=== PATIENT | male | born 1960 | race African-American/Black ===

== ENCOUNTER 2017-01-25 11:06 | Inpatient (IN) | payer OTHER ==
[2017-01-25] MEDS ORDERED: LEVETIRACETAM 1000 MG/NACL-ISO 100 ML IV ONE (12:12)
--- NOTE | 2017-01-25 13:11 | RADIOLOGY REPORT (SQ) ---
EXAM DESCRIPTION: CT HEAD WITHOUT COMPLETED DATE/TIME: 01/25/2017 12:55 pm REASON FOR STUDY: sz head pain COMPARISON: July 2016 TECHNIQUE: Axial images acquired through the brain without intravenous contrast. Images reviewed wi th bone, brain and subdural windows. Images stored on PACS. All CT scanners at this facility use dose modulation, iterative reconstruction, and/or weight based d osing when appropriate to reduce radiation dose to as low as reasonably achievable (ALARA). [facility]: Dose Right [facility]: CareDose [facility]: Dose Right [facility]: Teradose 4D [facility]: Printi RADIATION DOSE: 129.22 mGy. LIMITATIONS: None. FINDINGS: VENTRICLES: Normal size and contour. CEREBRUM: No masses. No hemorrhage. No midline shift. Normal dwyer/white matter differentiation. N o evidence for acute infarction. CEREBELLUM: No masses. No hemorrhage. No alteration of density. No evidence for acute infarction. EXTRAAXIAL SPACES: No fluid collections. No masses. ORBITS AND GLOBE: No intra- or extraconal masses. Normal contour of globe without masses. CALVARIUM: No fracture. PARANASAL SINUSES: No fluid or mucosal thickening. SOFT TISSUES: No mass or hematoma. OTHER: No other significant finding. IMPRESSION: NORMAL BRAIN CT WITHOUT CONTRAST. TECHNICAL DOCUMENTATION: JOB ID: [id number] Quality ID # [id number]: Final reports with documentation of one or more dose reduction techniques (e.g., Au tomated exposure control, adjustment of the mA and/or kV according to patient size, use of iterative reconstruction technique) 2010 [employer]- All Rights Reserved
[2017-01-25 14:20] LABS: ALCOHOL 14 mg/dL (NONE DETECTED); ANION GAP 17 (5-19); BLOOD UREA NITROGEN 9 mg/dL (7-20); CARBON DIOXIDE 23 mmol/L (22-30); CHLORIDE 80 mmol/L (98-107); CREATININE RESULT 0.95 mg/dL (0.52-1.25); GLUCOSE 84 mg/dL (75-110); MAGNESIUM 1.6 mg/dL (1.6-2.3); POTASSIUM 3.8 mmol/L (3.6-5.0)
[2017-01-25] MEDS ORDERED: NORMAL SALINE 1000 ML 1,000 ML IV ONE (14:26)
[2017-01-25 14:39] LABS: VALPROIC ACID < 10.0 ug/mL (50.0-120.0)
[2017-01-25] MEDS ORDERED: DIVALPROEX SODIUM 500 MG TAB.SR.24H PO ONE (14:59)
[2017-01-25 15:17] LABS: HEMATOCRIT 37.3 % (37.9-51.0); HEMOGLOBIN 12.3 g/dL (13.5-17.0); HGB HCT DIFFERENCE -0.4; MEAN CORPUSCULAR HEMOGLOBIN 26.5 pg (27.0-33.4); MEAN CORPUSCULAR VOLUME 80 fl (80-97); RED BLOOD COUNT 4.65 10^6/uL (4.35-5.55); RED CELL DISTRIBUTION WIDTH 18.9 % (11.5-14.0); WHITE BLOOD COUNT 4.1 10^3/uL (4.0-10.5)
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
[2017-01-25 15:57] LABS: BASOPHILS % (MANUAL) 0 % (0-2); EOSINOPHILS % (MANUAL) 0 % (0-6); LYMPHOCYTES % (MANUAL) 34 % (13-45); TOTAL CELLS COUNTED 100
[2017-01-25 16:00] LABS: ANISOCYTOSIS 1+; BURR CELLS SLIGHT; OVALOCYTES SLIGHT; POIKILOCYTOSIS 2+; SCHISTOCYTES SLIGHT
[2017-01-25 16:03] LABS: MICROCYTOSIS SLIGHT; TARGET CELLS 3+
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
[2017-01-25] MEDS ORDERED: NORMAL SALINE 1000 ML 1,000 ML IV PRN (17:34)
[2017-01-25] MEDS ORDERED: LORAZEPAM INJ 2 MG/1 ML VIAL IV PRN (17:41)
[2017-01-25] MEDS ORDERED: ACETAMINOPHEN 325 MG TABLET PO PRN (17:47)
[2017-01-25] MEDS ORDERED: HYDRALAZINE HCL INJ/PF 20 MG/1 ML SDV IV PRN (17:48)
[2017-01-25] MEDS: TRAMADOL HCL 50 MG TABLET PO PRN (18:03)
[2017-01-25 20:38] LABS: APPEARANCE,URINE CLEAR; BILIRUBIN,URINE NEGATIVE (NEGATIVE); GLUCOSE, URINE NEGATIVE (NEGATIVE); KETONES,URINE NEGATIVE (NEGATIVE); LEUKOCYTE ESTERASE,URINE NEGATIVE (NEGATIVE); NITRITE,URINE NEGATIVE (NEGATIVE); PROTEIN,URINE NEGATIVE (NEGATIVE); URINE SPECIFIC GRAVITY 1.005; UROBILINOGEN,URINE NEGATIVE mg/dL (<2.0)
[2017-01-25 20:52] LABS: URINE BARBITURATES SCREEN NEGATIVE; URINE METHADONE SCREEN NEGATIVE; URINE OPIATES LOW NEGATIVE; URINE PHENCYCLIDINE SCREEN NEGATIVE
[2017-01-25] MEDS: LORAZEPAM 1 MG TABLET PO PRN (21:12)
[2017-01-26] MEDS: TRAMADOL HCL 50 MG TABLET PO PRN ×3 (00:09→17:36)
[2017-01-26 06:01] LABS: ANION GAP 11 (5-19); BLOOD UREA NITROGEN 8 mg/dL (7-20); CALCIUM 9.3 mg/dL (8.4-10.2); CARBON DIOXIDE 24 mmol/L (22-30); CHLORIDE 89 mmol/L (98-107); GLUCOSE 90 mg/dL (75-110); MAGNESIUM 1.6 mg/dL (1.6-2.3); POTASSIUM 3.8 mmol/L (3.6-5.0); SODIUM 124.2 mmol/L (137-145)
[2017-01-26 06:13] LABS: HEMATOCRIT 35.1 % (37.9-51.0); HEMOGLOBIN 11.3 g/dL (13.5-17.0); HGB HCT DIFFERENCE -1.2; MEAN CORPUSCULAR HGB CONC 32.3 g/dL (32.0-36.0); MEAN CORPUSCULAR VOLUME 81 fl (80-97); RED BLOOD COUNT 4.35 10^6/uL (4.35-5.55); RED CELL DISTRIBUTION WIDTH 19.3 % (11.5-14.0); WHITE BLOOD COUNT 4.1 10^3/uL (4.0-10.5)
[2017-01-26 06:32] LABS: BASOPHILS % (MANUAL) 0 % (0-2); EOSINOPHILS % (MANUAL) 0 % (0-6); NUCLEATED RED BLOOD CELLS 1 /100 WBC (0); TOTAL CELLS COUNTED 100
[2017-01-26 06:34] LABS: ANISOCYTOSIS 2+; BURR CELLS SLIGHT; HOWELL-JOLLY BODIES PRESENT; HYPOCHROMASIA SLIGHT; OVALOCYTES SLIGHT; POIKILOCYTOSIS 1+; TARGET CELLS 1+; TEAR DROP CELLS SLIGHT; TOXIC VACUOLATION PRESENT
[2017-01-26 06:36] LABS: LYMPHOCYTES % (MANUAL) 69 % (13-45)
[2017-01-26] MEDS: LORAZEPAM 1 MG TABLET PO PRN ×2 (09:48→17:37)
--- NOTE | 2017-01-26 13:39 | PDOC PROGRESS REPORT ---
Subjective Progress Note for:: 01/26/17 Subjective:: This is a follow-up visit for hyponatremia. The patient had no acute events overnight. He states he got plenty of rest. He denies any chest pain or shortness of breath. He still complains of a headache. Physical Exam Vital Signs: Temp Pulse Resp BP Pulse Ox 98.2 F 72 16 120/75 100 01/26/17 07:14 01/26/17 08:00 01/26/17 08:00 01/26/17 08:00 01/26/17 08:00 Intake & Output 01/25/17 01/26/17 01/27/17 06:59 06:59 06:59 Intake Total 850 Output Total 1400 Balance -550 Weight 66.3 kg Physical exam: General: This is a well-developed, malnourished appearing -[place] male resting in bed currently in no acute distress. Heart: Regular rate and rhythm no murmurs rubs or gallops. Lungs: Clear to auscultation bilaterally with equal rise and fall of the chest. Abdomen: Soft nontender, nondistended. Colostomy is present. The bag is filled with soft brown stool. Extremities: No clubbing cyanosis or edema. Neuro: Awake and alert oriented 3. Nerves II through XII are grossly intact Results Laboratory Results: 01/26/17 04:58 01/26/17 04:58 01/25/17 01/26/17 01/26/17 20:15 04:58 04:58 WBC 4.1 RBC 4.35 Hgb 11.3 L Hct 35.1 L MCV 81 MCH 26.0 L MCHC 32.3 RDW 19.3 H Plt Count 325 Seg Neutrophils % Not Reportable Lymphocytes % Not Reportable Monocytes % Not Reportable Eosinophils % Not Reportable Basophils % Not Reportable Absolute Neutrophils Not Reportable Absolute Lymphocytes Not Reportable Absolute Monocytes Not Reportable Absolute Eosinophils Not Reportable Absolute Basophils Not Reportable Sodium 124.2 L Potassium 3.8 Chloride 89 L Carbon Dioxide 24 Anion Gap 11 BUN 8 Creatinine 0.90 Est GFR ( Amer) > 60 Est GFR (Non-Af Amer) > 60 Glucose 90 Calcium 9.3 Magnesium 1.6 TSH Urine Color YELLOW Urine Appearance CLEAR Urine pH 6.0 Ur Specific [place] 1.005 Urine Protein NEGATIVE Urine Glucose (UA) NEGATIVE Urine Ketones NEGATIVE Urine Blood NEGATIVE Urine Nitrite NEGATIVE Ur Leukocyte Esterase NEGATIVE Urine WBC (Auto) 0 01/26/17 04:58 WBC RBC Hgb Hct MCV MCH MCHC RDW Plt Count Seg Neutrophils % Lymphocytes % Monocytes % Eosinophils % Basophils % Absolute Neutrophils Absolute Lymphocytes Absolute Monocytes Absolute Eosinophils Absolute Basophils Sodium Potassium Chloride Carbon Dioxide Anion Gap BUN Creatinine Est GFR ( Amer) Est GFR (Non-Af Amer) Glucose Calcium Magnesium TSH 1.47 Urine Color Urine Appearance Urine pH Ur Specific [place] Urine Protein Urine Glucose (UA) Urine Ketones Urine Blood Urine Nitrite Ur Leukocyte Esterase Urine WBC (Auto) Impressions: Head CT 01/25/17 12:11 IMPRESSION: NORMAL BRAIN CT WITHOUT CONTRAST. Assessment & Plan - Diagnosis (1) Seizure disorder Plan: Patient has a known history of seizure disorder. He was started on Depakote and Keppra. No acute events overnight. (2) Hyponatremia Plan: Sodium is currently 125. Continue IV fluids. (3) Status post ileostomy Plan: Colostomy bag is intact. (4) Adrenal insufficiency Plan: Patient has a history of this documented in previous records. He is unaware of any such diagnosis. Home medications cannot be confirmed. Check a.m. cortisol (5) Alcohol use Plan: For alcohol withdrawal. Ativan available as needed. (6) Hypertension Plan: History of hypertension and supposedly is on Norvasc as an outpatient. we will need to contact his pharmacy. Currently his blood pressure is under control. (7) History of upper gastrointestinal bleeding Plan: Has a history of gastric ulcer hemorrhage secondary to coagulate use and NSAIDs. He has bled twice from this. Therefore mechanical prophylaxis will be instituted. (8) Headache Plan: We will give Tylenol or Tramadol. - Time Time Spent with patient: 15-24 minutes - Inpatient Certification Medical Necessity: Need Close Monitoring Due to Risk of Patient Decompensation, Need For IV Fluids
[2017-01-26 14:55] LABS: HEMATOCRIT 33.6 % (37.9-51.0); HEMOGLOBIN 10.9 g/dL (13.5-17.0); HGB HCT DIFFERENCE -0.9; MEAN CORPUSCULAR HEMOGLOBIN 26.3 pg (27.0-33.4); MEAN CORPUSCULAR HGB CONC 32.5 g/dL (32.0-36.0); MEAN CORPUSCULAR VOLUME 81 fl (80-97); RED BLOOD COUNT 4.16 10^6/uL (4.35-5.55); RED CELL DISTRIBUTION WIDTH 19.5 % (11.5-14.0); WHITE BLOOD COUNT 4.2 10^3/uL (4.0-10.5)
[2017-01-26 15:09] LABS: BASOPHILS % (MANUAL) 1 % (0-2); EOSINOPHILS % (MANUAL) 0 % (0-6); LYMPHOCYTES % (MANUAL) 53 % (13-45); TOTAL CELLS COUNTED 100
[2017-01-26 15:11] LABS: ANISOCYTOSIS 1+; HYPOCHROMASIA 1+; OVALOCYTES SLIGHT; POIKILOCYTOSIS 2+; TARGET CELLS 1+
[2017-01-26 15:12] LABS: BURR CELLS SLIGHT
[2017-01-26] MEDS ORDERED: DIPHENHYDRAMINE HCL 25 MG CAPSULE ONE (17:38)
[2017-01-26] MEDS ORDERED: (PENDING PHARMACY ID) (Divalproex Sodium [Depakote] 500 MG) PO SCH (20:00)
[2017-01-26] MEDS ORDERED: DIVALPROEX SODIUM 250 MG TABLET.DR PO SCH (20:45)
[2017-01-26] MEDS: DIPHENHYDRAMINE HCL 25 MG CAPSULE PO PRN (22:30)
[2017-01-27] MEDS: GABAPENTIN 300 MG CAPSULE PO SCH ×3 (01:10→11:28)
[2017-01-27 05:14] LABS: ANION GAP 10 (5-19); BLOOD UREA NITROGEN 8 mg/dL (7-20); CALCIUM 9.8 mg/dL (8.4-10.2); CARBON DIOXIDE 25 mmol/L (22-30); CHLORIDE 99 mmol/L (98-107); CREATININE RESULT 0.88 mg/dL (0.52-1.25); GLUCOSE 91 mg/dL (75-110); MAGNESIUM 1.7 mg/dL (1.6-2.3); POTASSIUM 4.4 mmol/L (3.6-5.0); SODIUM 134.2 mmol/L (137-145)
[2017-01-27] MEDS ORDERED: DEXTROSE 5%-WATER 1000 ML 1,000 ML IV ONE (05:52)
[2017-01-27] MEDS: DIPHENHYDRAMINE HCL 25 MG CAPSULE PO PRN (05:57)
[2017-01-27] MEDS ORDERED: LANSOPRAZOLE 30 MG TAB.RAP.DR PO SCH (08:00)
[2017-01-27] MEDS ORDERED: HYDROCORTISONE 10 MG TABLET PO SCH (10:00)
[2017-01-27] MEDS ORDERED: SERTRALINE HCL 50 MG TABLET PO SCH (10:00)
[2017-01-27] MEDS ORDERED: LEVETIRACETAM 500 MG TABLET PO SCH (10:00)
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
[2017-01-27 11:49] VITALS: BP 134/68
--- NOTE | 2017-01-28 09:38 | EKG REPORT ---
SEVERITY:- ABNORMAL ECG - SINUS RHYTHM LEFT VENTRICULAR HYPERTROPHY ANTERIOR ST ELEVATION, PROBABLY DUE TO LVH : Confirmed by: Seven Keller 28-Jan-2017 09:37:36
[2017-01-29 09:03] LABS: PATH REVIEW PATHOLOGIST REVIEWED
== END 2017-01-27 12:27 | disposition home or self-care (01) | DRG 641 ==
LOC: ER 11:06 → UNDOADMIN 16:17 → EH 16:17 → 3N 18:44
PROVIDERS: ADMIT Internal Medicine; ATTEND Internal Medicine
DX: E87.1 Hypo-osmolality and hyponatremia (principal); E27.40 Unspecified adrenocortical insufficiency; G40.909 Epilepsy, unspecified, not intractable, without status epilepticus; I11.0 Hypertensive heart disease with heart failure; I50.9 Heart failure, unspecified; F17.210 Nicotine dependence, cigarettes, uncomplicated; J45.909 Unspecified asthma, uncomplicated; E11.9 Type 2 diabetes mellitus without complications; F32.9 Major depressive disorder, single episode, unspecified; F10.10 Alcohol abuse, uncomplicated; R51 Headache; Z87.11 Personal history of peptic ulcer disease; Z90.49 Acquired absence of other specified parts of digestive tract; Z79.899 Other long term (current) drug therapy; Z83.3 Family history of diabetes mellitus; Z82.49 Family history of ischemic heart disease and other diseases of the circulatory system; Z88.6 Allergy status to analgesic agent; Z91.041 Radiographic dye allergy status; Z93.2 Ileostomy status; Z91.19 Patient's noncompliance with other medical treatment and regimen; Z68.22 Body mass index [BMI] 22.0-22.9, adult
CPT/HCPCS: 36415; 70450; 80048; 80164; 80177; 80307; 81001; 82140; 82533; 83735; 84443; 85025; 93005; 93010; 96361; 96374; 99285; J1953; J3490; J7030; J7060

== ENCOUNTER 2017-03-16 21:12 | Inpatient (IN) | payer OTHER ==
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
[2017-03-16] MEDS ORDERED: ASPIRIN 325 MG TABLET PO ONE (22:52)
[2017-03-16 23:35] LABS: ALANINE AMINOTRANSFERASE 41 U/L (21-72); ALBUMIN 4.9 g/dL (3.5-5.0); ALKALINE PHOSPHATASE 109 U/L (38-126); ANION GAP 16 (5-19); ASPARTATE AMINO TRANSFERASE 69 U/L (17-59); BILIRUBIN,DIRECT 0.6 mg/dL (0.0-0.4); BILIRUBIN,TOTAL 0.7 mg/dL (0.2-1.3); BLOOD UREA NITROGEN 5 mg/dL (7-20); CALCIUM 9.8 mg/dL (8.4-10.2); CARBON DIOXIDE 22 mmol/L (22-30); CHLORIDE 80 mmol/L (98-107); CREATININE RESULT 0.85 mg/dL (0.52-1.25); GLUCOSE 90 mg/dL (75-110); POTASSIUM 3.7 mmol/L (3.6-5.0); TOTAL PROTEIN 8.6 g/dL (6.3-8.2)
[2017-03-16 23:37] LABS: SODIUM 117.6 mmol/L (137-145)
[2017-03-16] MEDS ORDERED: NORMAL SALINE 1000 ML 1,000 ML IV ONE (23:38)
[2017-03-16 23:44] LABS: HEMATOCRIT 32.9 % (37.9-51.0); HGB HCT DIFFERENCE 0.1; MEAN CORPUSCULAR HEMOGLOBIN 26.3 pg (27.0-33.4); MEAN CORPUSCULAR HGB CONC 33.6 g/dL (32.0-36.0); MEAN CORPUSCULAR VOLUME 78 fl (80-97); RED CELL DISTRIBUTION WIDTH 18.9 % (11.5-14.0); WHITE BLOOD COUNT 4.6 10^3/uL (4.0-10.5)
[2017-03-16] MEDS ORDERED: NORMAL SALINE 1000 ML 1,000 ML IV PRN (23:56)
[2017-03-16] MEDS ORDERED: ACETAMINOPHEN 325 MG TABLET PO ONE (23:58)
[2017-03-16] MEDS ORDERED: THIAMINE HCL 100 MG TABLET PO ONE (23:58)
[2017-03-17 00:08] LABS: ANISOCYTOSIS 2+; BASOPHILS % (MANUAL) 0 % (0-2); EOSINOPHILS % (MANUAL) 0 % (0-6); LYMPHOCYTES % (MANUAL) 53 % (13-45); MICROCYTOSIS SLIGHT; TOTAL CELLS COUNTED 100
[2017-03-17 00:11] LABS: ACANTHOCYTES SLIGHT; BURR CELLS SLIGHT; OVALOCYTES SLIGHT; POIKILOCYTOSIS 1+; SPHEROCYTES SLIGHT; TARGET CELLS 2+
[2017-03-17 00:12] LABS: HYPOCHROMASIA SLIGHT
[2017-03-17 00:13] LABS: HOWELL-JOLLY BODIES PRESENT
[2017-03-17 00:25] LABS: ADD ON TESTING BLD IN LAB ACKNOWLEDGE
[2017-03-17 00:41] LABS: MAGNESIUM 1.5 mg/dL (1.6-2.3)
[2017-03-17 00:42] LABS: ALCOHOL < 10 mg/dL (NONE DETECTED)
--- NOTE | 2017-03-17 01:06 | RADIOLOGY REPORT (SQ) ---
"EXAM DESCRIPTION: CT HEAD WITHOUT COMPLETED DATE/TIME: 03/17/2017 12:45 am REASON FOR STUDY: dizzy COMPARISON: 6.9.17 TECHNIQUE: Axial images acquired through the brain without intravenous contrast. Images reviewed wi th bone, brain and subdural windows. Images stored on PACS. All CT scanners at this facility use dose modulation, iterative reconstruction, and/or weight based d osing when appropriate to reduce radiation dose to as low as reasonably achievable (ALARA). [facility]: Dose Right [facility]: CareDose [facility]: Dose Right [facility]: Teradose 4D [facility]: Smart Multimedia Plus | [employer] RADIATION DOSE: Up-to-date CT equipment and radiation dose reduction techniques were employed. CTDIv ol: 64.6 mGy. DLP: 1163 mGy-cm. mGy. LIMITATIONS: None. FINDINGS: VENTRICLES: Normal size and contour. CEREBRUM: No masses. No hemorrhage. No midline shift. Normal dwyer/white matter differentiation. N o evidence for acute infarction. CEREBELLUM: No masses. No hemorrhage. No alteration of density. No evidence for acute infarction. EXTRAAXIAL SPACES: No fluid collections. No masses. ORBITS AND GLOBE: No intra- or extraconal masses. Normal contour of globe without masses. CALVARIUM: No fracture. PARANASAL SINUSES: No fluid or mucosal thickening. SOFT TISSUES: No mass or hematoma. OTHER: No other significant finding. IMPRESSION: NORMAL BRAIN CT WITHOUT CONTRAST. TECHNICAL DOCUMENTATION: JOB ID: [id number] Quality ID # [id number]: Final reports with documentation of one or more dose reduction techniques (e.g., Au tomated exposure control, adjustment of the mA and/or kV according to patient size, use of iterative reconstruction technique) 2010 [employer]- All Rights Reserved"
[2017-03-17] MEDS ORDERED: ACETAMINOPHEN 325 MG TABLET PO PRN (02:02)
[2017-03-17] MEDS ORDERED: PROMETHAZINE HCL 25 MG TABLET PO PRN (02:02)
[2017-03-17] MEDS ORDERED: LORAZEPAM INJ 2 MG/1 ML VIAL IV PRN (02:03)
[2017-03-17] MEDS ORDERED: MAGNESIUM SULFATE/D5W 1 GM/100 ML RTUPB IV SCH (02:15)
[2017-03-17] MEDS ORDERED: PHENYTOIN SODIUM EXTENDED 100 MG CAPSULE PO ONE (02:30)
[2017-03-17 02:35] LABS: ADD ON TESTING BLD IN LAB ACKNOWLEDGE
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
[2017-03-17 02:52] LABS: PROTHROMBIN TIME 12.7 SEC (11.4-15.4)
[2017-03-17 02:53] LABS: PARTIAL THROMBOPLASTIN TIME 35.9 SEC (23.5-35.8)
[2017-03-17 03:08] LABS: VALPROIC ACID < 10.0 ug/mL (50.0-120.0)
[2017-03-17 03:13] LABS: D-DIMER < 0.27 ug/mL (0.00-0.50)
[2017-03-17 04:30] LABS: APPEARANCE,URINE CLEAR; BILIRUBIN,URINE NEGATIVE (NEGATIVE); GLUCOSE, URINE NEGATIVE (NEGATIVE); KETONES,URINE NEGATIVE (NEGATIVE); LEUKOCYTE ESTERASE,URINE NEGATIVE (NEGATIVE); NITRITE,URINE NEGATIVE (NEGATIVE); PROTEIN,URINE NEGATIVE (NEGATIVE); URINE SPECIFIC GRAVITY 1.004; UROBILINOGEN,URINE NEGATIVE mg/dL (<2.0)
[2017-03-17 04:31] LABS: ANION GAP 11 (5-19); BLOOD UREA NITROGEN 4 mg/dL (7-20); CALCIUM 8.5 mg/dL (8.4-10.2); CARBON DIOXIDE 20 mmol/L (22-30); CHLORIDE 86 mmol/L (98-107); GLUCOSE 115 mg/dL (75-110); POTASSIUM 3.2 mmol/L (3.6-5.0)
[2017-03-17 04:39] LABS: SODIUM 116.9 mmol/L (137-145)
[2017-03-17 04:51] LABS: URINE BARBITURATES SCREEN NEGATIVE; URINE METHADONE SCREEN NEGATIVE; URINE OPIATES LOW NEGATIVE; URINE PHENCYCLIDINE SCREEN NEGATIVE
--- NOTE | 2017-03-17 05:34 | RADIOLOGY REPORT (SQ) ---
EXAM DESCRIPTION: CHEST SINGLE VIEW COMPLETED DATE/TIME: 03/17/2017 3:49 am REASON FOR STUDY: chest pain COMPARISON: 08/05/2016. EXAM PARAMETERS: NUMBER OF VIEWS: One view. TECHNIQUE: Single frontal radiographic view of the chest acquired. RADIATION DOSE: NA LIMITATIONS: None. FINDINGS: LUNGS AND PLEURA: No opacities, masses or pneumothorax. No pleural effusion. MEDIASTINUM AND HILAR STRUCTURES: No masses. Contour normal. HEART AND VASCULAR STRUCTURES: Heart normal in size. Normal vasculature. BONES: Moderate deformity of the left lower hemithorax posterolaterally. HARDWARE: None in the chest. OTHER: No other significant finding. IMPRESSION: No acute cardiopulmonary findings. TECHNICAL DOCUMENTATION: JOB ID: [id number]
[2017-03-17] MEDS: POTASSIUM CHLORIDE 20 MEQ/15 ML UDCUP PO SCH ×3 (05:37→09:40)
[2017-03-17] MEDS ORDERED: PHENYTOIN SODIUM EXTENDED 100 MG CAPSULE PO SCH ×2 (06:00→10:00)
[2017-03-17 08:03] LABS: HEMATOCRIT 31.7 % (37.9-51.0); HEMOGLOBIN 10.7 g/dL (13.5-17.0); HGB HCT DIFFERENCE 0.4; MEAN CORPUSCULAR HEMOGLOBIN 26.6 pg (27.0-33.4); MEAN CORPUSCULAR HGB CONC 33.8 g/dL (32.0-36.0); MEAN CORPUSCULAR VOLUME 79 fl (80-97); RED BLOOD COUNT 4.03 10^6/uL (4.35-5.55); RED CELL DISTRIBUTION WIDTH 19.3 % (11.5-14.0); WHITE BLOOD COUNT 4.1 10^3/uL (4.0-10.5)
[2017-03-17] MEDS ORDERED: LANSOPRAZOLE 15 MG TAB.RAP.DR PO ONE (08:15)
[2017-03-17] MEDS ORDERED: GABAPENTIN 400 MG CAPSULE PO ONE (08:15)
[2017-03-17 08:17] LABS: ALANINE AMINOTRANSFERASE 25 U/L (21-72); ALBUMIN 3.5 g/dL (3.5-5.0); ALKALINE PHOSPHATASE 94 U/L (38-126); ANION GAP 10 (5-19); ASPARTATE AMINO TRANSFERASE 47 U/L (17-59); BILIRUBIN,DIRECT 0.4 mg/dL (0.0-0.4); BILIRUBIN,TOTAL 0.5 mg/dL (0.2-1.3); BLOOD UREA NITROGEN 4 mg/dL (7-20); CALCIUM 8.8 mg/dL (8.4-10.2); CARBON DIOXIDE 21 mmol/L (22-30); CHLORIDE 88 mmol/L (98-107); CHOLESTEROL 130.44 mg/dL (0-200); CREATININE RESULT 0.83 mg/dL (0.52-1.25); Direct HDL 88 mg/dL (>40); GLUCOSE 111 mg/dL (75-110); TOTAL PROTEIN 6.3 g/dL (6.3-8.2); TRIGLYCERIDES 62 mg/dL (<150)
[2017-03-17 08:30] LABS: DIRECT LDL < 30 mg/dL (<100)
[2017-03-17 08:37] LABS: BASOPHILS % (MANUAL) 1 % (0-2); EOSINOPHILS % (MANUAL) 1 % (0-6); LYMPHOCYTES % (MANUAL) 46 % (13-45); TOTAL CELLS COUNTED 100
[2017-03-17 08:56] LABS: ANISOCYTOSIS 1+; HYPOCHROMASIA 2+; MICROCYTOSIS 1+; POIKILOCYTOSIS 2+
[2017-03-17 08:57] LABS: BURR CELLS SLIGHT; OVALOCYTES SLIGHT; TARGET CELLS 1+; TEAR DROP CELLS SLIGHT
[2017-03-17] MEDS: DIVALPROEX SODIUM 250 MG TABLET.DR PO SCH ×2 (09:36→21:29)
[2017-03-17] MEDS: LEVETIRACETAM 500 MG TABLET PO SCH ×2 (09:37→18:10)
[2017-03-17] MEDS: FOLIC ACID 1 MG TABLET PO SCH (09:37)
[2017-03-17] MEDS: THIAMINE HCL 100 MG TABLET PO SCH (09:37)
[2017-03-17] MEDS: MULTIVITAMIN TABLET PO SCH (09:37)
[2017-03-17] MEDS: DOCUSATE SODIUM 100 MG CAPSULE PO SCH ×2 (09:38→18:11)
[2017-03-17] MEDS: HYDROCORTISONE 10 MG TABLET PO SCH ×2 (09:38→18:11)
[2017-03-17] MEDS: CLOPIDOGREL BISULFATE 75 MG TABLET PO SCH (09:38)
[2017-03-17] MEDS: SERTRALINE HCL 50 MG TABLET PO SCH (09:39)
[2017-03-17] MEDS: ENOXAPARIN SODIUM INJ 40 MG/0.4 ML DISP.SYRIN SUBCUT SCH (09:39)
[2017-03-17] MEDS ORDERED: MAGNESIUM SULFATE/D5W 1 GM/100 ML RTUPB IV ONE (09:45)
[2017-03-17] MEDS: OXYCODONE HCL IR 5 MG TABLET PO PRN ×2 (10:32→18:10)
--- NOTE | 2017-03-17 11:13 | EKG REPORT ---
SEVERITY:- ABNORMAL ECG - SINUS RHYTHM FIRST DEGREE AV BLOCK LEFT VENTRICULAR HYPERTROPHY ANTERIOR ST ELEVATION, PROBABLY DUE TO LVH : Confirmed by: Marilyn Kirby MD 17-Mar-2017 11:12:54
[2017-03-17 12:48] LABS: BLOOD UREA NITROGEN 4 mg/dL (7-20); CALCIUM 8.8 mg/dL (8.4-10.2); CARBON DIOXIDE 22 mmol/L (22-30); CHLORIDE 89 mmol/L (98-107); CREATININE RESULT 0.83 mg/dL (0.52-1.25); GLUCOSE 104 mg/dL (75-110); POTASSIUM 4.4 mmol/L (3.6-5.0)
[2017-03-17 12:51] LABS: ANION GAP 7 (5-19)
[2017-03-17 12:58] LABS: SODIUM 117.5 mmol/L (137-145)
--- NOTE | 2017-03-17 13:25 | PDOC PROGRESS REPORT ---
Subjective Progress Note for:: 03/17/17 Subjective:: Patient was complaining of a headache today and wanted pain medication. He was then threatening to leave AGAINST MEDICAL ADVICE. He states he has had issues with depression but denies any suicidal ideation or plan. Physical Exam Vital Signs: Temp Pulse Resp BP Pulse Ox 98.7 F 70 16 122/71 100 03/17/17 07:58 03/17/17 07:58 03/17/17 07:58 03/17/17 07:58 03/17/17 07:58 Intake & Output 03/16/17 03/17/17 03/18/17 06:59 06:59 06:59 Intake Total 1395 Balance 1395 Weight 59.6 kg GENERAL: No acute distress HEENT: Conjunctiva clear, nonicteric, moist mucous membranes, no JVD, midline trachea RESPIRATORY: Clear to auscultation bilaterally, no wheezes, no rhonchi CARDIAC: Regular rate and rhythm, no murmurs/gallops/rubs ABDOMEN: Soft, nondistended, nontender, positive bowel sounds, no rebound, no guarding. Ileostomy present EXTREMETIES: No edema, cyanosis, clubbing NEUROLOGIC: Alert, oriented to person/place/time, CN's grossly intact, no focal deficits SKIN: No rash, wounds PSYCH: Normal mood, normal affect Results Laboratory Results: 03/17/17 07:45 03/17/17 12:00 03/17/17 03/17/17 03/17/17 03:53 03:59 07:45 WBC RBC Hgb Hct MCV MCH MCHC RDW Plt Count Seg Neutrophils % Lymphocytes % Monocytes % Eosinophils % Basophils % Absolute Neutrophils Absolute Lymphocytes Absolute Monocytes Absolute Eosinophils Absolute Basophils Sodium 116.9 L* 119.0 L* Potassium 3.2 L 4.0 Chloride 86 L 88 L Carbon Dioxide 20 L 21 L Anion Gap 11 10 BUN 4 L 4 L Creatinine 0.80 0.83 Est GFR ( Amer) > 60 > 60 Est GFR (Non-Af Amer) > 60 > 60 Glucose 115 H 111 H Calcium 8.5 8.8 Total Bilirubin 0.5 AST 47 ALT 25 Alkaline Phosphatase 94 Total Protein 6.3 Albumin 3.5 Triglycerides 62 Cholesterol 130.44 LDL Cholesterol Direct < 30 VLDL Cholesterol 12.0 HDL Cholesterol 88 Urine Color YELLOW Urine Appearance CLEAR Urine pH 6.0 Ur Specific [place] 1.004 Urine Protein NEGATIVE Urine Glucose (UA) NEGATIVE Urine Ketones NEGATIVE Urine Blood NEGATIVE Urine Nitrite NEGATIVE Ur Leukocyte Esterase NEGATIVE Urine WBC (Auto) 1 03/17/17 03/17/17 07:45 12:00 WBC 4.1 RBC 4.03 L Hgb 10.7 L Hct 31.7 L MCV 79 L MCH 26.6 L MCHC 33.8 RDW 19.3 H Plt Count 288 Seg Neutrophils % Not Reportable Lymphocytes % Not Reportable Monocytes % Not Reportable Eosinophils % Not Reportable Basophils % Not Reportable Absolute Neutrophils Not Reportable Absolute Lymphocytes Not Reportable Absolute Monocytes Not Reportable Absolute Eosinophils Not Reportable Absolute Basophils Not Reportable Sodium 117.5 L* Potassium 4.4 Chloride 89 L Carbon Dioxide 22 Anion Gap 7 BUN 4 L Creatinine 0.83 Est GFR ( Amer) > 60 Est GFR (Non-Af Amer) > 60 Glucose 104 Calcium 8.8 Total Bilirubin AST ALT Alkaline Phosphatase Total Protein Albumin Triglycerides Cholesterol LDL Cholesterol Direct VLDL Cholesterol HDL Cholesterol Urine Color Urine Appearance Urine pH Ur Specific [place] Urine Protein Urine Glucose (UA) Urine Ketones Urine Blood Urine Nitrite Ur Leukocyte Esterase Urine WBC (Auto) 03/17/17 03/17/17 03/17/17 03:59 07:45 12:10 Troponin I < 0.012 0.012 < 0.012 Impressions: Chest X-Ray 03/17/17 00:00 IMPRESSION: No acute cardiopulmonary findings. Head CT 03/17/17 00:00 IMPRESSION: NORMAL BRAIN CT WITHOUT CONTRAST. Assessment & Plan - Diagnosis (1) Hyponatremia Is this a current diagnosis for this admission?: YesPlan: Likely secondary to alcohol intake and ileostomy. Continue IV normal saline. (2) Depression Is this a current diagnosis for this admission?: YesPlan: Continue Zoloft. Patient denies suicidal ideation or plan. Psychology consult. (3) Hypomagnesemia Is this a current diagnosis for this admission?: Yes (4) History of DVT (deep vein thrombosis) Is this a current diagnosis for this admission?: YesPlan: Currently not on coagulation secondary to history of GI bleed. (5) Adrenal insufficiency Is this a current diagnosis for this admission?: YesPlan: Hydrocortisone. (6) Alcohol use Is this a current diagnosis for this admission?: Yes (7) Hepatitis C Is this a current diagnosis for this admission?: Yes (8) History of upper gastrointestinal bleeding Is this a current diagnosis for this admission?: Yes (9) Seizure disorder Is this a current diagnosis for this admission?: YesPlan: Continue Irene and Asha. (10) Status post ileostomy Is this a current diagnosis for this admission?: Yes (11) Headache Is this a current diagnosis for this admission?: YesPlan: Head CT negative. - Time Time Spent with patient: 35 or more minutes
[2017-03-17] MEDS: TRAMADOL HCL 50 MG TABLET PO PRN ×2 (13:39→22:11)
[2017-03-17] MEDS: GABAPENTIN 400 MG CAPSULE PO SCH ×2 (13:39→21:28)
[2017-03-17] MEDS: NORMAL SALINE 1000 ML 1,000 ML IV PRN (18:51)
[2017-03-18] MEDS: OXYCODONE HCL IR 5 MG TABLET PO PRN ×2 (00:11→07:57)
[2017-03-18] MEDS: NORMAL SALINE 1000 ML 1,000 ML IV PRN ×3 (03:21→23:32)
[2017-03-18 04:20] LABS: HEMOGLOBIN 10.1 g/dL (13.5-17.0); HGB HCT DIFFERENCE 0.3; MEAN CORPUSCULAR HEMOGLOBIN 26.5 pg (27.0-33.4); MEAN CORPUSCULAR HGB CONC 33.8 g/dL (32.0-36.0); MEAN CORPUSCULAR VOLUME 79 fl (80-97); RED BLOOD COUNT 3.83 10^6/uL (4.35-5.55); RED CELL DISTRIBUTION WIDTH 19.4 % (11.5-14.0); WHITE BLOOD COUNT 4.3 10^3/uL (4.0-10.5)
[2017-03-18 04:24] LABS: ANION GAP 10 (5-19); BLOOD UREA NITROGEN 3 mg/dL (7-20); CALCIUM 9.1 mg/dL (8.4-10.2); CARBON DIOXIDE 20 mmol/L (22-30); CHLORIDE 102 mmol/L (98-107); CREATININE RESULT 0.86 mg/dL (0.52-1.25); GLUCOSE 110 mg/dL (75-110); MAGNESIUM 2.1 mg/dL (1.6-2.3); POTASSIUM 4.7 mmol/L (3.6-5.0); SODIUM 131.7 mmol/L (137-145)
[2017-03-18 04:55] LABS: BASOPHILS % (MANUAL) 0 % (0-2); EOSINOPHILS % (MANUAL) 0 % (0-6); LYMPHOCYTES % (MANUAL) 23 % (13-45); TOTAL CELLS COUNTED 100
[2017-03-18 05:06] LABS: ACANTHOCYTES 1+; ANISOCYTOSIS 2+; BURR CELLS 1+; HYPOCHROMASIA 1+; MICROCYTOSIS SLIGHT; OVALOCYTES 1+; POIKILOCYTOSIS 3+; TOXIC VACUOLATION PRESENT
[2017-03-18 05:07] LABS: TARGET CELLS 3+; TEAR DROP CELLS SLIGHT
[2017-03-18] MEDS: LANSOPRAZOLE 15 MG TAB.RAP.DR PO SCH (06:35)
[2017-03-18] MEDS: GABAPENTIN 400 MG CAPSULE PO SCH ×3 (06:35→21:01)
[2017-03-18] MEDS: TRAMADOL HCL 50 MG TABLET PO PRN (07:18)
[2017-03-18] MEDS: ENOXAPARIN SODIUM INJ 40 MG/0.4 ML DISP.SYRIN SUBCUT SCH (09:29)
[2017-03-18] MEDS: HYDROCORTISONE 10 MG TABLET PO SCH ×2 (09:29→19:33)
[2017-03-18] MEDS: CLOPIDOGREL BISULFATE 75 MG TABLET PO SCH (09:29)
[2017-03-18] MEDS: THIAMINE HCL 100 MG TABLET PO SCH (09:29)
[2017-03-18] MEDS: MULTIVITAMIN TABLET PO SCH (09:29)
[2017-03-18] MEDS: DIVALPROEX SODIUM 250 MG TABLET.DR PO SCH ×2 (09:30→21:01)
[2017-03-18] MEDS: SERTRALINE HCL 50 MG TABLET PO SCH (09:30)
[2017-03-18] MEDS: LEVETIRACETAM 500 MG TABLET PO SCH ×2 (09:30→19:33)
[2017-03-18] MEDS: FOLIC ACID 1 MG TABLET PO SCH (09:30)
[2017-03-18] MEDS: DOCUSATE SODIUM 100 MG CAPSULE PO SCH ×2 (09:34→19:32)
[2017-03-18] MEDS ORDERED: LORAZEPAM INJ 2 MG/1 ML VIAL IV PRN (10:32)
[2017-03-18] MEDS ORDERED: DIPHENHYDRAMINE HCL 50 MG/ML VIAL IV ONE (11:00)
--- NOTE | 2017-03-18 11:39 | PDOC PROGRESS REPORT ---
Physical Exam Vital Signs: Temp Pulse Resp BP Pulse Ox 98.1 F 84 16 138/74 H 100 03/18/17 07:02 03/18/17 07:02 03/18/17 07:02 03/18/17 07:02 03/18/17 07:02 Intake & Output 03/17/17 03/18/17 03/19/17 06:59 06:59 06:59 Intake Total 1395 2250 Output Total 4100 Balance 1395 -1850 Weight 59.6 kg 60.1 kg Results Laboratory Results: 03/18/17 03:59 03/18/17 03:59 03/17/17 03/18/17 03/18/17 12:00 03:59 03:59 WBC 4.3 RBC 3.83 L Hgb 10.1 L Hct 30.0 L MCV 79 L MCH 26.5 L MCHC 33.8 RDW 19.4 H Plt Count 271 Seg Neutrophils % Not Reportable Lymphocytes % Not Reportable Monocytes % Not Reportable Eosinophils % Not Reportable Basophils % Not Reportable Absolute Neutrophils Not Reportable Absolute Lymphocytes Not Reportable Absolute Monocytes Not Reportable Absolute Eosinophils Not Reportable Absolute Basophils Not Reportable Sodium 117.5 L* 131.7 L Potassium 4.4 4.7 Chloride 89 L 102 Carbon Dioxide 22 20 L Anion Gap 7 10 BUN 4 L 3 L Creatinine 0.83 0.86 Est GFR ( Amer) > 60 > 60 Est GFR (Non-Af Amer) > 60 > 60 Glucose 104 110 Calcium 8.8 9.1 Magnesium 2.1 03/17/17 03/17/17 03/17/17 03:59 07:45 12:10 Troponin I < 0.012 0.012 < 0.012 03/18/17 03:59 Troponin I < 0.012 Impressions: Chest X-Ray 03/17/17 00:00 IMPRESSION: No acute cardiopulmonary findings. Head CT 03/17/17 00:00 IMPRESSION: NORMAL BRAIN CT WITHOUT CONTRAST. Assessment & Plan - Diagnosis (1) Alcohol withdrawal Qualifiers: Complication of substance-induced condition: uncomplicated Qualified Code(s): F10.230 - Alcohol dependence with withdrawal, uncomplicated Is this a current diagnosis for this admission?: YesPlan: Start as needed IV Ativan. Continue IV thiamine. Order sitter as patient continuously tries to get out of bed unassisted. (2) Alcohol use Is this a current diagnosis for this admission?: Yes (3) Hyponatremia Is this a current diagnosis for this admission?: YesPlan: Likely secondary to alcohol intake and ileostomy. Continue IV normal saline. (4) Depression Is this a current diagnosis for this admission?: Yes (5) Hypomagnesemia Is this a current diagnosis for this admission?: Yes (6) History of DVT (deep vein thrombosis) Is this a current diagnosis for this admission?: Yes (7) Adrenal insufficiency Is this a current diagnosis for this admission?: YesPlan: Hydrocortisone. (8) Hepatitis C Is this a current diagnosis for this admission?: Yes (9) History of upper gastrointestinal bleeding Is this a current diagnosis for this admission?: Yes (10) Seizure disorder Is this a current diagnosis for this admission?: YesPlan: Continue Keppra and Depakote. (11) Status post ileostomy Is this a current diagnosis for this admission?: Yes - Time Time Spent with patient: 35 or more minutes
[2017-03-18 14:23] LABS: PATH REVIEW PATHOLOGIST REVIEWED
[2017-03-18] MEDS ORDERED: PROMETHAZINE HCL 25 MG TABLET PO PRN (15:24)
[2017-03-18] MEDS: LORAZEPAM INJ 2 MG/1 ML VIAL IV PRN ×2 (15:26→21:02)
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
[2017-03-19] MEDS: LORAZEPAM INJ 2 MG/1 ML VIAL IV PRN ×4 (00:15→19:59)
[2017-03-19] MEDS: LANSOPRAZOLE 15 MG TAB.RAP.DR PO SCH (05:19)
[2017-03-19] MEDS: GABAPENTIN 400 MG CAPSULE PO SCH ×3 (05:19→22:29)
[2017-03-19 05:46] LABS: MEAN CORPUSCULAR HEMOGLOBIN 26.2 pg (27.0-33.4)
[2017-03-19 05:48] LABS: HEMATOCRIT 32.3 % (37.9-51.0); HEMOGLOBIN 10.6 g/dL (13.5-17.0); HGB HCT DIFFERENCE -0.5; MEAN CORPUSCULAR HGB CONC 32.9 g/dL (32.0-36.0); MEAN CORPUSCULAR VOLUME 80 fl (80-97); RED BLOOD COUNT 4.04 10^6/uL (4.35-5.55); RED CELL DISTRIBUTION WIDTH 19.1 % (11.5-14.0)
[2017-03-19 05:57] LABS: ANION GAP 9 (5-19); BLOOD UREA NITROGEN 5 mg/dL (7-20); CALCIUM 9.2 mg/dL (8.4-10.2); CARBON DIOXIDE 25 mmol/L (22-30); CHLORIDE 104 mmol/L (98-107); CREATININE RESULT 0.89 mg/dL (0.52-1.25); GLUCOSE 101 mg/dL (75-110); MAGNESIUM 1.8 mg/dL (1.6-2.3); POTASSIUM 4.5 mmol/L (3.6-5.0); SODIUM 137.8 mmol/L (137-145)
[2017-03-19 06:14] LABS: BASOPHILS % (MANUAL) 0 % (0-2); EOSINOPHILS % (MANUAL) 2 % (0-6); LYMPHOCYTES % (MANUAL) 30 % (13-45); TOTAL CELLS COUNTED 100
[2017-03-19 06:16] LABS: ANISOCYTOSIS 2+; BURR CELLS 1+; HYPOCHROMASIA 1+; MICROCYTOSIS SLIGHT; OVALOCYTES SLIGHT; POIKILOCYTOSIS 2+; SCHISTOCYTES SLIGHT; TARGET CELLS 1+; TOXIC GRANULATION SLIGHT; TOXIC VACUOLATION PRESENT
[2017-03-19] MEDS: NORMAL SALINE 1000 ML 1,000 ML IV PRN (09:16)
[2017-03-19] MEDS: ENOXAPARIN SODIUM INJ 40 MG/0.4 ML DISP.SYRIN SUBCUT SCH (09:48)
[2017-03-19] MEDS: THIAMINE HCL 100 MG TABLET PO SCH (09:48)
[2017-03-19] MEDS: LEVETIRACETAM 500 MG TABLET PO SCH ×2 (09:49→19:47)
[2017-03-19] MEDS: SERTRALINE HCL 50 MG TABLET PO SCH (09:49)
[2017-03-19] MEDS: MULTIVITAMIN TABLET PO SCH (09:49)
[2017-03-19] MEDS: CLOPIDOGREL BISULFATE 75 MG TABLET PO SCH (09:49)
[2017-03-19] MEDS: DOCUSATE SODIUM 100 MG CAPSULE PO SCH ×2 (09:49→18:35)
[2017-03-19] MEDS: HYDROCORTISONE 10 MG TABLET PO SCH ×2 (09:49→19:47)
[2017-03-19] MEDS: FOLIC ACID 1 MG TABLET PO SCH (09:50)
[2017-03-19] MEDS: DEXTROSE 5%-WATER 1000 ML 1,000 ML IV PRN (12:18)
[2017-03-19] MEDS: DIVALPROEX SODIUM 250 MG TABLET.DR PO SCH ×2 (14:19→22:29)
[2017-03-19] MEDS: DIAZEPAM 5 MG TABLET PO SCH ×2 (14:19→22:28)
[2017-03-19] MEDS: HALOPERIDOL LACTATE INJ 5 MG/1 ML VIAL IV PRN (14:30)
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
[2017-03-19 17:59] LABS: ANION GAP 13 (5-19); BLOOD UREA NITROGEN 5 mg/dL (7-20); CALCIUM 10.3 mg/dL (8.4-10.2); CARBON DIOXIDE 24 mmol/L (22-30); CHLORIDE 97 mmol/L (98-107); CREATININE RESULT 0.97 mg/dL (0.52-1.25); GLUCOSE 206 mg/dL (75-110); SODIUM 134.3 mmol/L (137-145)
--- NOTE | 2017-03-19 18:10 | PDOC PROGRESS REPORT ---
Subjective Progress Note for:: 03/19/17 Subjective:: Patient is seen with nursing staff at bedside. patient is somewhat lethargic but answers questions Mostly appropriately, thus limiting patient's review of systems. Patient denies chest pain, shortness of breath, abdominal pain, nausea, vomiting , fevers, chills. Physical Exam Vital Signs: Temp Pulse Resp BP Pulse Ox 97.5 F 69 18 160/90 H 95 03/19/17 07:30 03/19/17 07:30 03/19/17 07:30 03/19/17 07:30 03/19/17 07:30 Intake & Output 03/18/17 03/19/17 03/20/17 06:59 06:59 06:59 Intake Total 2250 3355 Output Total 4100 2500 Balance -1850 855 Weight 60.1 kg 63.4 kg Exam: GENERAL: Somnolent but arousable, no acute distress HEENT: Conjunctiva clear, nonicteric, moist mucous membranes, no JVD, midline trachea, poor dentition RESPIRATORY: Clear to auscultation bilaterally, no wheezes, no rhonchi CARDIAC: Regular rate and rhythm, no murmurs/gallops/rubs ABDOMEN: Soft, nondistended, nontender, positive bowel sounds, no rebound, no guarding. Ileostomy present with large area of protrusion into bag, pink and well perfused however EXTREMETIES: No edema, cyanosis, clubbing NEUROLOGIC: Alert, oriented to person, CN's grossly intact, no focal deficits SKIN: No rash, wounds PSYCH: Intermittently agitated Results Laboratory Results: 03/19/17 05:30 03/19/17 05:30 03/18/17 03/19/17 03/19/17 03:59 05:30 05:30 WBC 4.3 7.0 RBC 3.83 L 4.04 L Hgb 10.1 L 10.6 L Hct 30.0 L 32.3 L MCV 79 L 80 MCH 26.5 L 26.2 L MCHC 33.8 32.9 RDW 19.4 H 19.1 H Plt Count 271 191 Seg Neutrophils % Not Reportable Lymphocytes % Not Reportable Monocytes % Not Reportable Eosinophils % Not Reportable Basophils % Not Reportable Absolute Neutrophils Not Reportable Absolute Lymphocytes Not Reportable Absolute Monocytes Not Reportable Absolute Eosinophils Not Reportable Absolute Basophils Not Reportable Sodium 137.8 Potassium 4.5 Chloride 104 Carbon Dioxide 25 Anion Gap 9 BUN 5 L Creatinine 0.89 Est GFR ( Amer) > 60 Est GFR (Non-Af Amer) > 60 Glucose 101 Calcium 9.2 Magnesium 1.8 03/17/17 03/17/17 03/17/17 03:59 07:45 12:10 Troponin I < 0.012 0.012 < 0.012 03/18/17 03:59 Troponin I < 0.012 Impressions: Chest X-Ray 03/17/17 00:00 IMPRESSION: No acute cardiopulmonary findings. Head CT 03/17/17 00:00 IMPRESSION: NORMAL BRAIN CT WITHOUT CONTRAST. Assessment & Plan - Diagnosis (1) Ileostomy prolapse Is this a current diagnosis for this admission?: YesPlan: Consult surgical service to ensure this is not, incarcerated. (2) Alcohol dependence with withdrawal delirium Is this a current diagnosis for this admission?: YesPlan: Place patient on scheduled Valium and use as needed Ativan. Continue IV thiamine and folic acid. (3) Depression Qualifiers: Depression Type: unspecified Qualified Code(s): F32.9 - Major depressive disorder, single episode, unspecified Is this a current diagnosis for this admission?: YesPlan: Patient on sertraline (4) History of splenectomy Is this a current diagnosis for this admission?: Yes (5) Hypomagnesemia Is this a current diagnosis for this admission?: YesPlan: Improved. continue to check and monitor on telemetry (6) Hyponatremia Is this a current diagnosis for this admission?: YesPlan: Concern at this time for rapid overcorrection of patient's sodium. Have placed patient on D5W at 125 mL/h and pending repeat BMP. Place patient on q. 4 hour BMPs. Consult nephrology. (7) Anemia Qualifiers: Anemia type: unspecified type Qualified Code(s): D64.9 - Anemia, unspecified Is this a current diagnosis for this admission?: YesPlan: A monitor and plan to transfuse if hemoglobin blood falls below 8 likely secondary to anemia due to iron and B12 deficiencies due to ileostomy. (8) History of DVT (deep vein thrombosis) Is this a current diagnosis for this admission?: Yes (9) History of pulmonary embolism Is this a current diagnosis for this admission?: Yes (10) Adrenal insufficiency Is this a current diagnosis for this admission?: YesPlan: Continue Cortef 10 mg p.o. twice daily (11) Hepatitis C Qualifiers: Viral hepatitis chronicity: unspecified Hepatic coma status: without hepatic coma Qualified Code(s): B19.20 - Unspecified viral hepatitis C without hepatic coma Is this a current diagnosis for this admission?: Yes (12) Seizure disorder Is this a current diagnosis for this admission?: YesPlan: Due to patient's behavioral considerations have increase patient's Depakote to 500 mg p.o. every 8. Continue patient's Keppra 500 mg p.o. twice daily. Patient has not been taking his medications as an outpatient as all of his admission levels are negative for his medications. I have concerns over whether this patient can care for himself at home and will attempt to coordinate care with discharge planning and his family. (13) Status post ileostomy Is this a current diagnosis for this admission?: Yes - Time Time Spent with patient: 35 or more minutes Medications reviewed and adjusted accordingly: Yes - Inpatient Certification Based on my medical assessment, after consideration of the patient's comorbidities, presenting symptoms, or acuity I expect that the services needed warrant INPATIENT care.: Yes I certify that my determination is in accordance with my understanding of Medicare's requirements for reasonable and necessary INPATIENT services [42 CFR 412.3e].: Yes Medical Necessity: Need For IV Fluids, Need For Continuous Telemetry Monitoring , Risk of Complication if Not Cared For in Hospital Post Hospital Care: D/C [employer] Documentation
[2017-03-19 18:22] LABS: POTASSIUM 3.2 mmol/L (3.6-5.0)
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
[2017-03-19] MEDS: POTASSI CL 20 MEQ/50 ML RIDER 20 MEQ/50 ML RTUPB IV SCH ×2 (20:41→21:44)
[2017-03-19 23:35] LABS: ANION GAP 11 (5-19); BLOOD UREA NITROGEN 7 mg/dL (7-20); CALCIUM 9.7 mg/dL (8.4-10.2); CARBON DIOXIDE 26 mmol/L (22-30); CHLORIDE 100 mmol/L (98-107); CREATININE RESULT 0.83 mg/dL (0.52-1.25); GLUCOSE 87 mg/dL (75-110); POTASSIUM 4.1 mmol/L (3.6-5.0); SODIUM 136.5 mmol/L (137-145)
[2017-03-20] MEDS: DEXTROSE 5%-WATER 1000 ML 1,000 ML IV PRN ×4 (00:59→19:50)
[2017-03-20 03:32] LABS: ANION GAP 9 (5-19); BLOOD UREA NITROGEN 7 mg/dL (7-20); CALCIUM 9.5 mg/dL (8.4-10.2); CARBON DIOXIDE 25 mmol/L (22-30); CHLORIDE 103 mmol/L (98-107); CREATININE RESULT 0.84 mg/dL (0.52-1.25); GLUCOSE 113 mg/dL (75-110); POTASSIUM 3.7 mmol/L (3.6-5.0); SODIUM 136.7 mmol/L (137-145)
[2017-03-20] MEDS ORDERED: HYDRALAZINE HCL INJ/PF 20 MG/1 ML SDV IV ONE (04:30)
[2017-03-20] MEDS: GABAPENTIN 400 MG CAPSULE PO SCH ×3 (05:10→21:14)
[2017-03-20] MEDS: LANSOPRAZOLE 15 MG TAB.RAP.DR PO SCH (05:10)
[2017-03-20] MEDS: DIAZEPAM 5 MG TABLET PO SCH ×3 (05:10→21:14)
[2017-03-20] MEDS: DIVALPROEX SODIUM 250 MG TABLET.DR PO SCH ×3 (05:13→21:14)
[2017-03-20 07:25] LABS: ANION GAP 9 (5-19); BLOOD UREA NITROGEN 7 mg/dL (7-20); CALCIUM 9.9 mg/dL (8.4-10.2); CARBON DIOXIDE 29 mmol/L (22-30); CHLORIDE 100 mmol/L (98-107); CREATININE RESULT 0.85 mg/dL (0.52-1.25); GLUCOSE 102 mg/dL (75-110); POTASSIUM 4.1 mmol/L (3.6-5.0); SODIUM 137.8 mmol/L (137-145)
[2017-03-20] MEDS ORDERED: DESMOPRESSIN ACETATE INJ 4 MCG/1 ML AMPULE IV ONE (09:00)
[2017-03-20] MEDS: ENOXAPARIN SODIUM INJ 40 MG/0.4 ML DISP.SYRIN SUBCUT SCH (09:39)
[2017-03-20] MEDS: THIAMINE HCL 100 MG TABLET PO SCH (09:39)
[2017-03-20] MEDS: LEVETIRACETAM 500 MG TABLET PO SCH ×2 (09:40→17:28)
[2017-03-20] MEDS: CLOPIDOGREL BISULFATE 75 MG TABLET PO SCH (09:40)
[2017-03-20] MEDS: DOCUSATE SODIUM 100 MG CAPSULE PO SCH ×2 (09:40→17:28)
[2017-03-20] MEDS: SERTRALINE HCL 50 MG TABLET PO SCH (09:40)
[2017-03-20] MEDS: MULTIVITAMIN TABLET PO SCH (09:40)
[2017-03-20] MEDS: HYDROCORTISONE 10 MG TABLET PO SCH ×2 (09:40→17:28)
[2017-03-20] MEDS: FOLIC ACID 1 MG TABLET PO SCH (09:40)
[2017-03-20 12:32] LABS: ANION GAP 16 (5-19); BLOOD UREA NITROGEN 6 mg/dL (7-20); CALCIUM 10.2 mg/dL (8.4-10.2); CARBON DIOXIDE 23 mmol/L (22-30); CHLORIDE 97 mmol/L (98-107); CREATININE RESULT 0.86 mg/dL (0.52-1.25); GLUCOSE 114 mg/dL (75-110); POTASSIUM 3.6 mmol/L (3.6-5.0)
[2017-03-20 14:52] LABS: ANION GAP 14 (5-19); BLOOD UREA NITROGEN 7 mg/dL (7-20); CARBON DIOXIDE 24 mmol/L (22-30); CHLORIDE 96 mmol/L (98-107); CREATININE RESULT 0.83 mg/dL (0.52-1.25); GLUCOSE 89 mg/dL (75-110); POTASSIUM 3.9 mmol/L (3.6-5.0); SODIUM 134.4 mmol/L (137-145)
[2017-03-20] MEDS: HALOPERIDOL LACTATE INJ 5 MG/1 ML VIAL IV PRN (15:10)
--- NOTE | 2017-03-20 16:09 | PDOC PROGRESS REPORT ---
Subjective Progress Note for:: 03/20/17 Subjective:: Patient is sedated again when I see him today. Patient's sodium level is still not coming down as expected despite the D5 water that was started yesterday. It tends not a little bit to 134 after had seen him yesterday but it went up again to 136-[address] Hansen gave the patient DDAVP and increased the rate of the D5W. Again nurses taking care of him cannot really see a difference in terms of his mental status and neurological state. Physical Exam Vital Signs: Temp Pulse Resp BP Pulse Ox 97.2 F 68 16 150/74 H 100 03/20/17 12:01 03/20/17 14:00 03/20/17 12:01 03/20/17 12:01 03/20/17 12:01 Intake & Output 03/19/17 03/20/17 03/21/17 06:59 06:59 06:59 Intake Total 3355 3232 Output Total 2500 1550 Balance 855 1682 Weight 63.4 kg 61.2 kg Exam: General appearance: PRESENT: Currently asleep and sedated Head exam: PRESENT: atraumatic, normocephalic Eye exam: PRESENT: Unable to examine Neck exam: ABSENT: JVD Respiratory exam: PRESENT: Normal breath sounds. ABSENT: crackles, rales, rhonchi, unlabored, wheezes Cardiovascular exam: PRESENT: Regular rate rhythm -+S1, +S2. ABSENT: diastolic murmur, systolic murmur GI/Abdominal exam: PRESENT: normal bowel sounds, soft. ABSENT: guarding, mass, tenderness Extremities exam: ABSENT: No edema Neurological exam: PRESENT: Asleep and sedated Skin exam: PRESENT: dry, warm, Results Laboratory Results: 03/19/17 05:30 03/20/17 13:50 03/19/17 03/19/17 03/19/17 17:27 21:59 23:07 Sodium 134.3 L Cancelled 136.5 L Potassium 3.2 L D Cancelled 4.1 Chloride 97 L Cancelled 100 Carbon Dioxide 24 Cancelled 26 Anion Gap 13 Cancelled 11 BUN 5 L Cancelled 7 Creatinine 0.97 Cancelled 0.83 Est GFR ( Amer) > 60 Cancelled > 60 Est GFR (Non-Af Amer) > 60 Cancelled > 60 Glucose 206 H Cancelled 87 Calcium 10.3 H Cancelled 9.7 03/20/17 03/20/17 03/20/17 03:10 07:00 11:55 Sodium 136.7 L 137.8 136.0 L Potassium 3.7 4.1 3.6 Chloride 103 100 97 L Carbon Dioxide 25 29 23 Anion Gap 9 9 16 BUN 7 7 6 L Creatinine 0.84 0.85 0.86 Est GFR ( Amer) > 60 > 60 > 60 Est GFR (Non-Af Amer) > 60 > 60 > 60 Glucose 113 H 102 114 H Calcium 9.5 9.9 10.2 03/20/17 13:50 Sodium 134.4 L Potassium 3.9 Chloride 96 L Carbon Dioxide 24 Anion Gap 14 BUN 7 Creatinine 0.83 Est GFR ( Amer) > 60 Est GFR (Non-Af Amer) > 60 Glucose 89 Calcium 10.0 03/17/17 03/17/17 03/17/17 03:59 07:45 12:10 Troponin I < 0.012 0.012 < 0.012 03/18/17 03:59 Troponin I < 0.012 Impressions: Chest X-Ray 03/17/17 00:00 IMPRESSION: No acute cardiopulmonary findings. Head CT 03/17/17 00:00 IMPRESSION: NORMAL BRAIN CT WITHOUT CONTRAST. Assessment & Plan - Diagnosis (1) Hyponatremia Is this a current diagnosis for this admission?: YesPlan: This is probably due to multifactorial causes including history of alcohol use or abuse, adrenal insufficiency and possible noncompliant with medications, medications causing hyponatremia including Depakote, levetiracetam, and sertraline. A superimposed volume depletion can also exacerbate all the above. Patient's sodium was rapidly corrected increasing from 119-131.7 within 13 hours only. It is difficult to ascertain if there is any neurologic compromise including osmotic demyelination syndrome symptoms due to the patient's baseline mentation and currently being sedated. Agree with initiation of DDAVP this morning and increasing the rate of D5W 200 mL an hour. Continue that and patient may need additional doses of DDAVP if the sodium continues to go up. If the sodium is either stable or lower then current management is just fine. It has been at least 48 hours or more since the sodium is been rapidly corrected. At this time goal is to have sodium level less than 140 close to low 130s which probably acceptable. If the patient improves without any neurologic compromise from this episode, we need to encourage patient some behavioral changes including reduction of alcohol use or alcohol abstinence and noncompliance in taking his hydrocortisone for his adrenal insufficiency. It may be difficult to stop all the other medications including Depakote, levetiracetam, and sertraline due to patient's other psychiatric issues and seizure disorders. More importantly the patient needs to be compliant. (2) Adrenal insufficiency Is this a current diagnosis for this admission?: YesPlan: Continue hydrocortisone and advised compliance with treatment. - Time Time with patient: 15-25 minutes
[2017-03-20 18:25] LABS: ANION GAP 11 (5-19); BLOOD UREA NITROGEN 6 mg/dL (7-20); CALCIUM 9.6 mg/dL (8.4-10.2); CARBON DIOXIDE 27 mmol/L (22-30); CHLORIDE 92 mmol/L (98-107); GLUCOSE 121 mg/dL (75-110); POTASSIUM 3.6 mmol/L (3.6-5.0); SODIUM 129.7 mmol/L (137-145)
--- NOTE | 2017-03-20 20:13 | PDOC PROGRESS REPORT ---
Subjective Progress Note for:: 03/20/17 Subjective:: Patient is seen with nursing staff at bedside. patient is somewhat lethargic but answers questions mostly inappropriately, thus limiting patient's review of systems. Patient denies new issues. Patient asks me to him. Physical Exam Vital Signs: Temp Pulse Resp BP Pulse Ox 97.4 F 60 16 103/79 100 03/20/17 03:46 03/20/17 03:46 03/20/17 03:46 03/20/17 05:14 03/20/17 03:46 Intake & Output 03/19/17 03/20/17 03/21/17 06:59 06:59 06:59 Intake Total 3355 3232 Output Total 2500 1550 Balance 855 1682 Weight 63.4 kg 61.2 kg Exam: GENERAL: Somnolent but arousable, no acute distress HEENT: Conjunctiva clear, nonicteric, moist mucous membranes, no JVD, midline trachea, poor dentition RESPIRATORY: Clear to auscultation bilaterally, no wheezes, no rhonchi CARDIAC: Regular rate and rhythm, no murmurs/gallops/rubs ABDOMEN: Soft, nondistended, nontender, positive bowel sounds, no rebound, no guarding. Ileostomy present with large area of protrusion into bag, pink and well perfused however EXTREMETIES: No edema, cyanosis, clubbing NEUROLOGIC: Alert, oriented to person, CN's grossly intact, no focal deficits; moves all extremities and is not tremulous SKIN: No rash, wounds PSYCH:normal mood and affect Results Laboratory Results: 03/19/17 05:30 03/20/17 07:00 03/19/17 03/19/17 03/19/17 17:27 21:59 23:07 Sodium 134.3 L Cancelled 136.5 L Potassium 3.2 L D Cancelled 4.1 Chloride 97 L Cancelled 100 Carbon Dioxide 24 Cancelled 26 Anion Gap 13 Cancelled 11 BUN 5 L Cancelled 7 Creatinine 0.97 Cancelled 0.83 Est GFR ( Amer) > 60 Cancelled > 60 Est GFR (Non-Af Amer) > 60 Cancelled > 60 Glucose 206 H Cancelled 87 Calcium 10.3 H Cancelled 9.7 03/20/17 03/20/17 03:10 07:00 Sodium 136.7 L 137.8 Potassium 3.7 4.1 Chloride 103 100 Carbon Dioxide 25 29 Anion Gap 9 9 BUN 7 7 Creatinine 0.84 0.85 Est GFR ( Amer) > 60 > 60 Est GFR (Non-Af Amer) > 60 > 60 Glucose 113 H 102 Calcium 9.5 9.9 03/17/17 03/17/17 03/17/17 03:59 07:45 12:10 Troponin I < 0.012 0.012 < 0.012 03/18/17 03:59 Troponin I < 0.012 Impressions: Chest X-Ray 03/17/17 00:00 IMPRESSION: No acute cardiopulmonary findings. Head CT 03/17/17 00:00 IMPRESSION: NORMAL BRAIN CT WITHOUT CONTRAST. Assessment & Plan - Diagnosis (1) Alcohol dependence with withdrawal delirium Is this a current diagnosis for this admission?: YesPlan: Place patient on scheduled Valium and use as needed Ativan. Continue IV thiamine and folic acid. (2) Hyponatremia Is this a current diagnosis for this admission?: YesPlan: Concern at this time for rapid overcorrection of patient's sodium. Increased patient on D5W; given ddavp; on q. 4 hour BMPs. Appreciate nephrology. No apparent current deficit (3) Ileostomy prolapse Is this a current diagnosis for this admission?: YesPlan: Appreciate surgical service reassurance that this is not incarcerated. Patient will need to follow as an outpatient. (4) Depression Qualifiers: Depression Type: unspecified Qualified Code(s): F32.9 - Major depressive disorder, single episode, unspecified Is this a current diagnosis for this admission?: Yes (5) History of splenectomy Is this a current diagnosis for this admission?: Yes (6) Hypomagnesemia Is this a current diagnosis for this admission?: YesPlan: Improved. continue to check and monitor on telemetry (7) Anemia Qualifiers: Anemia type: unspecified type Qualified Code(s): D64.9 - Anemia, unspecified Is this a current diagnosis for this admission?: Yes (8) History of DVT (deep vein thrombosis) Is this a current diagnosis for this admission?: Yes (9) History of pulmonary embolism Is this a current diagnosis for this admission?: Yes (10) Adrenal insufficiency Is this a current diagnosis for this admission?: YesPlan: Continue Cortef 10 mg p.o. twice daily (11) Hepatitis C Qualifiers: Viral hepatitis chronicity: unspecified Hepatic coma status: without hepatic coma Qualified Code(s): B19.20 - Unspecified viral hepatitis C without hepatic coma Is this a current diagnosis for this admission?: Yes (12) Seizure disorder Is this a current diagnosis for this admission?: YesPlan: Due to patient's behavioral considerations have increase patient's Depakote to 500 mg p.o. every 8. Continue patient's Keppra 500 mg p.o. twice daily. Patient has not been taking his medications as an outpatient as all of his admission levels are negative for his medications. I have concerns over whether this patient can care for himself at home and will attempt to coordinate care with discharge planning and his family. (13) Status post ileostomy Is this a current diagnosis for this admission?: Yes - Time Time Spent with patient: 25-34 minutes Medications reviewed and adjusted accordingly: Yes Anticipated discharge: SNF, Acute Rehab
[2017-03-20 23:01] LABS: ANION GAP 12 (5-19); BLOOD UREA NITROGEN 7 mg/dL (7-20); CALCIUM 9.6 mg/dL (8.4-10.2); CARBON DIOXIDE 27 mmol/L (22-30); CHLORIDE 89 mmol/L (98-107); CREATININE RESULT 0.84 mg/dL (0.52-1.25); GLUCOSE 100 mg/dL (75-110); POTASSIUM 4.1 mmol/L (3.6-5.0); SODIUM 127.5 mmol/L (137-145)
[2017-03-21] MEDS ORDERED: DEXTROSE 5%-WATER 1000 ML 1,000 ML IV PRN ×2 (00:01)
[2017-03-21] MEDS: HALOPERIDOL LACTATE INJ 5 MG/1 ML VIAL IV PRN (02:38)
[2017-03-21 03:02] LABS: ANION GAP 9 (5-19); BLOOD UREA NITROGEN 8 mg/dL (7-20); CALCIUM 9.3 mg/dL (8.4-10.2); CARBON DIOXIDE 27 mmol/L (22-30); CHLORIDE 89 mmol/L (98-107); CREATININE RESULT 0.82 mg/dL (0.52-1.25); GLUCOSE 131 mg/dL (75-110); POTASSIUM 3.7 mmol/L (3.6-5.0); SODIUM 124.7 mmol/L (137-145)
[2017-03-21] MEDS: LANSOPRAZOLE 15 MG TAB.RAP.DR PO SCH (05:17)
[2017-03-21] MEDS: DIVALPROEX SODIUM 250 MG TABLET.DR PO SCH ×3 (05:17→21:18)
[2017-03-21] MEDS: GABAPENTIN 400 MG CAPSULE PO SCH ×3 (05:17→21:17)
[2017-03-21] MEDS: DIAZEPAM 5 MG TABLET PO SCH ×3 (05:17→21:17)
[2017-03-21 07:11] LABS: ANION GAP 11 (5-19); BLOOD UREA NITROGEN 8 mg/dL (7-20); CALCIUM 9.5 mg/dL (8.4-10.2); CARBON DIOXIDE 27 mmol/L (22-30); CHLORIDE 88 mmol/L (98-107); GLUCOSE 105 mg/dL (75-110); POTASSIUM 3.8 mmol/L (3.6-5.0); SODIUM 126.1 mmol/L (137-145)
[2017-03-21 11:15] LABS: ANION GAP 11 (5-19); BLOOD UREA NITROGEN 7 mg/dL (7-20); CALCIUM 9.4 mg/dL (8.4-10.2); CARBON DIOXIDE 28 mmol/L (22-30); CHLORIDE 90 mmol/L (98-107); CREATININE RESULT 0.85 mg/dL (0.52-1.25); GLUCOSE 87 mg/dL (75-110); POTASSIUM 3.6 mmol/L (3.6-5.0); SODIUM 129.2 mmol/L (137-145)
[2017-03-21] MEDS: CLOPIDOGREL BISULFATE 75 MG TABLET PO SCH (11:19)
[2017-03-21] MEDS: ENOXAPARIN SODIUM INJ 40 MG/0.4 ML DISP.SYRIN SUBCUT SCH (11:19)
[2017-03-21] MEDS: MULTIVITAMIN TABLET PO SCH (11:19)
[2017-03-21] MEDS: HYDROCORTISONE 10 MG TABLET PO SCH ×2 (11:20→17:02)
[2017-03-21] MEDS: LEVETIRACETAM 500 MG TABLET PO SCH ×2 (11:20→17:03)
[2017-03-21] MEDS: DOCUSATE SODIUM 100 MG CAPSULE PO SCH ×2 (11:20→17:02)
[2017-03-21] MEDS: SERTRALINE HCL 50 MG TABLET PO SCH (11:20)
[2017-03-21] MEDS: THIAMINE HCL 100 MG TABLET PO SCH (11:20)
[2017-03-21] MEDS: FOLIC ACID 1 MG TABLET PO SCH (11:21)
--- NOTE | 2017-03-21 14:20 | PDOC PROGRESS REPORT ---
Subjective Progress Note for:: 03/21/17 Subjective:: Patient is awake eating lunch. He is more appropriate today. He asked me what happened to him. Patient denies chest pain, shortness of breath, abdominal pain, nausea, vomiting , fevers, chills, diarrhea, constipation, new onset weakness. Physical therapy has been consulted to see patient. Physical Exam Vital Signs: Temp Pulse Resp BP Pulse Ox 97.7 F 114 H 16 146/71 H 100 03/21/17 12:16 03/21/17 12:16 03/21/17 12:16 03/21/17 12:16 03/21/17 12:16 Intake & Output 03/20/17 03/21/17 03/22/17 06:59 06:59 06:59 Intake Total 3232 4923 150 Output Total 1550 500 100 Balance 1682 4423 50 Weight 61.2 kg 62.9 kg Exam: GENERAL: awake, alert, oriented x2, no acute distress HEENT: Conjunctiva clear, nonicteric, moist mucous membranes, no JVD, midline trachea, poor dentition RESPIRATORY: Clear to auscultation bilaterally, no wheezes, no rhonchi CARDIAC: Regular rate and rhythm, no murmurs/gallops/rubs ABDOMEN: Soft, nondistended, nontender, positive bowel sounds, no rebound, no guarding. Ileostomy present with large area of protrusion into bag, pink and well perfused however EXTREMETIES: No cyanosis, clubbing; mild edema NEUROLOGIC: Alert, awake, oriented to person, CN's grossly intact, no focal deficits; moves all extremities and is not tremulous SKIN: No rash, wounds PSYCH:normal mood and affect Results Laboratory Results: 03/19/17 05:30 03/21/17 10:51 03/20/17 03/20/17 03/20/17 13:50 17:45 22:22 Sodium 134.4 L 129.7 L 127.5 L Potassium 3.9 3.6 4.1 Chloride 96 L 92 L 89 L Carbon Dioxide 24 27 27 Anion Gap 14 11 12 BUN 7 6 L 7 Creatinine 0.83 0.80 0.84 Est GFR ( Amer) > 60 > 60 > 60 Est GFR (Non-Af Amer) > 60 > 60 > 60 Glucose 89 121 H 100 Calcium 10.0 9.6 9.6 03/21/17 03/21/17 03/21/17 02:22 06:23 10:51 Sodium 124.7 L 126.1 L 129.2 L Potassium 3.7 3.8 3.6 Chloride 89 L 88 L 90 L Carbon Dioxide 27 27 28 Anion Gap 9 11 11 BUN 8 8 7 Creatinine 0.82 0.80 0.85 Est GFR ( Amer) > 60 > 60 > 60 Est GFR (Non-Af Amer) > 60 > 60 > 60 Glucose 131 H 105 87 Calcium 9.3 9.5 9.4 03/17/17 03/17/17 03/17/17 03:59 07:45 12:10 Troponin I < 0.012 0.012 < 0.012 03/18/17 03:59 Troponin I < 0.012 Impressions: Chest X-Ray 03/17/17 00:00 IMPRESSION: No acute cardiopulmonary findings. Head CT 03/17/17 00:00 IMPRESSION: NORMAL BRAIN CT WITHOUT CONTRAST. Assessment & Plan - Diagnosis (1) Alcohol dependence with withdrawal delirium Is this a current diagnosis for this admission?: YesPlan: Decrease scheduled Valium and use as needed Ativan. Continue IV thiamine and folic acid. (2) Hyponatremia Is this a current diagnosis for this admission?: YesPlan: Concern for rapid overcorrection of patient's sodium. Stopped IVF. Appreciate nephrology. No apparent current deficit (3) Ileostomy prolapse Is this a current diagnosis for this admission?: YesPlan: Appreciate surgical service reassurance that this is not incarcerated. Patient will need to follow as an outpatient. (4) Depression Qualifiers: Depression Type: unspecified Qualified Code(s): F32.9 - Major depressive disorder, single episode, unspecified Is this a current diagnosis for this admission?: YesPlan: Patient on sertraline (5) History of splenectomy Is this a current diagnosis for this admission?: Yes (6) Hypomagnesemia Is this a current diagnosis for this admission?: Yes (7) Anemia Qualifiers: Anemia type: unspecified type Qualified Code(s): D64.9 - Anemia, unspecified Is this a current diagnosis for this admission?: Yes (8) History of DVT (deep vein thrombosis) Is this a current diagnosis for this admission?: Yes (9) History of pulmonary embolism Is this a current diagnosis for this admission?: Yes (10) Adrenal insufficiency Is this a current diagnosis for this admission?: YesPlan: Continue Cortef 10 mg p.o. twice daily (11) Hepatitis C Qualifiers: Viral hepatitis chronicity: unspecified Hepatic coma status: without hepatic coma Qualified Code(s): B19.20 - Unspecified viral hepatitis C without hepatic coma Is this a current diagnosis for this admission?: Yes (12) Seizure disorder Is this a current diagnosis for this admission?: YesPlan: Depakote to 500 mg p.o. every 8. Keppra 500 mg p.o. twice daily. Patient has not been taking his medications as an outpatient. Patient has been using illegal drugs. I have concerns over whether this patient can care for himself at home and will attempt to coordinate care with discharge planning and his family. 03/16/17 03/17/17 03/17/17 23:30 03:53 03:59 Phenytoin Valproic Acid < 10.0 L Levetiracetam None Detected U Marijuana (THC) Screen UNCONFIRMED POSITIVE 03/18/17 03:59 Phenytoin < 3.0 L Valproic Acid Levetiracetam U Marijuana (THC) Screen (13) Status post ileostomy Is this a current diagnosis for this admission?: YesPlan: change diet to ostomy friendly - Time Time Spent with patient: 25-34 minutes Medications reviewed and adjusted accordingly: Yes - Inpatient Certification Based on my medical assessment, after consideration of the patient's comorbidities, presenting symptoms, or acuity I expect that the services needed warrant INPATIENT care.: Yes I certify that my determination is in accordance with my understanding of Medicare's requirements for reasonable and necessary INPATIENT services [42 CFR 412.3e].: Yes Medical Necessity: Need Close Monitoring Due to Risk of Patient Decompensation, Need For IV Fluids, Need for Neurological Checks Post Hospital Care: D/C Project Director Documentation
[2017-03-21 15:37] LABS: ANION GAP 10 (5-19); BLOOD UREA NITROGEN 7 mg/dL (7-20); CALCIUM 9.9 mg/dL (8.4-10.2); CARBON DIOXIDE 28 mmol/L (22-30); CHLORIDE 92 mmol/L (98-107); CREATININE RESULT 0.84 mg/dL (0.52-1.25); GLUCOSE 102 mg/dL (75-110); SODIUM 129.8 mmol/L (137-145)
[2017-03-21 15:40] LABS: POTASSIUM 4.4 mmol/L (3.6-5.0)
[2017-03-21] MEDS ORDERED: AMLODIPINE BESYLATE 2.5 MG TABLET PO ONE (18:45)
--- NOTE | 2017-03-21 18:48 | PDOC PROGRESS REPORT ---
Subjective Progress Note for:: 03/21/17 Subjective:: I had seen the patient awake for the first time today. He seems calm but only answers 1 or 2 of my questions. He could tell me his name but aside from that does not seem to be willing to answer any of my other questions though. Nurses at bedside tell me that aside from some lethargy for the whole day today, he seems to be at his baseline mental state. Physical Exam Vital Signs: Temp Pulse Resp BP Pulse Ox 97.6 F 67 16 150/78 H 100 03/21/17 16:00 03/21/17 18:33 03/21/17 16:00 03/21/17 16:00 03/21/17 16:00 Intake & Output 03/20/17 03/21/17 03/22/17 06:59 06:59 06:59 Intake Total 3232 4923 250 Output Total 1550 500 200 Balance 1682 4423 50 Weight 61.2 kg 62.9 kg Exam: General appearance: PRESENT: no acute distress, cooperative, well-developed, well-nourished Head exam: PRESENT: atraumatic, normocephalic Eye exam: PRESENT: conjunctiva pink, PERRLA. ABSENT: scleral icterus Neck exam: ABSENT: JVD Respiratory exam: PRESENT: Normal breath sounds. ABSENT: crackles, rales, rhonchi, unlabored, wheezes Cardiovascular exam: PRESENT: Regular rate rhythm -+S1, +S2. ABSENT: diastolic murmur, systolic murmur GI/Abdominal exam: PRESENT: normal bowel sounds, soft. ABSENT: guarding, mass, tenderness Extremities exam: ABSENT: No edema Neurological exam: PRESENT: alert, awake, oriented to person, and able to tell me about place and time. Skin exam: PRESENT: dry, warm, Results Laboratory Results: 03/19/17 05:30 03/21/17 15:05 03/20/17 03/21/17 03/21/17 22:22 02:22 06:23 Sodium 127.5 L 124.7 L 126.1 L Potassium 4.1 3.7 3.8 Chloride 89 L 89 L 88 L Carbon Dioxide 27 27 27 Anion Gap 12 9 11 BUN 7 8 8 Creatinine 0.84 0.82 0.80 Est GFR ( Amer) > 60 > 60 > 60 Est GFR (Non-Af Amer) > 60 > 60 > 60 Glucose 100 131 H 105 Calcium 9.6 9.3 9.5 03/21/17 03/21/17 10:51 15:05 Sodium 129.2 L 129.8 L Potassium 3.6 4.4 Chloride 90 L 92 L Carbon Dioxide 28 28 Anion Gap 11 10 BUN 7 7 Creatinine 0.85 0.84 Est GFR ( Amer) > 60 > 60 Est GFR (Non-Af Amer) > 60 > 60 Glucose 87 102 Calcium 9.4 9.9 03/17/17 03/17/17 03/17/17 03:59 07:45 12:10 Troponin I < 0.012 0.012 < 0.012 03/18/17 03:59 Troponin I < 0.012 Impressions: Chest X-Ray 03/17/17 00:00 IMPRESSION: No acute cardiopulmonary findings. Head CT 03/17/17 00:00 IMPRESSION: NORMAL BRAIN CT WITHOUT CONTRAST. Assessment & Plan - Diagnosis (1) Hyponatremia Is this a current diagnosis for this admission?: YesPlan: This is probably due to multifactorial causes including history of alcohol use or abuse, adrenal insufficiency and possible noncompliant with medications, medications causing hyponatremia including Depakote, levetiracetam, and sertraline. A superimposed volume depletion can also exacerbate all the above. Patient's sodium was rapidly corrected increasing from 119-131.7 within 13 hours only. His sodium went down yesterday to as low as 1 1:24 dose of DDAVP and increasing D5 water rate. I decreased the D5W last night to 75 mL an hour and this noon time Dr. Hansen has discontinued it. Currently the patient is more awake, answering very few questions but definitely better than the last 2 days. Agree with discontinuation of D5W at this time and allow liberal diet. Continue to monitor sodium levels. If the patient improves without any neurologic compromise from this episode, we need to encourage patient some behavioral changes including reduction of alcohol use or alcohol abstinence and noncompliance in taking his hydrocortisone for his adrenal insufficiency. It may be difficult to stop all the other medications including Depakote, levetiracetam, and sertraline due to patient's other psychiatric issues and seizure disorders. More importantly the patient needs to be compliant. (2) Adrenal insufficiency Is this a current diagnosis for this admission?: YesPlan: Continue hydrocortisone and advised compliance with treatment. (3) Hypertension Is this a current diagnosis for this admission?: YesPlan: Start low-dose amlodipine 2.5 mg p.o. starting today. Definitely not a candidate for any type of thiazide diuretic for hypertension. - Time Time with patient: 15-25 minutes
[2017-03-21 19:39] LABS: ANION GAP 11 (5-19); BLOOD UREA NITROGEN 10 mg/dL (7-20); CALCIUM 10.4 mg/dL (8.4-10.2); CARBON DIOXIDE 29 mmol/L (22-30); CHLORIDE 93 mmol/L (98-107); CREATININE RESULT 0.97 mg/dL (0.52-1.25); GLUCOSE 116 mg/dL (75-110); POTASSIUM 4.5 mmol/L (3.6-5.0); SODIUM 132.6 mmol/L (137-145)
[2017-03-22] MEDS: GABAPENTIN 400 MG CAPSULE PO SCH ×3 (05:29→21:28)
[2017-03-22] MEDS: DIAZEPAM 5 MG TABLET PO SCH ×3 (05:29→21:28)
[2017-03-22] MEDS: LANSOPRAZOLE 15 MG TAB.RAP.DR PO SCH (05:29)
[2017-03-22] MEDS: DIVALPROEX SODIUM 250 MG TABLET.DR PO SCH ×3 (05:30→21:27)
[2017-03-22] MEDS: TRAMADOL HCL 50 MG TABLET PO PRN (09:01)
[2017-03-22] MEDS: AMLODIPINE BESYLATE 2.5 MG TABLET PO SCH (09:40)
[2017-03-22] MEDS: THIAMINE HCL 100 MG TABLET PO SCH (09:40)
[2017-03-22] MEDS: HYDROCORTISONE 10 MG TABLET PO SCH ×2 (09:40→17:08)
[2017-03-22] MEDS: MULTIVITAMIN TABLET PO SCH (09:40)
[2017-03-22] MEDS: ENOXAPARIN SODIUM INJ 40 MG/0.4 ML DISP.SYRIN SUBCUT SCH (09:40)
[2017-03-22] MEDS: FOLIC ACID 1 MG TABLET PO SCH (09:41)
[2017-03-22] MEDS: LEVETIRACETAM 500 MG TABLET PO SCH ×2 (09:41→17:08)
[2017-03-22] MEDS: SERTRALINE HCL 50 MG TABLET PO SCH (09:41)
[2017-03-22] MEDS: DOCUSATE SODIUM 100 MG CAPSULE PO SCH ×2 (09:41→17:08)
[2017-03-22] MEDS: CLOPIDOGREL BISULFATE 75 MG TABLET PO SCH (09:41)
[2017-03-22] MEDS: LORAZEPAM INJ 2 MG/1 ML VIAL IV PRN ×3 (10:10→21:49)
[2017-03-22 10:36] LABS: ANION GAP 10 (5-19); BLOOD UREA NITROGEN 14 mg/dL (7-20); CALCIUM 10.2 mg/dL (8.4-10.2); CARBON DIOXIDE 30 mmol/L (22-30); CHLORIDE 96 mmol/L (98-107); GLUCOSE 92 mg/dL (75-110); POTASSIUM 3.7 mmol/L (3.6-5.0); SODIUM 135.9 mmol/L (137-145)
--- NOTE | 2017-03-22 13:11 | PDOC PROGRESS REPORT ---
Subjective Progress Note for:: 03/22/17 Subjective:: He is more appropriate today. He reports he feels like he is going to . He asks me to bury him. Patient denies chest pain, shortness of breath, abdominal pain, nausea, vomiting , fevers, chills, diarrhea, constipation, new onset weakness. Physical therapy has been consulted to see patient. Physical Exam Vital Signs: Temp Pulse Resp BP Pulse Ox 97.8 F 64 16 141/82 H 100 03/22/17 07:59 03/22/17 07:59 03/22/17 07:59 03/22/17 07:59 03/22/17 07:59 Intake & Output 03/21/17 03/22/17 03/23/17 06:59 06:59 06:59 Intake Total 4923 1292 Output Total 500 725 Balance 4423 567 Weight 62.9 kg 60 kg Exam: GENERAL: Awake and alert, oriented x2, no acute distress HEENT: Conjunctiva clear, nonicteric, moist mucous membranes, no JVD, midline trachea, poor dentition RESPIRATORY: Clear to auscultation bilaterally, no wheezes, no rhonchi CARDIAC: Regular rate and rhythm, no murmurs/gallops/rubs ABDOMEN: Soft, nondistended, nontender, positive bowel sounds, no rebound, no guarding. Ileostomy present with large area of protrusion into bag, pink and well perfused however EXTREMETIES: No edema, cyanosis, clubbing NEUROLOGIC: Alert, oriented to person, place, CN's grossly intact, no focal deficits; moves all extremities and is not tremulous SKIN: No rash, wounds PSYCH: Mildly histrionic, normal mood and affect Results Laboratory Results: 03/19/17 05:30 03/22/17 09:44 03/21/17 03/21/17 03/22/17 15:05 19:11 09:44 Sodium 129.8 L 132.6 L 135.9 L Potassium 4.4 4.5 3.7 Chloride 92 L 93 L 96 L Carbon Dioxide 28 29 30 Anion Gap 10 11 10 BUN 7 10 14 Creatinine 0.84 0.97 1.10 Est GFR ( Amer) > 60 > 60 > 60 Est GFR (Non-Af Amer) > 60 > 60 > 60 Glucose 102 116 H 92 Calcium 9.9 10.4 H 10.2 03/17/17 03/17/17 03/17/17 03:59 07:45 12:10 Troponin I < 0.012 0.012 < 0.012 03/18/17 03:59 Troponin I < 0.012 Impressions: Chest X-Ray 03/17/17 00:00 IMPRESSION: No acute cardiopulmonary findings. Head CT 03/17/17 00:00 IMPRESSION: NORMAL BRAIN CT WITHOUT CONTRAST. Assessment & Plan - Diagnosis (1) Alcohol dependence with withdrawal delirium Is this a current diagnosis for this admission?: YesPlan: Plan to decrease scheduled Valium beginning tomorrow and use prn Ativan. Continue IV thiamine and folic acid. (2) Hyponatremia Is this a current diagnosis for this admission?: YesPlan: Concern for rapid overcorrection of patient's sodium. Improved. Appreciate nephrology. No apparent current deficit (3) Ileostomy prolapse Is this a current diagnosis for this admission?: YesPlan: Appreciate surgical service reassurance that this is not incarcerated. Patient will need to follow as an outpatient. (4) Depression Qualifiers: Depression Type: unspecified Qualified Code(s): F32.9 - Major depressive disorder, single episode, unspecified Is this a current diagnosis for this admission?: YesPlan: Patient on sertraline (5) History of splenectomy Is this a current diagnosis for this admission?: Yes (6) Hypomagnesemia Is this a current diagnosis for this admission?: YesPlan: Improved. continue to check and monitor on telemetry (7) Anemia Qualifiers: Anemia type: unspecified type Qualified Code(s): D64.9 - Anemia, unspecified Is this a current diagnosis for this admission?: YesPlan: A monitor and plan to transfuse if hemoglobin blood falls below 8 likely secondary to anemia due to iron and B12 deficiencies due to ileostomy. (8) History of DVT (deep vein thrombosis) Is this a current diagnosis for this admission?: Yes (9) History of pulmonary embolism Is this a current diagnosis for this admission?: Yes (10) Adrenal insufficiency Is this a current diagnosis for this admission?: YesPlan: Continue Cortef 10 mg p.o. twice daily (11) Hepatitis C Qualifiers: Viral hepatitis chronicity: unspecified Hepatic coma status: without hepatic coma Qualified Code(s): B19.20 - Unspecified viral hepatitis C without hepatic coma Is this a current diagnosis for this admission?: Yes (12) Seizure disorder Is this a current diagnosis for this admission?: YesPlan: Depakote to 500 mg p.o. every 8. Keppra 500 mg p.o. twice daily. Patient has not been taking his medications as an outpatient. Patient has been using illegal drugs. I have concerns over whether this patient can care for himself at home and will attempt to coordinate care with discharge planning and his family. Have consulted psychology for competency evaluation. 03/16/17 03/17/17 03/17/17 23:30 03:53 03:59 Phenytoin Valproic Acid < 10.0 L Levetiracetam None Detected U Marijuana (THC) Screen UNCONFIRMED POSITIVE 03/18/17 03:59 Phenytoin < 3.0 L Valproic Acid Levetiracetam U Marijuana (THC) Screen (13) Status post ileostomy Is this a current diagnosis for this admission?: Yes - Time Time Spent with patient: 25-34 minutes Medications reviewed and adjusted accordingly: Yes
--- NOTE | 2017-03-22 16:18 | PDOC PROGRESS REPORT ---
Subjective Progress Note for:: 03/22/17 Subjective:: Patient seems to be doing better. He is awake and communicating now. He seems to be still a little bit off but I was told by nurses had seen him previous to his admission that this might be his baseline mentation. He tells me that is not doing too well but he is sitting eating ice cream on his bed. He also asked me and wants me to reassure him that he is not going to between now and tomorrow morning. Otherwise he seems clinically stable. Physical Exam Vital Signs: Temp Pulse Resp BP Pulse Ox 97.8 F 75 16 141/82 H 100 03/22/17 07:59 03/22/17 14:00 03/22/17 07:59 03/22/17 07:59 03/22/17 07:59 Intake & Output 03/21/17 03/22/17 03/23/17 06:59 06:59 06:59 Intake Total 4923 1292 Output Total 500 725 Balance 4423 567 Weight 62.9 kg 60 kg Exam: General appearance: PRESENT: no acute distress, cooperative, well-developed, well-nourished Head exam: PRESENT: atraumatic, normocephalic Eye exam: PRESENT: conjunctiva pink, PERRLA. ABSENT: scleral icterus Neck exam: ABSENT: JVD Respiratory exam: PRESENT: Normal breath sounds. ABSENT: crackles, rales, rhonchi, unlabored, wheezes Cardiovascular exam: PRESENT: Regular rate rhythm -+S1, +S2. ABSENT: diastolic murmur, systolic murmur GI/Abdominal exam: PRESENT: normal bowel sounds, soft. ABSENT: guarding, mass, tenderness Extremities exam: ABSENT: No edema Neurological exam: PRESENT: alert, awake, oriented to person, place and time and was able to tell me the month but not the year or the day. Skin exam: PRESENT: dry, warm, Results Laboratory Results: 03/19/17 05:30 03/22/17 09:44 03/21/17 03/22/17 19:11 09:44 Sodium 132.6 L 135.9 L Potassium 4.5 3.7 Chloride 93 L 96 L Carbon Dioxide 29 30 Anion Gap 11 10 BUN 10 14 Creatinine 0.97 1.10 Est GFR ( Amer) > 60 > 60 Est GFR (Non-Af Amer) > 60 > 60 Glucose 116 H 92 Calcium 10.4 H 10.2 03/17/17 03/17/17 03/17/17 03:59 07:45 12:10 Troponin I < 0.012 0.012 < 0.012 03/18/17 03:59 Troponin I < 0.012 Impressions: Chest X-Ray 03/17/17 00:00 IMPRESSION: No acute cardiopulmonary findings. Head CT 03/17/17 00:00 IMPRESSION: NORMAL BRAIN CT WITHOUT CONTRAST. Assessment & Plan - Diagnosis (1) Hyponatremia Is this a current diagnosis for this admission?: YesPlan: This is probably due to multifactorial causes including history of alcohol use or abuse, adrenal insufficiency and possible noncompliant with medications, medications causing hyponatremia including Depakote, levetiracetam, and sertraline. A superimposed volume depletion can also exacerbate all the above. Currently patient's sodium is almost normal and increasing at appropriate rate without any further intervention. There does not seem to be any neurologic compromise at this point. We need to encourage patient some behavioral changes including reduction of alcohol use or alcohol abstinence and noncompliance in taking his hydrocortisone for his adrenal insufficiency. It may be difficult to stop all the other medications including Depakote, levetiracetam, and sertraline due to patient's other psychiatric issues and seizure disorders. More importantly the patient needs to be compliant. (2) Adrenal insufficiency Is this a current diagnosis for this admission?: YesPlan: Continue hydrocortisone and advised compliance with treatment. (3) Hypertension Is this a current diagnosis for this admission?: YesPlan: Start low-dose amlodipine 2.5 mg p.o. starting today. Definitely not a candidate for any type of thiazide diuretic for hypertension. - Notes Notes: No further intervention from nephrology standpoint. I will sign off at this time. - Time Time with patient: 15-25 minutes
[2017-03-23] MEDS: HALOPERIDOL LACTATE INJ 5 MG/1 ML VIAL IV PRN (00:34)
[2017-03-23] MEDS: GABAPENTIN 400 MG CAPSULE PO SCH ×3 (05:40→21:17)
[2017-03-23] MEDS: DIVALPROEX SODIUM 250 MG TABLET.DR PO SCH ×3 (05:40→21:16)
[2017-03-23] MEDS: DIAZEPAM 5 MG TABLET PO SCH ×3 (05:40→21:17)
[2017-03-23] MEDS: LANSOPRAZOLE 15 MG TAB.RAP.DR PO SCH (05:40)
[2017-03-23 06:21] LABS: ANION GAP 10 (5-19); BLOOD UREA NITROGEN 16 mg/dL (7-20); CALCIUM 9.4 mg/dL (8.4-10.2); CARBON DIOXIDE 31 mmol/L (22-30); CHLORIDE 97 mmol/L (98-107); CREATININE RESULT 1.04 mg/dL (0.52-1.25); GLUCOSE 81 mg/dL (75-110); MAGNESIUM 1.9 mg/dL (1.6-2.3); POTASSIUM 3.9 mmol/L (3.6-5.0); SODIUM 138.3 mmol/L (137-145)
[2017-03-23 06:54] LABS: HEMOGLOBIN 12.4 g/dL (13.5-17.0); HGB HCT DIFFERENCE -0.8; MEAN CORPUSCULAR HEMOGLOBIN 26.1 pg (27.0-33.4); MEAN CORPUSCULAR HGB CONC 32.6 g/dL (32.0-36.0); MEAN CORPUSCULAR VOLUME 80 fl (80-97); RED BLOOD COUNT 4.74 10^6/uL (4.35-5.55); RED CELL DISTRIBUTION WIDTH 19.8 % (11.5-14.0); WHITE BLOOD COUNT 8.1 10^3/uL (4.0-10.5)
[2017-03-23 07:00] LABS: BAND NEUTROPHILS % (MANUAL) 2 % (3-5); BASOPHILS % (MANUAL) 0 % (0-2); EOSINOPHILS % (MANUAL) 1 % (0-6); LYMPHOCYTES % (MANUAL) 47 % (13-45); TOTAL CELLS COUNTED 100
[2017-03-23 07:02] LABS: ANISOCYTOSIS 2+; BURR CELLS 1+; HYPOCHROMASIA 1+; MICROCYTOSIS SLIGHT; OVALOCYTES SLIGHT; POIKILOCYTOSIS 1+; POLYCHROMASIA 1+; SCHISTOCYTES SLIGHT; TARGET CELLS SLIGHT; TEAR DROP CELLS SLIGHT; TOXIC GRANULATION SLIGHT
[2017-03-23] MEDS ORDERED: LORAZEPAM INJ 2 MG/1 ML VIAL IV PRN (07:33)
[2017-03-23] MEDS: ENOXAPARIN SODIUM INJ 40 MG/0.4 ML DISP.SYRIN SUBCUT SCH (11:20)
[2017-03-23] MEDS: MULTIVITAMIN TABLET PO SCH (11:21)
[2017-03-23] MEDS: HYDROCORTISONE 10 MG TABLET PO SCH ×2 (11:22→18:35)
[2017-03-23] MEDS: AMLODIPINE BESYLATE 2.5 MG TABLET PO SCH (11:22)
[2017-03-23] MEDS: LEVETIRACETAM 500 MG TABLET PO SCH ×2 (11:22→18:35)
[2017-03-23] MEDS: CLOPIDOGREL BISULFATE 75 MG TABLET PO SCH (11:22)
[2017-03-23] MEDS: FOLIC ACID 1 MG TABLET PO SCH (11:23)
[2017-03-23] MEDS: SERTRALINE HCL 50 MG TABLET PO SCH (11:24)
[2017-03-23] MEDS: THIAMINE HCL 100 MG TABLET PO SCH (11:30)
[2017-03-23] MEDS: DOCUSATE SODIUM 100 MG CAPSULE PO SCH ×2 (11:37→18:35)
--- NOTE | 2017-03-23 14:24 | PDOC PROGRESS REPORT ---
Subjective Progress Note for:: 03/23/17 Subjective:: He is resting comfortably. Patient denies chest pain, shortness of breath, abdominal pain, nausea, vomiting , fevers, chills, diarrhea, constipation, new onset weakness. Physical Exam Vital Signs: Temp Pulse Resp BP Pulse Ox 97.6 F 59 L 18 143/72 H 100 03/23/17 07:42 03/23/17 07:42 03/23/17 07:42 03/23/17 07:42 03/23/17 07:42 Intake & Output 03/22/17 03/23/17 03/24/17 06:59 06:59 06:59 Intake Total 1292 688 Output Total 725 950 Balance 567 -262 Weight 60 kg 59.5 kg Exam: GENERAL: sleeping but easily aroused, no acute distress HEENT: Conjunctiva clear, nonicteric, moist mucous membranes, no JVD, midline trachea, poor dentition RESPIRATORY: Clear to auscultation bilaterally, no wheezes, no rhonchi CARDIAC: Regular rate and rhythm, no murmurs/gallops/rubs ABDOMEN: Soft, nondistended, nontender, positive bowel sounds, no rebound, no guarding. Ileostomy present with large area of protrusion into bag, pink and well perfused however EXTREMETIES: No edema, cyanosis, clubbing NEUROLOGIC: Alert, oriented to person, place, CN's grossly intact, no focal deficits; moves all extremities and is not tremulous SKIN: No rash, wounds PSYCH: Mildly histrionic, normal mood and affect Results Laboratory Results: 03/23/17 05:42 03/23/17 05:42 03/23/17 03/23/17 05:42 05:42 WBC 8.1 RBC 4.74 Hgb 12.4 L Hct 38.0 MCV 80 MCH 26.1 L MCHC 32.6 RDW 19.8 H Plt Count 337 Seg Neutrophils % Not Reportable Lymphocytes % Not Reportable Monocytes % Not Reportable Eosinophils % Not Reportable Basophils % Not Reportable Absolute Neutrophils Not Reportable Absolute Lymphocytes Not Reportable Absolute Monocytes Not Reportable Absolute Eosinophils Not Reportable Absolute Basophils Not Reportable Sodium 138.3 Potassium 3.9 Chloride 97 L Carbon Dioxide 31 H Anion Gap 10 BUN 16 Creatinine 1.04 Est GFR ( Amer) > 60 Est GFR (Non-Af Amer) > 60 Glucose 81 Calcium 9.4 Magnesium 1.9 03/17/17 03/17/17 03/17/17 03:59 07:45 12:10 Troponin I < 0.012 0.012 < 0.012 03/18/17 03:59 Troponin I < 0.012 Impressions: Chest X-Ray 03/17/17 00:00 IMPRESSION: No acute cardiopulmonary findings. Head CT 03/17/17 00:00 IMPRESSION: NORMAL BRAIN CT WITHOUT CONTRAST. Assessment & Plan - Diagnosis (1) Alcohol dependence with withdrawal delirium Is this a current diagnosis for this admission?: YesPlan: Decrease scheduled Valium and use prn Ativan. Continue IV thiamine and folic acid. (2) Hyponatremia Is this a current diagnosis for this admission?: YesPlan: Intially concerned for rapid overcorrection of patient's sodium. Improved. Appreciate nephrology. No apparent current deficit (3) Ileostomy prolapse Is this a current diagnosis for this admission?: YesPlan: Appreciate surgical service reassurance that this is not incarcerated. Patient will need to follow as an outpatient. (4) Depression Qualifiers: Depression Type: unspecified Qualified Code(s): F32.9 - Major depressive disorder, single episode, unspecified Is this a current diagnosis for this admission?: YesPlan: Patient on sertraline (5) History of splenectomy Is this a current diagnosis for this admission?: Yes (6) Hypomagnesemia Is this a current diagnosis for this admission?: Yes (7) Anemia Qualifiers: Anemia type: unspecified type Qualified Code(s): D64.9 - Anemia, unspecified Is this a current diagnosis for this admission?: Yes (8) History of DVT (deep vein thrombosis) Is this a current diagnosis for this admission?: Yes (9) History of pulmonary embolism Is this a current diagnosis for this admission?: Yes (10) Adrenal insufficiency Is this a current diagnosis for this admission?: YesPlan: Continue Cortef 10 mg p.o. twice daily (11) Hepatitis C Qualifiers: Viral hepatitis chronicity: unspecified Hepatic coma status: without hepatic coma Qualified Code(s): B19.20 - Unspecified viral hepatitis C without hepatic coma Is this a current diagnosis for this admission?: Yes (12) Seizure disorder Is this a current diagnosis for this admission?: YesPlan: Depakote to 500 mg p.o. every 8. Keppra 500 mg p.o. twice daily. Patient has not been taking his medications as an outpatient. Patient has been using illegal drugs. I have concerns over whether this patient can care for himself at home and will attempt to coordinate care with discharge planning and his family. Have consulted psychology for competency evaluation. 03/16/17 03/17/17 03/17/17 23:30 03:53 03:59 Phenytoin Valproic Acid < 10.0 L Levetiracetam None Detected U Marijuana (THC) Screen UNCONFIRMED POSITIVE 03/18/17 03:59 Phenytoin < 3.0 L Valproic Acid Levetiracetam U Marijuana (THC) Screen (13) Status post ileostomy Is this a current diagnosis for this admission?: Yes - Time Time Spent with patient: 25-34 minutes Medications reviewed and adjusted accordingly: Yes
[2017-03-24] MEDS: HALOPERIDOL LACTATE INJ 5 MG/1 ML VIAL IV PRN ×2 (03:30→18:20)
[2017-03-24] MEDS: GABAPENTIN 400 MG CAPSULE PO SCH ×3 (06:29→23:01)
[2017-03-24] MEDS: LANSOPRAZOLE 15 MG TAB.RAP.DR PO SCH (06:29)
[2017-03-24] MEDS: DIVALPROEX SODIUM 250 MG TABLET.DR PO SCH ×3 (06:29→23:01)
[2017-03-24] MEDS: MULTIVITAMIN TABLET PO SCH (10:37)
[2017-03-24] MEDS: CLOPIDOGREL BISULFATE 75 MG TABLET PO SCH (10:37)
[2017-03-24] MEDS: DOCUSATE SODIUM 100 MG CAPSULE PO SCH ×2 (10:37→18:20)
[2017-03-24] MEDS: TRAMADOL HCL 50 MG TABLET PO PRN (10:38)
[2017-03-24] MEDS: SERTRALINE HCL 50 MG TABLET PO SCH (10:38)
[2017-03-24] MEDS: THIAMINE HCL 100 MG TABLET PO SCH (10:39)
[2017-03-24] MEDS: FOLIC ACID 1 MG TABLET PO SCH (10:39)
[2017-03-24] MEDS: ENOXAPARIN SODIUM INJ 40 MG/0.4 ML DISP.SYRIN SUBCUT SCH (10:39)
[2017-03-24] MEDS: AMLODIPINE BESYLATE 2.5 MG TABLET PO SCH (10:40)
[2017-03-24] MEDS: LEVETIRACETAM 500 MG TABLET PO SCH ×2 (10:40→18:20)
[2017-03-24] MEDS: HYDROCORTISONE 10 MG TABLET PO SCH ×2 (10:40→18:21)
--- NOTE | 2017-03-24 10:43 | PDOC PROGRESS REPORT ---
Subjective Progress Note for:: 03/24/17 Subjective:: Patient seen earlier today on morning rounds. He has no new complaints. He asks me if he is going to . He is sitting in bed preparing to eat breakfast. Patient denies chest pain, shortness of breath, abdominal pain, nausea, vomiting , fevers, chills, diarrhea, constipation, new onset weakness. Physical Exam Vital Signs: Temp Pulse Resp BP Pulse Ox 97.7 F 55 L 16 155/72 H 99 03/24/17 07:22 03/24/17 07:22 03/24/17 07:22 03/24/17 07:22 03/24/17 07:22 Intake & Output 03/23/17 03/24/17 03/25/17 06:59 06:59 06:59 Intake Total 688 1358 Output Total 950 111 Balance -262 1247 Weight 59.5 kg 59.6 kg Exam: GENERAL: A+Ox2, no acute distress HEENT: Conjunctiva clear, nonicteric, moist mucous membranes, no JVD, midline trachea, poor dentition RESPIRATORY: Clear to auscultation bilaterally, no wheezes, no rhonchi CARDIAC: Regular rate and rhythm, no murmurs/gallops/rubs ABDOMEN: Soft, nondistended, nontender, positive bowel sounds, no rebound, no guarding. Ileostomy present with large area of protrusion into bag, pink and well perfused however EXTREMETIES: No edema, cyanosis, clubbing NEUROLOGIC: Alert, oriented to person, place, CN's grossly intact, no focal deficits; moves all extremities and is not tremulous SKIN: No rash, wounds PSYCH: Mildly histrionic, normal mood and affect Results Laboratory Results: 03/23/17 05:42 03/23/17 05:42 03/17/17 03/17/17 03/17/17 03:59 07:45 12:10 Troponin I < 0.012 0.012 < 0.012 03/18/17 03:59 Troponin I < 0.012 Impressions: Chest X-Ray 03/17/17 00:00 IMPRESSION: No acute cardiopulmonary findings. Head CT 03/17/17 00:00 IMPRESSION: NORMAL BRAIN CT WITHOUT CONTRAST. Assessment & Plan - Diagnosis (1) Alcohol dependence with withdrawal delirium Is this a current diagnosis for this admission?: YesPlan: Stop scheduled Valium and continue use prn Ativan for next 24 hours. Continue thiamine and folic acid. Patient has been treated for 7 days for this and after today is outside the window for seizure. (2) Hyponatremia Is this a current diagnosis for this admission?: YesPlan: Intially concerned for rapid overcorrection of patient's sodium. Improved. Appreciate nephrology. No apparent current deficit (3) Ileostomy prolapse Is this a current diagnosis for this admission?: YesPlan: Appreciate surgical service reassurance that this is not incarcerated. Patient will need to follow as an outpatient. (4) Depression Qualifiers: Depression Type: unspecified Qualified Code(s): F32.9 - Major depressive disorder, single episode, unspecified Is this a current diagnosis for this admission?: YesPlan: Patient on sertraline (5) Hypomagnesemia Is this a current diagnosis for this admission?: YesPlan: Improved. continue to check and monitor on telemetry (6) Anemia Qualifiers: Anemia type: unspecified type Qualified Code(s): D64.9 - Anemia, unspecified Is this a current diagnosis for this admission?: Yes (7) Adrenal insufficiency Is this a current diagnosis for this admission?: YesPlan: Continue Cortef 10 mg p.o. twice daily (8) Seizure disorder Is this a current diagnosis for this admission?: YesPlan: Depakote 500 mg p.o. every 8. Keppra 500 mg p.o. twice daily. Patient has not been taking his medications as an outpatient. Patient has been using illegal drugs. I have concerns over whether this patient can care for himself at home and will attempt to coordinate care with discharge planning and his family. Have consulted psychology for competency evaluation. 03/16/17 03/17/17 03/17/17 23:30 03:53 03:59 Phenytoin Valproic Acid < 10.0 L Levetiracetam None Detected U Marijuana (THC) Screen UNCONFIRMED POSITIVE 03/18/17 03:59 Phenytoin < 3.0 L Valproic Acid Levetiracetam U Marijuana (THC) Screen (9) Hepatitis C Qualifiers: Viral hepatitis chronicity: unspecified Hepatic coma status: without hepatic coma Qualified Code(s): B19.20 - Unspecified viral hepatitis C without hepatic coma Is this a current diagnosis for this admission?: Yes (10) Status post ileostomy Is this a current diagnosis for this admission?: Yes (11) History of splenectomy Is this a current diagnosis for this admission?: Yes (12) History of pulmonary embolism Is this a current diagnosis for this admission?: Yes (13) History of DVT (deep vein thrombosis) Is this a current diagnosis for this admission?: Yes - Time Time Spent with patient: 25-34 minutes Medications reviewed and adjusted accordingly: Yes
[2017-03-25] MEDS: LANSOPRAZOLE 15 MG TAB.RAP.DR PO SCH (05:27)
[2017-03-25] MEDS: DIVALPROEX SODIUM 250 MG TABLET.DR PO SCH ×3 (05:27→22:10)
[2017-03-25] MEDS: GABAPENTIN 400 MG CAPSULE PO SCH ×3 (05:28→22:10)
[2017-03-25 07:54] LABS: CREATINE KINASE MB < 0.22 ng/mL (<4.55); TROPONIN I < 0.012 ng/mL
[2017-03-25] MEDS: SERTRALINE HCL 50 MG TABLET PO SCH (10:28)
[2017-03-25] MEDS: DOCUSATE SODIUM 100 MG CAPSULE PO SCH ×2 (10:28→17:26)
[2017-03-25] MEDS: THIAMINE HCL 100 MG TABLET PO SCH (10:29)
[2017-03-25] MEDS: CLOPIDOGREL BISULFATE 75 MG TABLET PO SCH (10:29)
[2017-03-25] MEDS: FOLIC ACID 1 MG TABLET PO SCH (10:29)
[2017-03-25] MEDS: HYDROCORTISONE 10 MG TABLET PO SCH ×2 (10:29→17:25)
[2017-03-25] MEDS: LEVETIRACETAM 500 MG TABLET PO SCH ×2 (10:29→17:25)
[2017-03-25] MEDS ORDERED: HALOPERIDOL LACTATE INJ 5 MG/1 ML VIAL IV PRN (10:30)
[2017-03-25] MEDS: ENOXAPARIN SODIUM INJ 40 MG/0.4 ML DISP.SYRIN SUBCUT SCH (10:30)
[2017-03-25] MEDS: AMLODIPINE BESYLATE 2.5 MG TABLET PO SCH (10:30)
[2017-03-25] MEDS: MULTIVITAMIN TABLET PO SCH (10:30)
--- NOTE | 2017-03-25 10:36 | PDOC PROGRESS REPORT ---
Subjective Progress Note for:: 03/25/17 Subjective:: reason for visit: f/u ETOH abuse with acute withdrawal, seizure d/o, hypoNa, hypoMg hospital course: in summary presented to the ED with worsening dizziness, weakness and falls without LOC or known/witnessed seizure activity and has a long history of admissions to this hospital for acute ETOH intoxication and concomitant eletrolyte and lab abnl's, withdrawal seizures, general debility, etc. He was found to similar abnl's once again and quickly exhibited signs of withdrawal requiring benzo's and anti psychotics to control his symptoms. ROS: he denies chest pain, fevers/chills, n/v/d, palpitations. he is a bit drowsy this morning after dose of haldol given for agitation very early this morning but he will slowly follow commands and answer questions. attempted to review all systems but no successful due to his mentation at present. Physical Exam Vital Signs: Temp Pulse Resp BP Pulse Ox 97.8 F 75 20 151/66 H 97 03/25/17 04:29 03/25/17 07:00 03/25/17 04:29 03/25/17 04:29 03/25/17 04:29 Intake & Output 03/24/17 03/25/17 03/26/17 06:59 06:59 06:59 Intake Total 1358 1662 Output Total 111 1500 Balance 1247 162 Weight 59.6 kg 59.9 kg General appearance: PRESENT: cooperative, disheveled, thin, well-developed Head exam: PRESENT: atraumatic, normocephalic Eye exam: PRESENT: EOMI. ABSENT: conjunctival injection, scleral icterus Mouth exam: PRESENT: moist Teeth exam: PRESENT: poor dentation Neck exam: PRESENT: full ROM. ABSENT: JVD, lymphadenopathy Respiratory exam: PRESENT: crackles - bases bilat, unlabored. ABSENT: accessory muscle use, rhonchi, wheezes Cardiovascular exam: PRESENT: RRR. ABSENT: systolic murmur Pulses: PRESENT: normal radial pulses, normal dorsalis pedis pul GI/Abdominal exam: PRESENT: hyperactive bowel sounds, soft, other - ostomy bag in place. ABSENT: distended, guarding, tenderness Musculoskeletal exam: PRESENT: full ROM, normal inspection - good symmetric strength Neurological exam: PRESENT: altered - sluggish, awake, oriented to person, oriented to place, reflexes normal, other - no asterixis but there is 2-3 beat ankle clonus. ABSENT: oriented to time, oriented to situation Psychiatric exam: PRESENT: flat affect Focused psych exam: ABSENT: pressured speech, psychomotor agitation, restlessness Skin exam: PRESENT: dry, petechiae, warm. ABSENT: jaundice Results Laboratory Results: 03/23/17 05:42 03/23/17 05:42 03/17/17 03/17/17 03/17/17 03:59 07:45 12:10 Creatine Kinase CK-MB (CK-2) Troponin I < 0.012 0.012 < 0.012 03/18/17 03/25/17 03/25/17 03:59 07:18 07:18 Creatine Kinase 52 L CK-MB (CK-2) < 0.22 Troponin I < 0.012 < 0.012 Impressions: Chest X-Ray 03/17/17 00:00 IMPRESSION: No acute cardiopulmonary findings. Head CT 03/17/17 00:00 IMPRESSION: NORMAL BRAIN CT WITHOUT CONTRAST. Status: Imported from PACS Assessment & Plan - Diagnosis (1) Alcohol dependence with withdrawal delirium Is this a current diagnosis for this admission?: YesPlan: improved and nearly back to baseline; wean haldol and monitor for effect (2) Depression Qualifiers: Depression Type: unspecified Qualified Code(s): F32.9 - Major depressive disorder, single episode, unspecified Is this a current diagnosis for this admission?: YesPlan: probably back to baseline, stable; continue SSRI and will need outpt psych f/u though they are recommending assignment of guardian as he is not capable of executive functioning for completely independent living. unsure where we stand on this with family and child welfare social worker, will need clarification. (3) Hypomagnesemia Is this a current diagnosis for this admission?: YesPlan: stable; repeat level in am (4) Hyponatremia Is this a current diagnosis for this admission?: YesPlan: stable; repeat level in am (5) Ileostomy prolapse Is this a current diagnosis for this admission?: YesPlan: stable (6) Anemia Qualifiers: Anemia type: unspecified type Qualified Code(s): D64.9 - Anemia, unspecified Is this a current diagnosis for this admission?: YesPlan: stable; no evidence for acute blood loss, continue to monitor (7) Adrenal insufficiency Is this a current diagnosis for this admission?: YesPlan: stable; continue hydrocortisone (8) Hypertension Is this a current diagnosis for this admission?: YesPlan: stable; continue current regimen (9) Seizure disorder Is this a current diagnosis for this admission?: YesPlan: stable on current regimen, no evidence for recurrence in at least the last 48 hrs. - Time Time Spent with patient: 35 or more minutes Medications reviewed and adjusted accordingly: Yes - Plan Summary Plan Summary: unclear at this time what our discharge disposition is.
[2017-03-26] MEDS: DIVALPROEX SODIUM 250 MG TABLET.DR PO SCH (05:02)
[2017-03-26] MEDS: LANSOPRAZOLE 15 MG TAB.RAP.DR PO SCH (05:05)
[2017-03-26] MEDS: GABAPENTIN 400 MG CAPSULE PO SCH (05:05)
[2017-03-26 07:09] LABS: HEMATOCRIT 30.8 % (37.9-51.0); HEMOGLOBIN 10.1 g/dL (13.5-17.0); HGB HCT DIFFERENCE -0.5; MEAN CORPUSCULAR HEMOGLOBIN 25.9 pg (27.0-33.4); MEAN CORPUSCULAR HGB CONC 32.8 g/dL (32.0-36.0); MEAN CORPUSCULAR VOLUME 79 fl (80-97); RED CELL DISTRIBUTION WIDTH 19.8 % (11.5-14.0); WHITE BLOOD COUNT 8.1 10^3/uL (4.0-10.5)
[2017-03-26 07:19] LABS: ALBUMIN 3.4 g/dL (3.5-5.0); ANION GAP 8 (5-19); BLOOD UREA NITROGEN 18 mg/dL (7-20); CARBON DIOXIDE 31 mmol/L (22-30); CHLORIDE 99 mmol/L (98-107); CREATININE RESULT 0.98 mg/dL (0.52-1.25); GLUCOSE 105 mg/dL (75-110); SODIUM 138.4 mmol/L (137-145); TOTAL PROTEIN 6.6 g/dL (6.3-8.2)
[2017-03-26 07:21] LABS: ALANINE AMINOTRANSFERASE 24 U/L (21-72); ALKALINE PHOSPHATASE 124 U/L (38-126); ASPARTATE AMINO TRANSFERASE 28 U/L (17-59); BILIRUBIN,DIRECT 0.3 mg/dL (0.0-0.4); BILIRUBIN,TOTAL 0.3 mg/dL (0.2-1.3); CALCIUM 9.7 mg/dL (8.4-10.2)
[2017-03-26 07:32] LABS: BASOPHILS % (MANUAL) 0 % (0-2); EOSINOPHILS % (MANUAL) 0 % (0-6); LYMPHOCYTES % (MANUAL) 47 % (13-45); TOTAL CELLS COUNTED 100
[2017-03-26 07:34] LABS: HYPOCHROMASIA SLIGHT; MICROCYTOSIS SLIGHT; OVALOCYTES SLIGHT; POLYCHROMASIA SLIGHT; TARGET CELLS 1+
--- NOTE | 2017-03-26 10:40 | PDOC DISCHARGE SUMMARY ---
General - Admit/Disc Date/PCP Admission Date/Primary Care Provider: 03/17/17 01:53 Discharge Date: 03/26/17 - Discharge Diagnosis (1) Alcohol dependence with withdrawal delirium Is this a current diagnosis for this admission?: Yes (2) Depression Is this a current diagnosis for this admission?: Yes (3) Hypomagnesemia Is this a current diagnosis for this admission?: Yes (4) Hyponatremia Is this a current diagnosis for this admission?: Yes (5) Ileostomy prolapse Is this a current diagnosis for this admission?: Yes (6) Anemia Is this a current diagnosis for this admission?: Yes (7) Adrenal insufficiency Is this a current diagnosis for this admission?: Yes (8) Hypertension Is this a current diagnosis for this admission?: Yes (9) Seizure disorder Is this a current diagnosis for this admission?: Yes - Additional Information Resuscitation Status: Full Code Discharge Diet: As Tolerated Discharge Activity: Activity As Tolerated, Slowly Increase Activity, Supervised Activity Home Medications: Amlodipine Besylate [Norvasc 2.5 mg Tablet] 2.5 mg PO DAILY #30 tablet 03/26/17 Clopidogrel Bisulfate [Plavix 75 mg Tablet] 75 mg PO DAILY #30 tablet 03/26/17 Divalproex Sodium [Depakote] 500 mg PO BID #60 tablet. 03/26/17 Folic Acid [Folvite 1 mg Tablet] 1 mg PO DAILY tablet 03/26/17 Gabapentin [Neurontin 300 mg Capsule] 400 mg PO TID #90 capsule 03/26/17 Hydrocortisone [Cortef 10 mg Tablet] 10 mg PO BID #60 tablet 03/26/17 Levetiracetam 500 mg PO BID #60 tablet 03/26/17 Multivitamin [Tab-A-Danial (Multiple Vitamin) Tablet] 1 tab PO DAILY tablet 03/26 Omeprazole 20 mg PO DAILY #30 tablet. 03/26/17 Sertraline HCl [Zoloft 50 mg Tablet] 50 mg PO DAILY #30 tablet 03/26/17 Thiamine HCl [Thiamine 100 mg Tablet] 100 mg PO DAILY tablet 03/26/17 History of Present Illness Patient complains of: falls and confusion and weakness History of Present Illness: OUMOU PAZ is a 56 year old male in summary presented to the ED with worsening dizziness, weakness and falls without LOC or known/witnessed seizure activity and has a long history of admissions to this hospital for acute ETOH intoxication and concomitant eletrolyte and lab abnl's, withdrawal seizures, general debility, etc. He was found to similar abnl's once again and quickly exhibited signs of withdrawal requiring benzo's and anti psychotics to control his symptoms. Hospital Course Hospital Course: gradually over the course of the next several days we were able to coax him through his withdrawal symptoms and his mentation righted to the point he is back to his baseline. His eletrolyte imbalances have been corrected, he's shown no signs of seizure activity on his current regimen and he's been up walking the halls this morning without assistance. He reportedly has a POA designated, his sister in [place], and a brother Benigno here locally who will take responsibility for hi m upon discharge. 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 at this point he is stable for d/c home. Rx's for all home meds provided. Physical Exam Vital Signs: Temp Pulse Resp BP Pulse Ox 97.5 F 71 18 148/79 H 100 03/26/17 07:15 03/26/17 07:15 03/26/17 07:15 03/26/17 07:15 03/26/17 07:15 Intake & Output 03/25/17 03/26/17 03/27/17 06:59 06:59 06:59 Intake Total 1662 668 Output Total 1500 675 Balance 162 -7 Weight 59.9 kg 61.9 kg General appearance: PRESENT: no acute distress, well-developed Head exam: PRESENT: atraumatic, normocephalic Eye exam: PRESENT: EOMI. ABSENT: conjunctival injection, scleral icterus Respiratory exam: PRESENT: clear to auscultation tre. ABSENT: accessory muscle use Cardiovascular exam: PRESENT: RRR. ABSENT: systolic murmur GI/Abdominal exam: PRESENT: normal bowel sounds, soft. ABSENT: tenderness Neurological exam: PRESENT: alert, awake, oriented to person, oriented to place , oriented to situation. ABSENT: ataxia Psychiatric exam: PRESENT: appropriate affect, normal mood Results Laboratory Results: 03/26/17 06:50 03/26/17 06:50 03/25/17 03/26/17 03/26/17 07:18 06:50 06:50 WBC 8.1 RBC 3.90 L Hgb 10.1 L Hct 30.8 L MCV 79 L MCH 25.9 L MCHC 32.8 RDW 19.8 H Plt Count 365 Seg Neutrophils % Not Reportable Lymphocytes % Not Reportable Monocytes % Not Reportable Eosinophils % Not Reportable Basophils % Not Reportable Absolute Neutrophils Not Reportable Absolute Lymphocytes Not Reportable Absolute Monocytes Not Reportable Absolute Eosinophils Not Reportable Absolute Basophils Not Reportable Sodium 138.4 Potassium 4.0 Chloride 99 Carbon Dioxide 31 H Anion Gap 8 BUN 18 Creatinine 0.98 Est GFR ( Amer) > 60 Est GFR (Non-Af Amer) > 60 Glucose 105 Calcium 9.7 Magnesium 2.0 Total Bilirubin 0.3 AST 28 ALT 24 Alkaline Phosphatase 124 Ammonia Total Protein 6.6 Albumin 3.4 L 03/26/17 06:50 WBC RBC Hgb Hct MCV MCH MCHC RDW Plt Count Seg Neutrophils % Lymphocytes % Monocytes % Eosinophils % Basophils % Absolute Neutrophils Absolute Lymphocytes Absolute Monocytes Absolute Eosinophils Absolute Basophils Sodium Potassium Chloride Carbon Dioxide Anion Gap BUN Creatinine Est GFR ( Amer) Est GFR (Non-Af Amer) Glucose Calcium Magnesium Total Bilirubin AST ALT Alkaline Phosphatase Ammonia 21.4 Total Protein Albumin 03/17/17 03/17/17 03/17/17 03:59 07:45 12:10 Creatine Kinase CK-MB (CK-2) Troponin I < 0.012 0.012 < 0.012 03/18/17 03/25/17 03/25/17 03:59 07:18 07:18 Creatine Kinase 52 L CK-MB (CK-2) < 0.22 Troponin I < 0.012 < 0.012 Impressions: Chest X-Ray 03/17/17 00:00 IMPRESSION: No acute cardiopulmonary findings. Head CT 03/17/17 00:00 IMPRESSION: NORMAL BRAIN CT WITHOUT CONTRAST. Qualifiers PATEINT BEING DISCHARGED WITH ANY OF THE FOLLOWING DIAGNOSIS?: No VTE patient discharged on overlapping Therapy?: No Reason(s) for not prescribing Overlap Therapy:: Not indicated Plan Discharge Plan: d/c home to family, f/u with his PCP in one week and the [facility], return to the ED for worsening symptoms. Time Spent: Greater than 30 Minutes
[2017-03-26 10:43] VITALS: BP 110/67
[2017-03-26] MEDS: THIAMINE HCL 100 MG TABLET PO SCH (10:50)
[2017-03-26] MEDS: FOLIC ACID 1 MG TABLET PO SCH (10:50)
[2017-03-26] MEDS: LEVETIRACETAM 500 MG TABLET PO SCH (10:50)
[2017-03-26] MEDS: AMLODIPINE BESYLATE 2.5 MG TABLET PO SCH (10:51)
[2017-03-26] MEDS: DOCUSATE SODIUM 100 MG CAPSULE PO SCH (10:52)
[2017-03-26] MEDS: HYDROCORTISONE 10 MG TABLET PO SCH (10:52)
[2017-03-26] MEDS: MULTIVITAMIN TABLET PO SCH (10:52)
[2017-03-26] MEDS: SERTRALINE HCL 50 MG TABLET PO SCH (10:52)
[2017-03-26] MEDS: ENOXAPARIN SODIUM INJ 40 MG/0.4 ML DISP.SYRIN SUBCUT SCH (10:53)
[2017-03-26] MEDS: CLOPIDOGREL BISULFATE 75 MG TABLET PO SCH (10:54)
== END 2017-03-26 11:06 | disposition home or self-care (01) | DRG 897 ==
LOC: ER 21:12 → UNDOADMIN 03-17 00:26 → EH 03-17 00:26 → 3S 03-17 02:20
PROVIDERS: ADMIT Family Medicine; ATTEND Family Medicine
DX: F10.231 Alcohol dependence with withdrawal delirium (principal); E87.1 Hypo-osmolality and hyponatremia; E27.40 Unspecified adrenocortical insufficiency; F32.9 Major depressive disorder, single episode, unspecified; E83.42 Hypomagnesemia; D64.9 Anemia, unspecified; I10 Essential (primary) hypertension; G40.909 Epilepsy, unspecified, not intractable, without status epilepticus; K21.9 Gastro-esophageal reflux disease without esophagitis; B19.20 Unspecified viral hepatitis C without hepatic coma; Z79.02 Long term (current) use of antithrombotics/antiplatelets; Z79.899 Other long term (current) drug therapy; Z88.6 Allergy status to analgesic agent; Z88.8 Allergy status to other drugs, medicaments and biological substances; Z91.041 Radiographic dye allergy status; E11.9 Type 2 diabetes mellitus without complications; Z93.2 Ileostomy status; Z86.718 Personal history of other venous thrombosis and embolism; Z86.711 Personal history of pulmonary embolism; F17.210 Nicotine dependence, cigarettes, uncomplicated; Z91.14 Patient's other noncompliance with medication regimen
CPT/HCPCS: 36415; 70450; 71010; 80048; 80053; 80061; 80164; 80177; 80185; 80307; 81001; 82140; 82550; 82553; 83735; 84484; 85025; 85379; 85610; 85730; 93005; 93010; 99285; J0360; J1200; J1630; J1650; J2060; J2597; J3475; J3480; J3490; J7030; J7060

== ENCOUNTER 2017-03-28 06:15 | Emergency (ER) | payer OTHER ==
[2017-03-28 07:29] LABS: HEMATOCRIT 34.3 % (37.9-51.0); HEMOGLOBIN 11.4 g/dL (13.5-17.0); HGB HCT DIFFERENCE -0.1; MEAN CORPUSCULAR HEMOGLOBIN 26.8 pg (27.0-33.4); MEAN CORPUSCULAR HGB CONC 33.3 g/dL (32.0-36.0); MEAN CORPUSCULAR VOLUME 81 fl (80-97); RED BLOOD COUNT 4.26 10^6/uL (4.35-5.55); RED CELL DISTRIBUTION WIDTH 20.2 % (11.5-14.0)
[2017-03-28 07:44] LABS: ALANINE AMINOTRANSFERASE 31 U/L (21-72); ALBUMIN 4.6 g/dL (3.5-5.0); ALKALINE PHOSPHATASE 130 U/L (38-126); ANION GAP 12 (5-19); ASPARTATE AMINO TRANSFERASE 73 U/L (17-59); BILIRUBIN,DIRECT 0.6 mg/dL (0.0-0.4); BILIRUBIN,TOTAL 0.6 mg/dL (0.2-1.3); BLOOD UREA NITROGEN 23 mg/dL (7-20); CALCIUM 9.8 mg/dL (8.4-10.2); CARBON DIOXIDE 30 mmol/L (22-30); CHLORIDE 100 mmol/L (98-107); CREATININE RESULT 1.53 mg/dL (0.52-1.25); GLUCOSE 94 mg/dL (75-110); POTASSIUM 4.3 mmol/L (3.6-5.0); SODIUM 142.2 mmol/L (137-145); TOTAL PROTEIN 8.4 g/dL (6.3-8.2)
[2017-03-28] MEDS ORDERED: NORMAL SALINE 1000 ML 1,000 ML IV ONE (07:49)
[2017-03-28 07:59] LABS: BASOPHILS % (MANUAL) 1 % (0-2); EOSINOPHILS % (MANUAL) 0 % (0-6); LYMPHOCYTES % (MANUAL) 38 % (13-45); TOTAL CELLS COUNTED 100
[2017-03-28 08:00] LABS: ACANTHOCYTES 1+; ANISOCYTOSIS 2+; HOWELL-JOLLY BODIES PRESENT; HYPOCHROMASIA 3+; OVALOCYTES SLIGHT; PLATELET CLUMPS PRESENT; POIKILOCYTOSIS 2+; POLYCHROMASIA SLIGHT; SCHISTOCYTES 1+; TARGET CELLS 2+; TEAR DROP CELLS SLIGHT; TOXIC VACUOLATION PRESENT
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
--- NOTE | 2017-03-28 08:56 | RADIOLOGY REPORT (SQ) ---
EXAM DESCRIPTION: CT HEAD WITHOUT COMPLETED DATE/TIME: 03/28/2017 8:27 am REASON FOR STUDY: diplopia COMPARISON: MRI brain 09/26/[address] brain exams since 2011, most recently 03/17/2017 TECHNIQUE: Axial images acquired through the brain without intravenous contrast. Images reviewed wi th bone, brain and subdural windows. Images stored on PACS. All CT scanners at this facility use dose modulation, iterative reconstruction, and/or weight based d osing when appropriate to reduce radiation dose to as low as reasonably achievable (ALARA). [facility]: Dose Right [facility]: CareDose [facility]: Dose Right [facility]: Teradose 4D [facility]: Smart [employer] RADIATION DOSE: Up-to-date CT equipment and radiation dose reduction techniques were employed. CTDIv ol: 64.6 mGy. DLP: 1163 mGy-cm. mGy. LIMITATIONS: None. FINDINGS: VENTRICLES: Normal size and contour. CEREBRUM: No masses. No hemorrhage. No midline shift. Normal dwyer/white matter differentiation. N o evidence for acute infarction. CEREBELLUM: No masses. No hemorrhage. No alteration of density. No evidence for acute infarction. EXTRAAXIAL SPACES: No fluid collections. No masses. ORBITS AND GLOBE: No intra- or extraconal masses. Normal contour of globe without masses. CALVARIUM: No fracture. PARANASAL SINUSES: No fluid or mucosal thickening. SOFT TISSUES: No mass or hematoma. OTHER: No other significant finding. IMPRESSION: NORMAL BRAIN CT WITHOUT CONTRAST. TECHNICAL DOCUMENTATION: JOB ID: [id number] Quality ID # [id number]: Final reports with documentation of one or more dose reduction techniques (e.g., Au tomated exposure control, adjustment of the mA and/or kV according to patient size, use of iterative reconstruction technique) 2010 [employer]- All Rights Reserved
[2017-03-28 09:40] VITALS: BP 140/78
== END 2017-03-28 09:35 | disposition home or self-care (01) ==
LOC: ER 06:15
DX: H53.2 Diplopia (principal); N28.9 Disorder of kidney and ureter, unspecified; I10 Essential (primary) hypertension; Z88.8 Allergy status to other drugs, medicaments and biological substances; Z88.5 Allergy status to narcotic agent; Z86.711 Personal history of pulmonary embolism; Z86.718 Personal history of other venous thrombosis and embolism
CPT/HCPCS: 99285; 96360; 36415; 85025; 80053; 70450; J7030

== ENCOUNTER 2017-05-10 22:19 | Inpatient (IN) | payer OTHER ==
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
--- NOTE | 2017-05-10 23:36 | RADIOLOGY REPORT (SQ) ---
EXAM DESCRIPTION: CT HEAD WITHOUT COMPLETED DATE/TIME: 05/10/2017 11:28 pm REASON FOR STUDY: sudden onset headache (right side of head) COMPARISON: 03/28/2017 TECHNIQUE: Axial images acquired through the brain without intravenous contrast. Images reviewed wi th bone, brain and subdural windows. Images stored on PACS. LIMITATIONS: None. FINDINGS: VENTRICLES: Normal size and contour. CEREBRUM: No masses. No hemorrhage. No midline shift. Normal dwyer/white matter differentiation. N o evidence for acute infarction. CEREBELLUM: No masses. No hemorrhage. No alteration of density. No evidence for acute infarction. EXTRAAXIAL SPACES: No fluid collections. No masses. ORBITS AND GLOBE: No intra- or extraconal masses. Normal contour of globe without masses. CALVARIUM: No fracture. PARANASAL SINUSES: No fluid or mucosal thickening. SOFT TISSUES: No mass or hematoma. OTHER: No other significant finding. IMPRESSION: NORMAL BRAIN CT WITHOUT CONTRAST. COMMENT: WAS EXAM PERFORMED WITHIN 24 HOURS UPON ARRIVAL TO FACILITY? Yes. TECHNICAL DOCUMENTATION: JOB ID: [id number]
[2017-05-10] MEDS ORDERED: DIPHENHYDRAMINE HCL 50 MG/ML VIAL IV ONE ×2 (23:38→23:39)
[2017-05-10] MEDS ORDERED: METOCLOPRAMIDE HCL INJ/PF 10 MG/2 ML SDV IV ONE ×2 (23:38→23:39)
[2017-05-11 01:21] LABS: ALANINE AMINOTRANSFERASE 40 U/L (21-72); ALBUMIN 4.2 g/dL (3.5-5.0); ALKALINE PHOSPHATASE 115 U/L (38-126); ANION GAP 10 (5-19); ASPARTATE AMINO TRANSFERASE 71 U/L (17-59); BILIRUBIN,DIRECT 0.5 mg/dL (0.0-0.4); BILIRUBIN,TOTAL 0.7 mg/dL (0.2-1.3); BLOOD UREA NITROGEN 8 mg/dL (7-20); CALCIUM 9.5 mg/dL (8.4-10.2); CARBON DIOXIDE 28 mmol/L (22-30); CHLORIDE 79 mmol/L (98-107); CREATININE RESULT 0.93 mg/dL (0.52-1.25); GLUCOSE 102 mg/dL (75-110); HEMATOCRIT 30.4 % (37.9-51.0); HEMOGLOBIN 10.4 g/dL (13.5-17.0); HGB HCT DIFFERENCE 0.8; MEAN CORPUSCULAR HGB CONC 34.1 g/dL (32.0-36.0); MEAN CORPUSCULAR VOLUME 76 fl (80-97); POTASSIUM 4.1 mmol/L (3.6-5.0); RED BLOOD COUNT 3.98 10^6/uL (4.35-5.55); RED CELL DISTRIBUTION WIDTH 20.3 % (11.5-14.0); TOTAL PROTEIN 7.4 g/dL (6.3-8.2); WHITE BLOOD COUNT 4.1 10^3/uL (4.0-10.5)
[2017-05-11 01:22] LABS: ALCOHOL < 10 mg/dL (NONE DETECTED)
[2017-05-11 01:24] LABS: SODIUM 116.6 mmol/L (137-145)
[2017-05-11] MEDS ORDERED: NORMAL SALINE 1000 ML 1,000 ML IV PRN ×2 (01:26→03:17)
[2017-05-11 01:42] LABS: BAND NEUTROPHILS % (MANUAL) 1 % (3-5); BASOPHILS % (MANUAL) 0 % (0-2); EOSINOPHILS % (MANUAL) 1 % (0-6); LYMPHOCYTES % (MANUAL) 40 % (13-45); TOTAL CELLS COUNTED 100
[2017-05-11 01:45] LABS: ANISOCYTOSIS 2+; BURR CELLS 1+; HYPOCHROMASIA SLIGHT; MICROCYTOSIS SLIGHT; OVALOCYTES 1+; POIKILOCYTOSIS 1+; POLYCHROMASIA SLIGHT; SCHISTOCYTES 1+; TARGET CELLS SLIGHT; TEAR DROP CELLS SLIGHT; TOXIC VACUOLATION PRESENT
[2017-05-11] MEDS ORDERED: THIAMINE HCL 100 MG in NORMAL SALINE 50 ML IV ONE (02:06)
[2017-05-11 03:29] LABS: ADD ON TESTING BLD IN LAB ACKNOWLEDGE
[2017-05-11 03:40] LABS: MAGNESIUM 1.4 mg/dL (1.6-2.3)
[2017-05-11] MEDS ORDERED: THIAMINE HCL INJ 200 MG/2 ML VIAL ONE (03:42)
[2017-05-11] MEDS: NORMAL SALINE 1000 ML 1,000 ML IV PRN ×2 (03:48→17:48)
[2017-05-11] MEDS: MAGNESIUM SULFATE/D5W 1 GM/100 ML RTUPB IV SCH ×2 (04:14→05:42)
[2017-05-11 04:17] LABS: APPEARANCE,URINE CLEAR; BILIRUBIN,URINE NEGATIVE (NEGATIVE); GLUCOSE, URINE NEGATIVE (NEGATIVE); KETONES,URINE NEGATIVE (NEGATIVE); LEUKOCYTE ESTERASE,URINE NEGATIVE (NEGATIVE); NITRITE,URINE NEGATIVE (NEGATIVE); PROTEIN,URINE NEGATIVE (NEGATIVE); URINE SPECIFIC GRAVITY 1.003; UROBILINOGEN,URINE NEGATIVE mg/dL (<2.0)
[2017-05-11 04:31] LABS: URINE BARBITURATES SCREEN NEGATIVE; URINE METHADONE SCREEN NEGATIVE; URINE OPIATES LOW NEGATIVE; URINE PHENCYCLIDINE SCREEN NEGATIVE
[2017-05-11] MEDS ORDERED: HYDROMORPHONE HCL 2 MG TABLET PO PRN (04:54)
[2017-05-11] MEDS ORDERED: LORAZEPAM 1 MG TABLET PO PRN (05:10)
[2017-05-11 05:25] LABS: ADD ON TESTING BLD IN LAB ACKNOWLEDGE
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
[2017-05-11 05:42] LABS: VALPROIC ACID < 10.0 ug/mL (50.0-120.0)
[2017-05-11 05:48] LABS: BLOOD UREA NITROGEN 7 mg/dL (7-20); CALCIUM 9.2 mg/dL (8.4-10.2); CARBON DIOXIDE 22 mmol/L (22-30); CHLORIDE 86 mmol/L (98-107); CREATININE RESULT 0.85 mg/dL (0.52-1.25); GLUCOSE 106 mg/dL (75-110); POTASSIUM 3.8 mmol/L (3.6-5.0)
[2017-05-11 05:50] LABS: ANION GAP 10 (5-19)
[2017-05-11 05:59] LABS: SODIUM 117.6 mmol/L (137-145)
--- NOTE | 2017-05-11 06:12 | EKG REPORT ---
SEVERITY:- ABNORMAL ECG - SINUS RHYTHM FIRST DEGREE AV BLOCK : Confirmed by: Ricky Ruff MD 11-May-2017 06:11:17
--- NOTE | 2017-05-11 06:16 | EKG REPORT ---
SEVERITY:- ABNORMAL ECG - OLD ANTEROSEPTAL PA SINUS RHYTHM : Confirmed by: Ricky Ruff MD 11-May-2017 06:15:26
[2017-05-11] MEDS: HYDROMORPHONE HCL 2 MG TABLET PO PRN ×4 (09:35→22:07)
[2017-05-11] MEDS: HYDROCORTISONE 10 MG TABLET PO SCH ×2 (09:36→17:47)
[2017-05-11] MEDS: HEPARIN SOD (PORCINE) 5,000 UNIT/ML 1 ML SYRINGE SUBCUT SCH ×2 (09:36→22:08)
[2017-05-11] MEDS ORDERED: FOLIC ACID 1 MG TABLET PO SCH (10:00)
[2017-05-11] MEDS ORDERED: MULTIVITAMIN TABLET PO SCH (10:00)
[2017-05-11] MEDS ORDERED: THIAMINE HCL 100 MG TABLET PO SCH (10:00)
[2017-05-11 12:08] LABS: BLOOD UREA NITROGEN 7 mg/dL (7-20); CALCIUM 9.4 mg/dL (8.4-10.2); CARBON DIOXIDE 22 mmol/L (22-30); CHLORIDE 87 mmol/L (98-107); CREATININE RESULT 0.85 mg/dL (0.52-1.25); GLUCOSE 111 mg/dL (75-110)
[2017-05-11 12:10] LABS: ANION GAP 11 (5-19)
[2017-05-11 12:14] LABS: SODIUM 119.7 mmol/L (137-145)
[2017-05-11 15:58] LABS: ANION GAP 9 (5-19); BLOOD UREA NITROGEN 8 mg/dL (7-20); CALCIUM 9.7 mg/dL (8.4-10.2); CARBON DIOXIDE 23 mmol/L (22-30); CHLORIDE 92 mmol/L (98-107); CREATININE RESULT 0.97 mg/dL (0.52-1.25); GLUCOSE 114 mg/dL (75-110); POTASSIUM 4.1 mmol/L (3.6-5.0); SODIUM 123.7 mmol/L (137-145)
--- NOTE | 2017-05-11 18:07 | PDOC PROGRESS REPORT ---
Subjective Progress Note for:: 05/11/17 Subjective:: Denies any complaints. Physical Exam Vital Signs: Temp Pulse Resp BP Pulse Ox 97.7 F 84 15 140/71 H 99 05/10/17 22:32 05/11/17 13:51 05/11/17 12:03 05/11/17 12:03 05/11/17 12:20 Intake & Output 05/10/17 05/11/17 05/12/17 06:59 06:59 06:59 Output Total 950 Balance -950 General appearance: PRESENT: no acute distress Eye exam: PRESENT: conjunctiva pink. ABSENT: scleral icterus Mouth exam: PRESENT: moist, tongue midline Neck exam: ABSENT: JVD Respiratory exam: PRESENT: clear to auscultation tre. ABSENT: rales, rhonchi, wheezes Cardiovascular exam: PRESENT: RRR. ABSENT: diastolic murmur, rubs, systolic murmur GI/Abdominal exam: PRESENT: normal bowel sounds, soft. ABSENT: distended, guarding, mass, organolmegaly, rebound, tenderness Extremities exam: ABSENT: calf tenderness, clubbing, pedal edema Neurological exam: PRESENT: awake, oriented to person, oriented to place, oriented to time, oriented to situation, ataxia Psychiatric exam: PRESENT: appropriate affect Skin exam: PRESENT: dry, intact, warm. ABSENT: cyanosis, rash Results Laboratory Results: 05/11/17 15:25 05/11/17 05/11/17 05/11/17 05:03 09:45 11:35 Sodium 117.6 L* Cancelled 119.7 L* Potassium 3.8 Cancelled 4.0 Chloride 86 L Cancelled 87 L Carbon Dioxide 22 Cancelled 22 Anion Gap 10 Cancelled 11 BUN 7 Cancelled 7 Creatinine 0.85 Cancelled 0.85 Est GFR ( Amer) > 60 Cancelled > 60 Est GFR (Non-Af Amer) > 60 Cancelled > 60 Glucose 106 Cancelled 111 H Calcium 9.2 Cancelled 9.4 05/11/17 15:25 Sodium 123.7 L Potassium 4.1 Chloride 92 L Carbon Dioxide 23 Anion Gap 9 BUN 8 Creatinine 0.97 Est GFR ( Amer) > 60 Est GFR (Non-Af Amer) > 60 Glucose 114 H Calcium 9.7 Impressions: Head CT 05/10/17 23:14 IMPRESSION: NORMAL BRAIN CT WITHOUT CONTRAST. Assessment & Plan - Diagnosis (1) Dizzy Is this a current diagnosis for this admission?: Yes Plan: Improving. (2) Headache Qualifiers: Headache type: unspecified Headache chronicity pattern: acute headache Intractability: not intractable Qualified Code(s): R51 - Headache Is this a current diagnosis for this admission?: Yes (3) Hypomagnesemia Is this a current diagnosis for this admission?: Yes Plan: Secondary to alcohol use. Continue to replace and monitor. (4) Hyponatremia Is this a current diagnosis for this admission?: Yes Plan: Most likely secondary to alcohol use. (5) Pain in right lower leg Is this a current diagnosis for this admission?: Yes Plan: Ultrasound is negative for DVT. (6) Alcohol abuse Is this a current diagnosis for this admission?: Yes Plan: We will continue to monitor for DTs and give benzodiazepines as needed. (7) Anemia Qualifiers: Anemia type: unspecified type Qualified Code(s): D64.9 - Anemia, unspecified Is this a current diagnosis for this admission?: Yes (8) Adrenal insufficiency Is this a current diagnosis for this admission?: Yes Plan: Continue with Cortef. (9) Seizure Is this a current diagnosis for this admission?: Yes Plan: No evidence for seizures. - Time Time Spent with patient: 25-34 minutes - Inpatient Certification Medical Necessity: Need For IV Fluids
[2017-05-11 19:57] LABS: ANION GAP 10 (5-19); BLOOD UREA NITROGEN 8 mg/dL (7-20); CALCIUM 9.7 mg/dL (8.4-10.2); CARBON DIOXIDE 23 mmol/L (22-30); CHLORIDE 95 mmol/L (98-107); CREATININE RESULT 0.94 mg/dL (0.52-1.25); GLUCOSE 160 mg/dL (75-110); POTASSIUM 3.8 mmol/L (3.6-5.0); SODIUM 128.1 mmol/L (137-145)
--- NOTE | 2017-05-11 20:01 | XCELERA REPORT ---
[address] [address] Lower Extremity Venous Evaluation Name: OUMOU PAZ V Age: 56 yrs Gender: Male : 1960 Patient Status: Inpatient Patient Location: [address] [place], [place] [address] Study Date: 05/11/2017 12:04 PM Procedure: Color flow and duplex imaging bilaterally of the veins of the lower extremities as well as the Common Femoral veins. Reason For Study: RLE pain; hx dvt, pe Ordering Physician: NOAH AMAYA Performed By: Crystal Nieves Right Sided Venous Evaluation Normal vessel filling wall to wall, compression and augmentation as well as Colour flow down to the infrageniculate veins. Left Sided Venous Evaluation Normal vessel filling wall to wall, compression and augmentation as well as Colour flow down to the infrageniculate veins. Interpretation Summary No duplex evidence of DVT or obstruction in the bilateral lower extremities. : NOAH AMAYA > Mark Osborne
[2017-05-11 23:58] VITALS: BP 121/67
[2017-05-12] MEDS: HYDROMORPHONE HCL 2 MG TABLET PO PRN ×2 (02:30→06:42)
[2017-05-12 07:09] LABS: ALANINE AMINOTRANSFERASE 31 U/L (21-72); ALBUMIN 3.9 g/dL (3.5-5.0); ALKALINE PHOSPHATASE 136 U/L (38-126); ANION GAP 11 (5-19); ASPARTATE AMINO TRANSFERASE 51 U/L (17-59); BILIRUBIN,DIRECT 0.4 mg/dL (0.0-0.4); BILIRUBIN,TOTAL 0.5 mg/dL (0.2-1.3); BLOOD UREA NITROGEN 8 mg/dL (7-20); CALCIUM 10.1 mg/dL (8.4-10.2); CARBON DIOXIDE 23 mmol/L (22-30); CHLORIDE 100 mmol/L (98-107); CREATININE RESULT 0.92 mg/dL (0.52-1.25); GLUCOSE 109 mg/dL (75-110); POTASSIUM 4.4 mmol/L (3.6-5.0); SODIUM 134.3 mmol/L (137-145); TOTAL PROTEIN 6.8 g/dL (6.3-8.2)
[2017-05-12 07:47] LABS: HEMATOCRIT 28.9 % (37.9-51.0); HEMOGLOBIN 9.7 g/dL (13.5-17.0); HGB HCT DIFFERENCE 0.2; MEAN CORPUSCULAR HGB CONC 33.6 g/dL (32.0-36.0); MEAN CORPUSCULAR VOLUME 78 fl (80-97); RED BLOOD COUNT 3.73 10^6/uL (4.35-5.55); RED CELL DISTRIBUTION WIDTH 20.6 % (11.5-14.0); WHITE BLOOD COUNT 6.2 10^3/uL (4.0-10.5)
[2017-05-12 08:16] LABS: BASOPHILS % (MANUAL) 0 % (0-2); EOSINOPHILS % (MANUAL) 0 % (0-6); LYMPHOCYTES % (MANUAL) 27 % (13-45); TOTAL CELLS COUNTED 100
[2017-05-12 08:17] LABS: HELMET CELLS SLIGHT; OVALOCYTES SLIGHT; POIKILOCYTOSIS 3+
[2017-05-12 08:18] LABS: ANISOCYTOSIS 2+; BURR CELLS SLIGHT; HYPOCHROMASIA 1+; TARGET CELLS SLIGHT
[2017-05-13 10:48] LABS: PATH REVIEW PATHOLOGIST REVIEWED
--- NOTE | 2017-05-14 12:47 | PDOC DISCHARGE SUMMARY ---
General - Admit/Disc Date/PCP Admission Date/Primary Care Provider: 05/11/17 04:56 Discharge Date: 05/12/17 - Discharge Diagnosis (1) Dizzy Is this a current diagnosis for this admission?: Yes (2) Headache Is this a current diagnosis for this admission?: Yes (3) Hypomagnesemia Is this a current diagnosis for this admission?: Yes (4) Hyponatremia Is this a current diagnosis for this admission?: Yes (5) Pain in right lower leg Is this a current diagnosis for this admission?: Yes (6) Alcohol abuse Is this a current diagnosis for this admission?: Yes (7) Anemia Is this a current diagnosis for this admission?: Yes (8) Adrenal insufficiency Is this a current diagnosis for this admission?: Yes (9) Seizure Is this a current diagnosis for this admission?: Yes - Additional Information Resuscitation Status: Full Code Home Medications: Gabapentin [Neurontin 400 mg Capsule] 400 mg PO Q8 05/11/17 Hydrochlorothiazide [Hydrodiuril 25 mg Tablet] 25 mg PO DAILY 05/11/17 Omeprazole 20 mg PO DAILY 05/11/17 Sertraline HCl [Zoloft 50 mg Tablet] 50 mg PO DAILY 05/11/17 History of Present Illness History of Present Illness: OUMOU PAZ is a 56 year old male with a history of alcohol abuse who presented with dizziness and vertigo. He was noted to be hyponatremic felt to be secondary to his chronic beer drinking. The patient also had complaints of leg pain. The patient was admitted for further evaluation of his dizziness and recent falls. Hospital Course Hospital Course: 56-year-old male who is well-known to our service because of hyponatremia secondary to chronic beer drinking who presented with dizziness. The patient also has a history of seizure disorder as well as adrenal insufficiency. The patient also has a history of deep vein thrombosis as well as pulmonary embolism and does not take anticoagulants because he does not think it is necessary. The patient was monitored and had a Doppler ultrasound of his leg that was negative for DVT. The patient was very upset that he was not getting a new ostomy bag every day to change instead of emptying out his ostomy bag and decided to leave AGAINST MEDICAL ADVICE. He does have a history of alcohol use but had no evidence for delirium tremens. Physical Exam Vital Signs: Temp Pulse Resp BP Pulse Ox 98.1 F 87 16 121/67 99 05/11/17 23:57 05/12/17 07:00 05/11/17 23:57 05/11/17 23:57 05/11/17 17:22 Exam: Exam was not done as the patient left prior to being examined. Results Laboratory Results: 05/12/17 05:58 05/12/17 05:58 Impressions: Head CT 05/10/17 23:14 IMPRESSION: NORMAL BRAIN CT WITHOUT CONTRAST. Qualifiers PATEINT BEING DISCHARGED WITH ANY OF THE FOLLOWING DIAGNOSIS?: No Plan Discharge Plan: Patient left AGAINST MEDICAL ADVICE. He was competent to make this decision. He also has refused in the past to take anticoagulation in spite of having history of DVT and pulmonary embolism. Time Spent: Less than 30 Minutes
== END 2017-05-12 07:57 | disposition home or self-care (01) | DRG 291 ==
LOC: ER 22:19 → UNDOADMIN 05-11 03:19 → EH 05-11 03:19 → 4S 05-11 13:08
PROVIDERS: ADMIT Family Medicine; ATTEND Family Medicine
DX: I13.0 Hypertensive heart and chronic kidney disease with heart failure and stage 1 through stage 4 chronic kidney disease, or unspecified chronic kidney disease (principal); I50.33 Acute on chronic diastolic (congestive) heart failure; E87.1 Hypo-osmolality and hyponatremia; N18.3 Chronic kidney disease, stage 3 (moderate); I16.0 Hypertensive urgency; J44.9 Chronic obstructive pulmonary disease, unspecified; E03.9 Hypothyroidism, unspecified; I25.10 Atherosclerotic heart disease of native coronary artery without angina pectoris; Z95.1 Presence of aortocoronary bypass graft; Z86.14 Personal history of Methicillin resistant Staphylococcus aureus infection; Z90.49 Acquired absence of other specified parts of digestive tract; Z87.891 Personal history of nicotine dependence; Z79.52 Long term (current) use of systemic steroids; Z79.82 Long term (current) use of aspirin
CPT/HCPCS: 36415; 70450; 80048; 80053; 80164; 80177; 80307; 81001; 83735; 84443; 85025; 93005; 93010; 93970; 96361; 96374; 96375; 99285; J1200; J1644; J2765; J3411; J3475; J3490; J7030

== ENCOUNTER 2017-07-06 12:48 | Emergency (ER) | payer OTHER ==
[2017-07-06] MEDS ORDERED: NORMAL SALINE 1000 ML 1,000 ML IV ONE (13:05)
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
[2017-07-06] MEDS ORDERED: THIAMINE HCL 100 MG in NORMAL SALINE 50 ML IV ONE (13:12)
[2017-07-06] MEDS ORDERED: THIAMINE HCL INJ 200 MG/2 ML VIAL ONE (14:20)
[2017-07-06 14:42] LABS: HEMOGLOBIN 10.7 g/dL (13.5-17.0); HGB HCT DIFFERENCE 0.1; MEAN CORPUSCULAR HGB CONC 33.4 g/dL (32.0-36.0); MEAN CORPUSCULAR VOLUME 78 fl (80-97); RED CELL DISTRIBUTION WIDTH 18.4 % (11.5-14.0)
[2017-07-06 14:56] LABS: ALANINE AMINOTRANSFERASE 45 U/L (21-72); ALBUMIN 3.9 g/dL (3.5-5.0); ALCOHOL 90 mg/dL (NONE DETECTED); ALKALINE PHOSPHATASE 84 U/L (38-126); ASPARTATE AMINO TRANSFERASE 123 U/L (17-59); BILIRUBIN,DIRECT 0.5 mg/dL (0.0-0.4); BILIRUBIN,TOTAL 0.6 mg/dL (0.2-1.3); BLOOD UREA NITROGEN 18 mg/dL (7-20); CALCIUM 8.3 mg/dL (8.4-10.2); CARBON DIOXIDE 19 mmol/L (22-30); CHLORIDE 100 mmol/L (98-107); CREATININE RESULT 1.24 mg/dL (0.52-1.25); GLUCOSE 69 mg/dL (75-110); TOTAL PROTEIN 6.6 g/dL (6.3-8.2)
[2017-07-06 14:57] LABS: ANION GAP 18 (5-19); SODIUM 136.6 mmol/L (137-145)
[2017-07-06 15:08] LABS: BAND NEUTROPHILS % (MANUAL) 1 % (3-5); BASOPHILS % (MANUAL) 0 % (0-2); EOSINOPHILS % (MANUAL) 0 % (0-6); LYMPHOCYTES % (MANUAL) 28 % (13-45); TOTAL CELLS COUNTED 100
[2017-07-06 15:10] LABS: ANISOCYTOSIS 1+; MICROCYTOSIS 2+
[2017-07-06 15:11] LABS: BURR CELLS 2+; HYPOCHROMASIA 2+; OVALOCYTES 1+; POIKILOCYTOSIS 3+; POTASSIUM 2.9 mmol/L (3.6-5.0); TARGET CELLS SLIGHT
[2017-07-06] MEDS: MAGNESIUM SULFATE/D5W 1 GM/100 ML RTUPB IV SCH ×2 (15:13→16:15)
--- NOTE | 2017-07-06 15:31 | RADIOLOGY REPORT (SQ) ---
EXAM DESCRIPTION: CHEST PA/LAT COMPLETED DATE/TIME: 07/06/2017 1:36 pm REASON FOR STUDY: sob COMPARISON: None. EXAM PARAMETERS: NUMBER OF VIEWS: two views TECHNIQUE: Digital Frontal and Lateral radiographic views of the chest acquired. RADIATION DOSE: NA LIMITATIONS: none FINDINGS: LUNGS AND PLEURA: No opacities, masses or pneumothorax. No pleural effusion. MEDIASTINUM AND HILAR STRUCTURES: No masses or contour abnormalities. HEART AND VASCULAR STRUCTURES: Heart normal size. No evidence for failure. BONES: No acute findings. Old healed left rib fractures are again identified. HARDWARE: None in the chest. OTHER: No other significant finding. IMPRESSION: NO SIGNIFICANT RADIOGRAPHIC FINDING IN THE CHEST. TECHNICAL DOCUMENTATION: JOB ID: [id number] [employer]- All Rights Reserved
[2017-07-06] MEDS ORDERED: POTASSIUM CHLORIDE 10 MEQ TABLET.SA PO ONE (15:43)
--- NOTE | 2017-07-06 16:56 | RADIOLOGY REPORT (SQ) ---
EXAM DESCRIPTION: CTA CHEST COMPLETED DATE/TIME: 07/06/2017 4:35 pm REASON FOR STUDY: Chest pain with distant history of PEs COMPARISON: None. TECHNIQUE: CT scan of the chest performed using helical scanning technique with dynamic intravenous contrast injection. Images reviewed with lung, soft tissue and bone windows. Reconstructed coronal and sagittal MPR images reviewed. Additional 3 dimensional post-processing performed to develop Maximal Intensity Projection images (HI P). All images stored on PACS. All CT scanners at this facility use dose modulation, iterative reconstruction, and/or weight based d osing when appropriate to reduce radiation dose to as low as reasonably achievable (ALARA). [facility]: Dose Right [facility]: CareDose [facility]: Dose Right [facility]: Teradose 4D [facility]: Hubsphere CONTRAST TYPE AND DOSE: contrast/concentration: Isovue 370.00 mg/ml; Total Contrast Delivered: 62.0 ml; Total Saline Delivered: 65.0 ml Contrast bolus adequate for pulmonary arteries and aorta. RENAL FUNCTION: BUN 18 creatinine 1.24. RADIATION DOSE: Up-to-date CT equipment and radiation dose reduction techniques were employed. CTDIv ol: 14.3 - 16.5 mGy. DLP: 574 mGy-cm. . LIMITATIONS: None. FINDINGS: LUNGS AND PLEURA: No masses, infiltrates, pneumothorax. Old left rib fractures with mild scarring in the adjacent lung. No pleural effusions, calcifications. AORTA AND GREAT VESSELS: No aneurysm. Contrast bolus not optimized for the aorta. HEART: No pericardial effusion. No significant coronary artery calcifications. PULMONARY ARTERIES: No emboli visualized in the main pulmonary arteries or the segmental branches. HILAR AND MEDIASTINAL STRUCTURES: No identified masses or abnormal nodes. HARDWARE: None in the chest. UPPER ABDOMEN: No significant findings. Limited exam. THYROID AND OTHER SOFT TISSUES: No masses. No adenopathy. BONES: No acute or significant finding. 3D MIPS: Confirm above findings. OTHER: No other significant finding. IMPRESSION: NORMAL CTA OF THE CHEST. NO PULMONARY EMBOLI. OLD LEFT RIB FRACTURES WITH MILD SCARRING IN THE ADJACENT LUNG. NO ACUTE FINDINGS. COMMENT: Quality ID # [id number]: Final reports with documentation of one or more dose reduction techniques (e.g., Automated exposure control, adjustment of the mA and/or kV according to patient size, use of iterative reconstruction technique) TECHNICAL DOCUMENTATION: JOB ID: [id number] [email or web address]- All Rights Reserved
[2017-07-06 18:13] VITALS: BP 148/80
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
== END 2017-07-06 18:25 | disposition left against medical advice (07) ==
LOC: ER 12:48
DX: R07.89 Other chest pain (principal); R06.02 Shortness of breath; R42 Dizziness and giddiness; R51 Headache; I10 Essential (primary) hypertension; I25.10 Atherosclerotic heart disease of native coronary artery without angina pectoris; K21.9 Gastro-esophageal reflux disease without esophagitis; Z86.711 Personal history of pulmonary embolism; F32.9 Major depressive disorder, single episode, unspecified; Z79.01 Long term (current) use of anticoagulants; F17.200 Nicotine dependence, unspecified, uncomplicated
CPT/HCPCS: 99285; 96361; 96365; 96367; 36415; 82553; 80307; 85025; 80053; 84484; 71020; 71275; J3475; J3411; J7030

== ENCOUNTER 2017-07-16 16:50 | Emergency (ER) | payer OTHER ==
[2017-07-16] MEDS ORDERED: NORMAL SALINE 1000 ML 1,000 ML IV ONE (16:59)
[2017-07-16] MEDS ORDERED: LORAZEPAM INJ 2 MG/1 ML VIAL IV ONE ×3 (17:02→22:22)
[2017-07-16] MEDS ORDERED: LEVETIRACETAM 1000 MG/NACL-ISO 1,000 MG/100 ML RTUPB IV ONE (17:02)
[2017-07-16] MEDS ORDERED: LORAZEPAM INJ 2 MG/1 ML VIAL ONE (17:03)
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
[2017-07-16 18:12] LABS: HEMATOCRIT 30.7 % (37.9-51.0); HEMOGLOBIN 10.2 g/dL (13.5-17.0); MEAN CORPUSCULAR HEMOGLOBIN 25.7 pg (27.0-33.4); MEAN CORPUSCULAR HGB CONC 33.3 g/dL (32.0-36.0); MEAN CORPUSCULAR VOLUME 77 fl (80-97); PLATELET COUNT 337 10^3/uL (150-450); RED BLOOD COUNT 3.97 10^6/uL (4.35-5.55); RED CELL DISTRIBUTION WIDTH 18.4 % (11.5-14.0)
[2017-07-16 18:34] LABS: ABSOLUTE LYMPHOCYTES# (MANUAL) 2.6 10^3/uL (0.5-4.7); ABSOLUTE MONOCYTES # (MANUAL) 0.6 10^3/uL (0.1-1.4); ABSOLUTE NEUTROPHILS# (MANUAL) 2.8 10^3/uL (1.7-8.2); BASOPHILS % (MANUAL) 0 % (0-2); EOSINOPHILS % (MANUAL) 0 % (0-6); LYMPHOCYTES % (MANUAL) 41 % (13-45); MONOCYTES % (MANUAL) 10 % (3-13); SEGMENTED NEUTROPHILS % (MAN) 46 % (42-78); TOTAL CELLS COUNTED 100
[2017-07-16 18:38] LABS: ACANTHOCYTES 1+; ALANINE AMINOTRANSFERASE 40 U/L (21-72); ALBUMIN 3.9 g/dL (3.5-5.0); ALCOHOL 256 mg/dL (NONE DETECTED); ALKALINE PHOSPHATASE 104 U/L (38-126); ANION GAP 13 (5-19); ANISOCYTOSIS 1+; ASPARTATE AMINO TRANSFERASE 70 U/L (17-59); BILIRUBIN,DIRECT 0.4 mg/dL (0.0-0.4); BILIRUBIN,TOTAL 0.5 mg/dL (0.2-1.3); BLOOD UREA NITROGEN 8 mg/dL (7-20); BURR CELLS SLIGHT; CALCIUM 8.6 mg/dL (8.4-10.2); CARBON DIOXIDE 26 mmol/L (22-30); CHLORIDE 87 mmol/L (98-107); GLUCOSE 107 mg/dL (75-110); MAGNESIUM 1.4 mg/dL (1.6-2.3); OVALOCYTES SLIGHT; PLATELET COMMENT ADEQUATE; POLYCHROMASIA SLIGHT; POTASSIUM 3.6 mmol/L (3.6-5.0); SCHISTOCYTES SLIGHT; SODIUM 126.3 mmol/L (137-145); TARGET CELLS 1+; TOTAL PROTEIN 6.6 g/dL (6.3-8.2)
[2017-07-16 18:42] LABS: HYPOCHROMASIA 1+; POIKILOCYTOSIS 2+
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
[2017-07-16 23:18] LABS: APPEARANCE,URINE CLEAR; BILIRUBIN,URINE NEGATIVE (NEGATIVE); COLOR,URINE YELLOW; GLUCOSE, URINE NEGATIVE (NEGATIVE); KETONES,URINE NEGATIVE (NEGATIVE); LEUKOCYTE ESTERASE,URINE NEGATIVE (NEGATIVE); NITRITE,URINE NEGATIVE (NEGATIVE); PROTEIN,URINE NEGATIVE (NEGATIVE); URINE SPECIFIC GRAVITY 1.009; UROBILINOGEN,URINE NEGATIVE mg/dL (<2.0)
[2017-07-16 23:37] LABS: URINE AMPHETAMINES SCREEN NEGATIVE; URINE BARBITURATES SCREEN NEGATIVE; URINE BENZODIAZEPINES SCREEN UNCONFIRMED POSITIVE; URINE COCAINE SCREEN UNCONFIRMED POSITIVE; URINE MARIJUANA (THC) SCREEN UNCONFIRMED POSITIVE; URINE METHADONE SCREEN NEGATIVE; URINE PHENCYCLIDINE SCREEN NEGATIVE
[2017-07-17 05:11] VITALS: BP 115/44
== END 2017-07-17 05:21 | disposition home or self-care (01) ==
LOC: ER 16:50
DX: K94.09 Other complications of colostomy (principal); G40.909 Epilepsy, unspecified, not intractable, without status epilepticus; F10.129 Alcohol abuse with intoxication, unspecified; Y90.8 Blood alcohol level of 240 mg/100 ml or more; Y83.2 Surgical operation with anastomosis, bypass or graft as the cause of abnormal reaction of the patient, or of later complication, without mention of misadventure at the time of the procedure; Y73.8 Miscellaneous gastroenterology and urology devices associated with adverse incidents, not elsewhere classified; I50.9 Heart failure, unspecified; I11.0 Hypertensive heart disease with heart failure; Z88.6 Allergy status to analgesic agent; Z86.718 Personal history of other venous thrombosis and embolism
CPT/HCPCS: 96376; 99284; 96375; 96365; 96366; 36415; 80177; 80307 ×2; 82550; 83735; 85025; 80053; 81001; J2060; J7030; J1953

== ENCOUNTER 2017-08-13 10:30 | Inpatient (IN) | payer OTHER ==
[2017-08-13] MEDS ORDERED: LORAZEPAM INJ 2 MG/1 ML VIAL ONE (10:45)
[2017-08-13] MEDS ORDERED: LORAZEPAM INJ 2 MG/1 ML VIAL IV ONE ×2 (10:47→11:02)
[2017-08-13] MEDS ORDERED: AMMONIA INHALANTS 10 AMPUL/BOX IH ONE (11:04)
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
[2017-08-13 11:39] LABS: HEMATOCRIT 33.6 % (37.9-51.0); HEMOGLOBIN 11.1 g/dL (13.5-17.0); MEAN CORPUSCULAR HEMOGLOBIN 25.7 pg (27.0-33.4); MEAN CORPUSCULAR HGB CONC 33.1 g/dL (32.0-36.0); MEAN CORPUSCULAR VOLUME 77 fl (80-97); PLATELET COUNT 356 10^3/uL (150-450); RED BLOOD COUNT 4.34 10^6/uL (4.35-5.55); RED CELL DISTRIBUTION WIDTH 20.9 % (11.5-14.0); WHITE BLOOD COUNT 4.9 10^3/uL (4.0-10.5)
[2017-08-13 11:44] LABS: ABSOLUTE LYMPHOCYTES# (MANUAL) 2.9 10^3/uL (0.5-4.7); ABSOLUTE MONOCYTES # (MANUAL) 0.6 10^3/uL (0.1-1.4); ABSOLUTE NEUTROPHILS# (MANUAL) 1.4 10^3/uL (1.7-8.2); ACANTHOCYTES 1+; ANISOCYTOSIS 2+; BASOPHILS % (MANUAL) 0 % (0-2); EOSINOPHILS % (MANUAL) 0 % (0-6); HYPOCHROMASIA 1+; LYMPHOCYTES % (MANUAL) 57 % (13-45); MONOCYTES % (MANUAL) 12 % (3-13); POIKILOCYTOSIS 3+; SEGMENTED NEUTROPHILS % (MAN) 29 % (42-78); SPHEROCYTES SLIGHT; TOTAL CELLS COUNTED 100
[2017-08-13 11:45] LABS: OVALOCYTES 1+; POLYCHROMASIA 1+; SCHISTOCYTES 1+; TARGET CELLS 1+
[2017-08-13 12:00] LABS: PLATELET COMMENT ADEQUATE
--- NOTE | 2017-08-13 12:00 | RADIOLOGY REPORT (SQ) ---
EXAM DESCRIPTION: CHEST SINGLE VIEW COMPLETED DATE/TIME: 08/13/2017 11:50 am REASON FOR STUDY: Seizure COMPARISON: 07/06/2017 EXAM PARAMETERS: NUMBER OF VIEWS: One view. TECHNIQUE: Single frontal radiographic view of the chest acquired. RADIATION DOSE: NA LIMITATIONS: None. FINDINGS: LUNGS AND PLEURA: No opacities, masses or pneumothorax. No pleural effusion. MEDIASTINUM AND HILAR STRUCTURES: No masses. Contour normal. HEART AND VASCULAR STRUCTURES: Heart normal in size. Normal vasculature. BONES: No acute findings. Multiple old healed left-sided rib fractures. HARDWARE: None in the chest. OTHER: No other significant finding. IMPRESSION: NO ACUTE CARDIOPULMONARY PROCESS. NO SIGNIFICANT CHANGE FROM PRIOR STUDY. TECHNICAL DOCUMENTATION: JOB ID: [id number] [employer]- All Rights Reserved
[2017-08-13 13:29] LABS: APPEARANCE,URINE CLEAR; BILIRUBIN,URINE NEGATIVE (NEGATIVE); COLOR,URINE YELLOW; GLUCOSE, URINE NEGATIVE (NEGATIVE); KETONES,URINE NEGATIVE (NEGATIVE); LEUKOCYTE ESTERASE,URINE NEGATIVE (NEGATIVE); NITRITE,URINE NEGATIVE (NEGATIVE); PROTEIN,URINE NEGATIVE (NEGATIVE); URINE SPECIFIC GRAVITY 1.009; UROBILINOGEN,URINE NEGATIVE mg/dL (<2.0)
[2017-08-13 14:43] LABS: ALANINE AMINOTRANSFERASE 38 U/L (21-72); ALBUMIN 4.2 g/dL (3.5-5.0); ALKALINE PHOSPHATASE 89 U/L (38-126); ANION GAP 14 (5-19); ASPARTATE AMINO TRANSFERASE 80 U/L (17-59); BILIRUBIN,DIRECT 0.4 mg/dL (0.0-0.4); BILIRUBIN,TOTAL 0.4 mg/dL (0.2-1.3); BLOOD UREA NITROGEN 6 mg/dL (7-20); CALCIUM 9.4 mg/dL (8.4-10.2); CARBON DIOXIDE 25 mmol/L (22-30); CHLORIDE 87 mmol/L (98-107); GLUCOSE 88 mg/dL (75-110); POTASSIUM 3.7 mmol/L (3.6-5.0); SODIUM 125.6 mmol/L (137-145); TOTAL PROTEIN 7.6 g/dL (6.3-8.2)
[2017-08-13] MEDS ORDERED: LEVETIRACETAM 500 MG TABLET PO ONE (15:10)
[2017-08-13] MEDS ORDERED: DIVALPROEX SODIUM 250 MG TABLET.DR PO ONE (15:11)
[2017-08-13] MEDS ORDERED: NORMAL SALINE 1000 ML 1,000 ML IV ONE (15:25)
[2017-08-13] MEDS ORDERED: ONDANSETRON HCL INJ/PF 4 MG/2 ML SDV IV PRN (15:34)
[2017-08-13] MEDS ORDERED: ACETAMINOPHEN 325 MG TABLET PO PRN (15:34)
[2017-08-13] MEDS ORDERED: MAGNESIUM HYDROXIDE SUSP 30 ML UDCUP PO PRN (15:34)
[2017-08-13] MEDS ORDERED: HYDROXYZINE PAMOATE 25 MG CAPSULE PO PRN (15:39)
[2017-08-13] MEDS ORDERED: LORAZEPAM INJ 2 MG/1 ML VIAL IV PRN (15:53)
[2017-08-13] MEDS ORDERED: OXYCODONE-ACETAMINOPHEN 5-325 MG TABLET PO ONE (16:30)
[2017-08-13] MEDS ORDERED: OXYCODONE-ACETAMINOPHEN 5-325 MG TABLET PO PRN (16:50)
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
[2017-08-13] MEDS: DIAZEPAM 2 MG TABLET PO SCH (18:10)
[2017-08-13] MEDS: GABAPENTIN 300 MG CAPSULE PO SCH (18:11)
[2017-08-13] MEDS: MAGNESIUM OXIDE 400 MG TABLET PO SCH (18:11)
[2017-08-13] MEDS: DOCUSATE SODIUM 100 MG CAPSULE PO SCH (18:11)
[2017-08-13] MEDS: NORMAL SALINE 1000 ML 1,000 ML IV PRN (18:12)
[2017-08-13 19:40] LABS: URINE AMPHETAMINES SCREEN NEGATIVE; URINE BARBITURATES SCREEN NEGATIVE; URINE BENZODIAZEPINES SCREEN NEGATIVE; URINE COCAINE SCREEN NEGATIVE; URINE MARIJUANA (THC) SCREEN UNCONFIRMED POSITIVE; URINE METHADONE SCREEN NEGATIVE; URINE PHENCYCLIDINE SCREEN NEGATIVE
[2017-08-13] MEDS: DIVALPROEX SODIUM 500 MG TAB.SR.24H PO SCH (22:25)
[2017-08-13] MEDS: LEVETIRACETAM 500 MG TABLET PO SCH (22:25)
[2017-08-14] MEDS: DIAZEPAM 2 MG TABLET PO SCH ×2 (00:21→05:46)
[2017-08-14] MEDS: GABAPENTIN 300 MG CAPSULE PO SCH ×4 (00:21→18:08)
[2017-08-14] MEDS: LORAZEPAM INJ 2 MG/1 ML VIAL IV PRN ×3 (00:52→21:10)
[2017-08-14] MEDS: LANSOPRAZOLE 15 MG TAB.RAP.DR PO SCH (05:46)
[2017-08-14] MEDS: NORMAL SALINE 1000 ML 1,000 ML IV PRN (05:48)
[2017-08-14] MEDS ORDERED: INFLUENZA ADLT QUAD (36MOS+) 2017-18 VAC 0.5 ML SYR IM PRN (05:58)
[2017-08-14 06:21] LABS: ANION GAP 7 (5-19); BLOOD UREA NITROGEN 6 mg/dL (7-20); CALCIUM 8.9 mg/dL (8.4-10.2); CARBON DIOXIDE 28 mmol/L (22-30); CHLORIDE 97 mmol/L (98-107); GLUCOSE 83 mg/dL (75-110); MAGNESIUM 1.3 mg/dL (1.6-2.3); SODIUM 131.8 mmol/L (137-145)
[2017-08-14] MEDS: MAGNESIUM SULFATE/D5W 1 GM/100 ML RTUPB IV SCH ×3 (08:19→11:36)
[2017-08-14] MEDS: NICOTINE 21 MG/24 HR PATCH.TD24 TD SCH (09:28)
[2017-08-14] MEDS: MAGNESIUM OXIDE 400 MG TABLET PO SCH ×2 (09:29→18:09)
[2017-08-14] MEDS: LEVETIRACETAM 500 MG TABLET PO SCH ×2 (09:29→21:10)
[2017-08-14] MEDS: DIVALPROEX SODIUM 500 MG TAB.SR.24H PO SCH ×2 (09:29→21:11)
[2017-08-14] MEDS ORDERED: DIAZEPAM 2 MG TABLET PO SCH (09:29)
[2017-08-14] MEDS: DOCUSATE SODIUM 100 MG CAPSULE PO SCH ×2 (09:29→18:09)
[2017-08-14] MEDS: OXYCODONE-ACETAMINOPHEN 5-325 MG TABLET PO PRN (11:36)
[2017-08-14] MEDS: DIAZEPAM 5 MG TABLET PO SCH ×2 (11:43→18:09)
[2017-08-14] MEDS ORDERED: HYDROMORPHONE HCL 2 MG TABLET PO PRN (13:31)
[2017-08-14] MEDS ORDERED: NORMAL SALINE 1000 ML 1,000 ML IV PRN (14:19)
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
[2017-08-14] MEDS ORDERED: TRAZODONE HCL 50 MG TABLET PO SCH (22:00)
[2017-08-15] MEDS: GABAPENTIN 300 MG CAPSULE PO SCH ×4 (01:01→18:21)
[2017-08-15] MEDS: DIAZEPAM 5 MG TABLET PO SCH ×4 (01:01→18:21)
[2017-08-15] MEDS: LANSOPRAZOLE 15 MG TAB.RAP.DR PO SCH (05:38)
[2017-08-15 06:11] LABS: ANION GAP 6 (5-19); BLOOD UREA NITROGEN 4 mg/dL (7-20); CARBON DIOXIDE 24 mmol/L (22-30); CHLORIDE 115 mmol/L (98-107); GLUCOSE 62 mg/dL (75-110); MAGNESIUM 1.5 mg/dL (1.6-2.3); POTASSIUM 3.2 mmol/L (3.6-5.0); SODIUM 145.3 mmol/L (137-145)
[2017-08-15 06:30] LABS: CALCIUM 7.3 mg/dL (8.4-10.2)
[2017-08-15] MEDS: LORAZEPAM INJ 2 MG/1 ML VIAL IV PRN (08:49)
[2017-08-15] MEDS: MAGNESIUM OXIDE 400 MG TABLET PO SCH ×2 (09:00→18:21)
[2017-08-15] MEDS: DIVALPROEX SODIUM 500 MG TAB.SR.24H PO SCH (09:00)
[2017-08-15] MEDS: OXYCODONE-ACETAMINOPHEN 5-325 MG TABLET PO PRN (09:00)
[2017-08-15] MEDS: DOCUSATE SODIUM 100 MG CAPSULE PO SCH ×2 (09:01→18:21)
[2017-08-15] MEDS: LEVETIRACETAM 500 MG TABLET PO SCH (09:01)
[2017-08-15] MEDS: NICOTINE 21 MG/24 HR PATCH.TD24 TD SCH (10:07)
[2017-08-15] MEDS: MAGNESIUM SULFATE/D5W 1 GM/100 ML RTUPB IV SCH ×3 (10:51→13:15)
[2017-08-15] MEDS ORDERED: LORAZEPAM INJ 2 MG/1 ML VIAL IV ONE (13:30)
[2017-08-15] MEDS ORDERED: POTASSIUM CHLORIDE 10 MEQ TABLET.SA PO ONE (13:30)
--- NOTE | 2017-08-15 14:57 | RADIOLOGY REPORT (SQ) ---
EXAM DESCRIPTION: KUB/ABDOMEN (SINGLE VIEW) COMPLETED DATE/TIME: 08/15/2017 2:45 pm REASON FOR STUDY: no output from colostomy COMPARISON: 11/22/2015. NUMBER OF VIEWS: One view. TECHNIQUE: Supine radiographic image of the abdomen acquired. LIMITATIONS: None. FINDINGS: BOWEL GAS PATTERN: Normal bowel gas pattern. No dilated loops. Prominent stool throughout the colon. CALCIFICATIONS: No suspicious calcifications. SOFT TISSUES: No gross mass or suggestion of organomegaly. HARDWARE: Left lower quadrant ostomy. Hardware in the right femur. BONES: No acute fracture. No worrisome bone lesions. OTHER: No other significant finding. IMPRESSION: NO RADIOGRAPHIC EVIDENCE FOR ACUTE ABDOMINAL DISEASE. THERE IS PROMINENT STOOL THROUGHO UT THE COLON CONSISTENT WITH CONSTIPATION. TECHNICAL DOCUMENTATION: JOB ID: [id number] [employer]- All Rights Reserved
[2017-08-15 15:26] LABS: ANION GAP 6 (5-19); BLOOD UREA NITROGEN 5 mg/dL (7-20); CALCIUM 9.3 mg/dL (8.4-10.2); CARBON DIOXIDE 28 mmol/L (22-30); CHLORIDE 104 mmol/L (98-107); GLUCOSE 130 mg/dL (75-110); MAGNESIUM 3.1 mg/dL (1.6-2.3)
[2017-08-15 15:37] LABS: POTASSIUM 4.3 mmol/L (3.6-5.0)
[2017-08-15 18:12] VITALS: BP 127/75
[2017-08-15] MEDS ORDERED: BISACODYL 5 MG TABEC PO ONE (18:41)
[2017-08-15] MEDS ORDERED: SORBITOL 70% SOLUTION 30 ML UDC PO ONE (19:00)
--- NOTE | 2017-08-16 10:46 | PDOC DISCHARGE SUMMARY ---
General - Admit/Disc Date/PCP Admission Date/Primary Care Provider: 08/13/17 16:47 ADIEL LOPEZ MD Discharge Date: 08/15/17 - Discharge Diagnosis (1) Seizures Is this a current diagnosis for this admission?: Yes (3) Alcohol dependence Is this a current diagnosis for this admission?: Yes (4) Tobacco abuse Is this a current diagnosis for this admission?: Yes (5) Anemia Is this a current diagnosis for this admission?: Yes (7) Hypomagnesemia Is this a current diagnosis for this admission?: Yes (8) Polysubstance (excluding opioids) dependence Is this a current diagnosis for this admission?: Yes - Additional Information Resuscitation Status: Full Code Discharge Diet: As Tolerated Discharge Activity: Activity As Tolerated Prescriptions: Gabapentin 600 mg PO TID #90 tablet Trazodone HCl [Desyrel 50 mg Tablet] 50 mg PO QHS #30 tablet Home Medications: Divalproex Sodium [Divalproex Sodium ER] 500 mg PO Q12 08/14/17 Levetiracetam [Keppra 500 mg Tablet] 1,000 mg PO Q12 08/14/17 Omeprazole 20 mg PO DAILY 08/14/17 Divalproex Sodium [Depakote ER 500 mg Tab.sr] 500 mg PO Q12 tab.sr.24h Gabapentin 600 mg PO TID #90 tablet 08/15/17 Hydroxyzine Pamoate [Vistaril 25 mg Capsule] 25 mg PO HSP PRN #0 capsule Levetiracetam [Keppra 500 mg Tablet] 1,000 mg PO Q12 tablet 08/15/17 Magnesium Oxide [Mag-Ox 400 mg Tablet] 400 mg PO BID tablet 08/15/17 Trazodone HCl [Desyrel 50 mg Tablet] 50 mg PO QHS #30 tablet 08/15/17 History of Present Illness History of Present Illness: OUMOU PAZ is a 57 year old male male with history of hyponatremia, alcohol abuse, seizures, adrenal insufficiency, and history of DVT presenting to the ED via private vehicle following multiple seizures. Patient apparently had 3 seizures at home and then 1 in the car. Patient is awake alert and oriented. Fortunately patient had ran out of his medication and has not received any refills in the mail. [facility] Patient friend at bedside stated she was going to bring him here anyways to have his colostomy bag changed. Patient family states nobody has been out to the house to provide home health care since the holiday. Patient is complaining of a headache which is usual following his seizures. Patient is asking for something for his pain. Patient is asking when he will be able to go home. In the ED patient was not noted to have any more. Seizures however he was given Ativan. He was noted to have elevated blood alcohol level. He was also noted to have a sodium level of 125. This was called to admit patient for hyponatremia and seizures. Original H&P was dictated by myself Dr. Alejo. Hospital Course Hospital Course: Patient was admitted for was thought to be a seizure. Patient did not have any witnessed seizure activity while in the hospital. Patient was placed on seizure precautions. Patient was continued on his Depakote and his Keppra. Patient Depakote level was therapeutic at 92.8. Patient was hyponatremic. Patient sodium was normal prior to discharge home. Hyponatremia was thought to be medication induced. Patient also had hypomagnesemia which this was also corrected and was normal prior to discharge home. It was pertinent that these be corrected as both of these can induce seizure activity. Unfortunately has alcohol dependence. Presented with a serum alcohol level of 214. Patient was treated aggressively with scheduled Valium and as needed Ativan to avoid any withdrawal. Patient also has tobacco abuse for which she was counseled on cessation and was given a nicotine patch. Patient did mention that he had difficulty sleeping and was given trazodone to help with this problem. He did complain of a headache but it was thought to be a post ictal headache. Patient was continued on his gabapentin and given Percocet as needed. Patient was not complaining of headache prior to discharge home. Patient did attempt to get up several times while in the hospital and was found sitting next to the bed. Patient did not appear to harm himself. Patient was evaluated by PT was that he was at his baseline and signed off. Patient has colostomy located UB demonstrated constipation. Patient was given sorbitol and bisacodyl prior prior to discharge home. Patient was doing better and can follow-up with his PCP on discharge. Will resume home health on discharge. Physical Exam Vital Signs: Temp Pulse Resp BP Pulse Ox 97.5 F 76 16 127/75 H 94 12/28/17 18:08 08/15/17 18:08 08/15/17 18:08 08/15/17 18:08 08/15/17 18:08 Intake & Output 08/15/17 08/16/17 08/17/17 06:59 06:59 06:59 Intake Total 3442 473 Output Total 2700 400 Balance 742 73 Weight 64.8 kg General appearance: PRESENT: no acute distress, disheveled, thin, well-developed Head exam: PRESENT: normocephalic Eye exam: PRESENT: EOMI. ABSENT: scleral icterus Ear exam: PRESENT: normal external ear exam Mouth exam: PRESENT: moist Teeth exam: PRESENT: other - missing dentition Neck exam: ABSENT: carotid bruit, JVD, lymphadenopathy, thyromegaly Respiratory exam: PRESENT: clear to auscultation tre. ABSENT: rales, rhonchi, wheezes Cardiovascular exam: PRESENT: RRR. ABSENT: diastolic murmur, rubs, systolic murmur Pulses: PRESENT: normal dorsalis pedis pul Vascular exam: PRESENT: normal capillary refill GI/Abdominal exam: PRESENT: distended - mildly, normal bowel sounds, soft, other - colostomy in place. ABSENT: guarding, mass, organolmegaly, rebound, tenderness Rectal exam: PRESENT: deferred Extremities exam: PRESENT: full ROM. ABSENT: calf tenderness, clubbing, pedal edema Neurological exam: PRESENT: alert, awake, oriented to person, oriented to place , oriented to time, oriented to situation, CN II-XII grossly intact. ABSENT: motor sensory deficit Psychiatric exam: PRESENT: appropriate affect, normal mood. ABSENT: homicidal ideation, suicidal ideation Skin exam: PRESENT: dry, intact, warm. ABSENT: cyanosis, rash Results Laboratory Results: 08/15/17 14:55 08/15/17 08/15/17 13:50 14:55 Sodium 138.0 Potassium 4.3 D Chloride 104 Carbon Dioxide 28 Anion Gap 6 BUN 5 L Creatinine 1.00 Est GFR ( Amer) > 60 Est GFR (Non-Af Amer) > 60 Glucose 130 H Calcium 9.3 Magnesium 2.6 H D 3.1 H Impressions: Chest X-Ray 08/13/17 10:48 IMPRESSION: NO ACUTE CARDIOPULMONARY PROCESS. NO SIGNIFICANT CHANGE FROM PRIOR STUDY. KUB X-Ray 08/15/17 00:00 IMPRESSION: NO RADIOGRAPHIC EVIDENCE FOR ACUTE ABDOMINAL DISEASE. THERE IS PROMINENT STOOL THROUGHOUT THE COLON CONSISTENT WITH CONSTIPATION. Plan Time Spent: Greater than 30 Minutes
== END 2017-08-15 19:21 | disposition home or self-care (01) | DRG 641 ==
LOC: ER 10:30 → EH 16:47 → OBSVTOIN 16:47 → 3S 19:45
PROVIDERS: ADMIT Pediatrics; ATTEND Pediatrics
PROC: 3E0234Z Introduction of Serum, Toxoid and Vaccine into Muscle, Percutaneous Approach (ICD-10-PCS; principal; 2017-08-15)
DX: E87.1 Hypo-osmolality and hyponatremia (principal); F19.20 Other psychoactive substance dependence, uncomplicated; Y90.7 Blood alcohol level of 200-239 mg/100 ml; F10.229 Alcohol dependence with intoxication, unspecified; F17.210 Nicotine dependence, cigarettes, uncomplicated; E83.42 Hypomagnesemia; G40.909 Epilepsy, unspecified, not intractable, without status epilepticus; T50.905A Adverse effect of unspecified drugs, medicaments and biological substances, initial encounter; I11.0 Hypertensive heart disease with heart failure; I50.9 Heart failure, unspecified; K21.9 Gastro-esophageal reflux disease without esophagitis; B19.20 Unspecified viral hepatitis C without hepatic coma; M19.90 Unspecified osteoarthritis, unspecified site; F32.9 Major depressive disorder, single episode, unspecified; D50.9 Iron deficiency anemia, unspecified; R51 Headache; Z79.899 Other long term (current) drug therapy; Z78.1 Physical restraint status; Z23 Encounter for immunization; Z93.3 Colostomy status; Z86.718 Personal history of other venous thrombosis and embolism; Z86.711 Personal history of pulmonary embolism; Z90.81 Acquired absence of spleen; Z83.3 Family history of diabetes mellitus; Z82.49 Family history of ischemic heart disease and other diseases of the circulatory system; Z88.6 Allergy status to analgesic agent; Z88.8 Allergy status to other drugs, medicaments and biological substances; Z91.048 Other nonmedicinal substance allergy status
CPT/HCPCS: 36415; 71010; 74000; 80048; 80053; 80164; 80307; 81001; 83735; 84146; 84295; 85025; 87040; 90686; 96361; 96374; 99285; J2060; J3475; J3490; J7030

== ENCOUNTER 2017-10-19 15:25 | Inpatient (IN) | payer OTHER ==
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
[2017-10-19 17:49] LABS: HEMATOCRIT 36.4 % (37.9-51.0); HEMOGLOBIN 12.2 g/dL (13.5-17.0); MEAN CORPUSCULAR HEMOGLOBIN 27.3 pg (27.0-33.4); MEAN CORPUSCULAR HGB CONC 33.6 g/dL (32.0-36.0); MEAN CORPUSCULAR VOLUME 81 fl (80-97); PLATELET COUNT 340 10^3/uL (150-450); RED BLOOD COUNT 4.47 10^6/uL (4.35-5.55); RED CELL DISTRIBUTION WIDTH 20.7 % (11.5-14.0); WHITE BLOOD COUNT 5.4 10^3/uL (4.0-10.5)
[2017-10-19 17:57] LABS: ALANINE AMINOTRANSFERASE 57 U/L (21-72); ALBUMIN 4.5 g/dL (3.5-5.0); ALKALINE PHOSPHATASE 84 U/L (38-126); ANION GAP 10 (5-19); ASPARTATE AMINO TRANSFERASE 112 U/L (17-59); BILIRUBIN,DIRECT 0.8 mg/dL (0.0-0.4); BILIRUBIN,TOTAL 1.1 mg/dL (0.2-1.3); BLOOD UREA NITROGEN 10 mg/dL (7-20); CALCIUM 9.6 mg/dL (8.4-10.2); CARBON DIOXIDE 20 mmol/L (22-30); CHLORIDE 88 mmol/L (98-107); GLUCOSE 119 mg/dL (75-110); POTASSIUM 4.3 mmol/L (3.6-5.0)
--- NOTE | 2017-10-19 18:00 | EKG REPORT ---
SEVERITY:- ABNORMAL ECG - SINUS RHYTHM LEFT VENTRICULAR HYPERTROPHY : Confirmed by: Ricky Ruff MD 19-Oct-2017 17:59:26
[2017-10-19 18:05] LABS: ALCOHOL < 10 mg/dL (NONE DETECTED)
[2017-10-19 18:07] LABS: SODIUM 117.8 mmol/L (137-145)
[2017-10-19 18:13] LABS: ABSOLUTE LYMPHOCYTES# (MANUAL) 1.2 10^3/uL (0.5-4.7); ABSOLUTE MONOCYTES # (MANUAL) 0.5 10^3/uL (0.1-1.4); ABSOLUTE NEUTROPHILS# (MANUAL) 3.6 10^3/uL (1.7-8.2); BASOPHILS % (MANUAL) 0 % (0-2); EOSINOPHILS % (MANUAL) 1 % (0-6); LYMPHOCYTES % (MANUAL) 22 % (13-45); MONOCYTES % (MANUAL) 10 % (3-13); SEGMENTED NEUTROPHILS % (MAN) 67 % (42-78); TOTAL CELLS COUNTED 100
[2017-10-19 18:15] LABS: ANISOCYTOSIS 2+; BURR CELLS SLIGHT; HYPOCHROMASIA 1+; OVALOCYTES SLIGHT; PLATELET CLUMPS PRESENT; PLATELET COMMENT ADEQUATE; POIKILOCYTOSIS 3+; TARGET CELLS 1+
[2017-10-19] MEDS ORDERED: NORMAL SALINE 1000 ML 2,000 ML IV ONE (19:09)
[2017-10-19] MEDS ORDERED: ACETAMINOPHEN 325 MG TABLET PO PRN (20:35)
[2017-10-19 21:53] LABS: ANION GAP 10 (5-19); BLOOD UREA NITROGEN 9 mg/dL (7-20); CALCIUM 9.3 mg/dL (8.4-10.2); CARBON DIOXIDE 25 mmol/L (22-30); CHLORIDE 85 mmol/L (98-107); GLUCOSE 102 mg/dL (75-110)
[2017-10-19 21:54] LABS: PHOSPHORUS 3.1 mg/dL (2.5-4.5)
[2017-10-19 21:55] LABS: POTASSIUM 3.3 mmol/L (3.6-5.0)
[2017-10-19] MEDS ORDERED: SODIUM CHLORIDE 3% 250 ML IV ONE (22:00)
[2017-10-19 22:03] LABS: SODIUM 119.8 mmol/L (137-145)
[2017-10-19] MEDS: DIVALPROEX SODIUM 500 MG TAB.SR.24H PO SCH (22:32)
[2017-10-19] MEDS: LEVETIRACETAM 500 MG TABLET PO SCH (22:32)
[2017-10-19] MEDS: TRAZODONE HCL 50 MG TABLET PO SCH (22:33)
[2017-10-19] MEDS: HEPARIN SOD (PORCINE) 5,000 UNIT/ML 1 ML SYRINGE SUBCUT SCH (22:34)
[2017-10-19] MEDS: POTASSI CL 20 MEQ/50 ML RIDER 20 MEQ/50 ML RTUPB IV SCH (23:20)
[2017-10-19] MEDS: MAGNESIUM SULFATE/D5W 1 GM/100 ML RTUPB IV SCH (23:28)
[2017-10-19] MEDS ORDERED: SODIUM CHLORIDE 3% 500 ML IV ONE (23:57)
[2017-10-20] MEDS: IPRATROPIUM/ALBUTEROL 0.5-2.5 MG/3 ML AMPUL NEB SCH ×4 (00:24→23:29)
[2017-10-20] MEDS: MAGNESIUM SULFATE/D5W 1 GM/100 ML RTUPB IV SCH (00:27)
[2017-10-20] MEDS: POTASSI CL 20 MEQ/50 ML RIDER 20 MEQ/50 ML RTUPB IV SCH (01:04)
--- NOTE | 2017-10-20 02:06 | RADIOLOGY REPORT (SQ) ---
EXAM DESCRIPTION: CHEST SINGLE VIEW CLINICAL HISTORY: 57 years Male, status post central line placement COMPARISON: 08/13/17 NUMBER OF VIEWS/TECHNIQUE: 1/AP LIMITATIONS: None. FINDINGS: Right subclavian central line tip at the SVC, moderate deformity of left fifth, sixth, seventh, and eighth ribs, with chronic adjacent pleural thickening-scar, normal cardiac silhouette. IMPRESSION: No acute cardiopulmonary findings. Central line.
--- NOTE | 2017-10-20 02:09 | OPERATIVE REPORT E ---
Operative Report NAME: OUMOU PAZ : 1960 AGE: 57Y DATE OF SURGERY: 10/19/2017 ROOM: ED13 PREOPERATIVE DIAGNOSIS: PATIENT WITH HYPONATREMIA, IN NEED OF A CENTRAL LINE FOR FLUID, MEDICATIONS. PROCEDURE DONE: Insertion of right subclavian vein triple-lumen catheter. SURGEON: NICKIE DENG M.D. ANESTHESIA: Local. DESCRIPTION OF PROCEDURE: The patient was placed in Trendelenburg position, and the right chest and neck were then prepped and draped in the usual sterile fashion. Local anesthesia was infiltrated along the right infraclavicular area, and the right subclavian vein punctured, and guidewire passed through the needle into the direction of the superior vena cava. The needle was removed, and the puncture site dilated. A triple-lumen catheter inserted through the guidewire to a distance of about 16 cm. All the 3 ports aspirated blood easily and instilled saline easily. The catheter was then anchored to the skin with 3-0 silk and a Biopatch placed at the insertion site. A sterile transparent dressing was then placed over the Biopatch and catheter. Chest x-ray will be obtained for placement. DICTATING PHYSICIAN: NICKIE DENG M.D. [id number] PHY#: [id number] ID: [id number] JOB#: [id number] ACCT: [id number] cc:NICKIE DENG M.D. >
[2017-10-20 03:44] LABS: HEMATOCRIT 33.3 % (37.9-51.0); HEMOGLOBIN 11.1 g/dL (13.5-17.0); MEAN CORPUSCULAR HEMOGLOBIN 27.2 pg (27.0-33.4); MEAN CORPUSCULAR HGB CONC 33.3 g/dL (32.0-36.0); MEAN CORPUSCULAR VOLUME 82 fl (80-97); PLATELET COUNT 323 10^3/uL (150-450); RED BLOOD COUNT 4.09 10^6/uL (4.35-5.55); RED CELL DISTRIBUTION WIDTH 20.7 % (11.5-14.0); WHITE BLOOD COUNT 3.4 10^3/uL (4.0-10.5)
[2017-10-20 03:48] LABS: ANION GAP 12 (5-19); BLOOD UREA NITROGEN 8 mg/dL (7-20); CALCIUM 9.2 mg/dL (8.4-10.2); CARBON DIOXIDE 21 mmol/L (22-30); CHLORIDE 96 mmol/L (98-107); GLUCOSE 99 mg/dL (75-110); POTASSIUM 4.2 mmol/L (3.6-5.0); SODIUM 128.7 mmol/L (137-145)
[2017-10-20] MEDS ORDERED: DEXTROSE 5%-1/2 NORMAL SALINE 1,000 ML IV PRN (04:14)
[2017-10-20 04:26] LABS: ABSOLUTE LYMPHOCYTES# (MANUAL) 1.7 10^3/uL (0.5-4.7); ABSOLUTE MONOCYTES # (MANUAL) 0.3 10^3/uL (0.1-1.4); ABSOLUTE NEUTROPHILS# (MANUAL) 1.3 10^3/uL (1.7-8.2); BASOPHILS % (MANUAL) 1 % (0-2); EOSINOPHILS % (MANUAL) 0 % (0-6); LYMPHOCYTES % (MANUAL) 50 % (13-45); MONOCYTES % (MANUAL) 10 % (3-13); SEGMENTED NEUTROPHILS % (MAN) 39 % (42-78); TOTAL CELLS COUNTED 100
[2017-10-20 04:27] LABS: PLATELET COMMENT ADEQUATE
[2017-10-20 04:31] LABS: ANISOCYTOSIS 2+; BURR CELLS 1+; POIKILOCYTOSIS 3+; POLYCHROMASIA SLIGHT; TARGET CELLS 2+
[2017-10-20 04:32] LABS: HYPOCHROMASIA 2+
[2017-10-20] MEDS: HEPARIN SOD (PORCINE) 5,000 UNIT/ML 1 ML SYRINGE SUBCUT SCH ×3 (05:06→22:22)
[2017-10-20] MEDS ORDERED: LORAZEPAM INJ 2 MG/1 ML VIAL IV PRN ×2 (06:24→20:30)
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
[2017-10-20] MEDS: LEVETIRACETAM 500 MG TABLET PO SCH ×2 (09:12→22:21)
[2017-10-20] MEDS: LORAZEPAM 1 MG TABLET PO SCH ×3 (09:13→17:46)
[2017-10-20] MEDS: MAGNESIUM OXIDE 400 MG TABLET PO SCH ×2 (09:14→17:46)
[2017-10-20] MEDS: DIVALPROEX SODIUM 500 MG TAB.SR.24H PO SCH ×2 (09:15→22:21)
--- NOTE | 2017-10-20 09:22 | PDOC PROGRESS REPORT ---
Subjective Progress Note for:: 10/20/17 Subjective:: Patient is extremely tremulous but alert and awake; he is hungry He has been stable during the night Sodium is improving He did not have any seizures Reason For Visit: HYPONATREMIA NAUSEA,VOMITING Physical Exam Vital Signs: Temp Pulse Resp BP Pulse Ox 98.4 F 67 16 111/70 99 10/20/17 06:11 10/20/17 08:21 10/20/17 08:21 10/20/17 07:01 10/20/17 08:21 Intake & Output 10/19/17 10/20/17 10/21/17 00:59 00:59 00:59 Weight 57.9 kg General appearance: PRESENT: mild distress, thin Head exam: PRESENT: atraumatic, normocephalic Eye exam: PRESENT: conjunctiva pink, EOMI, PERRLA. ABSENT: scleral icterus Neck exam: ABSENT: carotid bruit, JVD, lymphadenopathy, thyromegaly Respiratory exam: PRESENT: clear to auscultation tre. ABSENT: rales, rhonchi, wheezes Cardiovascular exam: PRESENT: RRR. ABSENT: diastolic murmur, rubs, systolic murmur Pulses: PRESENT: normal dorsalis pedis pul GI/Abdominal exam: PRESENT: normal bowel sounds, soft, other - Colostomy bag abdomen. ABSENT: distended, guarding, mass, organolmegaly, rebound, tenderness Rectal exam: PRESENT: deferred Extremities exam: PRESENT: full ROM. ABSENT: calf tenderness, clubbing, pedal edema Neurological exam: PRESENT: awake, CN II-XII grossly intact, other - Tremors of the upper extremities Results Laboratory Results: 10/20/17 03:19 10/20/17 03:19 10/19/17 10/19/17 10/20/17 21:25 21:25 03:19 WBC 3.4 L RBC 4.09 L Hgb 11.1 L Hct 33.3 L MCV 82 MCH 27.2 MCHC 33.3 RDW 20.7 H Plt Count 323 Seg Neutrophils % Not Reportable Lymphocytes % Not Reportable Monocytes % Not Reportable Eosinophils % Not Reportable Basophils % Not Reportable Absolute Neutrophils Not Reportable Absolute Lymphocytes Not Reportable Absolute Monocytes Not Reportable Absolute Eosinophils Not Reportable Absolute Basophils Not Reportable Sodium 119.8 L* Potassium 3.3 L D Chloride 85 L Carbon Dioxide 25 Anion Gap 10 BUN 9 Creatinine 0.89 Est GFR ( Amer) > 60 Est GFR (Non-Af Amer) > 60 Glucose 102 Serum Osmolality Calcium 9.3 Phosphorus 3.1 Magnesium 1.4 L 10/20/17 10/20/17 03:19 03:19 WBC RBC Hgb Hct MCV MCH MCHC RDW Plt Count Seg Neutrophils % Lymphocytes % Monocytes % Eosinophils % Basophils % Absolute Neutrophils Absolute Lymphocytes Absolute Monocytes Absolute Eosinophils Absolute Basophils Sodium 128.7 L Potassium 4.2 Chloride 96 L Carbon Dioxide 21 L Anion Gap 12 BUN 8 Creatinine 0.89 Est GFR ( Amer) > 60 Est GFR (Non-Af Amer) > 60 Glucose 99 Serum Osmolality 262 L Calcium 9.2 Phosphorus Magnesium Impressions: Chest X-Ray 10/19/17 23:04 IMPRESSION: No acute cardiopulmonary findings. Central line. Assessment & Plan - Diagnosis (1) Alcohol withdrawal Qualifiers: Complication of substance-induced condition: uncomplicated Qualified Code(s ): F10.230 - Alcohol dependence with withdrawal, uncomplicated Is this a current diagnosis for this admission?: Yes Plan: We will increase Ativan as the patient is extremely tremulous Continue thiamine Patient is able to eat we will initiate a regular diet; (2) Hyponatremia Is this a current diagnosis for this admission?: Yes Plan: Improving Likely to be secondary to dehydration Continue IV fluids ; follow-up BMP and magnesium later today (3) Hypertension Qualifiers: Hypertension type: essential hypertension Qualified Code(s): I10 - Essential (primary) hypertension Is this a current diagnosis for this admission?: Yes Plan: Continue present meds (4) Seizure disorder Is this a current diagnosis for this admission?: Yes Plan: Continue Keppra and Depakote ; Depakote level pending - Time Time Spent with patient: 25-34 minutes - Downgrade the patient to IMCU as he has been very stable
[2017-10-20] MEDS: POTASSI CL 20 MEQ/NS 1L 1,000 ML IV PRN ×2 (09:34→17:46)
[2017-10-20] MEDS: THIAMINE HCL 100 MG, FOLIC ACID 1 MG in NORMAL SALINE 250 ML IV SCH (11:03)
[2017-10-20 11:20] LABS: ANION GAP 12 (5-19); BLOOD UREA NITROGEN 7 mg/dL (7-20); CALCIUM 9.4 mg/dL (8.4-10.2); CARBON DIOXIDE 21 mmol/L (22-30); CHLORIDE 97 mmol/L (98-107); GLUCOSE 138 mg/dL (75-110); POTASSIUM 3.7 mmol/L (3.6-5.0); SODIUM 130.2 mmol/L (137-145)
[2017-10-20 11:42] LABS: APPEARANCE,URINE CLEAR; BILIRUBIN,URINE NEGATIVE (NEGATIVE); COLOR,URINE YELLOW; GLUCOSE, URINE NEGATIVE (NEGATIVE); KETONES,URINE NEGATIVE (NEGATIVE); LEUKOCYTE ESTERASE,URINE NEGATIVE (NEGATIVE); NITRITE,URINE NEGATIVE (NEGATIVE); PROTEIN,URINE NEGATIVE (NEGATIVE); URINE SPECIFIC GRAVITY 1.004
[2017-10-20] MEDS ORDERED: INFLUENZA ADLT QUAD (36MOS+) 2017-18 VAC 0.5 ML SYR IM PRN ×2 (16:29→17:00)
[2017-10-20 17:08] LABS: ANION GAP 7 (5-19); BLOOD UREA NITROGEN 8 mg/dL (7-20); CALCIUM 8.4 mg/dL (8.4-10.2); CARBON DIOXIDE 19 mmol/L (22-30); CHLORIDE 103 mmol/L (98-107); GLUCOSE 134 mg/dL (75-110); POTASSIUM 3.7 mmol/L (3.6-5.0); SODIUM 128.6 mmol/L (137-145)
[2017-10-20] MEDS ORDERED: LORAZEPAM INJ 2 MG/1 ML VIAL ONE (20:24)
[2017-10-20] MEDS: TRAZODONE HCL 50 MG TABLET PO SCH (22:21)
[2017-10-20 23:08] LABS: ANION GAP 6 (5-19); BLOOD UREA NITROGEN 7 mg/dL (7-20); CALCIUM 8.9 mg/dL (8.4-10.2); CARBON DIOXIDE 20 mmol/L (22-30); CHLORIDE 103 mmol/L (98-107); GLUCOSE 103 mg/dL (75-110); SODIUM 129.4 mmol/L (137-145)
[2017-10-21] MEDS: LORAZEPAM 1 MG TABLET PO SCH ×7 (02:29→22:24)
[2017-10-21 05:31] LABS: ANION GAP 8 (5-19); BLOOD UREA NITROGEN 6 mg/dL (7-20); CARBON DIOXIDE 21 mmol/L (22-30); CHLORIDE 105 mmol/L (98-107); GLUCOSE 91 mg/dL (75-110); POTASSIUM 3.9 mmol/L (3.6-5.0); SODIUM 134.4 mmol/L (137-145)
[2017-10-21] MEDS: HEPARIN SOD (PORCINE) 5,000 UNIT/ML 1 ML SYRINGE SUBCUT SCH ×3 (05:31→22:21)
[2017-10-21] MEDS: IPRATROPIUM/ALBUTEROL 0.5-2.5 MG/3 ML AMPUL NEB SCH ×2 (08:49→17:19)
[2017-10-21] MEDS: LEVETIRACETAM 500 MG TABLET PO SCH ×2 (09:23→22:24)
[2017-10-21] MEDS: DIVALPROEX SODIUM 500 MG TAB.SR.24H PO SCH ×2 (09:23→22:24)
[2017-10-21] MEDS: MAGNESIUM OXIDE 400 MG TABLET PO SCH ×2 (09:23→17:46)
[2017-10-21] MEDS: MAGNESIUM SULFATE/D5W 1 GM/100 ML RTUPB IV SCH ×2 (09:28→10:35)
[2017-10-21] MEDS: THIAMINE HCL 100 MG, FOLIC ACID 1 MG in NORMAL SALINE 250 ML IV SCH (09:31)
[2017-10-21 10:51] LABS: ANION GAP 8 (5-19); BLOOD UREA NITROGEN 5 mg/dL (7-20); CALCIUM 8.8 mg/dL (8.4-10.2); CARBON DIOXIDE 20 mmol/L (22-30); CHLORIDE 106 mmol/L (98-107); GLUCOSE 125 mg/dL (75-110); POTASSIUM 3.8 mmol/L (3.6-5.0)
[2017-10-21] MEDS: POTASSI CL 20 MEQ/NS 1L 1,000 ML IV PRN ×2 (15:03→23:56)
[2017-10-21 18:01] LABS: ANION GAP 9 (5-19); BLOOD UREA NITROGEN 5 mg/dL (7-20); CALCIUM 9.1 mg/dL (8.4-10.2); CARBON DIOXIDE 21 mmol/L (22-30); CHLORIDE 103 mmol/L (98-107); GLUCOSE 109 mg/dL (75-110); SODIUM 133.3 mmol/L (137-145)
--- NOTE | 2017-10-21 19:14 | PDOC PROGRESS REPORT ---
Subjective Progress Note for:: 10/21/17 Subjective:: Seen and examined this am. He reports feeling hungry and seen tremulous. Reason For Visit: HYPONATREMIA NAUSEA,VOMITING Physical Exam Vital Signs: Temp Pulse Resp BP Pulse Ox 98.7 F 78 16 133/90 H 98 10/21/17 16:12 10/21/17 17:19 10/21/17 17:19 10/21/17 16:12 10/21/17 17:19 Intake & Output 10/20/17 10/21/17 10/22/17 06:59 06:59 06:59 Intake Total 3890 222 Output Total 1550 300 Balance 2340 -78 Weight 57.9 kg 57.9 kg General appearance: PRESENT: no acute distress, other - chronically ill and tremulous Head exam: PRESENT: atraumatic, normocephalic Eye exam: PRESENT: EOMI Mouth exam: PRESENT: neck supple Neck exam: PRESENT: full ROM Respiratory exam: PRESENT: clear to auscultation tre. ABSENT: accessory muscle use Cardiovascular exam: PRESENT: RRR GI/Abdominal exam: PRESENT: normal bowel sounds, soft Rectal exam: PRESENT: deferred Extremities exam: PRESENT: full ROM Neurological exam: PRESENT: alert, awake Psychiatric exam: PRESENT: anxious Results Laboratory Results: 10/20/17 03:19 10/21/17 17:28 10/20/17 10/21/17 10/21/17 22:39 04:30 04:30 Sodium 129.4 L 134.4 L Potassium 4.0 3.9 Chloride 103 105 Carbon Dioxide 20 L 21 L Anion Gap 6 8 BUN 7 6 L Creatinine 0.92 0.87 Est GFR ( Amer) > 60 > 60 Est GFR (Non-Af Amer) > 60 > 60 Glucose 103 91 Calcium 8.9 9.0 Magnesium 1.5 L 10/21/17 10/21/17 09:55 17:28 Sodium 134.0 L 133.3 L Potassium 3.8 4.0 Chloride 106 103 Carbon Dioxide 20 L 21 L Anion Gap 8 9 BUN 5 L 5 L Creatinine 0.84 0.83 Est GFR ( Amer) > 60 > 60 Est GFR (Non-Af Amer) > 60 > 60 Glucose 125 H 109 Calcium 8.8 9.1 Magnesium Impressions: Chest X-Ray 10/19/17 23:04 IMPRESSION: No acute cardiopulmonary findings. Central line. Assessment & Plan - Diagnosis (1) Alcohol withdrawal Qualifiers: Complication of substance-induced condition: uncomplicated Qualified Code(s ): F10.230 - Alcohol dependence with withdrawal, uncomplicated Is this a current diagnosis for this admission?: Yes Plan: Current continue scheduled Ativan and as needed On multivitamin supplement (2) Hyponatremia Is this a current diagnosis for this admission?: Yes Plan: Stable and follow up (3) Hypomagnesemia Is this a current diagnosis for this admission?: Yes Plan: Supplementing and follow up (4) Anemia Qualifiers: Anemia type: iron deficiency Is this a current diagnosis for this admission?: Yes Plan: Hg stable and follow up (5) Seizures Is this a current diagnosis for this admission?: Yes Plan: Seizure precautions Continue current medications (7) DVT prophylaxis Is this a current diagnosis for this admission?: Yes Plan: SCD's - Time Time Spent with patient: 15-24 minutes
[2017-10-21] MEDS: ONDANSETRON HCL INJ/PF 4 MG/2 ML SDV IV PRN (22:21)
[2017-10-21] MEDS: TRAZODONE HCL 50 MG TABLET PO SCH (22:23)
[2017-10-22] MEDS: IPRATROPIUM/ALBUTEROL 0.5-2.5 MG/3 ML AMPUL NEB SCH ×3 (00:28→15:58)
[2017-10-22] MEDS: LORAZEPAM 1 MG TABLET PO SCH ×5 (01:01→21:30)
[2017-10-22] MEDS: HEPARIN SOD (PORCINE) 5,000 UNIT/ML 1 ML SYRINGE SUBCUT SCH ×3 (05:08→21:30)
[2017-10-22 05:32] LABS: ANION GAP 8 (5-19); BLOOD UREA NITROGEN 3 mg/dL (7-20); CARBON DIOXIDE 23 mmol/L (22-30); CHLORIDE 104 mmol/L (98-107); GLUCOSE 92 mg/dL (75-110); POTASSIUM 4.4 mmol/L (3.6-5.0); SODIUM 134.7 mmol/L (137-145)
[2017-10-22] MEDS ORDERED: MAGNESIUM SULFATE 4 GM/100 ML RTUPB IV ONE (10:00)
[2017-10-22] MEDS: LEVETIRACETAM 500 MG TABLET PO SCH ×2 (10:08→21:30)
[2017-10-22] MEDS: DIVALPROEX SODIUM 500 MG TAB.SR.24H PO SCH ×2 (10:08→21:30)
[2017-10-22] MEDS: MAGNESIUM OXIDE 400 MG TABLET PO SCH ×2 (10:09→19:03)
[2017-10-22] MEDS: THIAMINE HCL 100 MG, FOLIC ACID 1 MG in NORMAL SALINE 250 ML IV SCH (10:09)
--- NOTE | 2017-10-22 18:49 | PDOC PROGRESS REPORT ---
Subjective Progress Note for:: 10/22/17 Subjective:: Seen and examined this am. He reports leg pain. Not as tremulous. Reason For Visit: HYPONATREMIA NAUSEA,VOMITING Physical Exam Vital Signs: Temp Pulse Resp BP Pulse Ox 97.6 F 67 16 148/92 H 98 10/22/17 11:43 10/22/17 15:58 10/22/17 15:58 10/22/17 11:43 10/22/17 11:43 Intake & Output 10/21/17 10/22/17 10/23/17 06:59 06:59 06:59 Intake Total 3890 3565 222 Output Total 1550 600 Balance 2340 2965 222 Weight 57.9 kg 60.7 kg General appearance: PRESENT: no acute distress, other - chronically ill looking and looks older than stated age Eye exam: PRESENT: EOMI Mouth exam: PRESENT: neck supple Respiratory exam: PRESENT: clear to auscultation tre, unlabored. ABSENT: accessory muscle use Cardiovascular exam: PRESENT: RRR GI/Abdominal exam: PRESENT: normal bowel sounds, soft, other - colostomy bag Rectal exam: PRESENT: deferred Extremities exam: ABSENT: pedal edema Neurological exam: PRESENT: alert, oriented to person, oriented to time Psychiatric exam: PRESENT: anxious Skin exam: PRESENT: dry Results Laboratory Results: 10/20/17 03:19 10/22/17 04:40 10/21/17 10/22/17 21:30 04:40 Sodium 134.7 L Potassium 4.4 Chloride 104 Carbon Dioxide 23 Anion Gap 8 BUN 3 L Creatinine 0.81 Est GFR ( Amer) > 60 Est GFR (Non-Af Amer) > 60 Glucose 92 Calcium 9.0 Magnesium 1.6 1.5 L Impressions: Chest X-Ray 10/19/17 23:04 IMPRESSION: No acute cardiopulmonary findings. Central line. Assessment & Plan - Diagnosis (1) Alcohol withdrawal Qualifiers: Complication of substance-induced condition: uncomplicated Qualified Code(s ): F10.230 - Alcohol dependence with withdrawal, uncomplicated Is this a current diagnosis for this admission?: Yes Plan: Current continue scheduled Ativan- weaning down as tolerated and Ativan as needed On multivitamin supplement (2) Hyponatremia Is this a current diagnosis for this admission?: Yes Plan: Stable and follow up (3) Hypomagnesemia Is this a current diagnosis for this admission?: Yes Plan: Supplementing and follow up labs in am (4) Anemia Qualifiers: Anemia type: iron deficiency Is this a current diagnosis for this admission?: Yes Plan: Hg stable and follow up (5) Seizures Is this a current diagnosis for this admission?: Yes Plan: Seizure precautions Continue current medications- Depakote and Keppra (6) DVT prophylaxis Is this a current diagnosis for this admission?: Yes Plan: On HSQ - Time Time Spent with patient: 15-24 minutes Within: within 48 hours
[2017-10-22] MEDS ORDERED: IPRATROPIUM/ALBUTEROL 0.5-2.5 MG/3 ML AMPUL NEB PRN (19:27)
[2017-10-22] MEDS: TRAZODONE HCL 50 MG TABLET PO SCH (21:30)
[2017-10-23] MEDS: HEPARIN SOD (PORCINE) 5,000 UNIT/ML 1 ML SYRINGE SUBCUT SCH ×2 (05:17→17:28)
[2017-10-23] MEDS: LORAZEPAM 1 MG TABLET PO SCH ×3 (05:17→23:06)
[2017-10-23] MEDS: MAGNESIUM OXIDE 400 MG TABLET PO SCH ×2 (09:52→17:28)
[2017-10-23] MEDS: THIAMINE HCL 100 MG, FOLIC ACID 1 MG in NORMAL SALINE 250 ML IV SCH (09:52)
[2017-10-23] MEDS: LEVETIRACETAM ORAL SOLN 500 MG/5 ML UDCUP PO SCH ×2 (12:39→23:06)
[2017-10-23] MEDS ORDERED: VALPROATE SODIUM SYRUP 250 MG/5 ML UDCUP PO ONE (13:00)
[2017-10-23] MEDS: VALPROATE SODIUM SYRUP 250 MG/5 ML UDCUP PO SCH ×2 (17:29→23:06)
--- NOTE | 2017-10-23 18:18 | PDOC PROGRESS REPORT ---
Subjective Progress Note for:: 10/23/17 Subjective:: Seen and examined this am. Here with alcohol withdrawal. He has been on Ativan. A family friend was visiting and reports that he was not at his baseline. Reason For Visit: HYPONATREMIA NAUSEA,VOMITING Physical Exam Vital Signs: Temp Pulse Resp BP Pulse Ox 97.9 F 53 L 16 129/77 H 100 10/23/17 08:44 10/23/17 14:00 10/23/17 08:44 10/23/17 08:44 10/23/17 08:44 Intake & Output 10/22/17 10/23/17 10/24/17 06:59 06:59 06:59 Intake Total 3565 916 280 Output Total 600 500 Balance 2965 416 280 Weight 60.7 kg 57.3 kg General appearance: PRESENT: no acute distress, other - chronically ill and looks older than stated age Head exam: PRESENT: atraumatic, normocephalic Eye exam: PRESENT: EOMI Mouth exam: PRESENT: moist, neck supple Teeth exam: PRESENT: edentulous, poor dentation Neck exam: PRESENT: full ROM Respiratory exam: PRESENT: clear to auscultation tre, unlabored Cardiovascular exam: PRESENT: RRR GI/Abdominal exam: PRESENT: normal bowel sounds, soft, other - colostomy Rectal exam: PRESENT: deferred Extremities exam: PRESENT: full ROM Neurological exam: PRESENT: alert, oriented to person, reflexes normal, other - tremulous Psychiatric exam: PRESENT: appropriate affect Results Laboratory Results: 10/20/17 03:19 10/22/17 04:40 10/23/17 04:35 Magnesium 1.8 Impressions: Chest X-Ray 10/19/17 23:04 IMPRESSION: No acute cardiopulmonary findings. Central line. Assessment & Plan - Diagnosis (1) Alcohol withdrawal Qualifiers: Complication of substance-induced condition: uncomplicated Qualified Code(s ): F10.230 - Alcohol dependence with withdrawal, uncomplicated Is this a current diagnosis for this admission?: Yes Plan: Current continue scheduled Ativan- weaning down as tolerated and Ativan as needed On multivitamin supplement (2) Hyponatremia Is this a current diagnosis for this admission?: Yes Plan: Stable and follow up (3) Hypomagnesemia Is this a current diagnosis for this admission?: Yes Plan: On supplements (4) Anemia Qualifiers: Anemia type: iron deficiency Is this a current diagnosis for this admission?: Yes Plan: Hg stable and follow up (5) Seizures Is this a current diagnosis for this admission?: Yes Plan: Seizure precautions Continue current medications On Depakote and Keppra (6) DVT prophylaxis Is this a current diagnosis for this admission?: Yes Plan: On HSQ - Time Time Spent with patient: 15-24 minutes
[2017-10-23] MEDS: TRAZODONE HCL 50 MG TABLET PO SCH (23:05)
[2017-10-24] MEDS: HEPARIN SOD (PORCINE) 5,000 UNIT/ML 1 ML SYRINGE SUBCUT SCH ×4 (01:53→22:48)
[2017-10-24 05:25] LABS: HEMATOCRIT 31.4 % (37.9-51.0); HEMOGLOBIN 10.6 g/dL (13.5-17.0); MEAN CORPUSCULAR HEMOGLOBIN 27.5 pg (27.0-33.4); MEAN CORPUSCULAR HGB CONC 33.6 g/dL (32.0-36.0); MEAN CORPUSCULAR VOLUME 82 fl (80-97); PLATELET COUNT 256 10^3/uL (150-450); RED BLOOD COUNT 3.84 10^6/uL (4.35-5.55); RED CELL DISTRIBUTION WIDTH 20.8 % (11.5-14.0); WHITE BLOOD COUNT 3.5 10^3/uL (4.0-10.5)
[2017-10-24 05:44] LABS: ANION GAP 10 (5-19); BLOOD UREA NITROGEN 9 mg/dL (7-20); CALCIUM 9.4 mg/dL (8.4-10.2); CARBON DIOXIDE 23 mmol/L (22-30); CHLORIDE 103 mmol/L (98-107); GLUCOSE 70 mg/dL (75-110); POTASSIUM 4.6 mmol/L (3.6-5.0); SODIUM 135.7 mmol/L (137-145)
[2017-10-24] MEDS: VALPROATE SODIUM SYRUP 250 MG/5 ML UDCUP PO SCH ×4 (06:37→23:02)
[2017-10-24] MEDS: LORAZEPAM 1 MG TABLET PO SCH ×3 (06:37→17:27)
[2017-10-24] MEDS ORDERED: LORAZEPAM 1 MG TABLET PO PRN (07:54)
[2017-10-24] MEDS: THIAMINE HCL 100 MG TABLET PO SCH (11:19)
[2017-10-24] MEDS: FOLIC ACID 1 MG TABLET PO SCH (11:19)
[2017-10-24] MEDS: LEVETIRACETAM ORAL SOLN 500 MG/5 ML UDCUP PO SCH ×2 (11:19→22:48)
[2017-10-24] MEDS: MAGNESIUM OXIDE 400 MG TABLET PO SCH ×2 (11:19→17:27)
[2017-10-24] MEDS: ONDANSETRON HCL INJ/PF 4 MG/2 ML SDV IV PRN (13:49)
--- NOTE | 2017-10-24 20:32 | PDOC PROGRESS REPORT ---
Subjective Progress Note for:: 10/24/17 Subjective:: Seen and examined this am. Here with alcohol withdrawal and electrolytes imbalance. PT was asked to evaluate him for possible discharge. But later called by nursing that he was having projectile vomiting. Not as tremulous on exam. Reason For Visit: HYPONATREMIA NAUSEA,VOMITING Physical Exam Vital Signs: Temp Pulse Resp BP Pulse Ox 98.3 F 71 14 147/81 H 100 10/24/17 20:02 10/24/17 20:02 10/24/17 20:02 10/24/17 20:02 10/24/17 20:02 Intake & Output 10/23/17 10/24/17 10/25/17 06:59 06:59 06:59 Intake Total 916 300 207 Output Total 500 0 Balance 416 300 207 Weight 57.3 kg 55.8 kg General appearance: PRESENT: thin, other - chronically ill and looks older than stated age Head exam: PRESENT: atraumatic, normocephalic Eye exam: PRESENT: EOMI Teeth exam: PRESENT: edentulous, poor dentation Neck exam: PRESENT: full ROM Respiratory exam: PRESENT: clear to auscultation tre, unlabored Cardiovascular exam: PRESENT: RRR GI/Abdominal exam: PRESENT: normal bowel sounds, soft Rectal exam: PRESENT: deferred Extremities exam: PRESENT: full ROM Neurological exam: PRESENT: alert, oriented to person, oriented to time Psychiatric exam: PRESENT: unusual affect Skin exam: PRESENT: dry, warm Results Laboratory Results: 10/24/17 04:25 10/24/17 04:25 10/24/17 10/24/17 04:25 04:25 WBC 3.5 L RBC 3.84 L Hgb 10.6 L Hct 31.4 L MCV 82 MCH 27.5 MCHC 33.6 RDW 20.8 H Plt Count 256 Sodium 135.7 L Potassium 4.6 Chloride 103 Carbon Dioxide 23 Anion Gap 10 BUN 9 Creatinine 1.00 Est GFR ( Amer) > 60 Est GFR (Non-Af Amer) > 60 Glucose 70 L Calcium 9.4 Impressions: Chest X-Ray 10/19/17 23:04 IMPRESSION: No acute cardiopulmonary findings. Central line. Assessment & Plan - Diagnosis (1) Alcohol withdrawal Qualifiers: Complication of substance-induced condition: uncomplicated Qualified Code(s ): F10.230 - Alcohol dependence with withdrawal, uncomplicated Is this a current diagnosis for this admission?: Yes Plan: On scheduled Ativan- that has been tapered down and Ativan as needed On multivitamin supplement (2) Hyponatremia Is this a current diagnosis for this admission?: Yes Plan: Stable and follow up (3) Hypomagnesemia Is this a current diagnosis for this admission?: Yes Plan: On supplements (4) Anemia Qualifiers: Anemia type: iron deficiency Is this a current diagnosis for this admission?: Yes Plan: Hg stable and follow up (5) Seizures Is this a current diagnosis for this admission?: Yes Plan: Seizure precautions Continue current medications On Depakote and Keppra (6) Vomiting Qualifiers: Vomiting type: projectile vomiting Is this a current diagnosis for this admission?: Yes Plan: Chest x-ray in am for further evaluation (7) DVT prophylaxis Is this a current diagnosis for this admission?: Yes Plan: On HSQ - Time Time Spent with patient: 15-24 minutes Anticipated discharge: Home Within: within 24 hours
[2017-10-25] MEDS: VALPROATE SODIUM SYRUP 250 MG/5 ML UDCUP PO SCH ×4 (05:39→23:56)
[2017-10-25] MEDS: HEPARIN SOD (PORCINE) 5,000 UNIT/ML 1 ML SYRINGE SUBCUT SCH ×3 (05:39→23:56)
[2017-10-25] MEDS: MAGNESIUM OXIDE 400 MG TABLET PO SCH ×2 (10:01→17:51)
[2017-10-25] MEDS: FOLIC ACID 1 MG TABLET PO SCH (10:01)
[2017-10-25] MEDS: LORAZEPAM 1 MG TABLET PO SCH ×2 (10:01→17:51)
[2017-10-25] MEDS: THIAMINE HCL 100 MG TABLET PO SCH (10:01)
[2017-10-25] MEDS: LEVETIRACETAM ORAL SOLN 500 MG/5 ML UDCUP PO SCH ×2 (10:01→23:56)
--- NOTE | 2017-10-25 11:43 | PDOC PROGRESS REPORT ---
Subjective Progress Note for:: 10/25/17 Subjective:: The patient is a 57-year-old male with underlying alcohol dependence. He presented with alcohol withdrawal symptoms and electrolyte disturbances due to alcohol withdrawal. Apparently, he lives at home with 2 brothers. The patient has not yet been up out of bed. Physical therapy is going to evaluate the patient today. The patient had projectile and severe vomiting yesterday. A repeat chest x-ray was done this morning but is not yet available for interpretation. Discharge may be possible within the next 24 hours. Reason For Visit: HYPONATREMIA NAUSEA,VOMITING Physical Exam Vital Signs: Temp Pulse Resp BP Pulse Ox 98.0 F 59 L 18 155/90 H 97 10/25/17 08:06 10/25/17 08:06 10/25/17 08:06 10/25/17 08:06 10/25/17 08:06 Intake & Output 10/24/17 10/25/17 10/26/17 06:59 06:59 06:59 Intake Total 300 427 Output Total 0 200 Balance 300 227 Weight 55.8 kg 56.2 kg Additional comments: The patient appears to be chronically debilitated. He was awake and interactive but does not answer questions appropriately. He appears older than his stated age. He is somewhat disheveled. He is thin and borders on cachexia with some temporal wasting. His lungs are noted to be clear to auscultation bilaterally. His cardiac exam is regular without murmurs, gallops or rubs. The abdomen is soft and flat. Bowel sounds are present in the lower quadrants. He does not have guarding rebound noted and there are no hernias or masses present. He does not have any edema of the lower extremities. The skin is clean, warm, dry and intact without lesions or rashes. Results Laboratory Results: 10/24/17 04:25 10/24/17 04:25 Impressions: Chest X-Ray 10/19/17 23:04 IMPRESSION: No acute cardiopulmonary findings. Central line. Assessment & Plan - Diagnosis (1) Alcohol withdrawal Qualifiers: Complication of substance-induced condition: uncomplicated Qualified Code(s ): F10.230 - Alcohol dependence with withdrawal, uncomplicated Is this a current diagnosis for this admission?: Yes Plan: Patient is receiving scheduled Ativan as well as Ativan as needed. (2) DVT prophylaxis Is this a current diagnosis for this admission?: Yes Plan: Continue subcu heparin. (3) Hypomagnesemia Is this a current diagnosis for this admission?: Yes (4) Hyponatremia Is this a current diagnosis for this admission?: Yes Plan: Continue magnesium supplementation. (5) Vomiting Is this a current diagnosis for this admission?: Yes Plan: Follow-up on chest x-ray that was done this morning. (6) Alcohol dependence Qualifiers: Complication of substance-induced condition: with unspecified complication Is this a current diagnosis for this admission?: Yes Plan: Continue supplementation with B12 and folate. Multivitamin added. (7) Anemia Qualifiers: Anemia type: iron deficiency Is this a current diagnosis for this admission?: Yes Plan: This has been stable. (8) Seizures Is this a current diagnosis for this admission?: Yes Plan: Continue Keppra and Depakote. - Time Time Spent with patient: 15-24 minutes - Inpatient Certification Medical Necessity: Significant Comorbidiites Make Outpatient Treatment Too Risky , Need Close Monitoring Due to Risk of Patient Decompensation, Risk of Complication if Not Cared For in Hospital
[2017-10-25] MEDS: MULTIVITAMIN TABLET PO SCH (12:08)
--- NOTE | 2017-10-25 12:20 | RADIOLOGY REPORT (SQ) ---
EXAM DESCRIPTION: CHEST SINGLE VIEW COMPLETED DATE/TIME: 10/25/2017 11:34 am REASON FOR STUDY: ?PNA COMPARISON: 10/19/2017. EXAM PARAMETERS: NUMBER OF VIEWS: One view. TECHNIQUE: Single frontal radiographic view of the chest acquired. RADIATION DOSE: NA LIMITATIONS: None. FINDINGS: LUNGS AND PLEURA: No opacities, masses or pneumothorax. No pleural effusion. MEDIASTINUM AND HILAR STRUCTURES: No masses. Contour normal. HEART AND VASCULAR STRUCTURES: Heart normal in size. Normal vasculature. BONES: No acute findings. Old rib fractures on the left. HARDWARE: Central line. OTHER: No other significant finding. IMPRESSION: NO ACUTE RADIOGRAPHIC FINDING IN THE CHEST. TECHNICAL DOCUMENTATION: JOB ID: [id number] [employer]- All Rights Reserved Reading location - IP/workstation name: [email or web address]
[2017-10-26] MEDS: HEPARIN SOD (PORCINE) 5,000 UNIT/ML 1 ML SYRINGE SUBCUT SCH ×3 (06:58→23:02)
[2017-10-26] MEDS: VALPROATE SODIUM SYRUP 250 MG/5 ML UDCUP PO SCH ×3 (06:58→19:04)
[2017-10-26] MEDS: FOLIC ACID 1 MG TABLET PO SCH (11:19)
[2017-10-26] MEDS: THIAMINE HCL 100 MG TABLET PO SCH (11:20)
[2017-10-26] MEDS: LORAZEPAM 1 MG TABLET PO SCH ×2 (11:20→19:04)
[2017-10-26] MEDS: MAGNESIUM OXIDE 400 MG TABLET PO SCH ×2 (11:20→19:03)
[2017-10-26] MEDS: LEVETIRACETAM ORAL SOLN 500 MG/5 ML UDCUP PO SCH ×2 (11:20→23:02)
[2017-10-26] MEDS: MULTIVITAMIN TABLET PO SCH (11:22)
--- NOTE | 2017-10-26 13:07 | PDOC DISCHARGE SUMMARY ---
General - Admit/Disc Date/PCP Admission Date/Primary Care Provider: 10/19/17 20:37 Discharge Date: 10/26/17 - Discharge Diagnosis (1) Alcohol withdrawal Is this a current diagnosis for this admission?: Yes (2) DVT prophylaxis Is this a current diagnosis for this admission?: Yes (3) Hypomagnesemia Is this a current diagnosis for this admission?: Yes (4) Hyponatremia Is this a current diagnosis for this admission?: Yes (5) Vomiting Is this a current diagnosis for this admission?: Yes (6) Alcohol dependence Is this a current diagnosis for this admission?: Yes (7) Anemia Is this a current diagnosis for this admission?: Yes (8) Seizures Is this a current diagnosis for this admission?: Yes - Additional Information Resuscitation Status: Full Code Discharge Diet: As Tolerated Discharge Activity: Activity As Tolerated Home Medications: Acetaminophen [Tylenol 325 mg Tablet] 650 mg PO Q8HP PRN 10/20/17 Dicyclomine HCl [Bentyl 20 mg Tablet] 20 mg PO Q6HP PRN 10/20/17 Divalproex Sodium [Depakote ER 500 mg Tab.sr] 500 mg PO Q12 10/20/17 Gabapentin [Neurontin] 600 mg PO Q8 10/20/17 Hydrocortisone [Cortef] 10 mg PO BID 10/20/17 Hydroxyzine Pamoate [Vistaril 25 mg Capsule] 25 mg PO HSP PRN 10/20/17 Levetiracetam [Keppra 500 mg Tablet] 1,000 mg PO Q12 10/20/17 Magnesium Oxide [Mag-Ox 400 mg Tablet] 400 mg PO BID 10/20/17 Omeprazole 20 mg PO Q6AM 10/20/17 Sertraline HCl [Zoloft 50 mg Tablet] 50 mg PO DAILY 10/20/17 Folic Acid [Folvite 1 mg Tablet] 1 mg PO DAILY tablet 10/26/17 Multivitamin [Tab-A-Danial (Multiple Vitamin) Tablet] 1 tab PO DAILY@1200 tablet 10/26/17 Thiamine HCl [Thiamine 100 mg Tablet] 100 mg PO DAILY tablet 10/26/17 History of Present Illness History of Present Illness: OUMOU PAZ is a 57 year old male with a past medical history of alcohol dependence, hypertension, chronic pain, seizure disorder and recurrent hyponatremia. Patient presents with 12 hours of headache, dizziness, nausea and vomiting, found to have a sodium of 117. Patient admits to persistent and excessive beer consumption and continued use of hydrochlorothiazide. He is referred to the hospitalist for admission. Denies chest pain shortness of breath or palpitations. Hospital Course Hospital Course: The patient was admitted to the hospital with severe and symptomatic hyponatremia. This was secondary to excessive beer intake as well as using a thiazide diuretic. Initially, the patient was treated with 3% saline. He improved significantly. Maxzide was discontinued. The patient did have electrolyte abnormalities this hospitalization that were corrected. The patient was treated with Ativan for alcohol withdrawal. He was also given supplemental thiamine, folate and multivitamin. These agents are recommended to be continued at discharge. On 10/24/2017 the patient had one episode of projectile vomiting. This resolved and the patient has not had any further evidence of vomiting. Therefore, he will be discharged home today. Patient was noted to have anemia during this hospitalization, but no evidence of acute bleeding. He did not require transfusion. Physical Exam Vital Signs: Temp Pulse Resp BP Pulse Ox 97.3 F 58 L 18 141/73 H 100 10/26/17 07:51 10/26/17 07:51 10/26/17 07:51 10/26/17 07:51 10/26/17 07:51 Intake & Output 10/25/17 10/26/17 10/27/17 06:59 06:59 07:59 Intake Total 427 396 Output Total 200 100 Balance 227 296 Weight 56.2 kg 55.5 kg Additional comments: The patient appears to be older than his stated age. He is very slight, but not cachectic. He is awake and alert but does not interact appropriately. This appears to be his baseline. His lungs are clear to auscultation bilaterally. His cardiac exam is regular without murmurs, gallops or rubs. The colostomy bag is clean dry and intact with stool. The lower extremities are unremarkable. No edema is present. The skin is clean, warm, dry and intact. Results Laboratory Results: 10/24/17 04:25 10/24/17 04:25 Impressions: Chest X-Ray 10/25/17 08:00 IMPRESSION: NO ACUTE RADIOGRAPHIC FINDING IN THE CHEST. Qualifiers - * PATEINT BEING DISCHARGED WITH ANY OF THE FOLLOWING DIAGNOSIS?: No Plan Discharge Plan: 1. Discharge to home 2. Discharge diet is regular 3. Activity is as tolerated 4. The patient should follow-up with his primary rn critical care in 1 week Time Spent: Less than 30 Minutes
--- NOTE | 2017-10-26 17:05 | Progress Note ---
Provider Note Provider Note: The patient will not be discharged today. 1 of his associates was going to take him home but she feels that he cannot care for himself at home. The patient's daughter in [place] was contacted by Evelyn, the patient's nurse. The patient's daughter does not feel that he is competent to take care of himself at home. Therefore, I am going to consult psychiatry for determination of competency. I have also put in a discharge planning consult for possible placement to a permanent facility.
[2017-10-27] MEDS: VALPROATE SODIUM SYRUP 250 MG/5 ML UDCUP PO SCH ×5 (00:05→23:25)
[2017-10-27] MEDS: HEPARIN SOD (PORCINE) 5,000 UNIT/ML 1 ML SYRINGE SUBCUT SCH (05:38)
[2017-10-27] MEDS ORDERED: GLUCAGON,HUMAN RECOMB 1 MG INJ IM PRN (07:43)
[2017-10-27] MEDS ORDERED: DEXTROSE 50%-WATER 25 GM/50 ML DISP.SYRIN IV PRN ×2 (07:43)
[2017-10-27] MEDS ORDERED: DEXTROSE 40% GEL 15 GM TUBE PO PRN ×2 (07:43)
[2017-10-27] MEDS: MAGNESIUM OXIDE 400 MG TABLET PO SCH ×2 (10:47→18:41)
[2017-10-27] MEDS: LEVETIRACETAM ORAL SOLN 500 MG/5 ML UDCUP PO SCH ×2 (10:47→21:48)
[2017-10-27] MEDS: FOLIC ACID 1 MG TABLET PO SCH (10:47)
[2017-10-27] MEDS: THIAMINE HCL 100 MG TABLET PO SCH (10:47)
[2017-10-27] MEDS: LORAZEPAM 1 MG TABLET PO SCH ×2 (10:48→18:41)
--- NOTE | 2017-10-27 11:11 | PSYCHOLOGICAL NOTE ---
Psych Note - Psych Note Psych Note: Psychological evaluation for capacity has been provided previously; please see patient's chart from previous [facility] visit for details. DIAGNOSES: 1. 291.9 (F10.99) Unspecified Alcohol Related Disorder per history 2. R/O 331.9 (G31.9) Major Neurocognitive Disorder, Possible Results of the capacity evaluation conducted 08/07/2016 revealed the Patient demonstrated impaired neurocognitive functioning with deficits in attention / concentration, impulsivity, memory (specifically new information), judgment, safety, cognitive flexibility, and switching of set. He presented as alert but not oriented (he knew he lives in [place], thought he was in [place] or [facility], and stated he needed to get back to the [facility]). Information he reported is difficult to ascertain as truth or confabulation. He carried on dialogue conversation, answered questions when addressed, and demonstrateed tangential thinking. There is no evidence of psychosis or suicidal / homicidal ideation, intent, or plan. Patients presentation, results of capacity evaluation, and ongoing medical problems are consistent with Weirnickes encephalopathy and dementia like symptoms, though his head CT does not demonstrate organic impairment. In my clinical opinion, with a reasonable degree of clinical certainty, patient would benefit from a responsible and reliable guardian. Given patients prolonged alcohol use history and Traumatic Brain Injury it is likely there is neurocognitive degenerative process occurring, with possible dementia like symptoms, though further neurologic evaluation is required. RECOMMENDATIONS: 1. A responsible and reliable guardian is recommended is to manage the patient s medical, legal, financial, and personal matters. 2. Psychiatric consultation with a psychiatrist familiar with dementia related etiology, alcohol dependence, and related symptoms is recommended to re-evaluate the Patients current psychopharmacological medication regimen. 3. Evaluation with neurology to assess and monitor neurological deficits as it relates to alcohol related encephalomalacia. 4. 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 5. Patient would benefit from a structured and routine environment where he has 24-hour oversight and supervision Impression/Plan: Patient is psychiatrically cleared; patient does not meet IVC criteria per [place] GS 122C. Patient recommendations stand has previously stated in capacity evaluation. Dr. Mike was consulted on the care and management of this patient.
[2017-10-27] MEDS: MULTIVITAMIN TABLET PO SCH (12:16)
--- NOTE | 2017-10-27 13:16 | PDOC PROGRESS REPORT ---
Subjective Progress Note for:: 10/27/17 Subjective:: The patient is a 57-year-old male with underlying alcohol dependence. He presented with alcohol withdrawal symptoms and electrolyte disturbances due to alcohol withdrawal and severe hyponatremia. The hyponatremia was initially treated with 3% saline. The hyponatremia was felt to be secondary to beer potomania and the use of thiazide diuretics. Hyponatremia has been corrected. The patient's alcohol withdrawal has been treated with Ativan. On , the patient had one episode of projectile vomiting. This has not recurred. Yesterday, the patient was noted to be in stable condition and therefore arrangements were made to discharge the patient to home where he lives with 2 brothers. When a family friend came to pick him up she refused to take him home. She stated that she did not feel that he was able to care for himself at home and he did not have the additional caregivers at home that he would need. Therefore, psychiatry was consulted to determine the patient's competency. Psychiatry feels that the patient is not able to maintain or care for himself at home. They have recommended that he have a caregiver 24 7 as well as somebody that can manage his financial affairs, etc. The patient's daughter lives in [place] but is willing to have her father moved to [place] to a facility near her home. The patient likely has Wernicke's encephalopathy and dementia. He also has a history of prior traumatic brain injury. Reason For Visit: HYPONATREMIA NAUSEA,VOMITING Physical Exam Vital Signs: Temp Pulse Resp BP Pulse Ox 97.4 F 59 L 16 144/88 H 100 10/27/17 07:26 10/27/17 07:26 10/27/17 07:26 10/27/17 07:26 10/27/17 07:26 Intake & Output 10/26/17 10/27/17 10/28/17 05:59 06:59 06:59 Intake Total Output Total Balance Weight Additional comments: The patient appeared fairly calm today. He did allow me to examine him today. He is oriented to person only. In general, his exam is unchanged. His lungs are clear to auscultation bilaterally. His cardiac exam is regular without murmurs, gallops or rubs. The abdomen is soft and flat. Bowel sounds are present. He does not have guarding or rebound noted. The lower extremities are unremarkable. He does not have any pitting edema. The skin is clean, warm , dry and intact without lesions or rashes. Results Laboratory Results: 10/24/17 04:25 10/24/17 04:25 Impressions: Chest X-Ray 10/25/17 08:00 IMPRESSION: NO ACUTE RADIOGRAPHIC FINDING IN THE CHEST. Assessment & Plan - Diagnosis (1) Alcohol withdrawal Qualifiers: Complication of substance-induced condition: uncomplicated Qualified Code(s ): F10.230 - Alcohol dependence with withdrawal, uncomplicated Is this a current diagnosis for this admission?: Yes Plan: Patient is receiving scheduled Ativan as well as Ativan as needed. (2) DVT prophylaxis Is this a current diagnosis for this admission?: Yes Plan: Continue subcu heparin. (3) Hypomagnesemia Is this a current diagnosis for this admission?: Yes Plan: Continue supplementation (4) Hyponatremia Is this a current diagnosis for this admission?: Yes Plan: This has been corrected (5) Vomiting Is this a current diagnosis for this admission?: Yes Plan: Follow-up on chest x-ray performed Saturday: Unremarkable (6) Alcohol dependence Qualifiers: Complication of substance-induced condition: with unspecified complication Is this a current diagnosis for this admission?: Yes Plan: Continue supplementation with B12 and folate. Multivitamin added. (7) Anemia Qualifiers: Anemia type: iron deficiency Is this a current diagnosis for this admission?: Yes Plan: This has been stable. (8) Seizures Is this a current diagnosis for this admission?: Yes Plan: Continue Keppra and Depakote. (9) Dementia Is this a current diagnosis for this admission?: Yes Plan: The patient does appear to have a dementia. This appears to be components of Wernicke's dementia and prior history of traumatic brain injury. The patient does not appear competent to manage his affairs. I do agree that he would benefit from 24-hour supervision. We have involve discharge planning. The patient will need to be permanently placed. The daughter is interested in having the patient move nearer to her in [place]. - Time Time Spent with patient: 15-24 minutes - Inpatient Certification Medical Necessity: Need Close Monitoring Due to Risk of Patient Decompensation, Risk of Complication if Not Cared For in Hospital
--- NOTE | 2017-10-27 16:43 | PSYCHOLOGICAL NOTE ---
Psych Note - Psych Note Psych Note: Reason for consult: Symptoms of dementia Time of consult: 1538 Final Disposition 1600 Patient is a 57-year-old male. Patient is unable to answer assessment questions. Clinician observed patient was removing down when clinician was asking assessment questions. The following information was gathered per comprehensive chart review: Psychological evaluation for capacity has been provided previously; please see patient's chart from previous [facility] visit for details. DIAGNOSES: 1. 291.9 (F10.99) Unspecified Alcohol Related Disorder per history 2. R/O 331.9 (G31.9) Major Neurocognitive Disorder, Possible Results of the capacity evaluation conducted 08/07/2016 revealed the Patient demonstrated impaired neurocognitive functioning with deficits in attention / concentration, impulsivity, memory (specifically new information), judgment, safety, cognitive flexibility, and switching of set. He presented as alert but not oriented (he knew he lives in [place], thought he was in [facility], and stated he needed to get back to the [facility]). Information he reported is difficult to ascertain as truth or confabulation. He carried on dialogue conversation, answered questions when addressed, and demonstrateed tangential thinking. There is no evidence of psychosis or suicidal / homicidal ideation, intent, or plan. Patients presentation, results of capacity evaluation, and ongoing medical problems are consistent with Weirnickes encephalopathy and dementia like symptoms, though his head CT does not demonstrate organic impairment. In my clinical opinion, with a reasonable degree of clinical certainty, patient would benefit from a responsible and reliable guardian. Given patients prolonged alcohol use history and Traumatic Brain Injury it is likely there is neurocognitive degenerative process occurring, with possible dementia like symptoms, though further neurologic evaluation is required. RECOMMENDATIONS: 1. A responsible and reliable guardian is recommended is to manage the patient s medical, legal, financial, and personal matters. 2. Psychiatric consultation with a psychiatrist familiar with dementia related etiology, alcohol dependence, and related symptoms is recommended to re-evaluate the Patients current psychopharmacological medication regimen. 3. Evaluation with neurology to assess and monitor neurological deficits as it relates to alcohol related encephalomalacia. 4. 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 5. Patient would benefit from a structured and routine environment where he has 24-hour oversight and supervision Impression/Plan: Patient is psychiatrically cleared; patient does not meet IVC criteria per [place] GS 122C. Patient recommendations stand has previously stated in capacity evaluation. Dr. Mike was consulted on the care and management of this patient.
[2017-10-28] MEDS: VALPROATE SODIUM SYRUP 250 MG/5 ML UDCUP PO SCH ×4 (05:51→23:16)
[2017-10-28 08:33] LABS: HEMATOCRIT 32.9 % (37.9-51.0); HEMOGLOBIN 10.7 g/dL (13.5-17.0); MEAN CORPUSCULAR HEMOGLOBIN 27.2 pg (27.0-33.4); MEAN CORPUSCULAR HGB CONC 32.4 g/dL (32.0-36.0); MEAN CORPUSCULAR VOLUME 84 fl (80-97); PLATELET COUNT 191 10^3/uL (150-450); RED BLOOD COUNT 3.92 10^6/uL (4.35-5.55); RED CELL DISTRIBUTION WIDTH 20.5 % (11.5-14.0); WHITE BLOOD COUNT 3.5 10^3/uL (4.0-10.5)
[2017-10-28 08:46] LABS: ANION GAP 11 (5-19); BLOOD UREA NITROGEN 15 mg/dL (7-20); CALCIUM 9.9 mg/dL (8.4-10.2); CARBON DIOXIDE 25 mmol/L (22-30); CHLORIDE 108 mmol/L (98-107); GLUCOSE 79 mg/dL (75-110); PHOSPHORUS 4.5 mg/dL (2.5-4.5); POTASSIUM 4.8 mmol/L (3.6-5.0); SODIUM 144.1 mmol/L (137-145)
[2017-10-28 09:15] LABS: ABSOLUTE LYMPHOCYTES# (MANUAL) 2.2 10^3/uL (0.5-4.7); ABSOLUTE MONOCYTES # (MANUAL) 0.7 10^3/uL (0.1-1.4); ABSOLUTE NEUTROPHILS# (MANUAL) 0.7 10^3/uL (1.7-8.2); BASOPHILS % (MANUAL) 0 % (0-2); EOSINOPHILS % (MANUAL) 0 % (0-6); LYMPHOCYTES % (MANUAL) 62 % (13-45); MONOCYTES % (MANUAL) 19 % (3-13); SEGMENTED NEUTROPHILS % (MAN) 19 % (42-78); TOTAL CELLS COUNTED 100
[2017-10-28 09:17] LABS: ANISOCYTOSIS 2+
[2017-10-28 09:18] LABS: BURR CELLS SLIGHT; OVALOCYTES SLIGHT; PLATELET COMMENT ADEQUATE; POIKILOCYTOSIS 2+; TARGET CELLS 1+; TEAR DROP CELLS SLIGHT
[2017-10-28] MEDS: FOLIC ACID 1 MG TABLET PO SCH (09:22)
[2017-10-28] MEDS: THIAMINE HCL 100 MG TABLET PO SCH (09:22)
[2017-10-28] MEDS: MAGNESIUM OXIDE 400 MG TABLET PO SCH ×2 (09:23→17:08)
[2017-10-28] MEDS: LORAZEPAM 1 MG TABLET PO SCH ×2 (09:23→17:08)
[2017-10-28] MEDS: LEVETIRACETAM ORAL SOLN 500 MG/5 ML UDCUP PO SCH ×2 (09:25→23:16)
[2017-10-28] MEDS: MULTIVITAMIN TABLET PO SCH (11:25)
--- NOTE | 2017-10-28 13:39 | PDOC PROGRESS REPORT ---
Subjective Progress Note for:: 10/28/17 Subjective:: The patient is a 57-year-old male with underlying alcohol dependence who was admitted with alcohol withdrawal symptoms and electrolyte disturbances on . Patient is now medically stable for discharge, however, has been evaluated by psychiatry with recommendations that the patient be discharged under 24-7 care with a designated legal guardian. The patient is seen on rounds. He is sleeping when I enter the room but does wake easily when I say his name. He denies questions or concerns today, stating that he feels fine. Reason For Visit: HYPONATREMIA NAUSEA,VOMITING Physical Exam Vital Signs: Temp Pulse Resp BP Pulse Ox 98.2 F 65 12 154/69 H 99 10/28/17 11:15 10/28/17 11:15 10/28/17 11:15 10/28/17 11:15 10/28/17 11:15 Intake & Output 10/27/17 10/28/17 10/29/17 06:59 06:59 06:59 Intake Total 432 118 Output Total 0 Balance 432 118 Weight 55 kg General appearance: PRESENT: no acute distress, thin, well-developed, well- nourished Head exam: PRESENT: atraumatic, normocephalic Eye exam: PRESENT: conjunctiva pink, EOMI, PERRLA. ABSENT: scleral icterus Ear exam: PRESENT: normal external ear exam Mouth exam: PRESENT: moist, tongue midline Teeth exam: PRESENT: edentulous, poor dentation Neck exam: ABSENT: carotid bruit, JVD, lymphadenopathy, thyromegaly Respiratory exam: PRESENT: clear to auscultation tre, symmetrical, unlabored. ABSENT: rales, rhonchi, wheezes Cardiovascular exam: PRESENT: RRR. ABSENT: diastolic murmur, rubs, systolic murmur Pulses: PRESENT: normal dorsalis pedis pul Vascular exam: PRESENT: normal capillary refill GI/Abdominal exam: PRESENT: normal bowel sounds, soft. ABSENT: distended, guarding, mass, organolmegaly, rebound, tenderness Rectal exam: PRESENT: deferred Extremities exam: PRESENT: full ROM. ABSENT: calf tenderness, clubbing, pedal edema Neurological exam: PRESENT: alert, awake, oriented to person, CN II-XII grossly intact. ABSENT: motor sensory deficit Psychiatric exam: PRESENT: appropriate affect, normal mood. ABSENT: homicidal ideation, suicidal ideation Skin exam: PRESENT: dry, intact, warm. ABSENT: cyanosis, rash Results Laboratory Results: 10/28/17 08:05 10/28/17 08:05 10/28/17 10/28/17 08:05 08:05 WBC 3.5 L RBC 3.92 L Hgb 10.7 L Hct 32.9 L MCV 84 MCH 27.2 MCHC 32.4 RDW 20.5 H Plt Count 191 Seg Neutrophils % Not Reportable Lymphocytes % Not Reportable Monocytes % Not Reportable Eosinophils % Not Reportable Basophils % Not Reportable Absolute Neutrophils Not Reportable Absolute Lymphocytes Not Reportable Absolute Monocytes Not Reportable Absolute Eosinophils Not Reportable Absolute Basophils Not Reportable Sodium 144.1 Potassium 4.8 Chloride 108 H Carbon Dioxide 25 Anion Gap 11 BUN 15 Creatinine 1.07 Est GFR ( Amer) > 60 Est GFR (Non-Af Amer) > 60 Glucose 79 Calcium 9.9 Phosphorus 4.5 Magnesium 2.1 Impressions: Chest X-Ray 10/25/17 08:00 IMPRESSION: NO ACUTE RADIOGRAPHIC FINDING IN THE CHEST. Assessment & Plan - Diagnosis (1) Alcohol withdrawal Qualifiers: Complication of substance-induced condition: uncomplicated Qualified Code(s ): F10.230 - Alcohol dependence with withdrawal, uncomplicated Is this a current diagnosis for this admission?: Yes Plan: The patient is receiving scheduled and as needed Ativan. We will continue thiamine and folic acid supplements. Seizure, aspiration, fall precautions are in place. (2) Anemia Qualifiers: Anemia type: iron deficiency Is this a current diagnosis for this admission?: Yes Plan: Repeat hemoglobin is stable at 10.7. No evidence of active bleeding. (3) Dementia Is this a current diagnosis for this admission?: Yes Plan: Likely a component of Wernicke's dementia in setting of prior TBI. Psychiatry evaluation has been completed with recommendations of 11/03 supervision with appointment of a guardian. Appreciate discharge planning's assistance. They are planning to meet with the patient's family today to discuss safe discharge planning. (4) DVT prophylaxis Is this a current diagnosis for this admission?: Yes Plan: Continue subcutaneous heparin. (5) Hypomagnesemia Is this a current diagnosis for this admission?: Yes Plan: Replete; continue supplementation. (6) Hyponatremia Is this a current diagnosis for this admission?: Yes Plan: Resolved. (7) Seizures Is this a current diagnosis for this admission?: Yes Plan: Continue Keppra and Depakote. Seizure, fall, aspiration precautions are in place. (8) Vomiting Qualifiers: Vomiting type: projectile vomiting Is this a current diagnosis for this admission?: Yes Plan: Resolved. Follow-up chest x-ray was unremarkable. Zofran as needed. (9) Alcohol dependence Qualifiers: Complication of substance-induced condition: with unspecified complication Is this a current diagnosis for this admission?: Yes Plan: We will continue B12, folate, multivitamin. - Time Time Spent with patient: 25-34 minutes Medications reviewed and adjusted accordingly: Yes Anticipated discharge: Other - Long-term care Within: when bed available
[2017-10-29] MEDS: VALPROATE SODIUM SYRUP 250 MG/5 ML UDCUP PO SCH ×3 (05:10→17:33)
[2017-10-29 05:53] LABS: ALANINE AMINOTRANSFERASE 32 U/L (21-72); ALKALINE PHOSPHATASE 66 U/L (38-126); ANION GAP 9 (5-19); ASPARTATE AMINO TRANSFERASE 46 U/L (17-59); BILIRUBIN,DIRECT 0.2 mg/dL (0.0-0.4); BILIRUBIN,TOTAL 0.3 mg/dL (0.2-1.3); BLOOD UREA NITROGEN 14 mg/dL (7-20); CALCIUM 9.9 mg/dL (8.4-10.2); CARBON DIOXIDE 27 mmol/L (22-30); CHLORIDE 106 mmol/L (98-107); GLUCOSE 89 mg/dL (75-110); POTASSIUM 4.5 mmol/L (3.6-5.0); TOTAL PROTEIN 6.7 g/dL (6.3-8.2)
[2017-10-29] MEDS: LORAZEPAM 1 MG TABLET PO SCH ×2 (09:32→17:35)
[2017-10-29] MEDS: FOLIC ACID 1 MG TABLET PO SCH (09:32)
[2017-10-29] MEDS: LEVETIRACETAM ORAL SOLN 500 MG/5 ML UDCUP PO SCH (09:32)
[2017-10-29] MEDS: THIAMINE HCL 100 MG TABLET PO SCH (09:32)
[2017-10-29] MEDS: MAGNESIUM OXIDE 400 MG TABLET PO SCH ×2 (09:32→17:35)
[2017-10-29] MEDS: MULTIVITAMIN TABLET PO SCH (14:42)
[2017-10-30] MEDS: LEVETIRACETAM ORAL SOLN 500 MG/5 ML UDCUP PO SCH ×3 (00:28→21:54)
[2017-10-30] MEDS: VALPROATE SODIUM SYRUP 250 MG/5 ML UDCUP PO SCH ×5 (00:29→23:24)
[2017-10-30] MEDS: LORAZEPAM 1 MG TABLET PO SCH ×2 (10:59→18:22)
[2017-10-30] MEDS: MAGNESIUM OXIDE 400 MG TABLET PO SCH ×2 (10:59→18:21)
[2017-10-30] MEDS: FOLIC ACID 1 MG TABLET PO SCH (10:59)
[2017-10-30] MEDS: THIAMINE HCL 100 MG TABLET PO SCH (10:59)
--- NOTE | 2017-10-30 15:00 | PDOC PROGRESS REPORT ---
Subjective Progress Note for:: 10/29/17 Subjective:: He is awake and alert and answers questions fairly appropriately but is clearly confused. The patient's daughter is at the bedside. She is indicated that she would like to take him back to [place] this coming Saturday. The patient is resting in his bed. The discharge planners will be helping to make arrangements. Review of systems could not be obtained from the patient. Reason For Visit: HYPONATREMIA NAUSEA,VOMITING Physical Exam Vital Signs: Temp Pulse Resp BP Pulse Ox 98.1 F 81 16 135/93 H 100 10/30/17 11:07 10/30/17 11:07 10/30/17 11:07 10/30/17 11:07 10/30/17 11:07 Intake & Output 10/29/17 10/30/17 10/31/17 06:59 06:59 06:59 Intake Total 138 590 Output Total 100 400 Balance 38 190 Weight 53.6 kg 55.3 kg General appearance: PRESENT: thin - Somewhat disheveled. He is alert and oriented 2, other Head exam: PRESENT: atraumatic, normocephalic Mouth exam: PRESENT: moist, tongue midline Respiratory exam: PRESENT: clear to auscultation tre. ABSENT: rales, rhonchi, wheezes Cardiovascular exam: PRESENT: RRR. ABSENT: diastolic murmur, rubs, systolic murmur GI/Abdominal exam: PRESENT: normal bowel sounds, soft. ABSENT: distended, guarding, mass, organolmegaly, rebound, tenderness Rectal exam: PRESENT: deferred Extremities exam: PRESENT: full ROM. ABSENT: calf tenderness, clubbing, pedal edema Neurological exam: ABSENT: alert, altered, awake, oriented to person, oriented to place, oriented to time, oriented to situation, reflexes normal, abnormal gait, ataxia, CN II-XII grossly intact, motor sensory deficit, normal gait, aphasic, other Psychiatric exam: PRESENT: appropriate affect, normal mood. ABSENT: homicidal ideation, suicidal ideation Skin exam: PRESENT: dry, intact, warm. ABSENT: cyanosis, rash Results Laboratory Results: 10/28/17 08:05 10/29/17 05:06 Impressions: Chest X-Ray 10/25/17 08:00 IMPRESSION: NO ACUTE RADIOGRAPHIC FINDING IN THE CHEST. Assessment & Plan - Diagnosis (1) Hyponatremia Is this a current diagnosis for this admission?: Yes Plan: Secondary to beer potomania. He was initially on 3% saline. His sodium level has normalized and he is doing quite well. (2) Alcohol withdrawal Qualifiers: Complication of substance-induced condition: uncomplicated Qualified Code(s ): F10.230 - Alcohol dependence with withdrawal, uncomplicated Is this a current diagnosis for this admission?: Yes Plan: Resolved at this point. (3) Alcohol dependence Qualifiers: Complication of substance-induced condition: with unspecified complication Is this a current diagnosis for this admission?: Yes Plan: Certainly he will not be able to live independently anymore. No further alcohol. (4) Wernickes encephalopathy Is this a current diagnosis for this admission?: Yes Plan: He has been evaluated by psych and they do not believe he can make good decisions for himself. At discharge she will go to his daughter's house. (5) Alcoholic dementia Is this a current diagnosis for this admission?: Yes (6) Anemia Qualifiers: Anemia type: iron deficiency Is this a current diagnosis for this admission?: Yes Plan: Stable (7) Hypomagnesemia Is this a current diagnosis for this admission?: Yes Plan: Continue to replete as needed (8) Seizure disorder Is this a current diagnosis for this admission?: Yes Plan: Continue current regimen (9) Vomiting Is this a current diagnosis for this admission?: Yes Plan: Resolved - Time Time Spent with patient: 25-34 minutes - Inpatient Certification Medical Necessity: Other - Inpatient hospitalization remains necessary for disposition. The patient is going to [facility] to live with his daughter this coming Saturday. The discharge planners are assisting her with her needs
--- NOTE | 2017-10-30 15:03 | PDOC PROGRESS REPORT ---
Subjective Progress Note for:: 10/30/17 Subjective:: He is awake and alert and answers questions fairly appropriately but is clearly confused. Review of systems could not be obtained. There are no family members at the bedside today. Reason For Visit: HYPONATREMIA NAUSEA,VOMITING Physical Exam Vital Signs: Temp Pulse Resp BP Pulse Ox 98.1 F 81 16 135/93 H 100 10/30/17 11:07 10/30/17 11:07 10/30/17 11:07 10/30/17 11:07 10/30/17 11:07 Intake & Output 10/29/17 10/30/17 10/31/17 06:59 06:59 06:59 Intake Total 138 590 Output Total 100 400 Balance 38 190 Weight 53.6 kg 55.3 kg General appearance: PRESENT: disheveled, thin Head exam: PRESENT: atraumatic, normocephalic Ear exam: PRESENT: normal external ear exam Mouth exam: PRESENT: moist, tongue midline Respiratory exam: PRESENT: clear to auscultation tre. ABSENT: rales, rhonchi, wheezes Cardiovascular exam: PRESENT: RRR. ABSENT: diastolic murmur, rubs, systolic murmur GI/Abdominal exam: PRESENT: normal bowel sounds, soft. ABSENT: distended, guarding, mass, organolmegaly, rebound, tenderness Rectal exam: PRESENT: deferred Extremities exam: PRESENT: full ROM. ABSENT: calf tenderness, clubbing, pedal edema Neurological exam: PRESENT: alert, awake, oriented to person, oriented to place. ABSENT: oriented to time, oriented to situation Psychiatric exam: PRESENT: appropriate affect, normal mood. ABSENT: homicidal ideation, suicidal ideation Skin exam: PRESENT: dry, intact, warm. ABSENT: cyanosis, rash Results Laboratory Results: 10/28/17 08:05 10/29/17 05:06 Impressions: Chest X-Ray 10/25/17 08:00 IMPRESSION: NO ACUTE RADIOGRAPHIC FINDING IN THE CHEST. Assessment & Plan - Diagnosis (1) Hyponatremia Is this a current diagnosis for this admission?: Yes Plan: Secondary to beer potomania. He was initially on 3% saline. His sodium level has normalized and he is doing quite well. (2) Alcohol withdrawal Qualifiers: Complication of substance-induced condition: uncomplicated Qualified Code(s ): F10.230 - Alcohol dependence with withdrawal, uncomplicated Is this a current diagnosis for this admission?: Yes (3) Alcohol dependence Qualifiers: Complication of substance-induced condition: with unspecified complication Is this a current diagnosis for this admission?: Yes (4) Wernickes encephalopathy Is this a current diagnosis for this admission?: Yes (5) Alcoholic dementia Is this a current diagnosis for this admission?: Yes (6) Anemia Qualifiers: Anemia type: iron deficiency Is this a current diagnosis for this admission?: Yes (7) Hypomagnesemia Is this a current diagnosis for this admission?: Yes (8) Seizure disorder Is this a current diagnosis for this admission?: Yes (9) Vomiting Is this a current diagnosis for this admission?: Yes - Time Time Spent with patient: 15-24 minutes - Inpatient Certification Medical Necessity: Other - Inpatient hospitalization remains necessary for disposition. He will be discharged to [place] this coming Saturday to live with his daughter.
[2017-10-30] MEDS: MULTIVITAMIN TABLET PO SCH (15:09)
[2017-10-31] MEDS: VALPROATE SODIUM SYRUP 250 MG/5 ML UDCUP PO SCH ×4 (06:10→23:52)
[2017-10-31] MEDS: LEVETIRACETAM ORAL SOLN 500 MG/5 ML UDCUP PO SCH ×2 (09:28→21:39)
[2017-10-31] MEDS: THIAMINE HCL 100 MG TABLET PO SCH (09:30)
[2017-10-31] MEDS: MAGNESIUM OXIDE 400 MG TABLET PO SCH ×2 (09:30→18:38)
[2017-10-31] MEDS: FOLIC ACID 1 MG TABLET PO SCH (09:30)
[2017-10-31] MEDS: LORAZEPAM 1 MG TABLET PO SCH ×2 (09:30→18:38)
[2017-10-31] MEDS ORDERED: ONDANSETRON HCL INJ/PF 4 MG/2 ML SDV IV PRN (10:30)
[2017-10-31] MEDS: MULTIVITAMIN TABLET PO SCH (12:34)
--- NOTE | 2017-10-31 14:30 | PDOC PROGRESS REPORT ---
Subjective Progress Note for:: 10/31/17 Subjective:: The patient is an unfortunate 57-year-old -Tong[place] male with a long- standing history of alcohol abuse and dependence. He was admitted to the hospital with alcohol withdrawal.encephalopathy and alcohol withdrawal. He was found to have severe hyponatremia thought to be secondary to Beer Potamania. At this point he is now stable but remains significantly altered. 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 It is quite clear that the patient cannot take care of himself and return to his previous living situation. He was evaluated by psychiatry and they did not feel that he could make good decisions for himself. Initially efforts were underway to get the patient placed however the patient's daughter arrived earlier in the week and states that she wants to take him back to [place] to live with her. They will be ready to transport him on Saturday. Discharge planning is working with the family to assist [facility] Today when I saw the patient he states that he is quite worried. He is afraid that he is going to . He states that he does not know if he is getting the right medications. He was reassured and felt better by the time of my I left. He was quite confused. He is alert and oriented 1. Review of systems could not be obtained Reason For Visit: HYPONATREMIA NAUSEA,VOMITING Physical Exam Vital Signs: Temp Pulse Resp BP Pulse Ox 97.0 F 70 18 124/85 100 10/31/17 12:00 10/31/17 12:00 10/31/17 12:00 10/31/17 12:00 10/31/17 12:00 Intake & Output 10/30/17 10/31/17 11/01/17 06:59 06:59 06:59 Intake Total 590 1200 Output Total 400 Balance 190 1200 Weight 55.3 kg 55.4 kg General appearance: PRESENT: disheveled, thin, other - Quite cachectic and ill- appearing Head exam: PRESENT: atraumatic, other - Bitemporal wasting Mouth exam: PRESENT: moist, tongue midline Respiratory exam: PRESENT: clear to auscultation tre, other - He would not cooperate for an exam so this is a limited study exam. ABSENT: rales, rhonchi, wheezes Cardiovascular exam: PRESENT: RRR. ABSENT: diastolic murmur, rubs, systolic murmur GI/Abdominal exam: PRESENT: normal bowel sounds, soft. ABSENT: distended, guarding, mass, organolmegaly, rebound, tenderness Rectal exam: PRESENT: deferred Extremities exam: PRESENT: full ROM. ABSENT: calf tenderness, clubbing, pedal edema Neurological exam: PRESENT: alert, awake, oriented to person, oriented to place , oriented to time, oriented to situation, CN II-XII grossly intact. ABSENT: motor sensory deficit Psychiatric exam: PRESENT: appropriate affect, normal mood. ABSENT: homicidal ideation, suicidal ideation Skin exam: PRESENT: dry, intact, warm. ABSENT: cyanosis, rash Results Laboratory Results: 10/28/17 08:05 10/29/17 05:06 Impressions: Chest X-Ray 10/25/17 08:00 IMPRESSION: NO ACUTE RADIOGRAPHIC FINDING IN THE CHEST. Assessment & Plan - Diagnosis (1) Hyponatremia Is this a current diagnosis for this admission?: Yes Plan: Secondary to beer potomania. He was initially on 3% saline which is since been stopped. His sodium level has normalized and he is doing quite well. (2) Alcohol withdrawal Qualifiers: Complication of substance-induced condition: uncomplicated Qualified Code(s ): F10.230 - Alcohol dependence with withdrawal, uncomplicated Is this a current diagnosis for this admission?: Yes Plan: Resolved at this point. (3) Alcohol dependence Qualifiers: Complication of substance-induced condition: with unspecified complication Is this a current diagnosis for this admission?: Yes Plan: Certainly he will not be able to live independently anymore. No further alcohol. Continue thiamine and folic acid as well as a multivitamin. (4) Wernickes encephalopathy Is this a current diagnosis for this admission?: Yes Plan: He has been evaluated by psych and they do not believe he can make good decisions for himself. At discharge she will go to his daughter's house. (5) Alcoholic dementia Is this a current diagnosis for this admission?: Yes Plan: Plan as above (6) Anemia Qualifiers: Anemia type: iron deficiency Is this a current diagnosis for this admission?: Yes Plan: Stable (7) Hypomagnesemia Is this a current diagnosis for this admission?: Yes Plan: Continue to replete as needed (8) Seizure disorder Is this a current diagnosis for this admission?: Yes Plan: Continue current regimen (9) Vomiting Is this a current diagnosis for this admission?: Yes Plan: Resolved - Time Time Spent with patient: 15-24 minutes - Inpatient Certification Medical Necessity: Other - Inpatient hospitalization remains necessary for disposition. The patient's daughter has made arrangements for him to be transported [place] this coming Saturday. He is medically stable for discharge as of today. I will check labs on him tomorrow so that we can replete any electrolytes that need to be repleted prior to discharge.
[2017-10-31 15:57] LABS: HEMATOCRIT 33.3 % (37.9-51.0); MEAN CORPUSCULAR HEMOGLOBIN 27.9 pg (27.0-33.4); MEAN CORPUSCULAR HGB CONC 33.2 g/dL (32.0-36.0); MEAN CORPUSCULAR VOLUME 84 fl (80-97); PLATELET COUNT 203 10^3/uL (150-450); RED BLOOD COUNT 3.96 10^6/uL (4.35-5.55); RED CELL DISTRIBUTION WIDTH 21.1 % (11.5-14.0); WHITE BLOOD COUNT 4.7 10^3/uL (4.0-10.5)
[2017-11-01] MEDS: VALPROATE SODIUM SYRUP 250 MG/5 ML UDCUP PO SCH ×4 (05:17→23:26)
[2017-11-01 07:43] LABS: ANION GAP 12 (5-19); BLOOD UREA NITROGEN 10 mg/dL (7-20); CARBON DIOXIDE 23 mmol/L (22-30); CHLORIDE 107 mmol/L (98-107); GLUCOSE 81 mg/dL (75-110); PHOSPHORUS 4.2 mg/dL (2.5-4.5); POTASSIUM 4.7 mmol/L (3.6-5.0); SODIUM 142.1 mmol/L (137-145)
[2017-11-01] MEDS: FOLIC ACID 1 MG TABLET PO SCH (10:19)
[2017-11-01] MEDS: THIAMINE HCL 100 MG TABLET PO SCH (10:19)
[2017-11-01] MEDS: LEVETIRACETAM ORAL SOLN 500 MG/5 ML UDCUP PO SCH ×2 (10:19→21:32)
[2017-11-01] MEDS: LORAZEPAM 1 MG TABLET PO SCH ×2 (10:19→17:28)
[2017-11-01] MEDS: MAGNESIUM OXIDE 400 MG TABLET PO SCH ×2 (10:19→17:28)
--- NOTE | 2017-11-01 14:38 | RADIOLOGY REPORT (SQ) ---
EXAM DESCRIPTION: CT ABD/PELVIS ORAL ONLY COMPLETED DATE/TIME: 11/01/2017 2:18 pm REASON FOR STUDY: abdominal pain COMPARISON: 07/24/2016. TECHNIQUE: CT scan of the abdomen and pelvis performed with oral contrast and no intravenous contras t. Images reviewed with lung, soft tissue, and bone windows. Reconstructed coronal and sagittal MPR i mages reviewed. All images stored on PACS. All CT scanners at this facility use dose modulation, iterative reconstruction, and/or weight based d osing when appropriate to reduce radiation dose to as low as reasonably achievable (ALARA). [facility]: Dose Right [facility]: CareDose [facility]: Dose Right [facility]: Teradose 4D [facility]: [employer] RADIATION DOSE: CT Rad equipment meets quality standard of care and radiation dose reduction techniq ues were employed. CTDIvol: 3.9 mGy. DLP: 203 mGy-cm.mGy. LIMITATIONS: None. FINDINGS: LOWER CHEST: No significant findings. No nodules or infiltrates. NON-CONTRASTED LIVER, SPLEEN, ADRENALS: Evaluation limited by lack of IV contrast. No identified sign ificant masses. PANCREAS: No masses. No peripancreatic inflammatory changes. GALLBLADDER: No identified stones by CT criteria. No inflammatory changes to suggest cholecystitis. RIGHT KIDNEY AND URETER: No solid masses. No significant calcification. No hydronephrosis or hydroure ter. LEFT KIDNEY AND URETER: No solid masses. No significant calcification. No hydronephrosis or hydrouret er. AORTA AND RETROPERITONEUM: No aneurysm. No retroperitoneal masses or adenopathy. BOWEL AND PERITONEAL CAVITY: Contrast is present throughout the bowel. Ostomy in the left lower quad rant. No obvious masses or inflammatory changes. No free fluid. APPENDIX: Surgically absent. PELVIS, BLADDER, AND ABDOMINAL WALL: No abnormal pelvic masses. No abdominal wall hernias. Bladder un remarkable. BONES: No significant findings. Degenerative changes in the spine. Old left rib fractures. Hardwar e in the right hip. OTHER: No other significant finding. IMPRESSION: NO SIGNIFICANT OR ACUTE ABDOMINAL PROCESS. STABLE SURGICAL CHANGES AND CHRONIC FINDINGS ABOVE. TECHNICAL DOCUMENTATION: JOB ID: [id number] Quality ID # [id number]: Final reports with documentation of one or more dose reduction techniques (e.g., Au tomated exposure control, adjustment of the mA and/or kV according to patient size, use of iterative reconstruction technique) 2010 [employer]- All Rights Reserved Reading location - IP/workstation name: [email or web address]
[2017-11-01] MEDS: MULTIVITAMIN TABLET PO SCH (17:10)
--- NOTE | 2017-11-01 19:13 | PDOC PROGRESS REPORT ---
Subjective Progress Note for:: 11/01/17 Subjective:: Patient relates that he is going to and complains of having stomach pain. Also complains of poor appetite. Review of systems All organ systems evaluated and negative except as in subjective All significant laboratories and diagnostics have been reviewed Reason For Visit: HYPONATREMIA NAUSEA,VOMITING Physical Exam Vital Signs: Temp Pulse Resp BP Pulse Ox 98.2 F 66 20 141/90 H 99 11/01/17 07:18 11/01/17 07:18 11/01/17 07:18 11/01/17 07:18 11/01/17 07:18 Intake & Output 10/31/17 11/01/17 11/02/17 06:59 06:59 06:59 Intake Total 1200 700 Output Total 200 Balance 1200 500 Weight 55.4 kg 56.2 kg General appearance: PRESENT: cooperative, thin Head exam: PRESENT: atraumatic, normocephalic Eye exam: PRESENT: conjunctiva pale, EOMI, PERRLA Ear exam: PRESENT: normal external ear exam Mouth exam: PRESENT: moist Neck exam: PRESENT: full ROM. ABSENT: JVD, lymphadenopathy, tenderness Respiratory exam: PRESENT: clear to auscultation tre Cardiovascular exam: PRESENT: RRR. ABSENT: diastolic murmur, systolic murmur Vascular exam: PRESENT: normal capillary refill GI/Abdominal exam: PRESENT: guarding Extremities exam: PRESENT: full ROM. ABSENT: pedal edema Musculoskeletal exam: PRESENT: ambulatory Neurological exam: PRESENT: alert, awake, oriented to person, oriented to place , oriented to time, oriented to situation, CN II-XII grossly intact Psychiatric exam: PRESENT: appropriate affect, normal mood Results Laboratory Results: 10/31/17 15:43 11/01/17 06:45 10/31/17 11/01/17 15:43 06:45 WBC 4.7 RBC 3.96 L Hgb 11.0 L Hct 33.3 L MCV 84 MCH 27.9 MCHC 33.2 RDW 21.1 H Plt Count 203 Sodium 142.1 Potassium 4.7 Chloride 107 Carbon Dioxide 23 Anion Gap 12 BUN 10 Creatinine 0.97 Est GFR ( Amer) > 60 Est GFR (Non-Af Amer) > 60 Glucose 81 Calcium 10.0 Phosphorus 4.2 Magnesium 1.9 Impressions: Chest X-Ray 10/25/17 08:00 IMPRESSION: NO ACUTE RADIOGRAPHIC FINDING IN THE CHEST. Assessment & Plan - Diagnosis (1) Abdominal pain Is this a current diagnosis for this admission?: Yes Plan: Ordered CT of the abdomen and pelvis which was negative (2) Alcoholic dementia Qualifiers: Dementia behavioral disturbance: without behavioral disturbance Qualified Code(s): F10.27 - Alcohol dependence with alcohol-induced persisting dementia Is this a current diagnosis for this admission?: Yes Plan: Patient to be expected to be discharged in a.m. under his daughter's care (3) Dementia Qualifiers: Dementia type: associated with other underlying disease Is this a current diagnosis for this admission?: Yes Plan: Stable (4) Hypomagnesemia Is this a current diagnosis for this admission?: Yes Plan: Resolved (5) Hyponatremia Is this a current diagnosis for this admission?: Yes Plan: Resolved - Time Time Spent with patient: 15-24 minutes Medications reviewed and adjusted accordingly: Yes Anticipated discharge: Home Within: within 24 hours - Inpatient Certification Based on my medical assessment, after consideration of the patient's comorbidities, presenting symptoms, or acuity I expect that the services needed warrant INPATIENT care.: Yes I certify that my determination is in accordance with my understanding of Medicare's requirements for reasonable and necessary INPATIENT services [42 CFR 412.3e].: Yes Medical Necessity: Need Close Monitoring Due to Risk of Patient Decompensation
[2017-11-02] MEDS: VALPROATE SODIUM SYRUP 250 MG/5 ML UDCUP PO SCH ×3 (05:19→17:31)
[2017-11-02] MEDS: LEVETIRACETAM ORAL SOLN 500 MG/5 ML UDCUP PO SCH ×2 (10:19→21:47)
[2017-11-02] MEDS: THIAMINE HCL 100 MG TABLET PO SCH (10:19)
[2017-11-02] MEDS: LORAZEPAM 1 MG TABLET PO SCH ×2 (10:19→17:31)
[2017-11-02] MEDS: MAGNESIUM OXIDE 400 MG TABLET PO SCH ×2 (10:19→17:31)
[2017-11-02] MEDS: FOLIC ACID 1 MG TABLET PO SCH (10:19)
[2017-11-02] MEDS: MULTIVITAMIN TABLET PO SCH (11:32)
--- NOTE | 2017-11-02 13:40 | PDOC PROGRESS REPORT ---
Subjective Progress Note for:: 11/02/17 Subjective:: No complaints. Noted case management note since appears that daughter may not be able to pick him up today Review of systems All organ systems evaluated and negative except as in subjective All significant laboratories and diagnostics have been reviewed Reason For Visit: HYPONATREMIA NAUSEA,VOMITING Physical Exam Vital Signs: Temp Pulse Resp BP Pulse Ox 98.6 F 74 16 119/74 100 11/02/17 12:00 11/02/17 12:00 11/02/17 12:00 11/02/17 12:00 11/02/17 12:00 Intake & Output 11/01/17 11/02/17 11/03/17 06:59 06:59 06:59 Intake Total 700 Output Total 200 850 Balance 500 -850 Weight 56.2 kg 56.1 kg General appearance: PRESENT: cooperative, thin Head exam: PRESENT: atraumatic, normocephalic Eye exam: PRESENT: conjunctiva pink, EOMI, PERRLA Ear exam: PRESENT: normal external ear exam Mouth exam: PRESENT: moist Neck exam: PRESENT: full ROM. ABSENT: JVD, lymphadenopathy, tenderness, thyromegaly Respiratory exam: PRESENT: clear to auscultation tre Cardiovascular exam: PRESENT: RRR. ABSENT: diastolic murmur, systolic murmur Vascular exam: PRESENT: normal capillary refill GI/Abdominal exam: PRESENT: normal bowel sounds, soft. ABSENT: tenderness Extremities exam: PRESENT: full ROM Neurological exam: PRESENT: alert, oriented to person, oriented to place, CN II- XII grossly intact Psychiatric exam: PRESENT: appropriate affect, normal mood Skin exam: PRESENT: intact, normal color Results Laboratory Results: 10/31/17 15:43 11/01/17 06:45 Impressions: Chest X-Ray 10/25/17 08:00 IMPRESSION: NO ACUTE RADIOGRAPHIC FINDING IN THE CHEST. Abdomen/Pelvis CT 11/01/17 00:00 IMPRESSION: NO SIGNIFICANT OR ACUTE ABDOMINAL PROCESS. STABLE SURGICAL CHANGES AND CHRONIC FINDINGS ABOVE. Assessment & Plan - Diagnosis (1) Abdominal pain Is this a current diagnosis for this admission?: Yes Plan: CT of the abdomen and pelvis which was negative. Not having at the present (2) Alcoholic dementia Qualifiers: Dementia behavioral disturbance: without behavioral disturbance Qualified Code(s): F10.27 - Alcohol dependence with alcohol-induced persisting dementia Is this a current diagnosis for this admission?: Yes Plan: Will have to talk with case management on Saturday regarding the so-called [facility]. Patient at the present time does not have an acute condition that may require transfer. Patient basically needs placement (3) Dementia Qualifiers: Dementia type: associated with other underlying disease Is this a current diagnosis for this admission?: Yes Plan: Stable (4) Hypomagnesemia Is this a current diagnosis for this admission?: Yes Plan: Resolved (5) Hyponatremia Is this a current diagnosis for this admission?: Yes Plan: Resolved - Time Time Spent with patient: Less than 15 minutes Medications reviewed and adjusted accordingly: Yes Anticipated discharge: SNF Within: when bed available - Inpatient Certification Based on my medical assessment, after consideration of the patient's comorbidities, presenting symptoms, or acuity I expect that the services needed warrant INPATIENT care.: Yes I certify that my determination is in accordance with my understanding of Medicare's requirements for reasonable and necessary INPATIENT services [42 CFR 412.3e].: Yes Medical Necessity: Need Close Monitoring Due to Risk of Patient Decompensation
[2017-11-03] MEDS: VALPROATE SODIUM SYRUP 250 MG/5 ML UDCUP PO SCH ×5 (00:04→22:48)
[2017-11-03] MEDS: MAGNESIUM OXIDE 400 MG TABLET PO SCH ×2 (11:41→18:13)
[2017-11-03] MEDS: FOLIC ACID 1 MG TABLET PO SCH (11:41)
[2017-11-03] MEDS: THIAMINE HCL 100 MG TABLET PO SCH (11:41)
[2017-11-03] MEDS: LEVETIRACETAM ORAL SOLN 500 MG/5 ML UDCUP PO SCH ×2 (11:42→22:48)
[2017-11-03] MEDS: LORAZEPAM 1 MG TABLET PO SCH ×2 (11:42→18:13)
[2017-11-03] MEDS: MULTIVITAMIN TABLET PO SCH (12:32)
--- NOTE | 2017-11-03 13:31 | PDOC PROGRESS REPORT ---
Subjective Progress Note for:: 11/03/17 Subjective:: No complaints. Review of systems All organ systems evaluated and negative except as in subjective All significant laboratories and diagnostics have been reviewed Reason For Visit: HYPONATREMIA NAUSEA,VOMITING Physical Exam Vital Signs: Temp Pulse Resp BP Pulse Ox 97.4 F 70 14 128/62 H 97 11/03/17 00:00 11/03/17 00:00 11/03/17 00:00 11/03/17 00:00 11/03/17 00:00 Intake & Output 11/02/17 11/03/17 11/04/17 06:59 06:59 06:59 Intake Total 750 Output Total 850 200 Balance -850 550 Weight 56.1 kg General appearance: PRESENT: cooperative, thin Head exam: PRESENT: atraumatic, normocephalic Eye exam: PRESENT: conjunctiva pink, EOMI, PERRLA Ear exam: PRESENT: normal external ear exam Mouth exam: PRESENT: moist Neck exam: PRESENT: full ROM. ABSENT: JVD, lymphadenopathy, tenderness Respiratory exam: PRESENT: clear to auscultation tre Cardiovascular exam: PRESENT: RRR. ABSENT: diastolic murmur, systolic murmur Vascular exam: PRESENT: normal capillary refill GI/Abdominal exam: PRESENT: normal bowel sounds, soft. ABSENT: tenderness Extremities exam: ABSENT: full ROM, pedal edema Musculoskeletal exam: ABSENT: ambulatory Neurological exam: PRESENT: alert, awake, oriented to person Psychiatric exam: PRESENT: appropriate affect, normal mood Skin exam: PRESENT: intact, normal color Results Laboratory Results: 10/31/17 15:43 11/01/17 06:45 Impressions: Chest X-Ray 10/25/17 08:00 IMPRESSION: NO ACUTE RADIOGRAPHIC FINDING IN THE CHEST. Abdomen/Pelvis CT 11/01/17 00:00 IMPRESSION: NO SIGNIFICANT OR ACUTE ABDOMINAL PROCESS. STABLE SURGICAL CHANGES AND CHRONIC FINDINGS ABOVE. Assessment & Plan - Diagnosis (1) Abdominal pain Qualifiers: Abdominal location: unspecified location Qualified Code(s): R10.9 - Unspecified abdominal pain Is this a current diagnosis for this admission?: Yes Plan: CT of the abdomen and pelvis which was negative. Not having at the present (2) Alcoholic dementia Qualifiers: Dementia behavioral disturbance: without behavioral disturbance Qualified Code(s): F10.27 - Alcohol dependence with alcohol-induced persisting dementia Is this a current diagnosis for this admission?: Yes Plan: Will have to talk with case management on Saturday regarding the so-called transfer [facility]. Patient at the present time does not have an acute condition that may require transfer. Patient basically needs placement (3) Dementia Qualifiers: Dementia type: associated with other underlying disease Dementia behavioral disturbance: without behavioral disturbance Qualified Code(s): F02.80 - Dementia in other diseases classified elsewhere without behavioral disturbance Is this a current diagnosis for this admission?: Yes Plan: Stable (4) Hypomagnesemia Is this a current diagnosis for this admission?: Yes Plan: Resolved (5) Hyponatremia Is this a current diagnosis for this admission?: Yes Plan: Resolved - Time Time Spent with patient: Less than 15 minutes Medications reviewed and adjusted accordingly: Yes Anticipated discharge: SNF Within: when bed available - Inpatient Certification Based on my medical assessment, after consideration of the patient's comorbidities, presenting symptoms, or acuity I expect that the services needed warrant INPATIENT care.: Yes I certify that my determination is in accordance with my understanding of Medicare's requirements for reasonable and necessary INPATIENT services [42 CFR 412.3e].: Yes Medical Necessity: Need Close Monitoring Due to Risk of Patient Decompensation, Other
[2017-11-04] MEDS: VALPROATE SODIUM SYRUP 250 MG/5 ML UDCUP PO SCH ×4 (05:14→23:50)
[2017-11-04] MEDS: LEVETIRACETAM ORAL SOLN 500 MG/5 ML UDCUP PO SCH ×2 (10:17→23:50)
[2017-11-04] MEDS: LORAZEPAM 1 MG TABLET PO SCH ×2 (10:17→17:50)
[2017-11-04] MEDS: FOLIC ACID 1 MG TABLET PO SCH (10:17)
[2017-11-04] MEDS: THIAMINE HCL 100 MG TABLET PO SCH (10:17)
[2017-11-04] MEDS: MAGNESIUM OXIDE 400 MG TABLET PO SCH ×2 (10:17→17:50)
--- NOTE | 2017-11-04 16:13 | PDOC PROGRESS REPORT ---
Subjective Progress Note for:: 11/04/17 Subjective:: No complaints. At the time of evaluation patient was being given medications and he was coughing. According to the nurse this is the first time he is done so Review of systems All organ systems evaluated and negative except as in subjective All significant laboratories and diagnostics have been reviewed Reason For Visit: HYPONATREMIA NAUSEA,VOMITING Physical Exam Vital Signs: Temp Pulse Resp BP Pulse Ox 97.6 F 81 15 128/63 H 100 11/04/17 00:00 11/04/17 00:00 11/04/17 00:00 11/04/17 00:00 11/04/17 00:00 Intake & Output 11/03/17 11/04/17 11/05/17 06:59 06:59 06:59 Intake Total 750 440 Output Total 200 Balance 550 440 Weight 56 kg General appearance: PRESENT: cooperative, thin Head exam: PRESENT: atraumatic, normocephalic Eye exam: PRESENT: conjunctiva pink, EOMI, PERRLA Ear exam: PRESENT: normal external ear exam Mouth exam: PRESENT: moist Neck exam: PRESENT: full ROM. ABSENT: JVD, lymphadenopathy, tenderness Respiratory exam: PRESENT: clear to auscultation tre Cardiovascular exam: PRESENT: RRR. ABSENT: diastolic murmur, systolic murmur GI/Abdominal exam: PRESENT: normal bowel sounds, soft. ABSENT: tenderness Extremities exam: ABSENT: full ROM, pedal edema Musculoskeletal exam: ABSENT: ambulatory Neurological exam: PRESENT: alert, awake, oriented to person. ABSENT: oriented to place, oriented to time Psychiatric exam: PRESENT: appropriate affect, normal mood Skin exam: PRESENT: other - vitiligo present Results Laboratory Results: 10/31/17 15:43 11/01/17 06:45 Impressions: Chest X-Ray 10/25/17 08:00 IMPRESSION: NO ACUTE RADIOGRAPHIC FINDING IN THE CHEST. Abdomen/Pelvis CT 11/01/17 00:00 IMPRESSION: NO SIGNIFICANT OR ACUTE ABDOMINAL PROCESS. STABLE SURGICAL CHANGES AND CHRONIC FINDINGS ABOVE. Assessment & Plan - Diagnosis (1) Abdominal pain Qualifiers: Abdominal location: unspecified location Qualified Code(s): R10.9 - Unspecified abdominal pain Is this a current diagnosis for this admission?: Yes Plan: CT of the abdomen and pelvis which was negative. Not having at the present (2) Alcoholic dementia Qualifiers: Dementia behavioral disturbance: without behavioral disturbance Qualified Code(s): F10.27 - Alcohol dependence with alcohol-induced persisting dementia Is this a current diagnosis for this admission?: Yes Plan: Will have to talk with case management on Saturday regarding the so-called transfer to a [facility] facility in [facility]. Patient at the present time does not have an acute condition that may require transfer. Patient basically needs placement (3) Hypomagnesemia Is this a current diagnosis for this admission?: Yes Plan: Resolved (4) Hyponatremia Is this a current diagnosis for this admission?: Yes Plan: Resolved. Due to beer potomania (5) Cough Is this a current diagnosis for this admission?: Yes Plan: Patient coughing after being giving mostly liquid medicine. Will request speech therapy to evaluate swallowing - Time Time Spent with patient: 15-24 minutes Medications reviewed and adjusted accordingly: Yes Anticipated discharge: SNF Within: when bed available - Inpatient Certification Based on my medical assessment, after consideration of the patient's comorbidities, presenting symptoms, or acuity I expect that the services needed warrant INPATIENT care.: Yes I certify that my determination is in accordance with my understanding of Medicare's requirements for reasonable and necessary INPATIENT services [42 CFR 412.3e].: Yes Medical Necessity: Need Close Monitoring Due to Risk of Patient Decompensation
[2017-11-05] MEDS: VALPROATE SODIUM SYRUP 250 MG/5 ML UDCUP PO SCH ×4 (06:15→23:17)
[2017-11-05] MEDS: LORAZEPAM 1 MG TABLET PO SCH ×2 (09:41→17:29)
[2017-11-05] MEDS: MULTIVITAMIN TABLET PO SCH (09:41)
[2017-11-05] MEDS: FOLIC ACID 1 MG TABLET PO SCH (09:41)
[2017-11-05] MEDS: LEVETIRACETAM ORAL SOLN 500 MG/5 ML UDCUP PO SCH ×2 (09:41→23:17)
[2017-11-05] MEDS: MAGNESIUM OXIDE 400 MG TABLET PO SCH ×2 (09:41→17:29)
[2017-11-05] MEDS: THIAMINE HCL 100 MG TABLET PO SCH (09:41)
--- NOTE | 2017-11-05 19:07 | PDOC PROGRESS REPORT ---
Subjective Progress Note for:: 11/05/17 Subjective:: No complaints. Review of systems All organ systems evaluated and negative except as in subjective All significant laboratories and diagnostics have been reviewed Reason For Visit: HYPONATREMIA NAUSEA,VOMITING Physical Exam Vital Signs: Temp Pulse Resp BP Pulse Ox 97.5 F 66 14 142/69 H 100 11/05/17 00:00 11/05/17 00:00 11/05/17 00:00 11/05/17 00:00 11/05/17 00:00 Intake & Output 11/04/17 11/05/17 11/06/17 06:59 06:59 06:59 Intake Total 440 560 Output Total 301 Balance 440 259 Weight 56 kg 55.2 kg General appearance: PRESENT: cooperative, thin Head exam: PRESENT: atraumatic, normocephalic Eye exam: PRESENT: conjunctiva pink, EOMI, PERRLA Ear exam: PRESENT: normal external ear exam Neck exam: PRESENT: full ROM. ABSENT: JVD, lymphadenopathy, tenderness Respiratory exam: PRESENT: clear to auscultation tre GI/Abdominal exam: PRESENT: normal bowel sounds, soft. ABSENT: tenderness Extremities exam: PRESENT: full ROM Musculoskeletal exam: PRESENT: ambulatory Neurological exam: PRESENT: alert, awake, oriented to person Psychiatric exam: PRESENT: depressed Results Laboratory Results: 10/31/17 15:43 11/01/17 06:45 Impressions: Chest X-Ray 10/25/17 08:00 IMPRESSION: NO ACUTE RADIOGRAPHIC FINDING IN THE CHEST. Abdomen/Pelvis CT 11/01/17 00:00 IMPRESSION: NO SIGNIFICANT OR ACUTE ABDOMINAL PROCESS. STABLE SURGICAL CHANGES AND CHRONIC FINDINGS ABOVE. Assessment & Plan - Diagnosis (1) Abdominal pain Qualifiers: Abdominal location: unspecified location Qualified Code(s): R10.9 - Unspecified abdominal pain Is this a current diagnosis for this admission?: Yes Plan: CT of the abdomen and pelvis which was negative. Resolved (2) Alcoholic dementia Qualifiers: Dementia behavioral disturbance: without behavioral disturbance Qualified Code(s): F10.27 - Alcohol dependence with alcohol-induced persisting dementia Is this a current diagnosis for this admission?: Yes Plan: Will have to talk with case management on Saturday regarding [facility]. Patient at the present time does not have an acute condition that may require transfer. Patient basically needs placement (3) Hypomagnesemia Is this a current diagnosis for this admission?: Yes Plan: Resolved (4) Hyponatremia Is this a current diagnosis for this admission?: Yes Plan: Resolved. Due to beer potomania (5) Cough Is this a current diagnosis for this admission?: Yes Plan: Resolved - Time Time Spent with patient: Less than 15 minutes Medications reviewed and adjusted accordingly: Yes Anticipated discharge: SNF Within: within 24 hours - Inpatient Certification Based on my medical assessment, after consideration of the patient's comorbidities, presenting symptoms, or acuity I expect that the services needed warrant INPATIENT care.: Yes I certify that my determination is in accordance with my understanding of Medicare's requirements for reasonable and necessary INPATIENT services [42 CFR 412.3e].: Yes Medical Necessity: Need Close Monitoring Due to Risk of Patient Decompensation
[2017-11-06] MEDS: VALPROATE SODIUM SYRUP 250 MG/5 ML UDCUP PO SCH ×4 (05:34→23:40)
[2017-11-06] MEDS: MAGNESIUM OXIDE 400 MG TABLET PO SCH ×2 (10:33→17:56)
[2017-11-06] MEDS: MULTIVITAMIN TABLET PO SCH (10:34)
[2017-11-06] MEDS: FOLIC ACID 1 MG TABLET PO SCH (10:34)
[2017-11-06] MEDS: LORAZEPAM 1 MG TABLET PO SCH ×2 (10:34→17:56)
[2017-11-06] MEDS: THIAMINE HCL 100 MG TABLET PO SCH (10:34)
[2017-11-06] MEDS: LEVETIRACETAM ORAL SOLN 500 MG/5 ML UDCUP PO SCH ×2 (10:44→21:49)
--- NOTE | 2017-11-06 11:43 | PDOC PROGRESS REPORT ---
Subjective Progress Note for:: 11/06/17 Subjective:: No complaints. Somnolent Review of systems All organ systems evaluated and negative except as in subjective All significant laboratories and diagnostics have been reviewed Reason For Visit: HYPONATREMIA NAUSEA,VOMITING Physical Exam Vital Signs: Temp Pulse Resp BP Pulse Ox 97.7 F 66 18 133/62 H 100 11/06/17 07:33 11/06/17 07:33 11/06/17 07:33 11/06/17 07:33 11/06/17 07:33 Intake & Output 11/05/17 11/06/17 11/07/17 06:59 06:59 06:59 Intake Total 560 580 Output Total 301 Balance 259 580 Weight 55.2 kg 54.9 kg General appearance: PRESENT: cooperative, thin Head exam: PRESENT: atraumatic, normocephalic Eye exam: PRESENT: conjunctiva pink, EOMI, PERRLA Ear exam: PRESENT: normal external ear exam Mouth exam: PRESENT: moist Neck exam: PRESENT: full ROM. ABSENT: JVD, lymphadenopathy, tenderness Respiratory exam: PRESENT: clear to auscultation tre Cardiovascular exam: PRESENT: RRR. ABSENT: diastolic murmur, systolic murmur Vascular exam: PRESENT: normal capillary refill GI/Abdominal exam: PRESENT: normal bowel sounds, soft. ABSENT: tenderness Extremities exam: PRESENT: full ROM. ABSENT: pedal edema Musculoskeletal exam: ABSENT: ambulatory Neurological exam: PRESENT: other - somnolent Results Laboratory Results: 10/31/17 15:43 11/01/17 06:45 Impressions: Chest X-Ray 10/25/17 08:00 IMPRESSION: NO ACUTE RADIOGRAPHIC FINDING IN THE CHEST. Abdomen/Pelvis CT 11/01/17 00:00 IMPRESSION: NO SIGNIFICANT OR ACUTE ABDOMINAL PROCESS. STABLE SURGICAL CHANGES AND CHRONIC FINDINGS ABOVE. Assessment & Plan - Diagnosis (1) Abdominal pain Qualifiers: Abdominal location: unspecified location Qualified Code(s): R10.9 - Unspecified abdominal pain Is this a current diagnosis for this admission?: Yes Plan: CT of the abdomen and pelvis which was negative. Resolved (2) Alcoholic dementia Qualifiers: Dementia behavioral disturbance: without behavioral disturbance Qualified Code(s): F10.27 - Alcohol dependence with alcohol-induced persisting dementia Is this a current diagnosis for this admission?: Yes Plan: Patient requires placement. Noted case management note. Due to thiamine (3) Hypomagnesemia Is this a current diagnosis for this admission?: Yes Plan: Resolved (4) Hyponatremia Is this a current diagnosis for this admission?: Yes Plan: Resolved. Due to beer potomania (5) Cough Is this a current diagnosis for this admission?: Yes Plan: Resolved (6) Alcohol withdrawal Qualifiers: Complication of substance-induced condition: uncomplicated Qualified Code(s ): F10.230 - Alcohol dependence with withdrawal, uncomplicated Is this a current diagnosis for this admission?: Yes Plan: Resolved - Time Time Spent with patient: Less than 15 minutes Medications reviewed and adjusted accordingly: Yes Anticipated discharge: SNF Within: when bed available - Inpatient Certification Based on my medical assessment, after consideration of the patient's comorbidities, presenting symptoms, or acuity I expect that the services needed warrant INPATIENT care.: Yes I certify that my determination is in accordance with my understanding of Medicare's requirements for reasonable and necessary INPATIENT services [42 CFR 412.3e].: Yes Medical Necessity: Need Close Monitoring Due to Risk of Patient Decompensation
[2017-11-07 04:49] LABS: HEMATOCRIT 33.7 % (37.9-51.0); HEMOGLOBIN 11.4 g/dL (13.5-17.0); MEAN CORPUSCULAR HEMOGLOBIN 28.4 pg (27.0-33.4); MEAN CORPUSCULAR HGB CONC 33.7 g/dL (32.0-36.0); MEAN CORPUSCULAR VOLUME 84 fl (80-97); PLATELET COUNT 236 10^3/uL (150-450); RED BLOOD COUNT 3.99 10^6/uL (4.35-5.55); RED CELL DISTRIBUTION WIDTH 21.7 % (11.5-14.0); WHITE BLOOD COUNT 4.4 10^3/uL (4.0-10.5)
[2017-11-07 05:01] LABS: ALANINE AMINOTRANSFERASE 34 U/L (21-72); ALBUMIN 3.6 g/dL (3.5-5.0); ALKALINE PHOSPHATASE 61 U/L (38-126); ANION GAP 12 (5-19); ASPARTATE AMINO TRANSFERASE 51 U/L (17-59); BILIRUBIN,DIRECT 0.2 mg/dL (0.0-0.4); BILIRUBIN,TOTAL 0.3 mg/dL (0.2-1.3); BLOOD UREA NITROGEN 8 mg/dL (7-20); CALCIUM 9.6 mg/dL (8.4-10.2); CARBON DIOXIDE 21 mmol/L (22-30); CHLORIDE 103 mmol/L (98-107); GLUCOSE 77 mg/dL (75-110); POTASSIUM 4.3 mmol/L (3.6-5.0); SODIUM 135.9 mmol/L (137-145); TOTAL PROTEIN 6.2 g/dL (6.3-8.2)
[2017-11-07 05:17] LABS: ABSOLUTE MONOCYTES # (MANUAL) 0.4 10^3/uL (0.1-1.4); BASOPHILS % (MANUAL) 0 % (0-2)
[2017-11-07 05:21] LABS: ABSOLUTE LYMPHOCYTES# (MANUAL) 2.6 10^3/uL (0.5-4.7); ABSOLUTE NEUTROPHILS# (MANUAL) 1.3 10^3/uL (1.7-8.2); EOSINOPHILS % (MANUAL) 2 % (0-6); LYMPHOCYTES % (MANUAL) 59 % (13-45); MONOCYTES % (MANUAL) 10 % (3-13); SEGMENTED NEUTROPHILS % (MAN) 29 % (42-78); TOTAL CELLS COUNTED 100
[2017-11-07 05:26] LABS: ACANTHOCYTES 2+; ANISOCYTOSIS 3+; BURR CELLS 2+; OVALOCYTES 2+; PLATELET COMMENT ADEQUATE; PLATELET GIANT PRESENT; PLATELET LARGE PRESENT; POIKILOCYTOSIS 2+; SCHISTOCYTES 1+; STOMATOCYTES SLIGHT; TARGET CELLS 2+; TOXIC GRANULATION SLIGHT
[2017-11-07] MEDS: VALPROATE SODIUM SYRUP 250 MG/5 ML UDCUP PO SCH ×3 (05:26→17:33)
[2017-11-07] MEDS: LEVETIRACETAM ORAL SOLN 500 MG/5 ML UDCUP PO SCH ×2 (10:23→21:23)
[2017-11-07] MEDS: MULTIVITAMIN TABLET PO SCH (10:23)
[2017-11-07] MEDS: MAGNESIUM OXIDE 400 MG TABLET PO SCH ×2 (10:24→17:33)
[2017-11-07] MEDS: FOLIC ACID 1 MG TABLET PO SCH (10:24)
[2017-11-07] MEDS: THIAMINE HCL 100 MG TABLET PO SCH (10:24)
--- NOTE | 2017-11-07 10:46 | PDOC PROGRESS REPORT ---
Subjective Progress Note for:: 11/07/17 Subjective:: No complaints. Somnolent Review of systems All organ systems evaluated and negative except as in subjective All significant laboratories and diagnostics have been reviewed Reason For Visit: HYPONATREMIA NAUSEA,VOMITING Physical Exam Vital Signs: Temp Pulse Resp BP Pulse Ox 97.6 F 69 17 146/72 H 100 11/06/17 23:43 11/06/17 23:43 11/06/17 23:43 11/06/17 23:43 11/06/17 23:43 Intake & Output 11/06/17 11/07/17 11/08/17 06:59 06:59 06:59 Intake Total 580 940 Output Total 200 Balance 580 740 Weight 54.9 kg 55.2 kg General appearance: PRESENT: no acute distress, cooperative, thin Head exam: PRESENT: atraumatic, normocephalic Eye exam: PRESENT: conjunctiva pink, EOMI, PERRLA Ear exam: PRESENT: normal external ear exam Mouth exam: PRESENT: moist Neck exam: PRESENT: full ROM. ABSENT: JVD, lymphadenopathy, tenderness Respiratory exam: PRESENT: clear to auscultation tre Cardiovascular exam: PRESENT: RRR. ABSENT: diastolic murmur, systolic murmur Vascular exam: PRESENT: normal capillary refill GI/Abdominal exam: PRESENT: normal bowel sounds, soft. ABSENT: tenderness Extremities exam: PRESENT: full ROM. ABSENT: pedal edema Musculoskeletal exam: PRESENT: ambulatory Neurological exam: PRESENT: alert, awake, oriented to person. ABSENT: oriented to place, oriented to time, oriented to situation Skin exam: PRESENT: normal color Results Laboratory Results: 11/07/17 04:05 11/07/17 04:05 11/07/17 11/07/17 04:05 04:05 WBC 4.4 RBC 3.99 L Hgb 11.4 L Hct 33.7 L MCV 84 MCH 28.4 MCHC 33.7 RDW 21.7 H Plt Count 236 Seg Neutrophils % Not Reportable Lymphocytes % Not Reportable Monocytes % Not Reportable Eosinophils % Not Reportable Basophils % Not Reportable Absolute Neutrophils Not Reportable Absolute Lymphocytes Not Reportable Absolute Monocytes Not Reportable Absolute Eosinophils Not Reportable Absolute Basophils Not Reportable Sodium 135.9 L Potassium 4.3 Chloride 103 Carbon Dioxide 21 L Anion Gap 12 BUN 8 Creatinine 0.83 Est GFR ( Amer) > 60 Est GFR (Non-Af Amer) > 60 Glucose 77 Calcium 9.6 Magnesium 1.6 Total Bilirubin 0.3 AST 51 ALT 34 Alkaline Phosphatase 61 Total Protein 6.2 L Albumin 3.6 Impressions: Chest X-Ray 10/25/17 08:00 IMPRESSION: NO ACUTE RADIOGRAPHIC FINDING IN THE CHEST. Abdomen/Pelvis CT 11/01/17 00:00 IMPRESSION: NO SIGNIFICANT OR ACUTE ABDOMINAL PROCESS. STABLE SURGICAL CHANGES AND CHRONIC FINDINGS ABOVE. Assessment & Plan - Diagnosis (1) Abdominal pain Qualifiers: Abdominal location: unspecified location Qualified Code(s): R10.9 - Unspecified abdominal pain Is this a current diagnosis for this admission?: Yes Plan: CT of the abdomen and pelvis which was negative. Resolved (2) Alcoholic dementia Qualifiers: Dementia behavioral disturbance: without behavioral disturbance Qualified Code(s): F10.27 - Alcohol dependence with alcohol-induced persisting dementia Is this a current diagnosis for this admission?: Yes Plan: Patient requires placement. Noted case management note. Continue thiamine (3) Hypomagnesemia Is this a current diagnosis for this admission?: Yes Plan: Resolved (4) Hyponatremia Is this a current diagnosis for this admission?: Yes Plan: Resolved. Due to beer potomania (5) Cough Is this a current diagnosis for this admission?: Yes Plan: Resolved (6) Alcohol withdrawal Qualifiers: Complication of substance-induced condition: uncomplicated Qualified Code(s ): F10.230 - Alcohol dependence with withdrawal, uncomplicated Is this a current diagnosis for this admission?: Yes Plan: Resolved - Time Time Spent with patient: Less than 15 minutes Medications reviewed and adjusted accordingly: Yes Anticipated discharge: SNF Within: when bed available - Inpatient Certification Based on my medical assessment, after consideration of the patient's comorbidities, presenting symptoms, or acuity I expect that the services needed warrant INPATIENT care.: Yes I certify that my determination is in accordance with my understanding of Medicare's requirements for reasonable and necessary INPATIENT services [42 CFR 412.3e].: Yes Medical Necessity: Need Close Monitoring Due to Risk of Patient Decompensation
[2017-11-08] MEDS: VALPROATE SODIUM SYRUP 250 MG/5 ML UDCUP PO SCH ×4 (00:16→18:20)
[2017-11-08] MEDS: MULTIVITAMIN TABLET PO SCH (10:40)
[2017-11-08] MEDS: MAGNESIUM OXIDE 400 MG TABLET PO SCH ×2 (10:40→18:20)
[2017-11-08] MEDS: FOLIC ACID 1 MG TABLET PO SCH (10:40)
[2017-11-08] MEDS: THIAMINE HCL 100 MG TABLET PO SCH (10:40)
[2017-11-08] MEDS: LEVETIRACETAM ORAL SOLN 500 MG/5 ML UDCUP PO SCH ×2 (10:41→21:31)
--- NOTE | 2017-11-08 13:55 | PDOC PROGRESS REPORT ---
Subjective Progress Note for:: 11/08/17 Subjective:: When inquired patient states that some time " they gave him the cooties". He did not elaborate further Review of systems All organ systems evaluated and negative except as in subjective All significant laboratories and diagnostics have been reviewed Reason For Visit: HYPONATREMIA NAUSEA,VOMITING Physical Exam Vital Signs: Temp Pulse Resp BP Pulse Ox 97.5 F 74 18 138/75 H 99 11/07/17 23:21 11/07/17 23:21 11/07/17 23:21 11/07/17 23:21 11/07/17 23:21 Intake & Output 11/07/17 11/08/17 11/09/17 06:59 06:59 06:59 Intake Total 940 600 Output Total 200 Balance 740 600 Weight 55.2 kg 56.3 kg Results Laboratory Results: 11/07/17 04:05 11/07/17 04:05 Impressions: Chest X-Ray 10/25/17 08:00 IMPRESSION: NO ACUTE RADIOGRAPHIC FINDING IN THE CHEST. Abdomen/Pelvis CT 11/01/17 00:00 IMPRESSION: NO SIGNIFICANT OR ACUTE ABDOMINAL PROCESS. STABLE SURGICAL CHANGES AND CHRONIC FINDINGS ABOVE. Assessment & Plan - Diagnosis (1) Abdominal pain Qualifiers: Abdominal location: unspecified location Qualified Code(s): R10.9 - Unspecified abdominal pain Is this a current diagnosis for this admission?: Yes Plan: CT of the abdomen and pelvis which was negative. Resolved (2) Alcoholic dementia Qualifiers: Dementia behavioral disturbance: without behavioral disturbance Qualified Code(s): F10.27 - Alcohol dependence with alcohol-induced persisting dementia Is this a current diagnosis for this admission?: Yes Plan: Patient requires placement. Continue thiamine (3) Hypomagnesemia Is this a current diagnosis for this admission?: Yes Plan: Resolved (4) Hyponatremia Is this a current diagnosis for this admission?: Yes Plan: Resolved. Due to beer potomania (5) Cough Is this a current diagnosis for this admission?: Yes Plan: Resolved (6) Alcohol withdrawal Qualifiers: Complication of substance-induced condition: uncomplicated Qualified Code(s ): F10.230 - Alcohol dependence with withdrawal, uncomplicated Is this a current diagnosis for this admission?: Yes Plan: Resolved - Time Time Spent with patient: Less than 15 minutes Medications reviewed and adjusted accordingly: Yes Anticipated discharge: SNF Within: when bed available - Inpatient Certification Based on my medical assessment, after consideration of the patient's comorbidities, presenting symptoms, or acuity I expect that the services needed warrant INPATIENT care.: Yes I certify that my determination is in accordance with my understanding of Medicare's requirements for reasonable and necessary INPATIENT services [42 CFR 412.3e].: Yes Medical Necessity: Other - Disposition
[2017-11-09] MEDS: VALPROATE SODIUM SYRUP 250 MG/5 ML UDCUP PO SCH ×4 (00:21→17:26)
[2017-11-09] MEDS: MAGNESIUM OXIDE 400 MG TABLET PO SCH ×2 (10:12→17:26)
[2017-11-09] MEDS: LEVETIRACETAM ORAL SOLN 500 MG/5 ML UDCUP PO SCH ×2 (10:12→22:37)
[2017-11-09] MEDS: FOLIC ACID 1 MG TABLET PO SCH (10:12)
[2017-11-09] MEDS: MULTIVITAMIN TABLET PO SCH (10:13)
[2017-11-09] MEDS: THIAMINE HCL 100 MG TABLET PO SCH (10:13)
--- NOTE | 2017-11-09 11:58 | PDOC PROGRESS REPORT ---
Subjective Progress Note for:: 11/09/17 Subjective:: Patient states that he is here. That he needs to pay an $80 bill Review of systems All organ systems evaluated and negative except as in subjective All significant laboratories and diagnostics have been reviewed Reason For Visit: HYPONATREMIA NAUSEA,VOMITING Physical Exam Vital Signs: Temp Pulse Resp BP Pulse Ox 97.5 F 73 17 139/78 H 100 11/08/17 23:28 11/08/17 23:28 11/08/17 23:28 11/08/17 23:28 11/08/17 23:28 Intake & Output 11/08/17 11/09/17 11/10/17 06:59 06:59 06:59 Intake Total 600 1370 Balance 600 1370 Weight 56.3 kg 54 kg General appearance: PRESENT: cooperative, thin Head exam: PRESENT: atraumatic, normocephalic Eye exam: PRESENT: conjunctiva pink, EOMI, PERRLA Ear exam: PRESENT: normal external ear exam Neck exam: PRESENT: full ROM. ABSENT: JVD, lymphadenopathy, tenderness Respiratory exam: PRESENT: clear to auscultation tre Cardiovascular exam: PRESENT: RRR. ABSENT: diastolic murmur, systolic murmur GI/Abdominal exam: PRESENT: normal bowel sounds, soft. ABSENT: tenderness Extremities exam: PRESENT: full ROM. ABSENT: pedal edema Musculoskeletal exam: PRESENT: ambulatory Neurological exam: PRESENT: alert, awake, oriented to person Skin exam: PRESENT: intact Results Laboratory Results: 11/07/17 04:05 11/07/17 04:05 Impressions: Chest X-Ray 10/25/17 08:00 IMPRESSION: NO ACUTE RADIOGRAPHIC FINDING IN THE CHEST. Abdomen/Pelvis CT 11/01/17 00:00 IMPRESSION: NO SIGNIFICANT OR ACUTE ABDOMINAL PROCESS. STABLE SURGICAL CHANGES AND CHRONIC FINDINGS ABOVE. Assessment & Plan - Diagnosis (1) Abdominal pain Qualifiers: Abdominal location: unspecified location Qualified Code(s): R10.9 - Unspecified abdominal pain Is this a current diagnosis for this admission?: Yes Plan: CT of the abdomen and pelvis which was negative. Resolved (2) Alcoholic dementia Qualifiers: Dementia behavioral disturbance: without behavioral disturbance Qualified Code(s): F10.27 - Alcohol dependence with alcohol-induced persisting dementia Is this a current diagnosis for this admission?: Yes Plan: Patient requires placement. Continue thiamine (3) Hypomagnesemia Is this a current diagnosis for this admission?: Yes Plan: Resolved (4) Hyponatremia Is this a current diagnosis for this admission?: Yes Plan: Resolved. Due to beer potomania (5) Cough Is this a current diagnosis for this admission?: Yes Plan: Resolved (6) Alcohol withdrawal Qualifiers: Complication of substance-induced condition: uncomplicated Qualified Code(s ): F10.230 - Alcohol dependence with withdrawal, uncomplicated Is this a current diagnosis for this admission?: Yes Plan: Resolved - Time Time Spent with patient: Less than 15 minutes Medications reviewed and adjusted accordingly: Yes Anticipated discharge: SNF Within: when bed available - Inpatient Certification Medical Necessity: Need Close Monitoring Due to Risk of Patient Decompensation
[2017-11-10] MEDS: VALPROATE SODIUM SYRUP 250 MG/5 ML UDCUP PO SCH ×5 (00:13→23:16)
[2017-11-10] MEDS: LEVETIRACETAM ORAL SOLN 500 MG/5 ML UDCUP PO SCH ×2 (10:29→22:06)
[2017-11-10] MEDS: FOLIC ACID 1 MG TABLET PO SCH (10:29)
[2017-11-10] MEDS: MAGNESIUM OXIDE 400 MG TABLET PO SCH ×2 (10:30→17:13)
[2017-11-10] MEDS: THIAMINE HCL 100 MG TABLET PO SCH (10:30)
[2017-11-10] MEDS: MULTIVITAMIN TABLET PO SCH (10:30)
--- NOTE | 2017-11-10 13:22 | PDOC PROGRESS REPORT ---
Subjective Progress Note for:: 11/10/17 Subjective:: He is not very talkative this morning. He denies any complaints. States he is doing the same. He denies any fever chills, nausea, vomiting, diarrhea, chest pain, shortness of breath, fatigue, tremors or weakness, Reason For Visit: HYPONATREMIA NAUSEA,VOMITING Physical Exam Vital Signs: Temp Pulse Resp BP Pulse Ox 97.4 F 78 12 136/87 H 99 11/10/17 11:35 11/10/17 11:35 11/10/17 11:35 11/10/17 11:35 11/10/17 11:35 Intake & Output 11/09/17 11/10/17 11/11/17 06:59 06:59 06:59 Intake Total 1370 680 Balance 1370 680 Weight 54 kg 53.9 kg General appearance: PRESENT: no acute distress, well-developed, well-nourished Head exam: PRESENT: atraumatic, normocephalic Neck exam: ABSENT: carotid bruit, JVD, lymphadenopathy, thyromegaly Respiratory exam: PRESENT: clear to auscultation tre. ABSENT: rales, rhonchi, wheezes Cardiovascular exam: PRESENT: RRR. ABSENT: diastolic murmur, rubs, systolic murmur Pulses: PRESENT: normal dorsalis pedis pul Vascular exam: PRESENT: normal capillary refill GI/Abdominal exam: PRESENT: normal bowel sounds, soft. ABSENT: distended, guarding, mass, organolmegaly, rebound, tenderness Extremities exam: PRESENT: full ROM. ABSENT: calf tenderness, clubbing, pedal edema Neurological exam: PRESENT: alert, awake, oriented to person Skin exam: PRESENT: dry, intact, warm. ABSENT: cyanosis, rash Results Laboratory Results: 11/07/17 04:05 11/07/17 04:05 Impressions: Chest X-Ray 10/25/17 08:00 IMPRESSION: NO ACUTE RADIOGRAPHIC FINDING IN THE CHEST. Abdomen/Pelvis CT 11/01/17 00:00 IMPRESSION: NO SIGNIFICANT OR ACUTE ABDOMINAL PROCESS. STABLE SURGICAL CHANGES AND CHRONIC FINDINGS ABOVE. Assessment & Plan - Diagnosis (1) Abdominal pain Qualifiers: Abdominal location: unspecified location Qualified Code(s): R10.9 - Unspecified abdominal pain Is this a current diagnosis for this admission?: Yes Plan: resolved thorough evaluation with unremarkable findings (2) Alcohol withdrawal Qualifiers: Complication of substance-induced condition: uncomplicated Qualified Code(s ): F10.230 - Alcohol dependence with withdrawal, uncomplicated Is this a current diagnosis for this admission?: Yes Plan: continue vitamin replacement (3) Alcoholic dementia Qualifiers: Dementia behavioral disturbance: without behavioral disturbance Qualified Code(s): F10.27 - Alcohol dependence with alcohol-induced persisting dementia Is this a current diagnosis for this admission?: Yes Plan: appears to be at his baseline, awaiting placement (4) Hypomagnesemia Is this a current diagnosis for this admission?: Yes Plan: resolved (5) Hyponatremia Is this a current diagnosis for this admission?: Yes Plan: resolved - Time Time Spent with patient: 15-24 minutes Medications reviewed and adjusted accordingly: Yes Anticipated discharge: SNF Within: when bed available - Inpatient Certification Based on my medical assessment, after consideration of the patient's comorbidities, presenting symptoms, or acuity I expect that the services needed warrant INPATIENT care.: Yes I certify that my determination is in accordance with my understanding of Medicare's requirements for reasonable and necessary INPATIENT services [42 CFR 412.3e].: Yes Medical Necessity: Significant Comorbidiites Make Outpatient Treatment Too Risky , Need Close Monitoring Due to Risk of Patient Decompensation
[2017-11-11] MEDS: VALPROATE SODIUM SYRUP 250 MG/5 ML UDCUP PO SCH ×4 (05:09→23:31)
--- NOTE | 2017-11-11 09:34 | PROGRESS NOTE E ---
Progress Note NAME: OUMOU PAZ : 1960 AGE: 57Y DATE: 11/11/2017 ROOM: 536 SUBJECTIVE: The patient is currently lying in bed. The patient states he feels fine. The patient states that he needs to get back to the hospital and is disoriented to place, situation, and date but is aware that it is the morning. There have been no reported episodes of vomiting or diarrhea, and the patient does not voice any specific concerns at this time. REVIEW OF SYSTEMS: The rest of the review of systems is unobtainable given the patient's mental status. MEDICATIONS: Medications have been reviewed. OBJECTIVE: GENERAL: The patient is a 57-year-old -[place] male who is awake, alert, unable to fully assess orientation, does not appear to be distressed. VITAL SIGNS: Temperature is 98.1, pulse 62, respirations 14, blood pressure 142/73, oxygen saturation 100% on room air. SKIN: Warm and dry. No rashes, not diaphoretic. HEENT: Pupils equal and reactive to light and accommodation. Conjunctivae pink. There is no evidence of JVP. CARDIOVASCULAR: Heart is regular. No rub. CHEST: Clear and symmetrical, nonlabored. ABDOMEN: Soft, nontender, nondistended. EXTREMITIES: No clubbing, cyanosis, or edema. PSYCHIATRIC: The patient is pleasant but quite confused. DIAGNOSTICS: Lab values are as follows: Hematology done on 11/07/2017 demonstrates WBC 4.4, hemoglobin 12.4, hematocrit 33.7, platelet count is 336,000. Chemistries done on 11/07/2017: Sodium is 135, potassium 4.3, chloride 103, carbon dioxide 21, BUN 8, creatinine is 0.83, glucose 77, calcium is 9.6. Magnesium is 1.6. Bilirubin 0.3. IMPRESSION AND PLAN: 1. ABDOMINAL PAIN, resolved, unremarkable findings. Continue PPI. Follow. 2. ALCOHOL DEPENDENCY POST WITHDRAWAL. No evidence of withdrawal at this time. Continue vitamin replacement. 3. ALCOHOL DEMENTIA. Patient is at baseline awaiting placement. 4. HYPOMAGNESEMIA. This resolved with supplementation. 5. HYPONATREMIA. This resolved. 6. SEIZURE DISORDER. Most likely due to the patient's alcoholism. Have continued the patient's home medications. DISPOSITION: THE PATIENT IS A FULL CODE. Pending patient's symptomatology and diagnostic findings, the patient can go to a bed as soon as disposition is available. [facility] Time spent on this followup including assessment, plan, and physical examination, attempted patient education, and review of records is 20 minutes. DICTATING PHYSICIAN: JORDANA CAMPBELL NP [id number] PHY#: [id number] ID: [id number] JOB#: [id number] ACCT: [id number] cc: > MTDD
[2017-11-11] MEDS ORDERED: HYDROCORTISONE 10 MG TABLET PO SCH (10:00)
[2017-11-11] MEDS: FOLIC ACID 1 MG TABLET PO SCH (10:32)
[2017-11-11] MEDS: LEVETIRACETAM ORAL SOLN 500 MG/5 ML UDCUP PO SCH ×2 (10:39→21:52)
[2017-11-11] MEDS: THIAMINE HCL 100 MG TABLET PO SCH (10:39)
[2017-11-11] MEDS: MULTIVITAMIN TABLET PO SCH (10:39)
[2017-11-11] MEDS: MAGNESIUM OXIDE 400 MG TABLET PO SCH ×2 (10:39→18:29)
[2017-11-11] MEDS: LORAZEPAM 1 MG TABLET PO SCH ×2 (10:39→18:30)
[2017-11-11] MEDS: GABAPENTIN 300 MG CAPSULE PO SCH ×2 (12:56→21:52)
[2017-11-12] MEDS: VALPROATE SODIUM SYRUP 250 MG/5 ML UDCUP PO SCH ×4 (06:08→23:07)
[2017-11-12] MEDS: GABAPENTIN 300 MG CAPSULE PO SCH ×3 (06:08→22:10)
[2017-11-12] MEDS: LANSOPRAZOLE 15 MG TAB.RAP.DR PO SCH (06:08)
[2017-11-12] MEDS: MAGNESIUM OXIDE 400 MG TABLET PO SCH ×2 (11:07→18:11)
[2017-11-12] MEDS: LORAZEPAM 1 MG TABLET PO SCH ×2 (11:07→18:11)
[2017-11-12] MEDS: THIAMINE HCL 100 MG TABLET PO SCH (11:07)
[2017-11-12] MEDS: FOLIC ACID 1 MG TABLET PO SCH (11:07)
[2017-11-12] MEDS: MULTIVITAMIN TABLET PO SCH (11:07)
[2017-11-12] MEDS: LEVETIRACETAM ORAL SOLN 500 MG/5 ML UDCUP PO SCH ×2 (11:08→22:10)
--- NOTE | 2017-11-12 20:01 | PDOC PROGRESS REPORT ---
Subjective Progress Note for:: 11/12/17 Subjective:: 57 yo Male stable, pending placement in a SNF. Alcohol related dementia, with cognitive limitations. Patient was pleasant and conversive today. Displayed confusion on recent events. Reason For Visit: HYPONATREMIA NAUSEA,VOMITING Physical Exam Vital Signs: Temp Pulse Resp BP Pulse Ox 97.2 F 87 16 125/64 100 11/12/17 15:25 11/12/17 15:25 11/12/17 11:29 11/12/17 15:25 11/12/17 15:25 Intake & Output 11/11/17 11/12/17 11/13/17 06:59 06:59 06:59 Intake Total 870 593 240 Output Total 300 400 500 Balance 570 193 -260 Weight 55.6 kg 55.7 kg General appearance: ABSENT: no acute distress, mild distress, morbidly obese Head exam: PRESENT: atraumatic, normocephalic Eye exam: PRESENT: EOMI, PERRLA Ear exam: PRESENT: normal external ear exam. ABSENT: bleeding Mouth exam: PRESENT: moist, neck supple Neck exam: PRESENT: full ROM, JVD Respiratory exam: ABSENT: chest wall tenderness, rales, rhonchi Cardiovascular exam: PRESENT: RRR, +S1, +S2 Pulses: PRESENT: normal radial pulses Vascular exam: PRESENT: normal capillary refill. ABSENT: pallor GI/Abdominal exam: ABSENT: ascites, rigid, soft Extremities exam: ABSENT: calf tenderness, joint swelling Musculoskeletal exam: PRESENT: full ROM, normal inspection Neurological exam: PRESENT: awake, oriented to person, oriented to place, CN II- XII grossly intact Psychiatric exam: ABSENT: agitated, anxious Focused psych exam: ABSENT: delusional, paranoid Skin exam: ABSENT: abrasion, cyanosis, dry Results Laboratory Results: 11/07/17 04:05 11/07/17 04:05 Impressions: Chest X-Ray 10/25/17 08:00 IMPRESSION: NO ACUTE RADIOGRAPHIC FINDING IN THE CHEST. Abdomen/Pelvis CT 11/01/17 00:00 IMPRESSION: NO SIGNIFICANT OR ACUTE ABDOMINAL PROCESS. STABLE SURGICAL CHANGES AND CHRONIC FINDINGS ABOVE. Assessment & Plan - Time Time Spent with patient: 15-24 minutes - Inpatient Certification Based on my medical assessment, after consideration of the patient's comorbidities, presenting symptoms, or acuity I expect that the services needed warrant INPATIENT care.: Yes I certify that my determination is in accordance with my understanding of Medicare's requirements for reasonable and necessary INPATIENT services [42 CFR 412.3e].: Yes - Plan Summary Plan Summary: (1) Abdominal pain unclear etiology resolved thorough evaluation with unremarkable findings (2) Alcohol withdrawal no signs of alcohol withdrawal. 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
[2017-11-12] MEDS: LORAZEPAM 1 MG TABLET PO PRN (20:57)
[2017-11-13] MEDS: GABAPENTIN 300 MG CAPSULE PO SCH ×3 (05:57→21:47)
[2017-11-13] MEDS: VALPROATE SODIUM SYRUP 250 MG/5 ML UDCUP PO SCH ×4 (05:57→23:28)
[2017-11-13] MEDS: LANSOPRAZOLE 15 MG TAB.RAP.DR PO SCH (05:57)
[2017-11-13] MEDS: MULTIVITAMIN TABLET PO SCH (11:09)
[2017-11-13] MEDS: FOLIC ACID 1 MG TABLET PO SCH (11:09)
[2017-11-13] MEDS: THIAMINE HCL 100 MG TABLET PO SCH (11:09)
[2017-11-13] MEDS: LORAZEPAM 1 MG TABLET PO SCH ×2 (11:09→18:30)
[2017-11-13] MEDS: MAGNESIUM OXIDE 400 MG TABLET PO SCH ×2 (11:10→18:30)
[2017-11-13] MEDS: LEVETIRACETAM ORAL SOLN 500 MG/5 ML UDCUP PO SCH ×2 (11:10→21:46)
[2017-11-13] MEDS ORDERED: NORMAL SALINE 1000 ML 1,000 ML IV PRN (16:05)
--- NOTE | 2017-11-13 16:44 | RADIOLOGY REPORT (SQ) ---
EXAM DESCRIPTION: KUB/ABDOMEN (SINGLE VIEW) COMPLETED DATE/TIME: 11/13/2017 4:25 pm REASON FOR STUDY: protruding ostomy COMPARISON: 08/15/2017 NUMBER OF VIEWS: One view. TECHNIQUE: Supine radiographic image of the abdomen acquired. LIMITATIONS: None. FINDINGS: BOWEL GAS PATTERN: Nonobstructive gas pattern. Moderate stool. Ostomy on the left. CALCIFICATIONS: No suspicious calcifications. SOFT TISSUES: No gross mass or suggestion of organomegaly. HARDWARE: Ostomy on the left. Hardware in the right hip and proximal femur. BONES: No acute fracture. No worrisome bone lesions. OTHER: No other significant finding. IMPRESSION: NO RADIOGRAPHIC EVIDENCE FOR ACUTE ABDOMINAL DISEASE. TECHNICAL DOCUMENTATION: JOB ID: [id number] [employer]- All Rights Reserved Reading location - IP/workstation name: [email or web address]
--- NOTE | 2017-11-13 21:45 | PDOC PROGRESS REPORT ---
Subjective Progress Note for:: 11/13/17 Subjective:: Called to patient's room due to his severe abdominal pain. KUB without significant findings. Abdomen was tender to palpation. Denies pain with eatting. Unclear etiology. Due to concern for a possible ischemic etiology, will check lactic acid and start IVF support. Limited recent PO fluid intake and patient has an ostomy with continued output. Reason For Visit: HYPONATREMIA NAUSEA,VOMITING Physical Exam Vital Signs: Temp Pulse Resp BP Pulse Ox 97.6 F 74 16 99/71 L 100 11/13/17 15:28 11/13/17 15:28 11/13/17 15:28 11/13/17 15:28 11/13/17 15:28 Intake & Output 11/12/17 11/13/17 11/14/17 06:59 06:59 06:59 Intake Total 593 934 540 Output Total 400 850 100 Balance 193 84 440 Weight 55.7 kg 56.1 kg General appearance: PRESENT: cooperative, mild distress Head exam: PRESENT: atraumatic, normocephalic Eye exam: PRESENT: EOMI, PERRLA Mouth exam: PRESENT: moist, neck supple Neck exam: PRESENT: full ROM. ABSENT: JVD, tenderness Respiratory exam: ABSENT: crackles, prolonged expiratory phas, rales, rhonchi Cardiovascular exam: PRESENT: RRR, +S1, +S2 Pulses: PRESENT: normal radial pulses, normal dorsalis pedis pul GI/Abdominal exam: PRESENT: normal bowel sounds, tenderness. ABSENT: ascites, firm, rigid Extremities exam: ABSENT: calf tenderness, joint swelling Musculoskeletal exam: PRESENT: ambulatory, full ROM Neurological exam: PRESENT: alert, oriented to person, CN II-XII grossly intact Psychiatric exam: PRESENT: anxious. ABSENT: depressed Focused psych exam: ABSENT: delusional, paranoid Skin exam: ABSENT: abrasion, erythema, mottled Results Laboratory Results: 11/07/17 04:05 11/07/17 04:05 Impressions: Chest X-Ray 10/25/17 08:00 IMPRESSION: NO ACUTE RADIOGRAPHIC FINDING IN THE CHEST. Abdomen/Pelvis CT 11/01/17 00:00 IMPRESSION: NO SIGNIFICANT OR ACUTE ABDOMINAL PROCESS. STABLE SURGICAL CHANGES AND CHRONIC FINDINGS ABOVE. KUB X-Ray 11/13/17 00:00 IMPRESSION: NO RADIOGRAPHIC EVIDENCE FOR ACUTE ABDOMINAL DISEASE. Assessment & Plan - Plan Summary Plan Summary: (1) Abdominal pain unclear etiology patient complained of severe pain. KUB was unremarkable. possible ischemia: checking Lactic acid, starting IVF support limited PO intake by patient. (2) Alcohol withdrawal no signs of alcohol withdrawal. 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
[2017-11-13] MEDS: TRAZODONE HCL 50 MG TABLET PO PRN (21:47)
[2017-11-14] MEDS: VALPROATE SODIUM SYRUP 250 MG/5 ML UDCUP PO SCH ×3 (05:56→18:40)
[2017-11-14] MEDS: GABAPENTIN 300 MG CAPSULE PO SCH ×3 (05:56→22:30)
[2017-11-14] MEDS: LANSOPRAZOLE 15 MG TAB.RAP.DR PO SCH (05:56)
[2017-11-14 07:39] LABS: HEMATOCRIT 33.7 % (37.9-51.0); HEMOGLOBIN 11.2 g/dL (13.5-17.0); MEAN CORPUSCULAR HEMOGLOBIN 28.5 pg (27.0-33.4); MEAN CORPUSCULAR HGB CONC 33.3 g/dL (32.0-36.0); MEAN CORPUSCULAR VOLUME 86 fl (80-97); PLATELET COUNT 288 10^3/uL (150-450); RED BLOOD COUNT 3.93 10^6/uL (4.35-5.55); RED CELL DISTRIBUTION WIDTH 21.6 % (11.5-14.0); WHITE BLOOD COUNT 5.3 10^3/uL (4.0-10.5)
[2017-11-14 07:52] LABS: ALBUMIN 3.8 g/dL (3.5-5.0); ANION GAP 8 (5-19); BLOOD UREA NITROGEN 9 mg/dL (7-20); CALCIUM 10.4 mg/dL (8.4-10.2); CARBON DIOXIDE 29 mmol/L (22-30); CHLORIDE 108 mmol/L (98-107); GLUCOSE 85 mg/dL (75-110); PHOSPHORUS 4.6 mg/dL (2.5-4.5); POTASSIUM 4.5 mmol/L (3.6-5.0); SODIUM 145.2 mmol/L (137-145)
[2017-11-14 08:08] LABS: ABSOLUTE LYMPHOCYTES# (MANUAL) 2.8 10^3/uL (0.5-4.7); ABSOLUTE MONOCYTES # (MANUAL) 0.8 10^3/uL (0.1-1.4); ABSOLUTE NEUTROPHILS# (MANUAL) 1.5 10^3/uL (1.7-8.2); BASOPHILS % (MANUAL) 1 % (0-2); EOSINOPHILS % (MANUAL) 3 % (0-6); LYMPHOCYTES % (MANUAL) 52 % (13-45); MONOCYTES % (MANUAL) 16 % (3-13); SEGMENTED NEUTROPHILS % (MAN) 28 % (42-78); TOTAL CELLS COUNTED 100
[2017-11-14 08:10] LABS: ACANTHOCYTES 2+; ANISOCYTOSIS 3+; POIKILOCYTOSIS 2+
[2017-11-14 08:11] LABS: PLATELET COMMENT ADEQUATE; SCHISTOCYTES SLIGHT; SPHEROCYTES SLIGHT; TARGET CELLS 1+
[2017-11-14] MEDS: MAGNESIUM OXIDE 400 MG TABLET PO SCH ×2 (09:02→18:39)
[2017-11-14] MEDS: MULTIVITAMIN TABLET PO SCH (09:02)
[2017-11-14] MEDS: LORAZEPAM 1 MG TABLET PO SCH ×2 (09:02→18:39)
[2017-11-14] MEDS: FOLIC ACID 1 MG TABLET PO SCH (09:03)
[2017-11-14] MEDS: THIAMINE HCL 100 MG TABLET PO SCH (09:03)
[2017-11-14] MEDS: LEVETIRACETAM ORAL SOLN 500 MG/5 ML UDCUP PO SCH ×2 (09:07→22:30)
[2017-11-14] MEDS ORDERED: LORAZEPAM INJ 2 MG/1 ML VIAL ONE (10:46)
[2017-11-14] MEDS ORDERED: LORAZEPAM INJ 2 MG/1 ML VIAL IM ONE (11:00)
[2017-11-14] MEDS: LORAZEPAM 1 MG TABLET PO PRN (15:31)
--- NOTE | 2017-11-14 21:39 | PDOC PROGRESS REPORT ---
Subjective Progress Note for:: 11/14/17 Subjective:: Patient had a period of agressive behavior towards the nurse today. He was redirectable during the exam. His abdominal complaints are on/off. Encouraged him to drink fluids. He did have an elevation 2.0, that improved to 1.4 on IVF. This is likely due to his poor oral intake and active ostomy site. Unfortunately he lost his IV access in his aggitation overnight. Reason For Visit: HYPONATREMIA NAUSEA,VOMITING Physical Exam Vital Signs: Temp Pulse Resp BP Pulse Ox 97.3 F 75 16 128/68 H 100 11/14/17 16:00 11/14/17 16:00 11/14/17 16:00 11/14/17 16:00 11/14/17 16:00 Intake & Output 11/13/17 11/14/17 11/15/17 06:59 06:59 06:59 Intake Total 934 820 810 Output Total 850 100 Balance 84 720 810 Weight 56.1 kg 56.1 kg General appearance: PRESENT: no acute distress, cooperative Head exam: PRESENT: atraumatic, normocephalic Eye exam: PRESENT: EOMI, PERRLA Ear exam: PRESENT: normal external ear exam. ABSENT: bleeding Mouth exam: PRESENT: moist, neck supple Respiratory exam: ABSENT: crackles, rales, rhonchi, wheezes Cardiovascular exam: PRESENT: RRR, +S1, +S2 Pulses: PRESENT: normal radial pulses, normal dorsalis pedis pul Vascular exam: PRESENT: normal capillary refill. ABSENT: pallor GI/Abdominal exam: PRESENT: soft, tenderness, other - left lower quadrant ostomy site. ABSENT: distended, mass, rigid Extremities exam: ABSENT: calf tenderness, joint swelling Musculoskeletal exam: PRESENT: full ROM, normal inspection Neurological exam: PRESENT: alert, oriented to person, oriented to place, oriented to time, oriented to situation Psychiatric exam: PRESENT: agitated. ABSENT: anxious Focused psych exam: ABSENT: pressured speech, restlessness Skin exam: ABSENT: dry, erythema, mottled Results Laboratory Results: 11/14/17 07:05 11/14/17 07:05 11/13/17 11/14/17 11/14/17 21:50 07:05 07:05 WBC 5.3 RBC 3.93 L Hgb 11.2 L Hct 33.7 L MCV 86 MCH 28.5 MCHC 33.3 RDW 21.6 H Plt Count 288 Seg Neutrophils % Not Reportable Lymphocytes % Not Reportable Monocytes % Not Reportable Eosinophils % Not Reportable Basophils % Not Reportable Absolute Neutrophils Not Reportable Absolute Lymphocytes Not Reportable Absolute Monocytes Not Reportable Absolute Eosinophils Not Reportable Absolute Basophils Not Reportable Sodium 145.2 H Potassium 4.5 Chloride 108 H Carbon Dioxide 29 Anion Gap 8 BUN 9 Creatinine 0.83 Est GFR ( Amer) > 60 Est GFR (Non-Af Amer) > 60 Glucose 85 Lactic Acid 2.0 Calcium 10.4 H Phosphorus 4.6 H Albumin 3.8 11/14/17 07:10 WBC RBC Hgb Hct MCV MCH MCHC RDW Plt Count Seg Neutrophils % Lymphocytes % Monocytes % Eosinophils % Basophils % Absolute Neutrophils Absolute Lymphocytes Absolute Monocytes Absolute Eosinophils Absolute Basophils Sodium Potassium Chloride Carbon Dioxide Anion Gap BUN Creatinine Est GFR ( Amer) Est GFR (Non-Af Amer) Glucose Lactic Acid 1.4 Calcium Phosphorus Albumin Impressions: Chest X-Ray 10/25/17 08:00 IMPRESSION: NO ACUTE RADIOGRAPHIC FINDING IN THE CHEST. Abdomen/Pelvis CT 11/01/17 00:00 IMPRESSION: NO SIGNIFICANT OR ACUTE ABDOMINAL PROCESS. STABLE SURGICAL CHANGES AND CHRONIC FINDINGS ABOVE. KUB X-Ray 11/13/17 00:00 IMPRESSION: NO RADIOGRAPHIC EVIDENCE FOR ACUTE ABDOMINAL DISEASE. Assessment & Plan - Plan Summary Plan Summary: (1) Abdominal pain unclear etiology patient complained of severe pain. KUB was unremarkable. possible ischemia: mild elevation in lactic, no pain with eatting. encouraged PO fluids. no significant pain during exam. (2) Alcohol withdrawal no signs of alcohol withdrawal. 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
[2017-11-15] MEDS: VALPROATE SODIUM SYRUP 250 MG/5 ML UDCUP PO SCH ×4 (01:14→17:24)
[2017-11-15] MEDS: LANSOPRAZOLE 15 MG TAB.RAP.DR PO SCH (06:51)
[2017-11-15] MEDS: GABAPENTIN 300 MG CAPSULE PO SCH ×3 (06:51→23:12)
[2017-11-15 07:15] LABS: HEMATOCRIT 31.9 % (37.9-51.0); HEMOGLOBIN 10.7 g/dL (13.5-17.0); MEAN CORPUSCULAR HEMOGLOBIN 28.9 pg (27.0-33.4); MEAN CORPUSCULAR HGB CONC 33.7 g/dL (32.0-36.0); MEAN CORPUSCULAR VOLUME 86 fl (80-97); PLATELET COUNT 275 10^3/uL (150-450); RED BLOOD COUNT 3.72 10^6/uL (4.35-5.55); RED CELL DISTRIBUTION WIDTH 22.5 % (11.5-14.0); WHITE BLOOD COUNT 5.5 10^3/uL (4.0-10.5)
[2017-11-15 07:40] LABS: ALBUMIN 3.6 g/dL (3.5-5.0); ANION GAP 7 (5-19); BLOOD UREA NITROGEN 11 mg/dL (7-20); CALCIUM 10.2 mg/dL (8.4-10.2); CARBON DIOXIDE 30 mmol/L (22-30); CHLORIDE 103 mmol/L (98-107); GLUCOSE 76 mg/dL (75-110); PHOSPHORUS 4.8 mg/dL (2.5-4.5); POTASSIUM 5.1 mmol/L (3.6-5.0); SODIUM 140.4 mmol/L (137-145)
--- NOTE | 2017-11-15 07:45 | EKG REPORT ---
SEVERITY:- ABNORMAL ECG - SINUS RHYTHM ST ELEVATION SUGGESTS NORMAL VARIANT QTC 413MS NOT PROLONGED. : Confirmed by: Ricky Ruff MD 15-Nov-2017 07:45:06
[2017-11-15] MEDS: LEVETIRACETAM ORAL SOLN 500 MG/5 ML UDCUP PO SCH ×2 (09:32→23:13)
[2017-11-15] MEDS: MULTIVITAMIN TABLET PO SCH (09:33)
[2017-11-15] MEDS: FOLIC ACID 1 MG TABLET PO SCH (09:33)
[2017-11-15] MEDS: THIAMINE HCL 100 MG TABLET PO SCH (09:33)
[2017-11-15] MEDS: MAGNESIUM OXIDE 400 MG TABLET PO SCH ×2 (09:33→17:24)
[2017-11-15] MEDS: LORAZEPAM 1 MG TABLET PO SCH ×2 (09:33→17:24)
[2017-11-15] MEDS: LORAZEPAM 1 MG TABLET PO PRN (14:01)
[2017-11-15] MEDS: ACETAMINOPHEN 325 MG TABLET PO PRN (14:02)
--- NOTE | 2017-11-15 21:36 | PDOC PROGRESS REPORT ---
Subjective Progress Note for:: 11/15/17 Subjective:: Patient with some agitation today. In soft wrist restraints. We will add Seroquel at night. [facility] Patient denies active abdominal pain during today's exam. He is attempting to drink more p.o. fluids as directed. Patient denies any significant abdominal pain this morning. Continues to deny abdominal pain with food. Does have a mild elevation in potassium and did have an elevation in lactic acid on the prior day that improved with IV fluids. Possible etiology of electrolyte abnormalities versus ischemic etiology. At present without significant abdominal pain, would hold further workup. Reason For Visit: HYPONATREMIA NAUSEA,VOMITING Physical Exam Vital Signs: Temp Pulse Resp BP Pulse Ox 98.8 F 74 14 120/64 100 11/15/17 20:00 11/15/17 20:00 11/15/17 20:00 11/15/17 20:00 11/15/17 20:00 Intake & Output 11/14/17 11/15/17 11/16/17 06:59 06:59 06:59 Intake Total 820 1250 1110 Output Total 100 Balance 720 1250 1110 Weight 56.1 kg 55.8 kg General appearance: PRESENT: no acute distress, disheveled Head exam: PRESENT: atraumatic, normocephalic Eye exam: PRESENT: EOMI, PERRLA Ear exam: PRESENT: normal external ear exam. ABSENT: bleeding Mouth exam: PRESENT: moist, neck supple Neck exam: PRESENT: full ROM. ABSENT: JVD, tenderness Respiratory exam: ABSENT: crackles, rales, rhonchi, stridor, wheezes Cardiovascular exam: PRESENT: RRR, +S1, +S2 Pulses: PRESENT: normal radial pulses, normal dorsalis pedis pul Vascular exam: PRESENT: normal capillary refill. ABSENT: pallor GI/Abdominal exam: PRESENT: normal bowel sounds, soft, other - Ostomy in lower left quadrant.. ABSENT: distended, mass, rigid Extremities exam: ABSENT: calf tenderness, clubbing, pedal edema Musculoskeletal exam: PRESENT: full ROM, normal inspection Neurological exam: PRESENT: alert, oriented to person, oriented to place, CN II- XII grossly intact Psychiatric exam: PRESENT: anxious. ABSENT: depressed, manic Focused psych exam: ABSENT: delusional, paranoid Skin exam: ABSENT: abrasion, cyanosis, mottled Results Laboratory Results: 11/15/17 06:48 11/15/17 06:48 11/15/17 11/15/17 06:48 06:48 WBC 5.5 RBC 3.72 L Hgb 10.7 L Hct 31.9 L MCV 86 MCH 28.9 MCHC 33.7 RDW 22.5 H Plt Count 275 Sodium 140.4 Potassium 5.1 H Chloride 103 Carbon Dioxide 30 Anion Gap 7 BUN 11 Creatinine 1.00 Est GFR ( Amer) > 60 Est GFR (Non-Af Amer) > 60 Glucose 76 Calcium 10.2 Phosphorus 4.8 H Albumin 3.6 Impressions: Chest X-Ray 10/25/17 08:00 IMPRESSION: NO ACUTE RADIOGRAPHIC FINDING IN THE CHEST. Abdomen/Pelvis CT 11/01/17 00:00 IMPRESSION: NO SIGNIFICANT OR ACUTE ABDOMINAL PROCESS. STABLE SURGICAL CHANGES AND CHRONIC FINDINGS ABOVE. KUB X-Ray 11/13/17 00:00 IMPRESSION: NO RADIOGRAPHIC EVIDENCE FOR ACUTE ABDOMINAL DISEASE. Assessment & Plan - Plan Summary Plan Summary: (1) Abdominal pain unclear etiology, denies active discomfort during today's exam. patient complained of severe pain. KUB was unremarkable. encouraged PO fluids. no significant pain during exam. (2) Alcohol withdrawal no signs of alcohol withdrawal. 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
[2017-11-15] MEDS ORDERED: QUETIAPINE FUMARATE 25 MG TABLET PO ONE (21:45)
[2017-11-15] MEDS: TRAZODONE HCL 50 MG TABLET PO PRN (23:13)
[2017-11-16] MEDS: VALPROATE SODIUM SYRUP 250 MG/5 ML UDCUP PO SCH ×5 (00:42→23:10)
[2017-11-16] MEDS: GABAPENTIN 300 MG CAPSULE PO SCH ×3 (06:09→22:00)
[2017-11-16] MEDS: LANSOPRAZOLE 15 MG TAB.RAP.DR PO SCH (06:09)
[2017-11-16 10:04] LABS: HEMATOCRIT 33.7 % (37.9-51.0); HEMOGLOBIN 11.1 g/dL (13.5-17.0); MEAN CORPUSCULAR HEMOGLOBIN 28.3 pg (27.0-33.4); MEAN CORPUSCULAR HGB CONC 32.9 g/dL (32.0-36.0); MEAN CORPUSCULAR VOLUME 86 fl (80-97); PLATELET COUNT 247 10^3/uL (150-450); RED BLOOD COUNT 3.91 10^6/uL (4.35-5.55); RED CELL DISTRIBUTION WIDTH 22.7 % (11.5-14.0); WHITE BLOOD COUNT 6.7 10^3/uL (4.0-10.5)
[2017-11-16 10:18] LABS: ALBUMIN 3.7 g/dL (3.5-5.0); ANION GAP 9 (5-19); BLOOD UREA NITROGEN 10 mg/dL (7-20); CARBON DIOXIDE 29 mmol/L (22-30); CHLORIDE 106 mmol/L (98-107); GLUCOSE 82 mg/dL (75-110); PHOSPHORUS 4.9 mg/dL (2.5-4.5); SODIUM 143.9 mmol/L (137-145)
[2017-11-16] MEDS: THIAMINE HCL 100 MG TABLET PO SCH (10:33)
[2017-11-16] MEDS: FOLIC ACID 1 MG TABLET PO SCH (10:33)
[2017-11-16] MEDS: MULTIVITAMIN TABLET PO SCH (10:33)
[2017-11-16] MEDS: LEVETIRACETAM ORAL SOLN 500 MG/5 ML UDCUP PO SCH ×2 (10:33→22:00)
[2017-11-16] MEDS: MAGNESIUM OXIDE 400 MG TABLET PO SCH ×2 (10:33→17:36)
[2017-11-16] MEDS: LORAZEPAM 1 MG TABLET PO SCH (10:33)
--- NOTE | 2017-11-16 14:22 | PDOC PROGRESS REPORT ---
Subjective Progress Note for:: 11/16/17 Subjective:: The patient is an unfortunate 57-year-old -[place] male with a long- standing history of alcohol abuse and dependence. He was admitted to the hospital with alcohol withdrawal and encephalopathy. He was found to have severe hyponatremia thought to be secondary to Beer Pot[place]ia. At this point he is now stable but remains significantly altered. 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 It is quite clear that the patient cannot take care of himself and return to his previous living situation. He was evaluated by psychiatry and they did not feel that he could make good decisions for himself. He currently is waiting on placement as the patient's daughter cannot take him to [place] . Today when I saw the patient he is in restraints. He was unable to answer questions appropriately. Review of systems could not be obtained Reason For Visit: HYPONATREMIA NAUSEA,VOMITING Physical Exam Vital Signs: Temp Pulse Resp BP Pulse Ox 97.5 F 87 16 130/77 H 100 11/16/17 12:16 11/16/17 12:16 11/16/17 12:16 11/16/17 12:16 11/16/17 12:16 Intake & Output 11/15/17 11/16/17 11/17/17 06:59 06:59 06:59 Intake Total 1250 1566 Balance 1250 1566 Weight 55.8 kg 57.7 kg General appearance: PRESENT: disheveled, thin, other - Quite ill-appearing. He is somewhat agitated Head exam: PRESENT: atraumatic, normocephalic Mouth exam: PRESENT: moist, tongue midline Respiratory exam: PRESENT: clear to auscultation tre. ABSENT: rales, rhonchi, wheezes Cardiovascular exam: PRESENT: RRR. ABSENT: diastolic murmur, rubs, systolic murmur GI/Abdominal exam: PRESENT: firm, other - He appears to be somewhat tender to palpation when I palpate his abdomen Rectal exam: PRESENT: deferred Extremities exam: PRESENT: full ROM. ABSENT: calf tenderness, clubbing, pedal edema Neurological exam: PRESENT: alert, altered, oriented to person. ABSENT: oriented to time, oriented to situation Psychiatric exam: PRESENT: agitated, anxious Skin exam: PRESENT: dry, intact, warm. ABSENT: cyanosis, rash Results Laboratory Results: 11/16/17 09:40 11/16/17 09:40 11/16/17 11/16/17 11/16/17 08:00 09:40 09:40 WBC 6.7 RBC 3.91 L Hgb 11.1 L Hct 33.7 L MCV 86 MCH 28.3 MCHC 32.9 RDW 22.7 H Plt Count 247 Sodium Cancelled 143.9 Potassium Cancelled 5.0 Chloride Cancelled 106 Carbon Dioxide Cancelled 29 Anion Gap Cancelled 9 BUN Cancelled 10 Creatinine Cancelled 0.90 Est GFR ( Amer) Cancelled > 60 Est GFR (Non-Af Amer) Cancelled > 60 Glucose Cancelled 82 Calcium Cancelled 10.0 Phosphorus Cancelled 4.9 H Albumin Cancelled 3.7 Impressions: Chest X-Ray 10/25/17 08:00 IMPRESSION: NO ACUTE RADIOGRAPHIC FINDING IN THE CHEST. Abdomen/Pelvis CT 11/01/17 00:00 IMPRESSION: NO SIGNIFICANT OR ACUTE ABDOMINAL PROCESS. STABLE SURGICAL CHANGES AND CHRONIC FINDINGS ABOVE. KUB X-Ray 11/13/17 00:00 IMPRESSION: NO RADIOGRAPHIC EVIDENCE FOR ACUTE ABDOMINAL DISEASE. Assessment & Plan - Diagnosis (1) Hyponatremia Is this a current diagnosis for this admission?: Yes Plan: Secondary to beer potomania. He was initially on 3% saline which is since been stopped. His sodium level has normalized and his sodium level was normal (2) Alcohol withdrawal Qualifiers: Complication of substance-induced condition: uncomplicated Qualified Code(s ): F10.230 - Alcohol dependence with withdrawal, uncomplicated Is this a current diagnosis for this admission?: Yes Plan: Resolved at this point. (3) Alcohol dependence Qualifiers: Complication of substance-induced condition: with unspecified complication Is this a current diagnosis for this admission?: Yes Plan: Certainly he will not be able to live independently anymore. No further alcohol. Continue thiamine and folic acid as well as a multivitamin. (4) Wernickes encephalopathy Is this a current diagnosis for this admission?: Yes Plan: He has been evaluated by psych and they do not believe he can make good decisions for himself. Currently waiting on placement (5) Alcoholic dementia Qualifiers: Dementia behavioral disturbance: without behavioral disturbance Qualified Code(s): F10.27 - Alcohol dependence with alcohol-induced persisting dementia Is this a current diagnosis for this admission?: Yes Plan: Behavior is uncontrolled. He remains in restraints. We will try a regimen of trazodone 25 mg every 8 hours with 100 mg at bedtime. Will see if this helps. (6) Anemia Qualifiers: Anemia type: iron deficiency Is this a current diagnosis for this admission?: Yes Plan: Stable (7) Hypomagnesemia Is this a current diagnosis for this admission?: Yes Plan: Continue to replete as needed (8) Seizure disorder Is this a current diagnosis for this admission?: Yes Plan: Continue current regimen (9) Vomiting Is this a current diagnosis for this admission?: Yes - Time Time Spent with patient: 15-24 minutes - Inpatient Certification Medical Necessity: Other - Inpatient hospitalization remains necessary for disposition. Overall the patient is still somewhat encephalopathic requiring restraints. Timing of disposition we are trying a new medical regimen tonight and will see if this makes a difference.
[2017-11-16] MEDS: DICYCLOMINE HCL 20 MG TABLET PO PRN (15:11)
[2017-11-16] MEDS: TRAZODONE HCL 50 MG TABLET PO SCH ×2 (17:36→21:59)
[2017-11-16] MEDS: HYDROXYZINE PAMOATE 25 MG CAPSULE PO PRN (18:05)
[2017-11-16] MEDS: LORAZEPAM 1 MG TABLET PO PRN (20:02)
[2017-11-16] MEDS ORDERED: QUETIAPINE FUMARATE 25 MG TABLET PO SCH (22:00)
[2017-11-17] MEDS: VALPROATE SODIUM SYRUP 250 MG/5 ML UDCUP PO SCH ×4 (06:14→23:58)
[2017-11-17] MEDS: GABAPENTIN 300 MG CAPSULE PO SCH ×3 (06:15→23:59)
[2017-11-17] MEDS: LANSOPRAZOLE 15 MG TAB.RAP.DR PO SCH (06:15)
[2017-11-17 09:21] LABS: HEMATOCRIT 34.1 % (37.9-51.0); HEMOGLOBIN 11.6 g/dL (13.5-17.0); MEAN CORPUSCULAR HEMOGLOBIN 28.9 pg (27.0-33.4); MEAN CORPUSCULAR HGB CONC 33.9 g/dL (32.0-36.0); MEAN CORPUSCULAR VOLUME 85 fl (80-97); PLATELET COUNT 236 10^3/uL (150-450); RED CELL DISTRIBUTION WIDTH 22.4 % (11.5-14.0); WHITE BLOOD COUNT 7.3 10^3/uL (4.0-10.5)
[2017-11-17 09:39] LABS: ANION GAP 9 (5-19); BLOOD UREA NITROGEN 12 mg/dL (7-20); CALCIUM 9.9 mg/dL (8.4-10.2); CARBON DIOXIDE 28 mmol/L (22-30); CHLORIDE 104 mmol/L (98-107); GLUCOSE 87 mg/dL (75-110); POTASSIUM 4.8 mmol/L (3.6-5.0); SODIUM 141.2 mmol/L (137-145)
[2017-11-17 09:45] LABS: ABSOLUTE LYMPHOCYTES# (MANUAL) 3.2 10^3/uL (0.5-4.7); ABSOLUTE MONOCYTES # (MANUAL) 0.7 10^3/uL (0.1-1.4); ABSOLUTE NEUTROPHILS# (MANUAL) 3.4 10^3/uL (1.7-8.2); BAND NEUTROPHILS % (MANUAL) 1 % (3-5); BASOPHILS % (MANUAL) 0 % (0-2); EOSINOPHILS % (MANUAL) 0 % (0-6); LYMPHOCYTES % (MANUAL) 40 % (13-45); MONOCYTES % (MANUAL) 10 % (3-13); SEGMENTED NEUTROPHILS % (MAN) 45 % (42-78); TOTAL CELLS COUNTED 100
[2017-11-17 09:47] LABS: ACANTHOCYTES 1+; OVALOCYTES SLIGHT; PLATELET CLUMPS PRESENT; PLATELET COMMENT ADEQUATE; POIKILOCYTOSIS 3+; SCHISTOCYTES SLIGHT; TARGET CELLS 2+
[2017-11-17] MEDS: FOLIC ACID 1 MG TABLET PO SCH (10:56)
[2017-11-17] MEDS: LEVETIRACETAM ORAL SOLN 500 MG/5 ML UDCUP PO SCH ×2 (10:56→23:58)
[2017-11-17] MEDS: MAGNESIUM OXIDE 400 MG TABLET PO SCH ×2 (10:57→17:28)
[2017-11-17] MEDS: MULTIVITAMIN TABLET PO SCH (10:57)
[2017-11-17] MEDS: TRAZODONE HCL 50 MG TABLET PO SCH ×4 (10:57→23:58)
[2017-11-17] MEDS: THIAMINE HCL 100 MG TABLET PO SCH (10:57)
--- NOTE | 2017-11-17 17:40 | PDOC PROGRESS REPORT ---
Subjective Progress Note for:: 11/17/17 Subjective:: The patient is an unfortunate 57-year-old -[place] male with a long- standing history of alcohol abuse and dependence. He was admitted to the hospital with alcohol withdrawal and encephalopathy. He was found to have severe hyponatremia thought to be secondary to Beer Potamania. At this point he is now stable but remains significantly altered. 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 It is quite clear that the patient cannot take care of himself and return to his previous living situation. He was evaluated by psychiatry and they did not feel that he could make good decisions for himself. He currently is waiting on placement as the patient's daughter cannot take him to [place] . Yesterday when I saw the patient he had been placed in restraints. He was quite confused and it was difficult to get him to answer questions. His regimen was changed yesterday to one that psychiatry recommends for behavior that is difficult to control. Yesterday he was started on trazodone 25 mg 3 times daily with 100 mg at bedtime. This morning he is out of restraints. He is much more appropriate and can answer questions today. He seems to be doing fairly well. Overall he does have alcoholic dementia and encephalopathy at baseline. A review of systems could not be obtained. He is able to tell me he is not having any pain today. Reason For Visit: HYPONATREMIA NAUSEA,VOMITING Physical Exam Vital Signs: Temp Pulse Resp BP Pulse Ox 97.2 F 61 16 121/61 99 11/17/17 16:00 11/17/17 16:00 11/17/17 16:00 11/17/17 16:00 11/17/17 16:00 Intake & Output 11/16/17 11/17/17 11/18/17 06:59 06:59 06:59 Intake Total 1566 460 Output Total 0 Balance 1566 460 Weight 57.7 kg 56.1 kg General appearance: PRESENT: no acute distress, disheveled, thin Head exam: PRESENT: atraumatic, normocephalic Mouth exam: PRESENT: moist, tongue midline Respiratory exam: PRESENT: clear to auscultation tre. ABSENT: rales, rhonchi, wheezes Cardiovascular exam: PRESENT: RRR. ABSENT: diastolic murmur, rubs, systolic murmur GI/Abdominal exam: PRESENT: normal bowel sounds, soft. ABSENT: distended, guarding, mass, organolmegaly, rebound, tenderness Rectal exam: PRESENT: deferred Extremities exam: ABSENT: calf tenderness, clubbing, pedal edema Neurological exam: PRESENT: alert, awake, oriented to person. ABSENT: oriented to place, oriented to time, oriented to situation Psychiatric exam: PRESENT: anxious Skin exam: PRESENT: dry, intact, warm. ABSENT: cyanosis, rash Results Laboratory Results: 11/17/17 08:45 11/17/17 08:45 11/17/17 11/17/17 08:45 08:45 WBC 7.3 RBC 4.00 L Hgb 11.6 L Hct 34.1 L MCV 85 MCH 28.9 MCHC 33.9 RDW 22.4 H Plt Count 236 Seg Neutrophils % Not Reportable Lymphocytes % Not Reportable Monocytes % Not Reportable Eosinophils % Not Reportable Basophils % Not Reportable Absolute Neutrophils Not Reportable Absolute Lymphocytes Not Reportable Absolute Monocytes Not Reportable Absolute Eosinophils Not Reportable Absolute Basophils Not Reportable Sodium 141.2 Potassium 4.8 Chloride 104 Carbon Dioxide 28 Anion Gap 9 BUN 12 Creatinine 0.96 Est GFR ( Amer) > 60 Est GFR (Non-Af Amer) > 60 Glucose 87 Calcium 9.9 Phosphorus 5.0 H Magnesium 1.8 Impressions: Chest X-Ray 10/25/17 08:00 IMPRESSION: NO ACUTE RADIOGRAPHIC FINDING IN THE CHEST. Abdomen/Pelvis CT 11/01/17 00:00 IMPRESSION: NO SIGNIFICANT OR ACUTE ABDOMINAL PROCESS. STABLE SURGICAL CHANGES AND CHRONIC FINDINGS ABOVE. KUB X-Ray 11/13/17 00:00 IMPRESSION: NO RADIOGRAPHIC EVIDENCE FOR ACUTE ABDOMINAL DISEASE. Assessment & Plan - Diagnosis (1) Hyponatremia Is this a current diagnosis for this admission?: Yes Plan: Secondary to beer potomania. He was initially on 3% saline which has long since been stopped. His sodium level has normalized. (2) Alcohol withdrawal Qualifiers: Complication of substance-induced condition: uncomplicated Qualified Code(s ): F10.230 - Alcohol dependence with withdrawal, uncomplicated Is this a current diagnosis for this admission?: Yes Plan: Resolved at this point. (3) Alcohol dependence Qualifiers: Complication of substance-induced condition: with unspecified complication Is this a current diagnosis for this admission?: Yes Plan: Certainly he will not be able to live independently anymore. No further alcohol. Continue thiamine and folic acid as well as a multivitamin. (4) Wernickes encephalopathy Is this a current diagnosis for this admission?: Yes Plan: He has been evaluated by psych and they do not believe he can make good decisions for himself. Currently waiting on placement (5) Alcoholic dementia Qualifiers: Dementia behavioral disturbance: without behavioral disturbance Qualified Code(s): F10.27 - Alcohol dependence with alcohol-induced persisting dementia Is this a current diagnosis for this admission?: Yes Plan: Behavior is much improved today. Continue current regimen of trazodone 25 mg 3 times daily with 100 mg at bedtime. He is out of restraints today. (6) Anemia Qualifiers: Anemia type: iron deficiency Is this a current diagnosis for this admission?: Yes Plan: Stable (7) Hypomagnesemia Is this a current diagnosis for this admission?: Yes Plan: Continue to replete as needed (8) Seizure disorder Is this a current diagnosis for this admission?: Yes Plan: Continue current regimen (9) Vomiting Is this a current diagnosis for this admission?: Yes Plan: Resolved - Time Time Spent with patient: 15-24 minutes - Inpatient Certification Medical Necessity: Other - Inpatient hospitalization remains necessary for disposition. The patient's daughter was unable to take him home with her. He does not make good decisions for himself and can no longer live independently. The discharge planners are working on placing the patient.
[2017-11-18] MEDS: GABAPENTIN 300 MG CAPSULE PO SCH ×3 (05:38→21:42)
[2017-11-18] MEDS: VALPROATE SODIUM SYRUP 250 MG/5 ML UDCUP PO SCH ×4 (05:38→23:40)
[2017-11-18] MEDS: LANSOPRAZOLE 15 MG TAB.RAP.DR PO SCH (05:38)
[2017-11-18] MEDS: LEVETIRACETAM ORAL SOLN 500 MG/5 ML UDCUP PO SCH ×2 (09:00→21:42)
[2017-11-18] MEDS: FOLIC ACID 1 MG TABLET PO SCH (09:01)
[2017-11-18] MEDS: THIAMINE HCL 100 MG TABLET PO SCH (09:02)
[2017-11-18] MEDS: MULTIVITAMIN TABLET PO SCH (09:02)
[2017-11-18] MEDS: MAGNESIUM OXIDE 400 MG TABLET PO SCH ×2 (09:02→18:42)
[2017-11-18] MEDS: TRAZODONE HCL 50 MG TABLET PO SCH ×3 (09:02→21:42)
--- NOTE | 2017-11-18 17:36 | PDOC PROGRESS REPORT ---
Subjective Progress Note for:: 11/18/17 Subjective:: states he does not feel well. He does carry on a conversation today though. He has been very agitated today and did wind up in restraints. Trazodone seemed to help the past 2 days, but not so much today. He has been afebrile. No nausea or vomiting. Reason For Visit: HYPONATREMIA NAUSEA,VOMITING Physical Exam Vital Signs: Temp Pulse Resp BP Pulse Ox 98.7 F 74 18 129/64 H 98 11/18/17 16:00 11/18/17 16:00 11/18/17 16:00 11/18/17 16:00 11/18/17 16:00 Intake & Output 11/17/17 11/18/17 11/19/17 06:59 06:59 06:59 Intake Total 460 600 Output Total 0 200 Balance 460 400 Weight 56.1 kg 56.6 kg General appearance: PRESENT: no acute distress, well-developed, well-nourished Neck exam: ABSENT: carotid bruit, JVD, lymphadenopathy, thyromegaly Respiratory exam: PRESENT: clear to auscultation tre. ABSENT: rales, rhonchi, wheezes Cardiovascular exam: PRESENT: RRR. ABSENT: diastolic murmur, rubs, systolic murmur Pulses: PRESENT: normal dorsalis pedis pul Vascular exam: PRESENT: normal capillary refill GI/Abdominal exam: PRESENT: normal bowel sounds, soft. ABSENT: distended, guarding, mass, organolmegaly, rebound, tenderness Neurological exam: PRESENT: alert, awake, oriented to person, oriented to place. ABSENT: oriented to time, oriented to situation, motor sensory deficit Psychiatric exam: PRESENT: agitated - Only at times, he was very calm during his exam Results Laboratory Results: 11/17/17 08:45 11/17/17 08:45 Impressions: Chest X-Ray 10/25/17 08:00 IMPRESSION: NO ACUTE RADIOGRAPHIC FINDING IN THE CHEST. Abdomen/Pelvis CT 11/01/17 00:00 IMPRESSION: NO SIGNIFICANT OR ACUTE ABDOMINAL PROCESS. STABLE SURGICAL CHANGES AND CHRONIC FINDINGS ABOVE. KUB X-Ray 11/13/17 00:00 IMPRESSION: NO RADIOGRAPHIC EVIDENCE FOR ACUTE ABDOMINAL DISEASE. Assessment & Plan - Diagnosis (1) Alcohol withdrawal Qualifiers: Complication of substance-induced condition: uncomplicated Qualified Code(s ): F10.230 - Alcohol dependence with withdrawal, uncomplicated Is this a current diagnosis for this admission?: Yes Plan: will change to prn haldol to see if it helps, feel most is this is due more to chronic alchol abuse and dementia (2) Alcoholic dementia Qualifiers: Dementia behavioral disturbance: without behavioral disturbance Qualified Code(s): F10.27 - Alcohol dependence with alcohol-induced persisting dementia Is this a current diagnosis for this admission?: Yes Plan: He is stable at this point. adjusting medications to find best suit for the patient. Awaiting placement (3) Hypomagnesemia Is this a current diagnosis for this admission?: Yes Plan: resolved (4) Hyponatremia Is this a current diagnosis for this admission?: Yes Plan: resolved - Time Time Spent with patient: 15-24 minutes Medications reviewed and adjusted accordingly: Yes Anticipated discharge: SNF Within: when bed available - Inpatient Certification Based on my medical assessment, after consideration of the patient's comorbidities, presenting symptoms, or acuity I expect that the services needed warrant INPATIENT care.: Yes I certify that my determination is in accordance with my understanding of Medicare's requirements for reasonable and necessary INPATIENT services [42 CFR 412.3e].: Yes Medical Necessity: Significant Comorbidiites Make Outpatient Treatment Too Risky
[2017-11-18] MEDS: LORAZEPAM 1 MG TABLET PO PRN (18:42)
[2017-11-18] MEDS: DICYCLOMINE HCL 20 MG TABLET PO PRN (20:19)
[2017-11-18] MEDS: HALOPERIDOL 1 MG TABLET PO PRN (20:19)
[2017-11-19] MEDS: LANSOPRAZOLE 15 MG TAB.RAP.DR PO SCH (05:29)
[2017-11-19] MEDS: GABAPENTIN 300 MG CAPSULE PO SCH ×3 (05:29→21:44)
[2017-11-19] MEDS: VALPROATE SODIUM SYRUP 250 MG/5 ML UDCUP PO SCH ×4 (05:29→23:14)
[2017-11-19] MEDS: MAGNESIUM OXIDE 400 MG TABLET PO SCH ×2 (10:04→18:12)
[2017-11-19] MEDS: HALOPERIDOL 1 MG TABLET PO PRN ×4 (10:04→21:44)
[2017-11-19] MEDS: LEVETIRACETAM ORAL SOLN 500 MG/5 ML UDCUP PO SCH ×2 (10:04→21:44)
[2017-11-19] MEDS: FOLIC ACID 1 MG TABLET PO SCH (10:04)
[2017-11-19] MEDS: THIAMINE HCL 100 MG TABLET PO SCH (10:05)
[2017-11-19] MEDS: MULTIVITAMIN TABLET PO SCH (10:05)
--- NOTE | 2017-11-19 12:35 | PDOC PROGRESS REPORT ---
Subjective Progress Note for:: 11/19/17 Subjective:: Patient has had a prolonged hospital stay and it appears at this time is currently awaiting placement for short-term rehabilitation for which he would benefit greatly. He is concerned but remains confused and his gait is unsteady. He also gets agitated intermittently with need for physical restraints Reason For Visit: HYPONATREMIA NAUSEA,VOMITING Physical Exam Vital Signs: Temp Pulse Resp BP Pulse Ox 97.7 F 74 18 112/80 100 11/19/17 08:00 11/19/17 08:00 11/19/17 08:00 11/19/17 08:00 11/19/17 08:00 Intake & Output 11/18/17 11/19/17 11/20/17 06:59 06:59 06:59 Intake Total 600 240 Output Total 200 200 Balance 400 40 Weight 56.6 kg 56.6 kg General appearance: PRESENT: thin Head exam: PRESENT: atraumatic, normocephalic Respiratory exam: PRESENT: clear to auscultation tre. ABSENT: rales, rhonchi, wheezes Cardiovascular exam: PRESENT: RRR. ABSENT: diastolic murmur, rubs, systolic murmur GI/Abdominal exam: PRESENT: other - Colostomy bag Rectal exam: PRESENT: deferred Neurological exam: PRESENT: other - Confused with unsteady gait Psychiatric exam: PRESENT: appropriate affect - At this moment Results Laboratory Results: 11/17/17 08:45 11/17/17 08:45 Impressions: Chest X-Ray 10/25/17 08:00 IMPRESSION: NO ACUTE RADIOGRAPHIC FINDING IN THE CHEST. Abdomen/Pelvis CT 11/01/17 00:00 IMPRESSION: NO SIGNIFICANT OR ACUTE ABDOMINAL PROCESS. STABLE SURGICAL CHANGES AND CHRONIC FINDINGS ABOVE. KUB X-Ray 11/13/17 00:00 IMPRESSION: NO RADIOGRAPHIC EVIDENCE FOR ACUTE ABDOMINAL DISEASE. Assessment & Plan - Time Time Spent with patient: 15-24 minutes Medications reviewed and adjusted accordingly: Yes Anticipated discharge: Acute Rehab - Inpatient Certification Based on my medical assessment, after consideration of the patient's comorbidities, presenting symptoms, or acuity I expect that the services needed warrant INPATIENT care.: Yes Medical Necessity: Other - Awaiting short-term rehabilitation placement - Plan Summary Plan Summary: Possibly Wernicke's encephalopathy due to long-standing alcohol abuse. Patient will benefit from short-term rehabilitation 2. 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 Electrolyte imbalance including hypomagnesemia and hyponatremia likely nutritional secondary to alcohol abuse 4. Protein calorie malnutrition-encourage nutritional supplements
[2017-11-19] MEDS: TRAZODONE HCL 50 MG TABLET PO SCH (21:44)
[2017-11-20] MEDS: HALOPERIDOL 1 MG TABLET PO PRN ×5 (05:46→22:08)
[2017-11-20] MEDS: LANSOPRAZOLE 15 MG TAB.RAP.DR PO SCH (05:46)
[2017-11-20] MEDS: GABAPENTIN 300 MG CAPSULE PO SCH ×3 (05:46→22:07)
[2017-11-20] MEDS: VALPROATE SODIUM SYRUP 250 MG/5 ML UDCUP PO SCH ×4 (05:47→23:43)
[2017-11-20] MEDS: FOLIC ACID 1 MG TABLET PO SCH (10:03)
[2017-11-20] MEDS: MAGNESIUM OXIDE 400 MG TABLET PO SCH ×2 (10:03→17:43)
[2017-11-20] MEDS: THIAMINE HCL 100 MG TABLET PO SCH (10:03)
[2017-11-20] MEDS: DICYCLOMINE HCL 20 MG TABLET PO PRN ×2 (10:03→15:09)
[2017-11-20] MEDS: MULTIVITAMIN TABLET PO SCH (10:03)
[2017-11-20] MEDS: ACETAMINOPHEN 325 MG TABLET PO PRN (10:04)
[2017-11-20] MEDS: LEVETIRACETAM ORAL SOLN 500 MG/5 ML UDCUP PO SCH ×2 (10:05→22:08)
--- NOTE | 2017-11-20 17:28 | PDOC PROGRESS REPORT ---
Subjective Progress Note for:: 11/20/17 Subjective:: Patient has had a prolonged hospital stay and it appears at this time is currently awaiting placement for short-term rehabilitation for which he would benefit greatly. He is concerned but remains confused and his gait is unsteady. He also gets agitated intermittently with need for physical restraints Reason For Visit: HYPONATREMIA NAUSEA,VOMITING Physical Exam Vital Signs: Temp Pulse Resp BP Pulse Ox 97.8 F 88 16 112/82 98 11/20/17 16:00 11/20/17 16:00 11/20/17 16:00 11/20/17 16:00 11/20/17 16:00 Intake & Output 11/19/17 11/20/17 11/21/17 06:59 06:59 06:59 Intake Total 240 1460 Output Total 200 Balance 40 1460 Weight 56.6 kg 56.3 kg General appearance: PRESENT: no acute distress, disheveled, thin Head exam: PRESENT: atraumatic Eye exam: PRESENT: conjunctiva pink, EOMI, PERRLA. ABSENT: scleral icterus Mouth exam: PRESENT: moist, tongue midline Neck exam: ABSENT: carotid bruit, JVD, lymphadenopathy, thyromegaly Cardiovascular exam: PRESENT: RRR. ABSENT: diastolic murmur, rubs, systolic murmur Pulses: PRESENT: normal dorsalis pedis pul GI/Abdominal exam: PRESENT: normal bowel sounds, soft. ABSENT: distended, guarding, mass, organolmegaly, rebound, tenderness Rectal exam: PRESENT: deferred Extremities exam: PRESENT: full ROM. ABSENT: calf tenderness, clubbing, pedal edema Neurological exam: PRESENT: alert, awake, abnormal gait Results Laboratory Results: 11/17/17 08:45 11/17/17 08:45 Impressions: Chest X-Ray 10/25/17 08:00 IMPRESSION: NO ACUTE RADIOGRAPHIC FINDING IN THE CHEST. Abdomen/Pelvis CT 11/01/17 00:00 IMPRESSION: NO SIGNIFICANT OR ACUTE ABDOMINAL PROCESS. STABLE SURGICAL CHANGES AND CHRONIC FINDINGS ABOVE. KUB X-Ray 11/13/17 00:00 IMPRESSION: NO RADIOGRAPHIC EVIDENCE FOR ACUTE ABDOMINAL DISEASE. Assessment & Plan - Time Time Spent with patient: 15-24 minutes Medications reviewed and adjusted accordingly: Yes Anticipated discharge: Acute Rehab - Plan Summary Plan Summary: Possibly Wernicke's encephalopathy due to long-standing alcohol abuse. Awaiting short-term rehabilitation placement 2. 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 Electrolyte imbalance including hypomagnesemia and hyponatremia likely nutritional secondary to alcohol abuse 4. Protein calorie malnutrition-encourage nutritional supplements
[2017-11-20] MEDS: TRAZODONE HCL 50 MG TABLET PO SCH (22:08)
[2017-11-20] MEDS: HYDROXYZINE PAMOATE 25 MG CAPSULE PO PRN (22:08)
[2017-11-21] MEDS: GABAPENTIN 300 MG CAPSULE PO SCH ×3 (05:12→21:23)
[2017-11-21] MEDS: LANSOPRAZOLE 15 MG TAB.RAP.DR PO SCH (05:12)
[2017-11-21] MEDS: VALPROATE SODIUM SYRUP 250 MG/5 ML UDCUP PO SCH ×4 (05:12→23:11)
[2017-11-21] MEDS: HALOPERIDOL 1 MG TABLET PO PRN ×2 (05:12→21:23)
[2017-11-21] MEDS: THIAMINE HCL 100 MG TABLET PO SCH (09:47)
[2017-11-21] MEDS: LEVETIRACETAM ORAL SOLN 500 MG/5 ML UDCUP PO SCH ×2 (09:47→21:24)
[2017-11-21] MEDS: MULTIVITAMIN TABLET PO SCH (09:47)
[2017-11-21] MEDS: MAGNESIUM OXIDE 400 MG TABLET PO SCH ×2 (09:47→17:19)
[2017-11-21] MEDS: FOLIC ACID 1 MG TABLET PO SCH (09:47)
--- NOTE | 2017-11-21 12:06 | PDOC PROGRESS REPORT ---
Subjective Progress Note for:: 11/21/17 Subjective:: Patient has had a prolonged hospital stay and it appears at this time is currently awaiting placement for short-term rehabilitation for which he would benefit greatly. He is concerned but remains confused and his gait is unsteady. He also gets agitated intermittently with need for physical restraints Reason For Visit: HYPONATREMIA NAUSEA,VOMITING Physical Exam Vital Signs: Temp Pulse Resp BP Pulse Ox 97.3 F 91 18 112/76 100 11/20/17 19:42 11/20/17 19:42 11/20/17 19:42 11/20/17 19:42 11/20/17 19:42 Intake & Output 11/20/17 11/21/17 11/22/17 06:59 06:59 06:59 Intake Total 1460 1890 Output Total 200 Balance 1460 1690 Weight 56.3 kg 55.8 kg General appearance: PRESENT: no acute distress, thin Head exam: PRESENT: atraumatic Ear exam: PRESENT: bleeding Respiratory exam: PRESENT: clear to auscultation tre. ABSENT: rales, rhonchi, wheezes GI/Abdominal exam: PRESENT: normal bowel sounds, soft. ABSENT: distended, guarding, mass, organolmegaly, rebound, tenderness Rectal exam: PRESENT: deferred Neurological exam: PRESENT: alert, awake, oriented to person, oriented to place , oriented to time, oriented to situation, CN II-XII grossly intact. ABSENT: motor sensory deficit Results Laboratory Results: 11/17/17 08:45 11/17/17 08:45 Impressions: Chest X-Ray 10/25/17 08:00 IMPRESSION: NO ACUTE RADIOGRAPHIC FINDING IN THE CHEST. Abdomen/Pelvis CT 11/01/17 00:00 IMPRESSION: NO SIGNIFICANT OR ACUTE ABDOMINAL PROCESS. STABLE SURGICAL CHANGES AND CHRONIC FINDINGS ABOVE. KUB X-Ray 11/13/17 00:00 IMPRESSION: NO RADIOGRAPHIC EVIDENCE FOR ACUTE ABDOMINAL DISEASE. Assessment & Plan - Time Time Spent with patient: 15-24 minutes Medications reviewed and adjusted accordingly: Yes Within: within 72 hours - Inpatient Certification Based on my medical assessment, after consideration of the patient's comorbidities, presenting symptoms, or acuity I expect that the services needed warrant INPATIENT care.: Yes Medical Necessity: Significant Comorbidiites Make Outpatient Treatment Too Risky - Plan Summary Plan Summary: 1. Possibly Wernicke's encephalopathy due to long-standing alcohol abuse. Awaiting short-term rehabilitation placement 2. 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 Electrolyte imbalance including hypomagnesemia and hyponatremia likely nutritional secondary to alcohol abuse 4. Protein calorie malnutrition-encourage nutritional supplements
[2017-11-21] MEDS: HYDROXYZINE PAMOATE 25 MG CAPSULE PO PRN (21:23)
[2017-11-21] MEDS: TRAZODONE HCL 50 MG TABLET PO SCH (21:23)
[2017-11-22] MEDS: GABAPENTIN 300 MG CAPSULE PO SCH ×3 (05:32→22:44)
[2017-11-22] MEDS: LANSOPRAZOLE 15 MG TAB.RAP.DR PO SCH (05:33)
[2017-11-22] MEDS: VALPROATE SODIUM SYRUP 250 MG/5 ML UDCUP PO SCH ×4 (05:33→22:43)
[2017-11-22] MEDS: HALOPERIDOL 1 MG TABLET PO PRN (05:33)
[2017-11-22 07:51] LABS: HEMATOCRIT 27.8 % (37.9-51.0); HEMOGLOBIN 9.4 g/dL (13.5-17.0); MEAN CORPUSCULAR HEMOGLOBIN 28.9 pg (27.0-33.4); MEAN CORPUSCULAR HGB CONC 33.7 g/dL (32.0-36.0); MEAN CORPUSCULAR VOLUME 86 fl (80-97); PLATELET COUNT 226 10^3/uL (150-450); RED BLOOD COUNT 3.24 10^6/uL (4.35-5.55); WHITE BLOOD COUNT 6.4 10^3/uL (4.0-10.5)
[2017-11-22 08:13] LABS: ANION GAP 7 (5-19); BLOOD UREA NITROGEN 14 mg/dL (7-20); CALCIUM 9.4 mg/dL (8.4-10.2); CARBON DIOXIDE 29 mmol/L (22-30); CHLORIDE 105 mmol/L (98-107); GLUCOSE 106 mg/dL (75-110); SODIUM 141.1 mmol/L (137-145)
--- NOTE | 2017-11-22 10:34 | PDOC PROGRESS REPORT ---
Subjective Progress Note for:: 11/22/17 Subjective:: Patient has had a prolonged hospital stay and it appears at this time is currently awaiting placement for short-term rehabilitation for which he would benefit greatly. He remains confused and his gait is unsteady. He also gets agitated intermittently with need for physical restraints He is pretty calm right now Reason For Visit: HYPONATREMIA NAUSEA,VOMITING Physical Exam Vital Signs: Temp Pulse Resp BP Pulse Ox 98.6 F 75 17 124/66 93 11/21/17 23:38 11/21/17 23:38 11/21/17 23:38 11/21/17 23:38 11/21/17 23:38 Intake & Output 11/21/17 11/22/17 11/23/17 06:59 06:59 06:59 Intake Total 1890 1408 Output Total 200 900 Balance 1690 508 Weight 55.8 kg 59.7 kg General appearance: PRESENT: no acute distress, thin Head exam: PRESENT: atraumatic Eye exam: PRESENT: conjunctival injection Neck exam: ABSENT: carotid bruit, JVD, lymphadenopathy, thyromegaly Respiratory exam: PRESENT: clear to auscultation tre. ABSENT: rales, rhonchi, wheezes Cardiovascular exam: PRESENT: RRR. ABSENT: diastolic murmur, rubs, systolic murmur GI/Abdominal exam: PRESENT: normal bowel sounds, soft, other - colostomy. ABSENT: distended, guarding, mass, organolmegaly, rebound, tenderness Rectal exam: PRESENT: deferred Extremities exam: PRESENT: full ROM. ABSENT: calf tenderness, clubbing, pedal edema Neurological exam: PRESENT: alert, awake, oriented to person, oriented to place Results Laboratory Results: 11/22/17 07:39 11/22/17 07:39 11/22/17 11/22/17 07:39 07:39 WBC 6.4 RBC 3.24 L Hgb 9.4 L Hct 27.8 L MCV 86 MCH 28.9 MCHC 33.7 RDW 22.0 H Plt Count 226 Sodium 141.1 Potassium 4.0 Chloride 105 Carbon Dioxide 29 Anion Gap 7 BUN 14 Creatinine 1.06 Est GFR ( Amer) > 60 Est GFR (Non-Af Amer) > 60 Glucose 106 Calcium 9.4 Impressions: Chest X-Ray 10/25/17 08:00 IMPRESSION: NO ACUTE RADIOGRAPHIC FINDING IN THE CHEST. Abdomen/Pelvis CT 11/01/17 00:00 IMPRESSION: NO SIGNIFICANT OR ACUTE ABDOMINAL PROCESS. STABLE SURGICAL CHANGES AND CHRONIC FINDINGS ABOVE. KUB X-Ray 11/13/17 00:00 IMPRESSION: NO RADIOGRAPHIC EVIDENCE FOR ACUTE ABDOMINAL DISEASE. Assessment & Plan - Time Time Spent with patient: Less than 15 minutes Medications reviewed and adjusted accordingly: Yes Anticipated discharge: Acute Rehab - Inpatient Certification Based on my medical assessment, after consideration of the patient's comorbidities, presenting symptoms, or acuity I expect that the services needed warrant INPATIENT care.: Yes Medical Necessity: Risk of Complication if Not Cared For in Hospital - Plan Summary Plan Summary: 1. Possibly Wernicke's encephalopathy due to long-standing alcohol abuse. Still awaiting short-term rehabilitation placement Patient is medically stable for discharge 2. 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 Electrolyte imbalance including hypomagnesemia and hyponatremia likely nutritional secondary to alcohol abuse 4. Protein calorie malnutrition-encourage nutritional supplements
[2017-11-22] MEDS: MAGNESIUM OXIDE 400 MG TABLET PO SCH ×2 (12:16→17:33)
[2017-11-22] MEDS: THIAMINE HCL 100 MG TABLET PO SCH (12:16)
[2017-11-22] MEDS: FOLIC ACID 1 MG TABLET PO SCH (12:16)
[2017-11-22] MEDS: MULTIVITAMIN TABLET PO SCH (12:17)
[2017-11-22] MEDS: LEVETIRACETAM ORAL SOLN 500 MG/5 ML UDCUP PO SCH ×2 (12:17→22:44)
[2017-11-22] MEDS: TRAZODONE HCL 50 MG TABLET PO SCH (22:44)
[2017-11-23] MEDS: LANSOPRAZOLE 15 MG TAB.RAP.DR PO SCH (05:42)
[2017-11-23] MEDS: VALPROATE SODIUM SYRUP 250 MG/5 ML UDCUP PO SCH ×3 (05:42→17:31)
[2017-11-23] MEDS: GABAPENTIN 300 MG CAPSULE PO SCH ×3 (05:42→21:15)
[2017-11-23] MEDS: MULTIVITAMIN TABLET PO SCH (10:13)
[2017-11-23] MEDS: MAGNESIUM OXIDE 400 MG TABLET PO SCH ×2 (10:13→17:31)
[2017-11-23] MEDS: LEVETIRACETAM ORAL SOLN 500 MG/5 ML UDCUP PO SCH ×2 (10:14→21:15)
[2017-11-23] MEDS ORDERED: FOLIC ACID 1 MG TABLET PO ONE (11:30)
[2017-11-23] MEDS ORDERED: THIAMINE HCL 100 MG TABLET PO ONE (11:30)
[2017-11-23] MEDS: DICYCLOMINE HCL 20 MG TABLET PO PRN (18:25)
--- NOTE | 2017-11-23 19:20 | PDOC PROGRESS REPORT ---
Subjective Progress Note for:: 11/23/17 Subjective:: Patient states he feels great today. He really would like to get up and walk some. He is eating and drinking well. He is having some pain in his stoma site. Nonbloody stool in the stoma bag. No chest pain or difficulty breathing. No fever or chills. He does not think he is confused at all. Reason For Visit: HYPONATREMIA NAUSEA,VOMITING Physical Exam Vital Signs: Temp Pulse Resp BP Pulse Ox 98.1 F 61 18 113/66 98 11/23/17 16:00 11/23/17 16:00 11/23/17 16:00 11/23/17 16:00 11/23/17 16:00 Intake & Output 11/22/17 11/23/17 11/24/17 06:59 06:59 06:59 Intake Total 1408 1200 Output Total 900 800 Balance 508 400 Weight 59.7 kg 59.7 kg General appearance: PRESENT: no acute distress, cooperative, disheveled Head exam: PRESENT: atraumatic, normocephalic Eye exam: PRESENT: conjunctival injection. ABSENT: scleral icterus Ear exam: PRESENT: normal external ear exam. ABSENT: bleeding Neck exam: ABSENT: lymphadenopathy Respiratory exam: PRESENT: clear to auscultation tre. ABSENT: rales, rhonchi, wheezes Cardiovascular exam: PRESENT: RRR. ABSENT: systolic murmur GI/Abdominal exam: PRESENT: guarding, normal bowel sounds, soft. ABSENT: distended, tenderness Rectal exam: PRESENT: other - Brown soft stool and stoma bag Extremities exam: ABSENT: tenderness Neurological exam: PRESENT: alert, awake, oriented to person, oriented to place , other - Memory loss evident Psychiatric exam: PRESENT: appropriate affect. ABSENT: anxious Results Laboratory Results: 11/22/17 07:39 11/22/17 07:39 Impressions: Chest X-Ray 10/25/17 08:00 IMPRESSION: NO ACUTE RADIOGRAPHIC FINDING IN THE CHEST. Abdomen/Pelvis CT 11/01/17 00:00 IMPRESSION: NO SIGNIFICANT OR ACUTE ABDOMINAL PROCESS. STABLE SURGICAL CHANGES AND CHRONIC FINDINGS ABOVE. KUB X-Ray 11/13/17 00:00 IMPRESSION: NO RADIOGRAPHIC EVIDENCE FOR ACUTE ABDOMINAL DISEASE. Assessment & Plan - Diagnosis (1) Stoma malfunction Is this a current diagnosis for this admission?: Yes Plan: Patient stoma is enlarged and painful to touch. He is still making stool. I have asked the surgeon to consult. (2) Alcoholic dementia Qualifiers: Dementia behavioral disturbance: without behavioral disturbance Qualified Code(s): F10.27 - Alcohol dependence with alcohol-induced persisting dementia Is this a current diagnosis for this admission?: Yes Plan: She has some memory impairment. We are waiting short-term rehab and then ultimately [facility] Will discuss his plan with telephonic nurse case manager on Saturday. (3) Hypomagnesemia Is this a current diagnosis for this admission?: Yes Plan: Likely nutritional secondary to alcohol abuse. Will monitor and correct as indicated (4) Hyponatremia Is this a current diagnosis for this admission?: Yes Plan: Likely secondary to alcohol abuse. Will monitor and correct as indicated. (5) Alcohol use disorder Is this a current diagnosis for this admission?: Yes Plan: Patient is on folate and thiamine. Electrolytes are being monitored. He has protein calorie malnutrition and we are offering nutritional supplements. - Time Time Spent with patient: 15-24 minutes Medications reviewed and adjusted accordingly: Yes - Inpatient Certification Based on my medical assessment, after consideration of the patient's comorbidities, presenting symptoms, or acuity I expect that the services needed warrant INPATIENT care.: Yes I certify that my determination is in accordance with my understanding of Medicare's requirements for reasonable and necessary INPATIENT services [42 CFR 412.3e].: Yes Medical Necessity: Need Close Monitoring Due to Risk of Patient Decompensation, Risk of Complication if Not Cared For in Hospital
[2017-11-23] MEDS: ACETAMINOPHEN 325 MG TABLET PO PRN (20:21)
[2017-11-23] MEDS: HYDROXYZINE PAMOATE 25 MG CAPSULE PO PRN (20:21)
[2017-11-23] MEDS: TRAZODONE HCL 50 MG TABLET PO SCH (21:15)
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
[2017-11-23] MEDS ORDERED: OXYCODONE-ACETAMINOPHEN 5-325 MG TABLET ONE (22:17)
[2017-11-24] MEDS: DICYCLOMINE HCL 20 MG TABLET PO PRN ×3 (00:37→18:41)
[2017-11-24] MEDS: HALOPERIDOL 1 MG TABLET PO PRN (00:37)
[2017-11-24] MEDS: VALPROATE SODIUM SYRUP 250 MG/5 ML UDCUP PO SCH ×4 (00:38→18:42)
[2017-11-24] MEDS: LANSOPRAZOLE 15 MG TAB.RAP.DR PO SCH (06:52)
[2017-11-24] MEDS: GABAPENTIN 300 MG CAPSULE PO SCH ×3 (06:52→21:09)
[2017-11-24] MEDS: LEVETIRACETAM ORAL SOLN 500 MG/5 ML UDCUP PO SCH ×2 (09:11→21:09)
[2017-11-24] MEDS: MAGNESIUM OXIDE 400 MG TABLET PO SCH ×2 (09:11→18:42)
[2017-11-24] MEDS: MULTIVITAMIN TABLET PO SCH (09:11)
[2017-11-24] MEDS: THIAMINE HCL 100 MG TABLET PO SCH (09:11)
[2017-11-24] MEDS: FOLIC ACID 1 MG TABLET PO SCH (09:11)
[2017-11-24] MEDS: OXYCODONE-ACETAMINOPHEN 5-325 MG TABLET PO PRN ×2 (14:32→20:44)
--- NOTE | 2017-11-24 14:50 | PDOC PROGRESS REPORT ---
Subjective Progress Note for:: 11/24/17 Subjective:: No new complaints today. Ostomy is feeling better. He spoke with the surgeon today. No chest pain or difficulty breathing. He is sleepy today. Eating and drinking without difficulty. Reason For Visit: HYPONATREMIA NAUSEA,VOMITING Physical Exam Vital Signs: Temp Pulse Resp BP Pulse Ox 97.8 F 74 18 122/56 L 97 11/24/17 12:00 11/24/17 12:00 11/24/17 12:00 11/24/17 12:00 11/24/17 12:00 Intake & Output 11/23/17 11/24/17 11/25/17 06:59 06:59 06:59 Intake Total 1200 2500 Output Total 800 875 Balance 400 1625 Weight 59.7 kg 60.4 kg General appearance: PRESENT: no acute distress, cooperative, thin Head exam: PRESENT: atraumatic, normocephalic Eye exam: PRESENT: conjunctiva pink. ABSENT: scleral icterus Mouth exam: PRESENT: moist, neck supple Respiratory exam: PRESENT: clear to auscultation tre, unlabored. ABSENT: rales , rhonchi, wheezes Cardiovascular exam: PRESENT: RRR. ABSENT: systolic murmur Pulses: PRESENT: normal radial pulses GI/Abdominal exam: PRESENT: normal bowel sounds, soft, other - Stool filling ostomy bag so I cannot see the ostomy opening.. ABSENT: distended, tenderness Extremities exam: ABSENT: pedal edema Musculoskeletal exam: PRESENT: normal inspection Neurological exam: PRESENT: alert, awake, oriented to person, oriented to place Psychiatric exam: PRESENT: appropriate affect. ABSENT: anxious Skin exam: PRESENT: dry, warm Results Laboratory Results: 11/22/17 07:39 11/22/17 07:39 Impressions: Chest X-Ray 10/25/17 08:00 IMPRESSION: NO ACUTE RADIOGRAPHIC FINDING IN THE CHEST. Abdomen/Pelvis CT 11/01/17 00:00 IMPRESSION: NO SIGNIFICANT OR ACUTE ABDOMINAL PROCESS. STABLE SURGICAL CHANGES AND CHRONIC FINDINGS ABOVE. KUB X-Ray 11/13/17 00:00 IMPRESSION: NO RADIOGRAPHIC EVIDENCE FOR ACUTE ABDOMINAL DISEASE. Assessment & Plan - Diagnosis (1) Stoma malfunction Is this a current diagnosis for this admission?: Yes Plan: Stoma is not really malfunctioning there was just some protrusion. The surgeon has seen the site and does not recommend any changes. We will continue to monitor. Function seems good with stool output in bag. (2) Alcoholic dementia Qualifiers: Dementia behavioral disturbance: without behavioral disturbance Qualified Code(s): F10.27 - Alcohol dependence with alcohol-induced persisting dementia Is this a current diagnosis for this admission?: Yes Plan: Patient is stable and at baseline from this perspective. We are awaiting placement. (3) Hypomagnesemia Is this a current diagnosis for this admission?: Yes Plan: Resolved. Monitor and treat as indicated. (4) Hyponatremia Is this a current diagnosis for this admission?: Yes Plan: Sodium normal. Will continue to monitor periodically and treat as indicated. (5) Alcohol use disorder Is this a current diagnosis for this admission?: Yes Plan: Hopefully patient will remain abstinent. Placement is pending for safety reasons. - Time Time Spent with patient: 15-24 minutes Medications reviewed and adjusted accordingly: Yes - Inpatient Certification Based on my medical assessment, after consideration of the patient's comorbidities, presenting symptoms, or acuity I expect that the services needed warrant INPATIENT care.: Yes I certify that my determination is in accordance with my understanding of Medicare's requirements for reasonable and necessary INPATIENT services [42 CFR 412.3e].: Yes Medical Necessity: Need Close Monitoring Due to Risk of Patient Decompensation, Risk of Complication if Not Cared For in Hospital
[2017-11-24] MEDS: TRAZODONE HCL 50 MG TABLET PO SCH (21:08)
[2017-11-25] MEDS: DICYCLOMINE HCL 20 MG TABLET PO PRN ×2 (00:51→17:31)
[2017-11-25] MEDS: HYDROXYZINE PAMOATE 25 MG CAPSULE PO PRN (00:52)
[2017-11-25] MEDS: VALPROATE SODIUM SYRUP 250 MG/5 ML UDCUP PO SCH ×5 (00:52→22:35)
[2017-11-25] MEDS: LANSOPRAZOLE 15 MG TAB.RAP.DR PO SCH (07:11)
[2017-11-25] MEDS: GABAPENTIN 300 MG CAPSULE PO SCH ×3 (07:11→22:35)
[2017-11-25] MEDS: OXYCODONE-ACETAMINOPHEN 5-325 MG TABLET PO PRN (09:55)
[2017-11-25] MEDS: FOLIC ACID 1 MG TABLET PO SCH (09:55)
[2017-11-25] MEDS: THIAMINE HCL 100 MG TABLET PO SCH (09:56)
[2017-11-25] MEDS: MULTIVITAMIN TABLET PO SCH (09:56)
[2017-11-25] MEDS: MAGNESIUM OXIDE 400 MG TABLET PO SCH ×2 (09:56→17:27)
[2017-11-25] MEDS: LEVETIRACETAM ORAL SOLN 500 MG/5 ML UDCUP PO SCH ×2 (09:58→22:35)
[2017-11-25 09:59] LABS: HEMATOCRIT 29.5 % (37.9-51.0); HEMOGLOBIN 9.8 g/dL (13.5-17.0); MEAN CORPUSCULAR HEMOGLOBIN 28.8 pg (27.0-33.4); MEAN CORPUSCULAR HGB CONC 33.3 g/dL (32.0-36.0); MEAN CORPUSCULAR VOLUME 87 fl (80-97); PLATELET COUNT 223 10^3/uL (150-450); RED BLOOD COUNT 3.41 10^6/uL (4.35-5.55); RED CELL DISTRIBUTION WIDTH 22.1 % (11.5-14.0); WHITE BLOOD COUNT 5.7 10^3/uL (4.0-10.5)
[2017-11-25 10:18] LABS: ANION GAP 9 (5-19); BLOOD UREA NITROGEN 10 mg/dL (7-20); CALCIUM 9.9 mg/dL (8.4-10.2); CARBON DIOXIDE 30 mmol/L (22-30); CHLORIDE 104 mmol/L (98-107); GLUCOSE 128 mg/dL (75-110); SODIUM 142.9 mmol/L (137-145)
[2017-11-25] MEDS ORDERED: LORAZEPAM INJ 2 MG/1 ML VIAL IV PRN (11:35)
[2017-11-25] MEDS: LORAZEPAM INJ 2 MG/1 ML VIAL IM PRN ×2 (12:12→18:02)
--- NOTE | 2017-11-25 12:59 | RADIOLOGY REPORT (SQ) ---
EXAM DESCRIPTION: CT ABD/PELVIS NO ORAL OR IV COMPLETED DATE/TIME: 11/25/2017 12:36 pm REASON FOR STUDY: abd pain COMPARISON: Most recent prior study 11/01/2017 TECHNIQUE: CT scan of the abdomen and pelvis performed without intravenous or oral contrast. Images reviewed with lung, soft tissue, and bone windows. Reconstructed coronal and sagittal MPR images revi ewed. All images stored on PACS. All CT scanners at this facility use dose modulation, iterative reconstruction, and/or weight based d osing when appropriate to reduce radiation dose to as low as reasonably achievable (ALARA). [facility]: Dose Right [facility]: CareDose [facility]: Dose Right [facility]: Teradose 4D [facility]: [employer] RADIATION DOSE: CT Rad equipment meets quality standard of care and radiation dose reduction techniq ues were employed. CTDIvol: 2.3 mGy. DLP: 118 mGy-cm.mGy. LIMITATIONS: None. FINDINGS: LOWER CHEST: Stable appearance. Old rib fractures on the left. NON-CONTRASTED LIVER, SPLEEN, ADRENALS: Stable appearance. Absence or atrophic spleen. PANCREAS: No masses. No peripancreatic inflammatory changes. GALLBLADDER: No identified stones by CT criteria. No inflammatory changes to suggest cholecystitis. RIGHT KIDNEY AND URETER: No suspicious masses. Assessment limited by lack of IV contrast. No signif icant calcifications. No hydronephrosis or hydroureter. LEFT KIDNEY AND URETER: No suspicious masses. Assessment limited by lack of IV contrast. No signifi cant calcifications. No hydronephrosis or hydroureter. AORTA AND RETROPERITONEUM: No aneurysm. No retroperitoneal masses or adenopathy. BOWEL AND PERITONEAL CAVITY: Colostomy on the left. No large or small bowel dilatation. Slight ronald alla distention is noted. APPENDIX: Surgically absent PELVIS, BLADDER, AND ABDOMINAL WALL:Stable. No dilatation the urinary bladder. No hydroureter. BONES: Old rib fracture on the left. Pole fracture repair right femur. OTHER: No other significant finding. IMPRESSION: Stable appearance. Old rib fractures on the left. Colostomy on the left. Slight gastric distention. COMMENT: Quality ID # [id number]: Final reports with documentation of one or more dose reduction techniques (e.g., Automated exposure control, adjustment of the mA and/or kV according to patient size, use of iterative reconstruction technique) TECHNICAL DOCUMENTATION: JOB ID: [id number]- All Rights Reserved Reading location - IP/workstation name: [email or web address]
--- NOTE | 2017-11-25 18:55 | PDOC PROGRESS REPORT ---
Subjective Progress Note for:: 11/25/17 Subjective:: Patient is reporting that he has intermittent abdominal and. No nausea or vomiting. He is making stool and there is no blood in his ostomy bag. Otherwise he reports being very anxious about being in the hospital. His head is not clear. He stated he feels like killing someone today. He is breathing ok , no CP. Eating fine. Reason For Visit: HYPONATREMIA NAUSEA,VOMITING Physical Exam Vital Signs: Temp Pulse Resp BP Pulse Ox 98.5 F 103 H 14 122/66 94 11/25/17 17:40 11/25/17 17:40 11/25/17 17:40 11/25/17 17:40 11/25/17 17:40 Intake & Output 11/24/17 11/25/17 11/26/17 06:59 06:59 06:59 Intake Total 2500 2400 946 Output Total 875 1075 Balance 1625 1325 946 Weight 60.4 kg 61.5 kg General appearance: PRESENT: mild distress, thin Head exam: PRESENT: atraumatic, normocephalic Eye exam: PRESENT: conjunctiva pink. ABSENT: scleral icterus Ear exam: PRESENT: normal external ear exam Mouth exam: PRESENT: moist Teeth exam: PRESENT: poor dentation Respiratory exam: PRESENT: clear to auscultation tre, unlabored. ABSENT: rales , rhonchi, wheezes Cardiovascular exam: PRESENT: RRR. ABSENT: systolic murmur Pulses: PRESENT: normal radial pulses GI/Abdominal exam: PRESENT: normal bowel sounds, soft, tenderness. ABSENT: distended, rebound Rectal exam: ABSENT: black stool, bloody stool Extremities exam: ABSENT: pedal edema Musculoskeletal exam: PRESENT: normal inspection Neurological exam: PRESENT: alert, awake, oriented to person, oriented to place. ABSENT: oriented to situation Psychiatric exam: PRESENT: agitated, homicidal ideation Skin exam: PRESENT: dry, intact, warm Results Laboratory Results: 11/25/17 09:40 11/25/17 09:40 11/25/17 11/25/17 09:40 09:40 WBC 5.7 RBC 3.41 L Hgb 9.8 L Hct 29.5 L MCV 87 MCH 28.8 MCHC 33.3 RDW 22.1 H Plt Count 223 Sodium 142.9 Potassium 4.0 Chloride 104 Carbon Dioxide 30 Anion Gap 9 BUN 10 Creatinine 1.01 Est GFR ( Amer) > 60 Est GFR (Non-Af Amer) > 60 Glucose 128 H Calcium 9.9 Impressions: Chest X-Ray 10/25/17 08:00 IMPRESSION: NO ACUTE RADIOGRAPHIC FINDING IN THE CHEST. KUB X-Ray 11/13/17 00:00 IMPRESSION: NO RADIOGRAPHIC EVIDENCE FOR ACUTE ABDOMINAL DISEASE. Abdomen/Pelvis CT 11/25/17 00:00 IMPRESSION: Stable appearance. Old rib fractures on the left. Colostomy on the left. Slight gastric distention. Assessment & Plan - Diagnosis (1) Alcoholic dementia Qualifiers: Dementia behavioral disturbance: without behavioral disturbance Qualified Code(s): F10.27 - Alcohol dependence with alcohol-induced persisting dementia Is this a current diagnosis for this admission?: Yes Plan: Initially plan was for patient to go home with his daughter but since she was unable to care for him he did meet criteria for rehab and so was going to inpatient rehab. At this point, after speaking with our management planner, it may be possible that the daughter is ready to take him straight home and that we do not need to wait for rehab bed. We are trying to get touch with the daughter to see if she is ready to take her father home. He is starting to become very agitated about the fact that he is still in the hospital.. (2) Hyponatremia Is this a current diagnosis for this admission?: Yes (3) Alcohol use disorder Is this a current diagnosis for this admission?: Yes Plan: Patient has been using alcohol for many years. He was drinking up until the time when he was admitted to the hospital. He is through an alcohol withdrawal. Though he is very agitated. Today I added Ativan to his regimen to help with agitation and it has been helpful. (4) Abdominal pain Qualifiers: Abdominal location: unspecified location Qualified Code(s): R10.9 - Unspecified abdominal pain Is this a current diagnosis for this admission?: Yes Plan: Unclear etiology. No sign of acute abdomen. CT scan of the abdomen pelvis without contrast was unconcerning. Continue to monitor and treat patient with pain medication if indicated. (5) Agitation Is this a current diagnosis for this admission?: Yes Plan: Today we added Ativan to the patient's regimen and he has received 2 doses. It does help him calm down. He also has as needed Haldol ordered. I think that he is very agitated from having been in the hospital for so long. We are trying to get in touch with his daughter to see if we can get him discharged to her home. If not we will continue to work on acute rehab. Unfortunately today secondary to borderline violent behavior and insisting on leaving the hospital we had to place an IVC. (6) Homicidal ideation Is this a current diagnosis for this admission?: Yes Plan: Patient told me that his head was not feeling right and the thought he might kill somebody. For this reason and also for agitation the IVC was placed. We are using medical sedation as possible to keep him calm and safe. He has a sitter. We are removing dangerous objects from the room. I have spoken with his nurse about taking all of the appropriate homicidal ideation precautions. - Time Time Spent with patient: 35 or more minutes Medications reviewed and adjusted accordingly: Yes Anticipated discharge: Home - Inpatient Certification Based on my medical assessment, after consideration of the patient's comorbidities, presenting symptoms, or acuity I expect that the services needed warrant INPATIENT care.: Yes I certify that my determination is in accordance with my understanding of Medicare's requirements for reasonable and necessary INPATIENT services [42 CFR 412.3e].: Yes Medical Necessity: Significant Comorbidiites Make Outpatient Treatment Too Risky , Risk of Complication if Not Cared For in Hospital Post Hospital Care: D/C Contact Center Analyst Documentation
[2017-11-25] MEDS: TRAZODONE HCL 50 MG TABLET PO SCH (22:35)
[2017-11-25] MEDS: LORAZEPAM 1 MG TABLET PO PRN (22:35)
[2017-11-26] MEDS: VALPROATE SODIUM SYRUP 250 MG/5 ML UDCUP PO SCH ×4 (04:47→23:46)
[2017-11-26] MEDS: LORAZEPAM 1 MG TABLET PO PRN ×2 (04:47→13:26)
[2017-11-26] MEDS: GABAPENTIN 300 MG CAPSULE PO SCH ×3 (05:06→23:42)
[2017-11-26] MEDS: LANSOPRAZOLE 15 MG TAB.RAP.DR PO SCH (05:06)
[2017-11-26] MEDS: OXYCODONE HCL IR 5 MG TABLET PO PRN (06:47)
[2017-11-26] MEDS: MULTIVITAMIN TABLET PO SCH (10:24)
[2017-11-26] MEDS: THIAMINE HCL 100 MG TABLET PO SCH (10:25)
[2017-11-26] MEDS: FOLIC ACID 1 MG TABLET PO SCH (10:25)
[2017-11-26] MEDS: MAGNESIUM OXIDE 400 MG TABLET PO SCH ×2 (10:25→17:08)
[2017-11-26] MEDS: LEVETIRACETAM ORAL SOLN 500 MG/5 ML UDCUP PO SCH ×2 (10:25→23:42)
--- NOTE | 2017-11-26 17:51 | PDOC PROGRESS REPORT ---
Subjective Subjective:: The patient is an unfortunate 57-year-old -[place] male with a long- standing history of alcohol abuse and dependence. He was admitted to the hospital with alcohol withdrawal and encephalopathy. He was found to have severe hyponatremia thought to be secondary to Beer Potamania. At this point he is now stable but remains significantly altered. 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 It is quite clear that the patient cannot take care of himself and return to his previous living situation. He was evaluated by psychiatry and they did not feel that he could make good decisions for himself. He currently is waiting on placement as the patient's daughter cannot take him to [place] . Today he is resting pleasantly in the bed. He has no complaints. He had an uneventful night last night. Later on in the day I was notified by the nurse that he had become somewhat agitated. He is going to receive 5 mg of p.o. Haldol on a one-time basis. A review of systems could not be obtained from the patient Reason For Visit: HYPONATREMIA NAUSEA,VOMITING Physical Exam Vital Signs: Temp Pulse Resp BP Pulse Ox 98.2 F 86 16 111/89 H 100 11/26/17 16:00 11/26/17 16:00 11/26/17 16:00 11/26/17 16:00 11/26/17 16:00 Intake & Output 11/25/17 11/26/17 11/27/17 06:59 06:59 06:59 Intake Total 2400 1264 Output Total 1075 350 Balance 1325 914 Weight 61.5 kg 62.9 kg Results Laboratory Results: 11/25/17 09:40 11/25/17 09:40 Impressions: Chest X-Ray 10/25/17 08:00 IMPRESSION: NO ACUTE RADIOGRAPHIC FINDING IN THE CHEST. KUB X-Ray 11/13/17 00:00 IMPRESSION: NO RADIOGRAPHIC EVIDENCE FOR ACUTE ABDOMINAL DISEASE. Abdomen/Pelvis CT 11/25/17 00:00 IMPRESSION: Stable appearance. Old rib fractures on the left. Colostomy on the left. Slight gastric distention. Assessment & Plan - Diagnosis (1) Hyponatremia Is this a current diagnosis for this admission?: Yes Plan: Secondary to beer potomania. He was initially on 3% saline which has long since been stopped. His sodium level has normalized. (2) Alcohol withdrawal Qualifiers: Complication of substance-induced condition: uncomplicated Qualified Code(s ): F10.230 - Alcohol dependence with withdrawal, uncomplicated Is this a current diagnosis for this admission?: Yes Plan: Resolved at this point. (3) Alcohol dependence Qualifiers: Complication of substance-induced condition: with unspecified complication Is this a current diagnosis for this admission?: Yes Plan: Certainly he will not be able to live independently anymore. No further alcohol. Continue thiamine and folic acid as well as a multivitamin. (4) Wernickes encephalopathy Is this a current diagnosis for this admission?: Yes Plan: He has been evaluated by psych and they do not believe he can make good decisions for himself. Currently waiting on placement (5) Alcoholic dementia Qualifiers: Dementia behavioral disturbance: without behavioral disturbance Qualified Code(s): F10.27 - Alcohol dependence with alcohol-induced persisting dementia Is this a current diagnosis for this admission?: Yes Plan: He is a little agitated this afternoon. Continue current regimen. I am giving him a one-time dose of p.o. Haldol today. (6) Anemia Qualifiers: Anemia type: iron deficiency Is this a current diagnosis for this admission?: Yes Plan: Stable (7) Hypomagnesemia Is this a current diagnosis for this admission?: Yes Plan: Continue to replete as needed (8) Seizure disorder Is this a current diagnosis for this admission?: Yes Plan: Continue current regimen (9) Vomiting Is this a current diagnosis for this admission?: Yes Plan: Resolved - Time Time Spent with patient: 15-24 minutes - Inpatient Certification Medical Necessity: Other - Inpatient hospitalization remains necessary for disposition. Currently the patient is waiting on placement in the discharge planners are working on it. He will be transitioned to a facility whenever a bed is found.
[2017-11-26] MEDS ORDERED: HALOPERIDOL 5 MG TABLET PO ONE (18:00)
[2017-11-26] MEDS: LORAZEPAM INJ 2 MG/1 ML VIAL IM PRN (18:42)
[2017-11-26] MEDS: TRAZODONE HCL 50 MG TABLET PO SCH (23:42)
[2017-11-27] MEDS ORDERED: GABAPENTIN 300 MG CAPSULE ONE (06:14)
[2017-11-27] MEDS: LANSOPRAZOLE 15 MG TAB.RAP.DR PO SCH (06:40)
[2017-11-27] MEDS: GABAPENTIN 300 MG CAPSULE PO SCH ×3 (06:40→21:43)
[2017-11-27] MEDS: VALPROATE SODIUM SYRUP 250 MG/5 ML UDCUP PO SCH ×3 (06:40→17:29)
[2017-11-27 09:00] LABS: HEMATOCRIT 31.3 % (37.9-51.0); HEMOGLOBIN 10.3 g/dL (13.5-17.0); MEAN CORPUSCULAR HEMOGLOBIN 28.4 pg (27.0-33.4); MEAN CORPUSCULAR VOLUME 86 fl (80-97); PLATELET COUNT 192 10^3/uL (150-450); RED BLOOD COUNT 3.64 10^6/uL (4.35-5.55); RED CELL DISTRIBUTION WIDTH 21.7 % (11.5-14.0); WHITE BLOOD COUNT 5.9 10^3/uL (4.0-10.5)
[2017-11-27] MEDS: THIAMINE HCL 100 MG TABLET PO SCH (10:08)
[2017-11-27] MEDS: LEVETIRACETAM ORAL SOLN 500 MG/5 ML UDCUP PO SCH ×2 (10:08→21:42)
[2017-11-27] MEDS: FOLIC ACID 1 MG TABLET PO SCH (10:08)
[2017-11-27] MEDS: MULTIVITAMIN TABLET PO SCH (10:08)
[2017-11-27] MEDS: MAGNESIUM OXIDE 400 MG TABLET PO SCH ×2 (10:08→17:29)
--- NOTE | 2017-11-27 18:50 | PDOC PROGRESS REPORT ---
Subjective Progress Note for:: 11/27/17 Subjective:: The patient is an unfortunate 57-year-old -[place] male with a long- standing history of alcohol abuse and dependence. He was admitted to the hospital with alcohol withdrawal and encephalopathy. He was found to have severe hyponatremia thought to be secondary to [place]. At this point he is now stable but remains significantly altered. 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 It is quite clear that the patient cannot take care of himself and return to his previous living situation. He was evaluated by psychiatry and they did not feel that he could make good decisions for himself. He currently is waiting on placement as the patient's daughter cannot take him to [place] . Today he is resting comfortably in the bed. He is sleeping but arousable. He has no complaints that he is able to vocalize. Reason For Visit: HYPONATREMIA NAUSEA,VOMITING Physical Exam Vital Signs: Temp Pulse Resp BP Pulse Ox 97.6 F 78 16 140/68 H 97 11/27/17 16:00 11/27/17 16:00 11/27/17 16:00 11/27/17 16:00 11/27/17 16:00 Intake & Output 11/26/17 11/27/17 11/28/17 06:59 06:59 06:59 Intake Total 1264 744 120 Output Total 350 111 Balance 914 633 120 Weight 62.9 kg 62.9 kg General appearance: PRESENT: no acute distress, well-developed, well-nourished Head exam: PRESENT: atraumatic, normocephalic Mouth exam: PRESENT: moist, tongue midline Neck exam: ABSENT: carotid bruit, JVD, lymphadenopathy, thyromegaly Respiratory exam: PRESENT: clear to auscultation tre. ABSENT: rales, rhonchi, wheezes Cardiovascular exam: PRESENT: RRR. ABSENT: diastolic murmur, rubs, systolic murmur GI/Abdominal exam: PRESENT: normal bowel sounds, soft. ABSENT: distended, guarding, mass, organolmegaly, rebound, tenderness Rectal exam: PRESENT: deferred Extremities exam: PRESENT: full ROM. ABSENT: calf tenderness, clubbing, pedal edema Neurological exam: PRESENT: oriented to person. ABSENT: oriented to place, oriented to time, oriented to situation Psychiatric exam: PRESENT: other - He is somewhat somnolent today. Skin exam: PRESENT: dry, intact, warm. ABSENT: cyanosis, rash Results Laboratory Results: 11/27/17 08:50 11/25/17 09:40 11/27/17 08:50 WBC 5.9 RBC 3.64 L Hgb 10.3 L Hct 31.3 L MCV 86 MCH 28.4 MCHC 33.0 RDW 21.7 H Plt Count 192 Impressions: Chest X-Ray 10/25/17 08:00 IMPRESSION: NO ACUTE RADIOGRAPHIC FINDING IN THE CHEST. KUB X-Ray 11/13/17 00:00 IMPRESSION: NO RADIOGRAPHIC EVIDENCE FOR ACUTE ABDOMINAL DISEASE. Abdomen/Pelvis CT 11/25/17 00:00 IMPRESSION: Stable appearance. Old rib fractures on the left. Colostomy on the left. Slight gastric distention. Assessment & Plan - Diagnosis (1) Hyponatremia Is this a current diagnosis for this admission?: Yes (2) Alcohol withdrawal Qualifiers: Complication of substance-induced condition: uncomplicated Qualified Code(s ): F10.230 - Alcohol dependence with withdrawal, uncomplicated Is this a current diagnosis for this admission?: Yes (3) Alcohol dependence Qualifiers: Complication of substance-induced condition: with unspecified complication Is this a current diagnosis for this admission?: Yes (4) Wernickes encephalopathy Is this a current diagnosis for this admission?: Yes (5) Alcoholic dementia Qualifiers: Dementia behavioral disturbance: without behavioral disturbance Qualified Code(s): F10.27 - Alcohol dependence with alcohol-induced persisting dementia Is this a current diagnosis for this admission?: Yes (6) Anemia Qualifiers: Anemia type: iron deficiency Is this a current diagnosis for this admission?: Yes (7) Hypomagnesemia Is this a current diagnosis for this admission?: Yes (8) Seizure disorder Is this a current diagnosis for this admission?: Yes (9) Vomiting Is this a current diagnosis for this admission?: Yes (10) Homicidal ideation Is this a current diagnosis for this admission?: Yes Plan: The patient is under involuntary commitment. He does have Wernicke's encephalopathy and alcoholic dementia. I do not believe that he is a danger and likely we just need to adjust his medications. I am going to get psychiatry to come back out and see the patient. Hopefully we can get him off of involuntary commitment. We need to get him placed which would be the best thing for the patient. - Time Time Spent with patient: 25-34 minutes - Inpatient Certification Medical Necessity: Other - Inpatient hospitalization remains necessary for disposition. The patient is going to a skilled facility in [place] and it is my understanding that he does have a bed offer. Unfortunately he is under involuntary commitment papers as he was threatening when he was agitated. His behavior is under much better control. I am going to have psychiatry come out and see him. Perhaps they can adjust his medications and get him released from involuntary commitment.
[2017-11-27] MEDS: TRAZODONE HCL 50 MG TABLET PO SCH (21:42)
[2017-11-27] MEDS: LORAZEPAM 1 MG TABLET PO PRN (21:42)
[2017-11-28] MEDS: VALPROATE SODIUM SYRUP 250 MG/5 ML UDCUP PO SCH ×4 (00:07→18:00)
[2017-11-28] MEDS: LORAZEPAM INJ 2 MG/1 ML VIAL IM PRN (00:07)
[2017-11-28] MEDS ORDERED: HALOPERIDOL LACTATE INJ 5 MG/1 ML VIAL ONE (03:08)
[2017-11-28] MEDS ORDERED: HALOPERIDOL LACTATE INJ 5 MG/1 ML VIAL IM ONE (03:15)
[2017-11-28] MEDS: GABAPENTIN 300 MG CAPSULE PO SCH ×3 (05:40→22:42)
[2017-11-28] MEDS: LANSOPRAZOLE 15 MG TAB.RAP.DR PO SCH (05:40)
[2017-11-28 07:12] LABS: ALANINE AMINOTRANSFERASE 36 U/L (21-72); ALBUMIN 3.3 g/dL (3.5-5.0); ALKALINE PHOSPHATASE 88 U/L (38-126); ANION GAP 10 (5-19); ASPARTATE AMINO TRANSFERASE 63 U/L (17-59); BILIRUBIN,DIRECT 0.2 mg/dL (0.0-0.4); BILIRUBIN,TOTAL 0.2 mg/dL (0.2-1.3); BLOOD UREA NITROGEN 11 mg/dL (7-20); CALCIUM 9.4 mg/dL (8.4-10.2); CARBON DIOXIDE 28 mmol/L (22-30); CHLORIDE 103 mmol/L (98-107); GLUCOSE 116 mg/dL (75-110); POTASSIUM 4.6 mmol/L (3.6-5.0); SODIUM 141.4 mmol/L (137-145); TOTAL PROTEIN 6.2 g/dL (6.3-8.2)
[2017-11-28] MEDS: FOLIC ACID 1 MG TABLET PO SCH (09:20)
[2017-11-28] MEDS: MULTIVITAMIN TABLET PO SCH (09:20)
[2017-11-28] MEDS: LEVETIRACETAM ORAL SOLN 500 MG/5 ML UDCUP PO SCH ×2 (09:20→22:42)
[2017-11-28] MEDS: THIAMINE HCL 100 MG TABLET PO SCH (09:20)
[2017-11-28] MEDS: MAGNESIUM OXIDE 400 MG TABLET PO SCH ×2 (09:20→18:00)
[2017-11-28] MEDS: OXYCODONE HCL IR 5 MG TABLET PO PRN (15:08)
--- NOTE | 2017-11-28 20:04 | PDOC PROGRESS REPORT ---
Subjective Progress Note for:: 11/28/17 Subjective:: I seen patient resting in bed. He is awake alert and he complains of pain at colostomy site. The colostomy site was seen and evaluated by Dr. Pagan who recommended no intervention. Reason For Visit: HYPONATREMIA NAUSEA,VOMITING Physical Exam Vital Signs: Temp Pulse Resp BP Pulse Ox 97.6 F 82 18 113/53 L 100 11/28/17 16:00 11/28/17 16:00 11/28/17 16:00 11/28/17 16:00 11/28/17 16:00 Intake & Output 11/27/17 11/28/17 11/29/17 06:59 06:59 06:59 Intake Total 744 342 360 Output Total 111 600 Balance 633 342 -240 Weight 62.9 kg 62.9 kg General appearance: PRESENT: no acute distress, well-developed, well-nourished Respiratory exam: PRESENT: clear to auscultation tre. ABSENT: rales, rhonchi, wheezes Cardiovascular exam: PRESENT: RRR. ABSENT: diastolic murmur, rubs, systolic murmur GI/Abdominal exam: PRESENT: other - Functional colostomy Results Laboratory Results: 11/27/17 08:50 11/28/17 06:13 11/28/17 06:13 Sodium 141.4 Potassium 4.6 Chloride 103 Carbon Dioxide 28 Anion Gap 10 BUN 11 Creatinine 1.01 Est GFR ( Amer) > 60 Est GFR (Non-Af Amer) > 60 Glucose 116 H Calcium 9.4 Magnesium 1.7 Total Bilirubin 0.2 AST 63 H ALT 36 Alkaline Phosphatase 88 Total Protein 6.2 L Albumin 3.3 L Impressions: Chest X-Ray 10/25/17 08:00 IMPRESSION: NO ACUTE RADIOGRAPHIC FINDING IN THE CHEST. KUB X-Ray 11/13/17 00:00 IMPRESSION: NO RADIOGRAPHIC EVIDENCE FOR ACUTE ABDOMINAL DISEASE. Abdomen/Pelvis CT 11/25/17 00:00 IMPRESSION: Stable appearance. Old rib fractures on the left. Colostomy on the left. Slight gastric distention. Assessment & Plan - Diagnosis (1) Alcohol withdrawal Qualifiers: Complication of substance-induced condition: uncomplicated Qualified Code(s ): F10.230 - Alcohol dependence with withdrawal, uncomplicated Is this a current diagnosis for this admission?: Yes Plan: Resolved (2) Alcoholic dementia Qualifiers: Dementia behavioral disturbance: without behavioral disturbance Qualified Code(s): F10.27 - Alcohol dependence with alcohol-induced persisting dementia Is this a current diagnosis for this admission?: Yes Plan: Stable (3) Hyponatremia Is this a current diagnosis for this admission?: Yes Plan: Has resolved - Time Time Spent with patient: 15-24 minutes
[2017-11-28] MEDS: LORAZEPAM 1 MG TABLET PO PRN (22:42)
[2017-11-28] MEDS: TRAZODONE HCL 50 MG TABLET PO SCH (22:42)
[2017-11-29] MEDS: LANSOPRAZOLE 15 MG TAB.RAP.DR PO SCH (06:02)
[2017-11-29] MEDS: VALPROATE SODIUM SYRUP 250 MG/5 ML UDCUP PO SCH ×5 (06:02→23:06)
[2017-11-29] MEDS: GABAPENTIN 300 MG CAPSULE PO SCH ×3 (06:02→23:05)
[2017-11-29] MEDS: THIAMINE HCL 100 MG TABLET PO SCH (09:53)
[2017-11-29] MEDS: MAGNESIUM OXIDE 400 MG TABLET PO SCH ×2 (09:53→16:56)
[2017-11-29] MEDS: MULTIVITAMIN TABLET PO SCH (09:53)
[2017-11-29] MEDS: LORAZEPAM 1 MG TABLET PO PRN ×3 (09:53→23:06)
[2017-11-29] MEDS: LEVETIRACETAM ORAL SOLN 500 MG/5 ML UDCUP PO SCH ×2 (09:54→23:06)
[2017-11-29] MEDS: FOLIC ACID 1 MG TABLET PO SCH (09:54)
--- NOTE | 2017-11-29 17:10 | PDOC PROGRESS REPORT ---
Subjective Subjective:: I seen patient resting in bed. He is sleeping quietly. No significant event overnight. Reason For Visit: HYPONATREMIA NAUSEA,VOMITING Physical Exam Vital Signs: Temp Pulse Resp BP Pulse Ox 97.5 F 61 18 111/65 99 11/29/17 08:00 11/29/17 08:00 11/29/17 08:00 11/29/17 08:00 11/29/17 08:00 Intake & Output 11/28/17 11/29/17 11/30/17 06:59 06:59 06:59 Intake Total 342 500 Output Total 600 Balance 342 -100 Weight 62.9 kg 62.9 kg General appearance: PRESENT: no acute distress, well-developed, well-nourished Respiratory exam: PRESENT: clear to auscultation tre. ABSENT: rales, rhonchi, wheezes Cardiovascular exam: PRESENT: RRR. ABSENT: diastolic murmur, rubs, systolic murmur Extremities exam: PRESENT: other - Colostomy in situ and it is functioning Results Laboratory Results: 11/27/17 08:50 11/28/17 06:13 Impressions: Chest X-Ray 10/25/17 08:00 IMPRESSION: NO ACUTE RADIOGRAPHIC FINDING IN THE CHEST. KUB X-Ray 11/13/17 00:00 IMPRESSION: NO RADIOGRAPHIC EVIDENCE FOR ACUTE ABDOMINAL DISEASE. Abdomen/Pelvis CT 11/25/17 00:00 IMPRESSION: Stable appearance. Old rib fractures on the left. Colostomy on the left. Slight gastric distention. Assessment & Plan - Diagnosis (1) Alcohol withdrawal Qualifiers: Complication of substance-induced condition: uncomplicated Qualified Code(s ): F10.230 - Alcohol dependence with withdrawal, uncomplicated Is this a current diagnosis for this admission?: Yes Plan: Resolved (2) Alcoholic dementia Qualifiers: Dementia behavioral disturbance: without behavioral disturbance Qualified Code(s): F10.27 - Alcohol dependence with alcohol-induced persisting dementia Is this a current diagnosis for this admission?: Yes Plan: Stable (3) Hyponatremia Is this a current diagnosis for this admission?: Yes Plan: Has resolved - Time Time Spent with patient: 25-34 minutes - Inpatient Certification Medical Necessity: Need Close Monitoring Due to Risk of Patient Decompensation
[2017-11-29] MEDS: TRAZODONE HCL 50 MG TABLET PO SCH (23:05)
[2017-11-30] MEDS: DICYCLOMINE HCL 20 MG TABLET PO PRN (06:00)
[2017-11-30] MEDS: VALPROATE SODIUM SYRUP 250 MG/5 ML UDCUP PO SCH ×3 (06:01→17:17)
[2017-11-30] MEDS: LANSOPRAZOLE 15 MG TAB.RAP.DR PO SCH (06:01)
[2017-11-30] MEDS: GABAPENTIN 300 MG CAPSULE PO SCH ×3 (06:01→22:21)
[2017-11-30] MEDS: LEVETIRACETAM ORAL SOLN 500 MG/5 ML UDCUP PO SCH ×2 (10:23→22:21)
[2017-11-30] MEDS: THIAMINE HCL 100 MG TABLET PO SCH (10:24)
[2017-11-30] MEDS: FOLIC ACID 1 MG TABLET PO SCH (10:24)
[2017-11-30] MEDS: MULTIVITAMIN TABLET PO SCH (10:24)
[2017-11-30] MEDS: MAGNESIUM OXIDE 400 MG TABLET PO SCH ×2 (10:24→17:17)
--- NOTE | 2017-11-30 12:07 | PDOC PROGRESS REPORT ---
Subjective Progress Note for:: 11/30/17 Subjective:: I seen patient resting in bed. He is awake alert. No new complaints. Reason For Visit: HYPONATREMIA NAUSEA,VOMITING Physical Exam Vital Signs: Temp Pulse Resp BP Pulse Ox 97.4 F 66 12 114/65 98 11/30/17 11:20 11/30/17 11:20 11/30/17 11:20 11/30/17 11:20 11/30/17 11:20 Intake & Output 11/29/17 11/30/17 12/01/17 06:59 06:59 06:59 Intake Total 500 322 Output Total 600 500 Balance -100 -178 Weight 62.9 kg 59.3 kg General appearance: PRESENT: no acute distress, well-developed, well-nourished Cardiovascular exam: PRESENT: RRR. ABSENT: diastolic murmur, rubs, systolic murmur GI/Abdominal exam: PRESENT: normal bowel sounds, soft. ABSENT: distended, guarding, mass, organolmegaly, rebound, tenderness Neurological exam: PRESENT: alert, awake Results Laboratory Results: 11/27/17 08:50 11/28/17 06:13 Impressions: Chest X-Ray 10/25/17 08:00 IMPRESSION: NO ACUTE RADIOGRAPHIC FINDING IN THE CHEST. KUB X-Ray 11/13/17 00:00 IMPRESSION: NO RADIOGRAPHIC EVIDENCE FOR ACUTE ABDOMINAL DISEASE. Abdomen/Pelvis CT 11/25/17 00:00 IMPRESSION: Stable appearance. Old rib fractures on the left. Colostomy on the left. Slight gastric distention. Assessment & Plan - Diagnosis (1) Alcohol withdrawal Qualifiers: Complication of substance-induced condition: uncomplicated Qualified Code(s ): F10.230 - Alcohol dependence with withdrawal, uncomplicated Is this a current diagnosis for this admission?: Yes (2) Alcoholic dementia Qualifiers: Dementia behavioral disturbance: without behavioral disturbance Qualified Code(s): F10.27 - Alcohol dependence with alcohol-induced persisting dementia Is this a current diagnosis for this admission?: Yes (3) Hyponatremia Is this a current diagnosis for this admission?: Yes - Time Time Spent with patient: 15-24 minutes
[2017-11-30] MEDS: LORAZEPAM 1 MG TABLET PO PRN (17:17)
[2017-11-30] MEDS ORDERED: HALOPERIDOL LACTATE INJ 5 MG/1 ML VIAL IM ONE (18:15)
[2017-11-30] MEDS: TRAZODONE HCL 50 MG TABLET PO SCH (22:21)
[2017-12-01] MEDS: VALPROATE SODIUM SYRUP 250 MG/5 ML UDCUP PO SCH ×5 (01:41→21:41)
[2017-12-01] MEDS: LORAZEPAM 1 MG TABLET PO PRN ×3 (01:41→19:43)
[2017-12-01] MEDS: LANSOPRAZOLE 15 MG TAB.RAP.DR PO SCH (06:52)
[2017-12-01] MEDS: GABAPENTIN 300 MG CAPSULE PO SCH ×3 (07:02→21:41)
[2017-12-01] MEDS: LEVETIRACETAM ORAL SOLN 500 MG/5 ML UDCUP PO SCH ×2 (12:59→21:41)
[2017-12-01] MEDS: FOLIC ACID 1 MG TABLET PO SCH (12:59)
[2017-12-01] MEDS: THIAMINE HCL 100 MG TABLET PO SCH (12:59)
[2017-12-01] MEDS: MAGNESIUM OXIDE 400 MG TABLET PO SCH ×2 (12:59→17:34)
[2017-12-01] MEDS: MULTIVITAMIN TABLET PO SCH (12:59)
--- NOTE | 2017-12-01 15:07 | PDOC PROGRESS REPORT ---
Subjective Progress Note for:: 12/01/17 Subjective:: No significant change overnight. Reason For Visit: HYPONATREMIA NAUSEA,VOMITING Physical Exam Vital Signs: Temp Pulse Resp BP Pulse Ox 97.2 F 55 L 12 93/44 L 98 12/01/17 07:25 12/01/17 07:25 12/01/17 07:25 12/01/17 07:25 12/01/17 07:25 Intake & Output 11/30/17 12/01/17 12/02/17 06:59 06:59 06:59 Intake Total 322 758 Output Total 500 150 Balance -178 608 Weight 59.3 kg 57.5 kg General appearance: PRESENT: no acute distress, well-developed, well-nourished Head exam: PRESENT: atraumatic, normocephalic Respiratory exam: PRESENT: clear to auscultation tre. ABSENT: rales, rhonchi, wheezes Cardiovascular exam: PRESENT: RRR. ABSENT: diastolic murmur, rubs, systolic murmur Results Laboratory Results: 11/27/17 08:50 11/28/17 06:13 Impressions: Chest X-Ray 10/25/17 08:00 IMPRESSION: NO ACUTE RADIOGRAPHIC FINDING IN THE CHEST. KUB X-Ray 11/13/17 00:00 IMPRESSION: NO RADIOGRAPHIC EVIDENCE FOR ACUTE ABDOMINAL DISEASE. Abdomen/Pelvis CT 11/25/17 00:00 IMPRESSION: Stable appearance. Old rib fractures on the left. Colostomy on the left. Slight gastric distention. Assessment & Plan - Diagnosis (1) Alcohol withdrawal Qualifiers: Complication of substance-induced condition: uncomplicated Qualified Code(s ): F10.230 - Alcohol dependence with withdrawal, uncomplicated Is this a current diagnosis for this admission?: Yes Plan: Resolved (2) Alcoholic dementia Qualifiers: Dementia behavioral disturbance: without behavioral disturbance Qualified Code(s): F10.27 - Alcohol dependence with alcohol-induced persisting dementia Is this a current diagnosis for this admission?: Yes Plan: Stable (3) Hyponatremia Is this a current diagnosis for this admission?: Yes Plan: Has resolved
[2017-12-01] MEDS: OXYCODONE HCL IR 5 MG TABLET PO PRN (19:43)
[2017-12-01] MEDS: TRAZODONE HCL 50 MG TABLET PO SCH (21:41)
[2017-12-02] MEDS: LANSOPRAZOLE 15 MG TAB.RAP.DR PO SCH (05:56)
[2017-12-02] MEDS: VALPROATE SODIUM SYRUP 250 MG/5 ML UDCUP PO SCH ×3 (05:56→17:20)
[2017-12-02] MEDS: GABAPENTIN 300 MG CAPSULE PO SCH ×3 (05:56→21:18)
[2017-12-02] MEDS: LORAZEPAM 1 MG TABLET PO PRN ×2 (05:56→15:09)
[2017-12-02] MEDS: MULTIVITAMIN TABLET PO SCH (10:15)
[2017-12-02] MEDS: FOLIC ACID 1 MG TABLET PO SCH (10:15)
[2017-12-02] MEDS: MAGNESIUM OXIDE 400 MG TABLET PO SCH ×2 (10:15→17:20)
[2017-12-02] MEDS: THIAMINE HCL 100 MG TABLET PO SCH (10:15)
[2017-12-02] MEDS: LEVETIRACETAM ORAL SOLN 500 MG/5 ML UDCUP PO SCH ×2 (10:16→21:18)
[2017-12-02] MEDS: HALOPERIDOL 1 MG TABLET PO PRN (11:54)
[2017-12-02] MEDS: HALOPERIDOL 5 MG TABLET PO SCH ×2 (13:46→21:18)
--- NOTE | 2017-12-02 15:27 | PDOC PROGRESS REPORT ---
Subjective Progress Note for:: 12/02/17 Subjective:: Patient has had intermittent agitation and combativeness. Is being Ativan as needed added for him 100 we will schedule a dose of 2 mg every 8 hours as needed. Once patient stable and less agitated [facility] is willing to take him. Reason For Visit: HYPONATREMIA NAUSEA,VOMITING Physical Exam Vital Signs: Temp Pulse Resp BP Pulse Ox 97.4 F 77 16 126/69 H 99 12/02/17 10:55 12/02/17 10:55 12/02/17 10:55 12/02/17 10:55 12/02/17 10:55 Intake & Output 12/01/17 12/02/17 12/03/17 06:59 06:59 06:59 Intake Total 758 973 480 Output Total 150 400 Balance 608 573 480 Weight 57.5 kg 57.4 kg General appearance: PRESENT: no acute distress, well-developed, well-nourished Eye exam: PRESENT: conjunctiva pink, EOMI, PERRLA. ABSENT: scleral icterus Respiratory exam: PRESENT: clear to auscultation tre. ABSENT: rales, rhonchi, wheezes Cardiovascular exam: PRESENT: RRR. ABSENT: diastolic murmur, rubs, systolic murmur Results Laboratory Results: 11/27/17 08:50 11/28/17 06:13 Impressions: Chest X-Ray 10/25/17 08:00 IMPRESSION: NO ACUTE RADIOGRAPHIC FINDING IN THE CHEST. KUB X-Ray 11/13/17 00:00 IMPRESSION: NO RADIOGRAPHIC EVIDENCE FOR ACUTE ABDOMINAL DISEASE. Abdomen/Pelvis CT 11/25/17 00:00 IMPRESSION: Stable appearance. Old rib fractures on the left. Colostomy on the left. Slight gastric distention. Assessment & Plan - Diagnosis (1) Alcohol withdrawal Qualifiers: Complication of substance-induced condition: uncomplicated Qualified Code(s ): F10.230 - Alcohol dependence with withdrawal, uncomplicated Is this a current diagnosis for this admission?: Yes Plan: Resolved (2) Alcoholic dementia Qualifiers: Dementia behavioral disturbance: without behavioral disturbance Qualified Code(s): F10.27 - Alcohol dependence with alcohol-induced persisting dementia Is this a current diagnosis for this admission?: Yes Plan: Stable (3) Hyponatremia Is this a current diagnosis for this admission?: Yes Plan: Has resolved
[2017-12-02] MEDS: TRAZODONE HCL 50 MG TABLET PO SCH (21:18)
[2017-12-03] MEDS: LORAZEPAM 1 MG TABLET PO PRN ×2 (01:15→10:01)
[2017-12-03] MEDS: VALPROATE SODIUM SYRUP 250 MG/5 ML UDCUP PO SCH ×4 (01:15→18:00)
[2017-12-03 05:01] LABS: HEMOGLOBIN 9.7 g/dL (13.5-17.0); MEAN CORPUSCULAR HEMOGLOBIN 28.8 pg (27.0-33.4); MEAN CORPUSCULAR HGB CONC 33.4 g/dL (32.0-36.0); MEAN CORPUSCULAR VOLUME 86 fl (80-97); PLATELET COUNT 241 10^3/uL (150-450); RED BLOOD COUNT 3.36 10^6/uL (4.35-5.55); RED CELL DISTRIBUTION WIDTH 21.1 % (11.5-14.0); WHITE BLOOD COUNT 6.9 10^3/uL (4.0-10.5)
[2017-12-03] MEDS: HALOPERIDOL 5 MG TABLET PO SCH ×3 (06:33→20:40)
[2017-12-03] MEDS: GABAPENTIN 300 MG CAPSULE PO SCH ×3 (06:33→20:40)
[2017-12-03] MEDS: LANSOPRAZOLE 15 MG TAB.RAP.DR PO SCH (06:33)
[2017-12-03] MEDS: LEVETIRACETAM ORAL SOLN 500 MG/5 ML UDCUP PO SCH ×2 (10:01→20:40)
[2017-12-03] MEDS: MULTIVITAMIN TABLET PO SCH (10:01)
[2017-12-03] MEDS: THIAMINE HCL 100 MG TABLET PO SCH (10:01)
[2017-12-03] MEDS: FOLIC ACID 1 MG TABLET PO SCH (10:01)
[2017-12-03] MEDS: MAGNESIUM OXIDE 400 MG TABLET PO SCH ×2 (10:01→17:25)
--- NOTE | 2017-12-03 17:13 | PDOC PROGRESS REPORT ---
Subjective Progress Note for:: 12/03/17 Subjective:: Reports having some intermittent nausea. Continues to have intermittent agitation, though improved. Reason For Visit: HYPONATREMIA NAUSEA,VOMITING Physical Exam Vital Signs: Temp Pulse Resp BP Pulse Ox 97.6 F 69 16 132/55 H 100 12/03/17 16:00 12/03/17 16:00 12/03/17 16:00 12/03/17 16:00 12/03/17 16:00 Intake & Output 12/02/17 12/03/17 12/04/17 06:59 06:59 06:59 Intake Total 973 1692 Output Total 400 475 Balance 573 1217 Weight 57.4 kg 57.4 kg General appearance: PRESENT: no acute distress, disheveled, thin Respiratory exam: PRESENT: clear to auscultation tre Cardiovascular exam: PRESENT: RRR GI/Abdominal exam: PRESENT: soft Musculoskeletal exam: PRESENT: normal inspection Neurological exam: PRESENT: awake, oriented to person. ABSENT: oriented to place, oriented to time, oriented to situation Psychiatric exam: PRESENT: flat affect Skin exam: PRESENT: warm Results Laboratory Results: 12/03/17 04:11 11/28/17 06:13 12/03/17 04:11 WBC 6.9 RBC 3.36 L Hgb 9.7 L Hct 29.0 L MCV 86 MCH 28.8 MCHC 33.4 RDW 21.1 H Plt Count 241 Impressions: Chest X-Ray 10/25/17 08:00 IMPRESSION: NO ACUTE RADIOGRAPHIC FINDING IN THE CHEST. KUB X-Ray 11/13/17 00:00 IMPRESSION: NO RADIOGRAPHIC EVIDENCE FOR ACUTE ABDOMINAL DISEASE. Abdomen/Pelvis CT 11/25/17 00:00 IMPRESSION: Stable appearance. Old rib fractures on the left. Colostomy on the left. Slight gastric distention. Assessment & Plan - Diagnosis (1) Agitation Is this a current diagnosis for this admission?: Yes Plan: Continue to adjust his medications to optimally control his behavior. (2) Alcoholic dementia Qualifiers: Dementia behavioral disturbance: without behavioral disturbance Qualified Code(s): F10.27 - Alcohol dependence with alcohol-induced persisting dementia Is this a current diagnosis for this admission?: Yes (3) Anemia Qualifiers: Anemia type: iron deficiency Is this a current diagnosis for this admission?: Yes Plan: I cannot see that we have ever checked an iron. I will check 1
[2017-12-03 18:17] LABS: ALBUMIN 3.4 g/dL (3.5-5.0); ANION GAP 10 (5-19); BLOOD UREA NITROGEN 13 mg/dL (7-20); CALCIUM 9.4 mg/dL (8.4-10.2); CARBON DIOXIDE 27 mmol/L (22-30); CHLORIDE 102 mmol/L (98-107); GLUCOSE 112 mg/dL (75-110); PHOSPHORUS 4.9 mg/dL (2.5-4.5); POTASSIUM 4.3 mmol/L (3.6-5.0); SODIUM 138.9 mmol/L (137-145)
[2017-12-03 19:02] LABS: ABSOLUTE RETICS # 0.053 10^6/uL (0.028-0.122); RETICULOCYTE COUNT (AUTO) 1.58 % (0.66-2.85)
[2017-12-03] MEDS: TRAZODONE HCL 50 MG TABLET PO SCH (20:40)
[2017-12-04] MEDS: VALPROATE SODIUM SYRUP 250 MG/5 ML UDCUP PO SCH ×4 (01:15→17:31)
[2017-12-04] MEDS: LORAZEPAM 1 MG TABLET PO PRN ×3 (01:15→18:18)
[2017-12-04] MEDS: LANSOPRAZOLE 15 MG TAB.RAP.DR PO SCH (06:35)
[2017-12-04] MEDS: HALOPERIDOL 5 MG TABLET PO SCH ×3 (06:35→21:56)
[2017-12-04] MEDS: GABAPENTIN 300 MG CAPSULE PO SCH ×3 (06:35→21:56)
[2017-12-04] MEDS: LEVETIRACETAM ORAL SOLN 500 MG/5 ML UDCUP PO SCH ×2 (12:16→21:56)
[2017-12-04] MEDS: MAGNESIUM OXIDE 400 MG TABLET PO SCH ×2 (12:16→17:31)
[2017-12-04] MEDS: FOLIC ACID 1 MG TABLET PO SCH (12:16)
[2017-12-04] MEDS: THIAMINE HCL 100 MG TABLET PO SCH (12:17)
[2017-12-04] MEDS: MULTIVITAMIN TABLET PO SCH (12:17)
--- NOTE | 2017-12-04 13:39 | PDOC PROGRESS REPORT ---
Subjective Progress Note for:: 12/04/17 Subjective:: Currently fairly somnolent. He has required 1 mg of as needed Ativan for anxiety in the last 48 hours. Reason For Visit: HYPONATREMIA NAUSEA,VOMITING Physical Exam Vital Signs: Temp Pulse Resp BP Pulse Ox 97.4 F 69 15 98/70 L 97 12/04/17 08:00 12/04/17 08:00 12/04/17 08:00 12/04/17 08:00 12/04/17 08:00 Intake & Output 12/03/17 12/04/17 12/05/17 06:59 06:59 06:59 Intake Total 1692 465 Output Total 475 150 Balance 1217 315 Weight 57.4 kg 57.9 kg General appearance: PRESENT: no acute distress, thin Exam: Chronically ill-appearing Respiratory exam: PRESENT: clear to auscultation tre Cardiovascular exam: PRESENT: RRR GI/Abdominal exam: PRESENT: soft, other - Ileostomy in place with liquid stool in the bag Musculoskeletal exam: PRESENT: normal inspection Neurological exam: PRESENT: altered, oriented to person. ABSENT: oriented to place, oriented to time, oriented to situation Focused psych exam: PRESENT: other - Somnolent but arousable. Clearly clouded sensorium. Skin exam: PRESENT: warm Results Laboratory Results: 12/03/17 04:11 12/03/17 04:11 12/03/17 12/03/17 12/03/17 04:11 04:11 04:11 Retic Count (auto) 1.58 Absolute Retic 0.053 Sodium 138.9 Potassium 4.3 Chloride 102 Carbon Dioxide 27 Anion Gap 10 BUN 13 Creatinine 1.12 Est GFR ( Amer) > 60 Est GFR (Non-Af Amer) > 60 Glucose 112 H Calcium 9.4 Phosphorus 4.9 H Magnesium 1.9 Iron 32.7 L Albumin 3.4 L Impressions: Chest X-Ray 10/25/17 08:00 IMPRESSION: NO ACUTE RADIOGRAPHIC FINDING IN THE CHEST. KUB X-Ray 11/13/17 00:00 IMPRESSION: NO RADIOGRAPHIC EVIDENCE FOR ACUTE ABDOMINAL DISEASE. Abdomen/Pelvis CT 11/25/17 00:00 IMPRESSION: Stable appearance. Old rib fractures on the left. Colostomy on the left. Slight gastric distention. Assessment & Plan - Diagnosis (1) Agitation Is this a current diagnosis for this admission?: Yes (2) Alcoholic dementia Qualifiers: Dementia behavioral disturbance: without behavioral disturbance Qualified Code(s): F10.27 - Alcohol dependence with alcohol-induced persisting dementia Is this a current diagnosis for this admission?: Yes (3) Anemia Qualifiers: Anemia type: iron deficiency Is this a current diagnosis for this admission?: Yes
[2017-12-04] MEDS: TRAZODONE HCL 50 MG TABLET PO SCH (21:56)
[2017-12-04] MEDS: LORAZEPAM INJ 2 MG/1 ML VIAL IM PRN (22:16)
[2017-12-05] MEDS: VALPROATE SODIUM SYRUP 250 MG/5 ML UDCUP PO SCH ×5 (01:20→23:45)
[2017-12-05] MEDS: LANSOPRAZOLE 15 MG TAB.RAP.DR PO SCH (06:37)
[2017-12-05] MEDS: GABAPENTIN 300 MG CAPSULE PO SCH ×3 (06:37→21:16)
[2017-12-05] MEDS: HALOPERIDOL 5 MG TABLET PO SCH ×3 (08:20→21:15)
[2017-12-05] MEDS: MAGNESIUM OXIDE 400 MG TABLET PO SCH ×2 (09:37→17:05)
[2017-12-05] MEDS: THIAMINE HCL 100 MG TABLET PO SCH (09:37)
[2017-12-05] MEDS: FOLIC ACID 1 MG TABLET PO SCH (09:37)
[2017-12-05] MEDS: MULTIVITAMIN TABLET PO SCH (09:37)
[2017-12-05] MEDS: LEVETIRACETAM ORAL SOLN 500 MG/5 ML UDCUP PO SCH ×2 (09:37→21:16)
--- NOTE | 2017-12-05 16:08 | PDOC PROGRESS REPORT ---
Subjective Progress Note for:: 12/05/17 Subjective:: Currently fairly somnolent. Got agitated last night Reason For Visit: HYPONATREMIA NAUSEA,VOMITING Physical Exam Vital Signs: Temp Pulse Resp BP Pulse Ox 97.3 F 52 L 16 113/57 L 97 12/05/17 11:00 12/05/17 11:00 12/05/17 11:00 12/05/17 11:00 12/05/17 11:00 Intake & Output 12/04/17 12/05/17 12/06/17 06:59 06:59 06:59 Intake Total 465 716 180 Output Total 150 425 Balance 315 291 180 Weight 57.9 kg General appearance: PRESENT: no acute distress, thin Exam: Chronically ill-appearing Respiratory exam: PRESENT: clear to auscultation tre Cardiovascular exam: PRESENT: RRR GI/Abdominal exam: PRESENT: soft, other - Ileostomy in place Neurological exam: PRESENT: oriented to person Skin exam: PRESENT: warm Results Laboratory Results: 12/03/17 04:11 12/03/17 04:11 Impressions: Chest X-Ray 10/25/17 08:00 IMPRESSION: NO ACUTE RADIOGRAPHIC FINDING IN THE CHEST. KUB X-Ray 11/13/17 00:00 IMPRESSION: NO RADIOGRAPHIC EVIDENCE FOR ACUTE ABDOMINAL DISEASE. Abdomen/Pelvis CT 11/25/17 00:00 IMPRESSION: Stable appearance. Old rib fractures on the left. Colostomy on the left. Slight gastric distention. Assessment & Plan - Diagnosis (1) Agitation Is this a current diagnosis for this admission?: Yes Plan: Continue to adjust his medications to optimally control his behavior. Sounds like he needs something more at bedtime (2) Alcoholic dementia Qualifiers: Dementia behavioral disturbance: without behavioral disturbance Qualified Code(s): F10.27 - Alcohol dependence with alcohol-induced persisting dementia Is this a current diagnosis for this admission?: Yes (3) Anemia Qualifiers: Anemia type: iron deficiency Is this a current diagnosis for this admission?: Yes Plan: Continue iron replacement (4) Malnutrition Qualifiers: Protein-calorie malnutrition severity: moderate Is this a current diagnosis for this admission?: Yes (5) History of splenectomy Is this a current diagnosis for this admission?: No
[2017-12-05] MEDS: ASCORBIC ACID 500 MG TABLET PO SCH (17:05)
[2017-12-05] MEDS: FERROUS SULFATE 325 MG TABLET PO SCH (17:05)
[2017-12-05] MEDS: LORAZEPAM 1 MG TABLET PO PRN (17:06)
[2017-12-05] MEDS ORDERED: RISPERIDONE 1 MG TABLET PO SCH (22:00)
[2017-12-05] MEDS ORDERED: ZIPRASIDONE MESYLATE INJ/PF 20 MG SDV IM PRN (23:54)
[2017-12-06] MEDS ORDERED: ZIPRASIDONE MESYLATE INJ/PF 20 MG SDV IM ONE (01:00)
[2017-12-06] MEDS: LANSOPRAZOLE 15 MG TAB.RAP.DR PO SCH (05:30)
[2017-12-06] MEDS: VALPROATE SODIUM SYRUP 250 MG/5 ML UDCUP PO SCH ×4 (05:30→23:52)
[2017-12-06] MEDS: GABAPENTIN 300 MG CAPSULE PO SCH ×3 (05:30→21:29)
[2017-12-06] MEDS: HALOPERIDOL 5 MG TABLET PO SCH ×2 (05:30→14:36)
[2017-12-06] MEDS: FERROUS SULFATE 325 MG TABLET PO SCH ×2 (13:01→19:38)
[2017-12-06] MEDS: FOLIC ACID 1 MG TABLET PO SCH (13:01)
[2017-12-06] MEDS: MULTIVITAMIN TABLET PO SCH (13:02)
[2017-12-06] MEDS: THIAMINE HCL 100 MG TABLET PO SCH (13:02)
[2017-12-06] MEDS: MAGNESIUM OXIDE 400 MG TABLET PO SCH ×2 (13:02→19:38)
[2017-12-06] MEDS: ASCORBIC ACID 500 MG TABLET PO SCH ×2 (13:02→19:38)
[2017-12-06] MEDS: LEVETIRACETAM ORAL SOLN 500 MG/5 ML UDCUP PO SCH ×2 (13:06→22:15)
--- NOTE | 2017-12-06 14:03 | PDOC PROGRESS REPORT ---
Subjective Progress Note for:: 12/06/17 Subjective:: Somnolent but arousable. Eating well. No reports of aggressive behavior overnight. Reason For Visit: HYPONATREMIA NAUSEA,VOMITING Physical Exam Vital Signs: Temp Pulse Resp BP Pulse Ox 97.4 F 67 18 118/69 100 12/05/17 23:47 12/05/17 23:47 12/05/17 23:47 12/05/17 23:47 12/05/17 23:47 Intake & Output 12/05/17 12/06/17 12/07/17 06:59 06:59 06:59 Intake Total 716 478 Output Total 425 0 Balance 291 478 Weight 55.6 kg General appearance: PRESENT: no acute distress, other - Cachectic, chronically ill-appearing Respiratory exam: PRESENT: clear to auscultation tre Cardiovascular exam: PRESENT: RRR GI/Abdominal exam: PRESENT: soft, other - Ileostomy bag in place Psychiatric exam: PRESENT: unusual affect. ABSENT: agitated Skin exam: PRESENT: warm Results Laboratory Results: 12/03/17 04:11 12/03/17 04:11 Impressions: Chest X-Ray 10/25/17 08:00 IMPRESSION: NO ACUTE RADIOGRAPHIC FINDING IN THE CHEST. KUB X-Ray 11/13/17 00:00 IMPRESSION: NO RADIOGRAPHIC EVIDENCE FOR ACUTE ABDOMINAL DISEASE. Abdomen/Pelvis CT 11/25/17 00:00 IMPRESSION: Stable appearance. Old rib fractures on the left. Colostomy on the left. Slight gastric distention. Assessment & Plan - Diagnosis (1) Agitation Is this a current diagnosis for this admission?: Yes Plan: Continue to adjust his medications to optimally control his behavior. Continue present medications (2) Alcoholic dementia Qualifiers: Dementia behavioral disturbance: without behavioral disturbance Qualified Code(s): F10.27 - Alcohol dependence with alcohol-induced persisting dementia Is this a current diagnosis for this admission?: Yes (3) Anemia Qualifiers: Anemia type: iron deficiency Is this a current diagnosis for this admission?: Yes Plan: Continue iron replacement (4) Malnutrition Qualifiers: Protein-calorie malnutrition severity: moderate Is this a current diagnosis for this admission?: Yes (5) History of splenectomy Is this a current diagnosis for this admission?: No
[2017-12-06] MEDS: RISPERIDONE 1 MG TABLET PO SCH (22:06)
[2017-12-06] MEDS ORDERED: LEVETIRACETAM INJ/PF 500 MG/5 ML SDV IV PRN ×2 (22:11→22:30)
[2017-12-06] MEDS ORDERED: LEVETIRACETAM 750 MG in NORMAL SALINE 100 ML IV ONE (22:15)
[2017-12-07] MEDS: LANSOPRAZOLE 15 MG TAB.RAP.DR PO SCH (05:09)
[2017-12-07] MEDS: VALPROATE SODIUM SYRUP 250 MG/5 ML UDCUP PO SCH ×4 (06:33→23:18)
[2017-12-07] MEDS: FOLIC ACID 1 MG TABLET PO SCH (09:13)
[2017-12-07] MEDS: MAGNESIUM OXIDE 400 MG TABLET PO SCH ×2 (09:13→16:58)
[2017-12-07] MEDS: FERROUS SULFATE 325 MG TABLET PO SCH ×2 (09:13→16:58)
[2017-12-07] MEDS: THIAMINE HCL 100 MG TABLET PO SCH (09:13)
[2017-12-07] MEDS: ASCORBIC ACID 500 MG TABLET PO SCH ×2 (09:13→16:57)
[2017-12-07] MEDS: MULTIVITAMIN TABLET PO SCH (09:13)
[2017-12-07] MEDS: LEVETIRACETAM ORAL SOLN 500 MG/5 ML UDCUP PO SCH ×2 (09:17→21:35)
[2017-12-07] MEDS: RISPERIDONE 1 MG TABLET PO SCH ×2 (09:31→21:35)
[2017-12-07] MEDS: LORAZEPAM INJ 2 MG/1 ML VIAL IM PRN (10:51)
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
[2017-12-07] MEDS: ACETAMINOPHEN 325 MG TABLET PO PRN (18:33)
[2017-12-07] MEDS: GABAPENTIN 300 MG CAPSULE PO SCH (21:35)
[2017-12-07] MEDS: LORAZEPAM 1 MG TABLET PO PRN (22:02)
[2017-12-07] MEDS: DICYCLOMINE HCL 20 MG TABLET PO PRN (22:03)
[2017-12-08] MEDS: LANSOPRAZOLE 15 MG TAB.RAP.DR PO SCH (05:19)
[2017-12-08] MEDS: VALPROATE SODIUM SYRUP 250 MG/5 ML UDCUP PO SCH ×4 (06:18→23:17)
[2017-12-08] MEDS: MULTIVITAMIN TABLET PO SCH (09:14)
[2017-12-08] MEDS: FERROUS SULFATE 325 MG TABLET PO SCH ×2 (09:14→17:24)
[2017-12-08] MEDS: LORAZEPAM 1 MG TABLET PO PRN ×2 (09:15→17:24)
[2017-12-08] MEDS: GABAPENTIN 300 MG CAPSULE PO SCH ×2 (09:15→21:40)
[2017-12-08] MEDS: FOLIC ACID 1 MG TABLET PO SCH (09:15)
[2017-12-08] MEDS: THIAMINE HCL 100 MG TABLET PO SCH (09:15)
[2017-12-08] MEDS: MAGNESIUM OXIDE 400 MG TABLET PO SCH ×2 (09:15→17:24)
[2017-12-08] MEDS: LEVETIRACETAM ORAL SOLN 500 MG/5 ML UDCUP PO SCH ×2 (09:15→21:40)
[2017-12-08] MEDS: ASCORBIC ACID 500 MG TABLET PO SCH ×2 (09:15→17:24)
[2017-12-08] MEDS: RISPERIDONE 1 MG TABLET PO SCH ×2 (10:59→21:40)
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
[2017-12-08] MEDS: LORAZEPAM INJ 2 MG/1 ML VIAL IM PRN (22:45)
[2017-12-09] MEDS: LANSOPRAZOLE 15 MG TAB.RAP.DR PO SCH (05:01)
[2017-12-09] MEDS: VALPROATE SODIUM SYRUP 250 MG/5 ML UDCUP PO SCH ×3 (06:39→17:32)
[2017-12-09] MEDS: MAGNESIUM OXIDE 400 MG TABLET PO SCH ×2 (09:07→17:32)
[2017-12-09] MEDS: MULTIVITAMIN TABLET PO SCH (09:07)
[2017-12-09] MEDS: LEVETIRACETAM ORAL SOLN 500 MG/5 ML UDCUP PO SCH (09:07)
[2017-12-09] MEDS: FERROUS SULFATE 325 MG TABLET PO SCH ×2 (09:07→17:32)
[2017-12-09] MEDS: GABAPENTIN 300 MG CAPSULE PO SCH (09:07)
[2017-12-09] MEDS: LORAZEPAM 1 MG TABLET PO PRN ×2 (09:08→17:32)
[2017-12-09] MEDS: FOLIC ACID 1 MG TABLET PO SCH (09:08)
[2017-12-09] MEDS: THIAMINE HCL 100 MG TABLET PO SCH (09:08)
[2017-12-09] MEDS: ASCORBIC ACID 500 MG TABLET PO SCH ×2 (09:08→17:32)
[2017-12-09] MEDS: RISPERIDONE 1 MG TABLET PO SCH (10:03)
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
[2017-12-09] MEDS: LORAZEPAM INJ 2 MG/1 ML VIAL IM PRN (20:39)
[2017-12-09] MEDS: ZIPRASIDONE MESYLATE INJ/PF 20 MG SDV IM PRN (20:39)
[2017-12-10] MEDS: LEVETIRACETAM ORAL SOLN 500 MG/5 ML UDCUP PO SCH ×3 (03:00→22:02)
[2017-12-10] MEDS: VALPROATE SODIUM SYRUP 250 MG/5 ML UDCUP PO SCH ×4 (03:00→17:46)
[2017-12-10] MEDS: GABAPENTIN 300 MG CAPSULE PO SCH ×3 (03:01→22:02)
[2017-12-10] MEDS: RISPERIDONE 1 MG TABLET PO SCH ×3 (03:01→22:02)
[2017-12-10] MEDS: LANSOPRAZOLE 15 MG TAB.RAP.DR PO SCH (07:04)
[2017-12-10 09:54] LABS: ANION GAP 14 (5-19); BLOOD UREA NITROGEN 9 mg/dL (7-20); CALCIUM 10.1 mg/dL (8.4-10.2); CARBON DIOXIDE 27 mmol/L (22-30); CHLORIDE 101 mmol/L (98-107); GLUCOSE 75 mg/dL (75-110); POTASSIUM 4.7 mmol/L (3.6-5.0)
[2017-12-10] MEDS: FERROUS SULFATE 325 MG TABLET PO SCH ×2 (10:00→17:47)
[2017-12-10] MEDS: MULTIVITAMIN TABLET PO SCH (10:00)
[2017-12-10] MEDS: ASCORBIC ACID 500 MG TABLET PO SCH ×2 (10:03→17:47)
[2017-12-10] MEDS: THIAMINE HCL 100 MG TABLET PO SCH (10:03)
[2017-12-10] MEDS: MAGNESIUM OXIDE 400 MG TABLET PO SCH ×2 (10:03→17:47)
[2017-12-10] MEDS: LORAZEPAM 1 MG TABLET PO PRN ×2 (10:04→17:47)
[2017-12-10] MEDS: FOLIC ACID 1 MG TABLET PO SCH (10:04)
--- NOTE | 2017-12-10 15:24 | PDOC PROGRESS REPORT ---
Subjective Progress Note for:: 12/10/17 Subjective:: The patient is an unfortunate 57-year-old -[place] male with a long- standing history of alcohol abuse and dependence. He was admitted to the hospital with alcohol withdrawal and encephalopathy. He was found to have severe hyponatremia thought to be secondary to Beer Pot[place]ia. At this point he is now stable but remains significantly altered. 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 It is quite clear that the patient cannot take care of himself and return to his previous living situation. He was evaluated by psychiatry and they did not feel that he could make good decisions for himself. He currently is waiting on placement as the patient's daughter cannot take him to [place] . Today the nursing staff stated that he was somewhat agitated and he was given a dose of IV Ativan. He was sleeping when I entered the room and would not arouse Reason For Visit: HYPONATREMIA NAUSEA,VOMITING Physical Exam Vital Signs: Temp Pulse Resp BP Pulse Ox 97.4 F 69 17 115/65 99 12/10/17 11:02 12/10/17 11:02 12/10/17 11:02 12/10/17 11:02 12/10/17 11:02 Intake & Output 12/09/17 12/10/17 12/11/17 06:59 06:59 06:59 Intake Total 480 1064 Output Total 150 Balance 330 1064 Weight 54.5 kg 54.2 kg General appearance: PRESENT: disheveled, thin Head exam: PRESENT: atraumatic, normocephalic Mouth exam: PRESENT: moist, tongue midline Respiratory exam: PRESENT: clear to auscultation tre. ABSENT: rales, rhonchi, wheezes Cardiovascular exam: PRESENT: RRR. ABSENT: diastolic murmur, rubs, systolic murmur GI/Abdominal exam: PRESENT: normal bowel sounds, soft. ABSENT: distended, guarding, mass, organolmegaly, rebound, tenderness Rectal exam: PRESENT: deferred Extremities exam: PRESENT: full ROM. ABSENT: calf tenderness, clubbing, pedal edema Neurological exam: PRESENT: other - Patient is sedated and will not arouse Psychiatric exam: PRESENT: other - patient is sedated and will not arouse Skin exam: PRESENT: dry, intact, warm. ABSENT: cyanosis, rash Results Laboratory Results: 12/03/17 04:11 12/10/17 08:57 12/10/17 12/10/17 06:59 08:57 Sodium Cancelled 142.0 Potassium Cancelled 4.7 Chloride Cancelled 101 Carbon Dioxide Cancelled 27 Anion Gap Cancelled 14 BUN Cancelled 9 Creatinine Cancelled 1.05 Est GFR ( Amer) Cancelled > 60 Est GFR (Non-Af Amer) Cancelled > 60 Glucose Cancelled 75 Calcium Cancelled 10.1 Phosphorus Cancelled 5.0 H Magnesium Cancelled 1.8 Impressions: Chest X-Ray 10/25/17 08:00 IMPRESSION: NO ACUTE RADIOGRAPHIC FINDING IN THE CHEST. KUB X-Ray 11/13/17 00:00 IMPRESSION: NO RADIOGRAPHIC EVIDENCE FOR ACUTE ABDOMINAL DISEASE. Abdomen/Pelvis CT 11/25/17 00:00 IMPRESSION: Stable appearance. Old rib fractures on the left. Colostomy on the left. Slight gastric distention. Assessment & Plan - Diagnosis (1) Hyponatremia Is this a current diagnosis for this admission?: Yes Plan: Secondary to beer potomania. He was initially on 3% saline which has long since been stopped. His sodium level has normalized. (2) Alcohol withdrawal Qualifiers: Complication of substance-induced condition: uncomplicated Qualified Code(s ): F10.230 - Alcohol dependence with withdrawal, uncomplicated Is this a current diagnosis for this admission?: Yes Plan: Resolved at this point. (3) Alcohol dependence Qualifiers: Complication of substance-induced condition: with unspecified complication Is this a current diagnosis for this admission?: Yes Plan: Certainly he will not be able to live independently anymore. No further alcohol. Continue thiamine and folic acid as well as a multivitamin. (4) Wernickes encephalopathy Is this a current diagnosis for this admission?: Yes Plan: He has been evaluated by psych and they do not believe he can make good decisions for himself. Currently waiting on placement (5) Alcoholic dementia Qualifiers: Dementia behavioral disturbance: without behavioral disturbance Qualified Code(s): F10.27 - Alcohol dependence with alcohol-induced persisting dementia Is this a current diagnosis for this admission?: Yes Plan: He is a little agitated this afternoon. Continue current regimen. I am giving him a one-time dose of p.o. Haldol today. (6) Anemia Qualifiers: Anemia type: iron deficiency Is this a current diagnosis for this admission?: Yes Plan: Stable (7) Hypomagnesemia Is this a current diagnosis for this admission?: Yes Plan: Continue to replete as needed (8) Seizure disorder Is this a current diagnosis for this admission?: Yes Plan: Continue current regimen (9) Vomiting Is this a current diagnosis for this admission?: Yes Plan: Resolved (10) Homicidal ideation Is this a current diagnosis for this admission?: Yes Plan: The patient is no longer under involuntary commitment. I believe he was just encephalopathic - Time Time Spent with patient: 15-24 minutes - Inpatient Certification Medical Necessity: Other - Inpatient hospitalization remains necessary for disposition. The discharge planners are working on a safe place for this gentleman to go. He will be transitioned soon as a bed is found
[2017-12-11] MEDS: VALPROATE SODIUM SYRUP 250 MG/5 ML UDCUP PO SCH ×4 (00:14→17:29)
[2017-12-11] MEDS: LANSOPRAZOLE 15 MG TAB.RAP.DR PO SCH (06:22)
[2017-12-11 07:54] LABS: HEMATOCRIT 34.6 % (37.9-51.0); HEMOGLOBIN 11.2 g/dL (13.5-17.0); MEAN CORPUSCULAR HEMOGLOBIN 28.5 pg (27.0-33.4); MEAN CORPUSCULAR HGB CONC 32.5 g/dL (32.0-36.0); MEAN CORPUSCULAR VOLUME 88 fl (80-97); PLATELET COUNT 388 10^3/uL (150-450); RED BLOOD COUNT 3.94 10^6/uL (4.35-5.55); RED CELL DISTRIBUTION WIDTH 20.6 % (11.5-14.0); WHITE BLOOD COUNT 15.3 10^3/uL (4.0-10.5)
[2017-12-11 08:16] LABS: ANION GAP 12 (5-19); BLOOD UREA NITROGEN 11 mg/dL (7-20); CALCIUM 9.9 mg/dL (8.4-10.2); CARBON DIOXIDE 28 mmol/L (22-30); CHLORIDE 100 mmol/L (98-107); GLUCOSE 88 mg/dL (75-110); POTASSIUM 4.5 mmol/L (3.6-5.0); SODIUM 139.8 mmol/L (137-145)
[2017-12-11 08:35] LABS: ABSOLUTE LYMPHOCYTES# (MANUAL) 4.3 10^3/uL (0.5-4.7); ABSOLUTE MONOCYTES # (MANUAL) 0.5 10^3/uL (0.1-1.4); ABSOLUTE NEUTROPHILS# (MANUAL) 10.6 10^3/uL (1.7-8.2); BAND NEUTROPHILS % (MANUAL) 2 % (3-5); BASOPHILS % (MANUAL) 0 % (0-2); EOSINOPHILS % (MANUAL) 0 % (0-6); LYMPHOCYTES % (MANUAL) 25 % (13-45); MONOCYTES % (MANUAL) 3 % (3-13); SEGMENTED NEUTROPHILS % (MAN) 67 % (42-78); TOTAL CELLS COUNTED 100
[2017-12-11 08:36] LABS: ANISOCYTOSIS 2+; HYPOCHROMASIA 1+; POIKILOCYTOSIS 3+; TOXIC VACUOLATION PRESENT
[2017-12-11 08:37] LABS: BURR CELLS 2+; OVALOCYTES 1+; SCHISTOCYTES SLIGHT; TARGET CELLS 2+
[2017-12-11 08:39] LABS: PLATELET COMMENT ADEQUATE; POLYCHROMASIA SLIGHT
--- NOTE | 2017-12-11 09:36 | RADIOLOGY REPORT (SQ) ---
EXAM DESCRIPTION: CHEST SINGLE VIEW portable COMPLETED DATE/TIME: 12/11/2017 9:23 am REASON FOR STUDY: leukocytosis, r/o asp pna COMPARISON: 10/25/2017 EXAM PARAMETERS: NUMBER OF VIEWS: One view. TECHNIQUE: Single frontal radiographic view of the chest acquired. Portable RADIATION DOSE: NA LIMITATIONS: None. FINDINGS: LUNGS AND PLEURA: No opacities, masses or pneumothorax. No pleural effusion. MEDIASTINUM AND HILAR STRUCTURES: No masses. Contour normal. HEART AND VASCULAR STRUCTURES: Heart normal in size. Normal vasculature. BONES: Old rib fractures on the left. HARDWARE: None in the chest. OTHER: No other significant finding. IMPRESSION: Nothing acute. TECHNICAL DOCUMENTATION: JOB ID: [id number] [employer]- All Rights Reserved Reading location - IP/workstation name: [facility]
[2017-12-11] MEDS: LEVETIRACETAM ORAL SOLN 500 MG/5 ML UDCUP PO SCH ×2 (09:50→22:39)
[2017-12-11] MEDS: FOLIC ACID 1 MG TABLET PO SCH (09:50)
[2017-12-11] MEDS: MULTIVITAMIN TABLET PO SCH (09:50)
[2017-12-11] MEDS: THIAMINE HCL 100 MG TABLET PO SCH (09:50)
[2017-12-11] MEDS: GABAPENTIN 300 MG CAPSULE PO SCH ×2 (09:50→22:39)
[2017-12-11] MEDS: RISPERIDONE 1 MG TABLET PO SCH ×2 (09:52→22:40)
[2017-12-11] MEDS: FERROUS SULFATE 325 MG TABLET PO SCH ×2 (09:53→17:29)
[2017-12-11] MEDS: ASCORBIC ACID 500 MG TABLET PO SCH ×2 (09:53→17:29)
[2017-12-11 14:31] LABS: APPEARANCE,URINE CLEAR; BILIRUBIN,URINE NEGATIVE (NEGATIVE); COLOR,URINE YELLOW; GLUCOSE, URINE NEGATIVE (NEGATIVE); KETONES,URINE TRACE mg/dL (NEGATIVE); LEUKOCYTE ESTERASE,URINE NEGATIVE (NEGATIVE); NITRITE,URINE NEGATIVE (NEGATIVE); PROTEIN,URINE NEGATIVE (NEGATIVE); URINE SPECIFIC GRAVITY 1.024
--- NOTE | 2017-12-11 17:25 | PDOC PROGRESS REPORT ---
Subjective Subjective:: The patient is an unfortunate 57-year-old -[place] male with a long- standing history of alcohol abuse and dependence. He was admitted to the hospital with alcohol withdrawal and encephalopathy. He was found to have severe hyponatremia thought to be secondary to Beer Pot[place]ia. At this point he is now stable but remains significantly altered. 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 It is quite clear that the patient cannot take care of himself and return to his previous living situation. He was evaluated by psychiatry and they did not feel that he could make good decisions for himself. He currently is waiting on placement as the patient's daughter cannot take him to [place]. The patient has not had labs obtained in several days. I did obtain labs this morning and the patient has developed leukocytosis. Workup has been unremarkable. Today when I saw the patient he is awake in the bed. He is interactive and pleasant. He is awake alert and oriented 1. A review of systems could not be obtained. He has no complaints that he is able to vocalize. Reason For Visit: HYPONATREMIA NAUSEA,VOMITING Physical Exam Vital Signs: Temp Pulse Resp BP Pulse Ox 97.5 F 90 18 150/73 H 100 12/11/17 16:00 12/11/17 16:00 12/11/17 16:00 12/11/17 16:00 12/11/17 16:00 Intake & Output 12/10/17 12/11/17 12/12/17 06:59 06:59 06:59 Intake Total 1064 100 478 Output Total 100 Balance 1064 100 378 Weight 54.2 kg 53.7 kg General appearance: PRESENT: no acute distress, well-developed, well-nourished Head exam: PRESENT: atraumatic, normocephalic Mouth exam: PRESENT: moist, tongue midline Respiratory exam: PRESENT: clear to auscultation tre. ABSENT: rales, rhonchi, wheezes Cardiovascular exam: PRESENT: RRR. ABSENT: diastolic murmur, rubs, systolic murmur GI/Abdominal exam: PRESENT: normal bowel sounds, soft. ABSENT: distended, guarding, mass, organolmegaly, rebound, tenderness Rectal exam: PRESENT: deferred Extremities exam: PRESENT: full ROM. ABSENT: calf tenderness, clubbing, pedal edema Neurological exam: PRESENT: alert, awake, oriented to person. ABSENT: oriented to place, oriented to time, oriented to situation Psychiatric exam: PRESENT: appropriate affect, normal mood. ABSENT: homicidal ideation, suicidal ideation Skin exam: PRESENT: dry, intact, warm. ABSENT: cyanosis, rash Results Laboratory Results: 12/11/17 07:08 12/11/17 07:08 12/11/17 12/11/17 12/11/17 07:08 07:08 11:08 WBC 15.3 H RBC 3.94 L Hgb 11.2 L Hct 34.6 L MCV 88 MCH 28.5 MCHC 32.5 RDW 20.6 H Plt Count 388 Seg Neutrophils % Not Reportable Lymphocytes % Not Reportable Monocytes % Not Reportable Eosinophils % Not Reportable Basophils % Not Reportable Absolute Neutrophils Not Reportable Absolute Lymphocytes Not Reportable Absolute Monocytes Not Reportable Absolute Eosinophils Not Reportable Absolute Basophils Not Reportable Sodium 139.8 Potassium 4.5 Chloride 100 Carbon Dioxide 28 Anion Gap 12 BUN 11 Creatinine 1.04 Est GFR ( Amer) > 60 Est GFR (Non-Af Amer) > 60 Glucose 88 Calcium 9.9 Magnesium 1.9 Urine Color YELLOW Urine Appearance CLEAR Urine pH 5.0 Ur Specific Echo 1.024 Urine Protein NEGATIVE Urine Glucose (UA) NEGATIVE Urine Ketones TRACE H Urine Blood NEGATIVE Urine Nitrite NEGATIVE Ur Leukocyte Esterase NEGATIVE Urine WBC (Auto) 2 Impressions: KUB X-Ray 11/13/17 00:00 IMPRESSION: NO RADIOGRAPHIC EVIDENCE FOR ACUTE ABDOMINAL DISEASE. Abdomen/Pelvis CT 11/25/17 00:00 IMPRESSION: Stable appearance. Old rib fractures on the left. Colostomy on the left. Slight gastric distention. Chest X-Ray 12/11/17 00:00 IMPRESSION: Nothing acute. Assessment & Plan - Diagnosis (1) Hyponatremia Is this a current diagnosis for this admission?: Yes Plan: Secondary to beer potomania. He was initially on 3% saline which has long since been stopped. His sodium level has normalized. (2) Alcohol withdrawal Qualifiers: Complication of substance-induced condition: uncomplicated Qualified Code(s ): F10.230 - Alcohol dependence with withdrawal, uncomplicated Is this a current diagnosis for this admission?: Yes Plan: Resolved at this point. (3) Alcohol dependence Qualifiers: Complication of substance-induced condition: with unspecified complication Is this a current diagnosis for this admission?: Yes Plan: Certainly he will not be able to live independently anymore. No further alcohol. Continue thiamine and folic acid as well as a multivitamin. (4) Leukocytosis Is this a current diagnosis for this admission?: Yes Plan: The patient actually looks much better today than he did yesterday.Workup so far has been unremarkable. We will hold off on antibiotics and simply check a CBC in the morning. The patient has been afebrile and there is no clear-cut source of infection at this point. (5) Wernickes encephalopathy Is this a current diagnosis for this admission?: Yes Plan: He has been evaluated by psych and they do not believe he can make good decisions for himself. Currently waiting on placement (6) Alcoholic dementia Qualifiers: Dementia behavioral disturbance: without behavioral disturbance Qualified Code(s): F10.27 - Alcohol dependence with alcohol-induced persisting dementia Is this a current diagnosis for this admission?: Yes Plan: He is doing quite well today. Has as needed medications available as needed. (7) Anemia Qualifiers: Anemia type: iron deficiency Is this a current diagnosis for this admission?: Yes Plan: Stable (8) Hypomagnesemia Is this a current diagnosis for this admission?: Yes Plan: Continue to replete as needed (9) Seizure disorder Is this a current diagnosis for this admission?: Yes Plan: Continue current regimen (10) Vomiting Is this a current diagnosis for this admission?: Yes Plan: Resolved (11) Homicidal ideation Is this a current diagnosis for this admission?: Yes Plan: The patient is no longer under involuntary commitment. I believe he was just encephalopathic - Time Time Spent with patient: 25-34 minutes - Inpatient Certification Medical Necessity: Other - Inpatient hospitalization remains necessary for disposition. The discharge planners are working on a safe place for the patient to go. In the meantime he has developed leukocytosis and we will look in to this and make sure he is not developing an early infection.
[2017-12-11] MEDS: ZIPRASIDONE MESYLATE INJ/PF 20 MG SDV IM PRN (20:32)
[2017-12-12] MEDS: VALPROATE SODIUM SYRUP 250 MG/5 ML UDCUP PO SCH ×4 (02:14→17:34)
[2017-12-12 07:01] LABS: ANION GAP 13 (5-19); BLOOD UREA NITROGEN 13 mg/dL (7-20); CALCIUM 9.5 mg/dL (8.4-10.2); CARBON DIOXIDE 28 mmol/L (22-30); CHLORIDE 103 mmol/L (98-107); GLUCOSE 88 mg/dL (75-110); SODIUM 143.6 mmol/L (137-145)
[2017-12-12 07:04] LABS: HEMATOCRIT 32.3 % (37.9-51.0); HEMOGLOBIN 10.8 g/dL (13.5-17.0); MEAN CORPUSCULAR HEMOGLOBIN 29.2 pg (27.0-33.4); MEAN CORPUSCULAR HGB CONC 33.5 g/dL (32.0-36.0); MEAN CORPUSCULAR VOLUME 87 fl (80-97); PLATELET COUNT 339 10^3/uL (150-450); RED BLOOD COUNT 3.71 10^6/uL (4.35-5.55); RED CELL DISTRIBUTION WIDTH 20.7 % (11.5-14.0); WHITE BLOOD COUNT 8.6 10^3/uL (4.0-10.5)
[2017-12-12 07:20] LABS: POTASSIUM 4.7 mmol/L (3.6-5.0)
[2017-12-12 08:09] LABS: ABSOLUTE LYMPHOCYTES# (MANUAL) 3.4 10^3/uL (0.5-4.7); ABSOLUTE MONOCYTES # (MANUAL) 1.1 10^3/uL (0.1-1.4); ABSOLUTE NEUTROPHILS# (MANUAL) 3.9 10^3/uL (1.7-8.2); BASOPHILS % (MANUAL) 0 % (0-2); EOSINOPHILS % (MANUAL) 3 % (0-6); LYMPHOCYTES % (MANUAL) 38 % (13-45); MONOCYTES % (MANUAL) 13 % (3-13); NUCLEATED RED BLOOD CELLS 2 /100 WBC (0); SEGMENTED NEUTROPHILS % (MAN) 45 % (42-78); TOTAL CELLS COUNTED 100
[2017-12-12 08:10] LABS: TOXIC VACUOLATION PRESENT
[2017-12-12 08:11] LABS: ACANTHOCYTES SLIGHT; ANISOCYTOSIS 2+; BURR CELLS 1+; HYPOCHROMASIA 1+; POIKILOCYTOSIS 2+; POLYCHROMASIA 1+; SCHISTOCYTES 1+; TARGET CELLS 1+; TOXIC GRANULATION SLIGHT
[2017-12-12 08:12] LABS: PLATELET COMMENT ADEQUATE
[2017-12-12] MEDS: GABAPENTIN 300 MG CAPSULE PO SCH ×2 (09:19→22:38)
[2017-12-12] MEDS: FOLIC ACID 1 MG TABLET PO SCH (09:20)
[2017-12-12] MEDS: FERROUS SULFATE 325 MG TABLET PO SCH ×2 (09:20→17:34)
[2017-12-12] MEDS: THIAMINE HCL 100 MG TABLET PO SCH (09:20)
[2017-12-12] MEDS: ASCORBIC ACID 500 MG TABLET PO SCH ×2 (09:20→17:34)
[2017-12-12] MEDS: LEVETIRACETAM ORAL SOLN 500 MG/5 ML UDCUP PO SCH ×2 (09:21→22:38)
[2017-12-12] MEDS: RISPERIDONE 1 MG TABLET PO SCH ×2 (09:21→22:38)
[2017-12-12] MEDS: LORAZEPAM INJ 2 MG/1 ML VIAL IM PRN (11:25)
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
[2017-12-12] MEDS: LORAZEPAM 1 MG TABLET PO PRN (18:17)
[2017-12-12] MEDS: ZIPRASIDONE MESYLATE INJ/PF 20 MG SDV IM PRN (20:32)
[2017-12-13] MEDS: VALPROATE SODIUM SYRUP 250 MG/5 ML UDCUP PO SCH ×5 (00:27→22:28)
[2017-12-13] MEDS: GABAPENTIN 300 MG CAPSULE PO SCH ×2 (09:16→22:29)
[2017-12-13] MEDS: THIAMINE HCL 100 MG TABLET PO SCH (09:16)
[2017-12-13] MEDS: ASCORBIC ACID 500 MG TABLET PO SCH ×2 (09:16→22:28)
[2017-12-13] MEDS: FERROUS SULFATE 325 MG TABLET PO SCH ×2 (09:16→22:28)
[2017-12-13] MEDS: FOLIC ACID 1 MG TABLET PO SCH (09:16)
[2017-12-13] MEDS: LEVETIRACETAM ORAL SOLN 500 MG/5 ML UDCUP PO SCH ×2 (09:17→22:28)
[2017-12-13] MEDS: RISPERIDONE 1 MG TABLET PO SCH ×2 (09:18→22:30)
[2017-12-13] MEDS: LORAZEPAM INJ 2 MG/1 ML VIAL IM PRN (09:54)
[2017-12-13] MEDS: ZIPRASIDONE MESYLATE INJ/PF 20 MG SDV IM PRN (14:29)
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
[2017-12-13] MEDS: LORAZEPAM 1 MG TABLET PO PRN (23:38)
[2017-12-14] MEDS: ZIPRASIDONE MESYLATE INJ/PF 20 MG SDV IM PRN (01:10)
[2017-12-14] MEDS: VALPROATE SODIUM SYRUP 250 MG/5 ML UDCUP PO SCH ×4 (06:34→23:22)
[2017-12-14] MEDS: THIAMINE HCL 100 MG TABLET PO SCH (09:09)
[2017-12-14] MEDS: ASCORBIC ACID 500 MG TABLET PO SCH ×2 (09:10→17:38)
[2017-12-14] MEDS: FOLIC ACID 1 MG TABLET PO SCH (09:10)
[2017-12-14] MEDS: FERROUS SULFATE 325 MG TABLET PO SCH ×2 (09:10→17:38)
[2017-12-14] MEDS: GABAPENTIN 300 MG CAPSULE PO SCH ×2 (09:10→22:29)
[2017-12-14] MEDS: LEVETIRACETAM ORAL SOLN 500 MG/5 ML UDCUP PO SCH ×2 (09:13→22:28)
[2017-12-14] MEDS ORDERED: RISPERIDONE 1 MG TABLET PO ONE (09:45)
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
[2017-12-14] MEDS: LORAZEPAM INJ 2 MG/1 ML VIAL IM PRN ×2 (15:11→23:22)
[2017-12-14] MEDS: ONDANSETRON 4 MG TAB.RAPDIS PO PRN (17:37)
[2017-12-14] MEDS: RISPERIDONE 1 MG TABLET PO SCH (22:29)
[2017-12-15] MEDS ORDERED: RISPERIDONE 1 MG TABLET PO SCH (08:00)
[2017-12-15] MEDS: LEVETIRACETAM ORAL SOLN 500 MG/5 ML UDCUP PO SCH ×2 (09:23→23:05)
[2017-12-15] MEDS: VALPROATE SODIUM SYRUP 250 MG/5 ML UDCUP PO SCH ×4 (09:24→23:15)
[2017-12-15] MEDS: ASCORBIC ACID 500 MG TABLET PO SCH ×2 (09:24→23:03)
[2017-12-15] MEDS: FERROUS SULFATE 325 MG TABLET PO SCH ×2 (09:24→23:05)
[2017-12-15] MEDS: FOLIC ACID 1 MG TABLET PO SCH (09:24)
[2017-12-15] MEDS: RISPERIDONE 1 MG TABLET PO SCH ×2 (09:24→23:07)
[2017-12-15] MEDS: LORAZEPAM 1 MG TABLET PO PRN (09:24)
[2017-12-15] MEDS: THIAMINE HCL 100 MG TABLET PO SCH (09:26)
[2017-12-15] MEDS: GABAPENTIN 300 MG CAPSULE PO SCH ×2 (12:53→23:01)
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
[2017-12-16] MEDS: VALPROATE SODIUM SYRUP 250 MG/5 ML UDCUP PO SCH ×4 (07:09→23:13)
[2017-12-16] MEDS: LORAZEPAM 1 MG TABLET PO PRN (08:01)
[2017-12-16] MEDS: RISPERIDONE 1 MG TABLET PO SCH ×2 (08:01→23:13)
[2017-12-16] MEDS: FOLIC ACID 1 MG TABLET PO SCH (09:56)
[2017-12-16] MEDS: THIAMINE HCL 100 MG TABLET PO SCH (09:56)
[2017-12-16] MEDS: LORAZEPAM 1 MG TABLET PO SCH ×2 (09:56→23:13)
[2017-12-16] MEDS: GABAPENTIN 300 MG CAPSULE PO SCH ×2 (09:56→23:13)
[2017-12-16] MEDS: ASCORBIC ACID 500 MG TABLET PO SCH ×2 (09:56→19:38)
[2017-12-16] MEDS: FERROUS SULFATE 325 MG TABLET PO SCH ×2 (09:57→19:38)
[2017-12-16] MEDS: LEVETIRACETAM ORAL SOLN 500 MG/5 ML UDCUP PO SCH ×2 (10:00→23:13)
[2017-12-16] MEDS ORDERED: QUETIAPINE FUMARATE 25 MG TABLET PO ONE (10:30)
[2017-12-16] MEDS: ONDANSETRON 4 MG TAB.RAPDIS PO PRN (13:53)
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
[2017-12-17] MEDS: VALPROATE SODIUM SYRUP 250 MG/5 ML UDCUP PO SCH ×4 (05:49→23:40)
[2017-12-17] MEDS: LEVETIRACETAM ORAL SOLN 500 MG/5 ML UDCUP PO SCH ×2 (11:15→21:51)
[2017-12-17] MEDS: RISPERIDONE 1 MG TABLET PO SCH ×2 (11:15→21:50)
[2017-12-17] MEDS: THIAMINE HCL 100 MG TABLET PO SCH (11:16)
[2017-12-17] MEDS: GABAPENTIN 300 MG CAPSULE PO SCH ×2 (11:16→21:49)
[2017-12-17] MEDS: LORAZEPAM 1 MG TABLET PO SCH ×2 (11:16→21:50)
[2017-12-17] MEDS: FOLIC ACID 1 MG TABLET PO SCH (11:16)
[2017-12-17] MEDS: FERROUS SULFATE 325 MG TABLET PO SCH ×2 (11:21→18:40)
[2017-12-17] MEDS: ASCORBIC ACID 500 MG TABLET PO SCH ×2 (11:21→18:40)
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
[2017-12-18] MEDS: VALPROATE SODIUM SYRUP 250 MG/5 ML UDCUP PO SCH ×3 (05:32→18:08)
[2017-12-18] MEDS: ASCORBIC ACID 500 MG TABLET PO SCH ×2 (08:41→18:44)
[2017-12-18] MEDS: FERROUS SULFATE 325 MG TABLET PO SCH ×2 (08:41→18:44)
[2017-12-18] MEDS: RISPERIDONE 1 MG TABLET PO SCH ×2 (08:41→21:28)
[2017-12-18] MEDS: GABAPENTIN 300 MG CAPSULE PO SCH ×2 (10:08→21:27)
[2017-12-18] MEDS: FOLIC ACID 1 MG TABLET PO SCH (10:08)
[2017-12-18] MEDS: THIAMINE HCL 100 MG TABLET PO SCH (10:08)
[2017-12-18] MEDS: LEVETIRACETAM ORAL SOLN 500 MG/5 ML UDCUP PO SCH ×2 (10:08→21:28)
[2017-12-18] MEDS: LORAZEPAM 1 MG TABLET PO SCH ×2 (10:08→21:28)
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
[2017-12-19] MEDS: VALPROATE SODIUM SYRUP 250 MG/5 ML UDCUP PO SCH ×4 (00:03→18:31)
[2017-12-19] MEDS: ZIPRASIDONE MESYLATE INJ/PF 20 MG SDV IM PRN ×2 (02:39→20:57)
--- NOTE | 2017-12-19 09:49 | PROGRESS NOTE E ---
Progress Note NAME: OUMOU PAZ : 1960 AGE: 57Y DATE: 12/19/2017 ROOM: 536 SUBJECTIVE: The patient is lying in bed. The patient is awake, alert. The patient is unable to provide any history or give a chief complaint. There have been no reported episodes of vomiting nor diarrhea. The patient has been afebrile. His blood pressures have been in a good range and the patient is unable to voice any specific concerns at this time. REVIEW OF SYSTEMS: Rest of review of systems is unobtainable. MEDICATIONS: Medications have been reviewed. OBJECTIVE: GENERAL: The patient is a 57-year-old male who is awake, alert, and oriented to person, place, time, and situation. He is verbal, conversational, does not appear to be in distress. VITAL SIGNS: Temperature is 97.6, pulse 71, respirations 16, blood pressure is 146/74, oxygen saturation is 100% on room air. SKIN: Warm, dry. No rash. Not diaphoretic. HEENT: Pupils equal, round, and reactive to light and accommodation. Conjunctiva is pink. The patient has poor dentition. CARDIOVASCULAR SYSTEM: Heart is regular. There is no murmur or rub. CHEST: Clear, symmetrical, unlabored. ABDOMEN: Soft, nontender, nondistended. BACK: No CVA tenderness or sacral edema. EXTREMITIES: No clubbing, cyanosis, edema. PSYCHIATRIC: The patient is somewhat confused. DIAGNOSTICS: Lab values are as follows: Hematology obtained on 12/12/2017: WBC is 8.6, hemoglobin is 10.8, hematocrit is 32.3, platelet count is 339,000. Chemistry obtained on 12/12/2017: Sodium is 143, potassium 4.7, chloride is 103, carbon dioxide 28, BUN 13, creatinine is 1.03, glucose 88, calcium is 9.5, magnesium is 1.9. IMPRESSION AND PLAN: 1. ALCOHOLIC DEMENTIA. THE PATIENT HAS A HISTORY OF TBI WELL. The patient is currently awaiting placement. 2. IRON DEFICIENCY ANEMIA. Continue to supplement. 3. MALNUTRITION. The patient is currently eating quite well. 4. SEIZURE DISORDER. Will continue the patient's current Keppra. 5. VOMITING. This does appear to be strictly episodic. 6. ALCOHOL DEPENDENCY POST WITHDRAWAL. 7. HYPONATREMIA. This is resolved. 8. HYPOMAGNESEMIA. This resolved with supplementation. DISPOSITION: The patient is a FULL CODE. Pending patient's symptomatology and diagnostic findings, will re-evaluate in the a.m. The patient is currently awaiting placement. Time spent on this followup including assessment, plan, physical examination, patient education, and review of records is 15 minutes. DICTATING PHYSICIAN: JORDANA CAMPBELL NP [id number] PHY#: [id number] ID: [id number] JOB#: [id number] ACCT: [id number] cc: >
[2017-12-19] MEDS: LORAZEPAM 1 MG TABLET PO SCH ×2 (10:26→20:56)
[2017-12-19] MEDS: FOLIC ACID 1 MG TABLET PO SCH (10:30)
[2017-12-19] MEDS: ASCORBIC ACID 500 MG TABLET PO SCH ×2 (10:30→18:30)
[2017-12-19] MEDS: THIAMINE HCL 100 MG TABLET PO SCH (10:30)
[2017-12-19] MEDS: GABAPENTIN 300 MG CAPSULE PO SCH ×2 (10:31→20:57)
[2017-12-19] MEDS: FERROUS SULFATE 325 MG TABLET PO SCH ×2 (10:31→18:30)
[2017-12-19] MEDS: LEVETIRACETAM ORAL SOLN 500 MG/5 ML UDCUP PO SCH ×2 (10:32→20:56)
[2017-12-19] MEDS: RISPERIDONE 1 MG TABLET PO SCH ×2 (10:33→20:57)
--- NOTE | 2017-12-19 18:34 | TRANSFER SUMMARY E ---
Transfer Summary NAME: OUMOU PAZ : 1960 AGE: 57Y ADMITTED: 10/19/2017 TRANSFERRED: CODE STATUS: FULL CODE PRIMARY CARE PROVIDER: MD RECEIVING FACILITY: DISCHARGE DIAGNOSES: Include: 1. Alcohol dementia. 2. History of traumatic brain injury. 3. Iron deficiency anemia. 4. Malnutrition. 5. Seizure disorder. 6. Episodic vomiting. 7. Post alcohol withdrawal. 8. Hyponatremia, resolved. 9. Hypomagnesemia, resolved. 10. Colostomy in place. DISCHARGE MEDICATIONS: Include: 1. Thiamine 100 mg p.o. daily. 2. Multivitamin 1 tablet p.o. daily. 3. Folate 1 mg p.o. daily. 4. Depakote syrup 500 mg p.o. q. 6 hours. 5. Risperdal 2 mg p.o. q. hour of sleep. 6. Risperdal 1 mg p.o. q. a.m. 7. Zofran ODT 4 mg p.o. q. 6 hours p.r.n. 8. Neurontin 600 mg p.o. q. 12 hours. 9. Ferrous sulfate 325 mg p.o. b.i.d. 10. Vitamin C 500 mg p.o. b.i.d. 11. Magnesium oxide 400 mg p.o. b.i.d. 12. Keppra 1000 mg p.o. q. 12 hours. 13. Tylenol 650 mg p.o. q. 8 hours p.r.n. DIET: As tolerated. ACTIVITY: As tolerated. CONDITION: Fair. DIAGNOSTICS: Lab values are as follows: Hematology obtained on 12/12/2017: WBCs 8.6; hemoglobin is 10.8; hematocrit is 32.3; platelet count is 339,000. Chemistry obtained on 12/12/2017: Sodium is 143, potassium 4.7, chloride is 103, carbon dioxide 28, BUN 13, creatinine is 1.03, glucose 98. Serum osmolality is 262. Lactic is 1.4. Calcium is 9.5, phosphorus 5.0, magnesium 1.9, iron is 32.7, total bili is 0.2, AST 63, ALT is 36, alk phos 88. Ammonia is 12.6. Total protein is 3.2, albumin 3.4. Urinalysis obtained on 12/11/2017. Color yellow, appearance clear. PH is 5.0, specific gravity is 1.024, protein negative, glucose negative, ketones trace, occult blood negative, nitrate negative, bilirubin negative, urobilinogen is 2.0, leukocyte esterase is negative, WBCs 2, epithelial squamous cells 1, mucus rare, serum osmolality is 198, ascorbic acid is 40. Toxicology obtained on 12/06/2017. Valproic acid is 102.8. Serum alcohol is less than 10. Microbiology: Blood culture sent on 12/11/2017 reveals no growth. Urine culture obtained on 12/11/2017 reveals no growth. Chest x-ray obtained on 10/19/2017 reveals no acute cardiopulmonary process. Chest x-ray obtained on 10/25/2017 reveals no acute radiographic finding of the chest. CT of the abdomen and pelvis obtained on 11/01/2017 reveals no significant acute abdominal process. KUB obtained on 11/13/2017 reveals no radiographic findings of abdominal disease. CT of the abdomen and pelvis obtained on 11/25/2017 reveals stable appearance, old rib fractures on the left, colostomy on the left, slight gastric distension. Chest x-ray obtained on 12/11/2017 reveals no acute findings. EKG obtained on 11/14/2017 reveals sinus rhythm. PHYSICAL EXAMINATION: GENERAL: On examination, the patient is a frail, chronically ill-appearing 57-year-old male who is awake, alert. He is oriented to place but not fully oriented to situation. He does not appear to be distressed. VITAL SIGNS: Temperature is 98.5, pulse 65, respirations 14, blood pressure 141/57, oxygen saturation 95% on room air. SKIN: Pale, dry. No rash. Not diaphoretic. HEENT: Pupils equal, round, reactive to light and accommodation. Conjunctiva is pink. No evidence of JVP. CARDIOVASCULAR: Heart is regular. There is no murmur or rub. CHEST: Clear, symmetrical, unlabored. ABDOMEN: Soft, nontender, nondistended. BACK: No CVA tenderness or sacral edema. EXTREMITIES: No clubbing, cyanosis, edema. PSYCHIATRIC: The patient is obviously demented. HISTORY OF PRESENT ILLNESS: The patient is a 57-year-old -[place] male with a past medical history of alcohol dependency with also seizure disorder. The patient presented to the Emergency Department with a chief complaint of headaches, nausea, vomiting, was found to have a sodium of 117 as well as abdominal pain. The patient admitted to persistent and excessive beer consumption and was felt to have potomania associated with this. Also, the patient does take hydrochlorothiazide. The patient was referred to the hospitalist for admission and management. HOSPITAL COURSE: The patient was admitted to continuous telemetry unit. The patient was gently hydrated and the patient's sodium was slowly corrected with this. The patient's vomiting did improve and the patient was started on B vitamins as well as the patient required electrolyte supplementation as well. The patient's sodium slowly corrected from 117 over a period of 5 days up to 144 where the patient has remained relatively stable. The patient is at his cognitive baseline and has been awaiting a safe disposition at this time. DISCHARGE PLANNING: The patient is advised to follow with primary care provider as needed. Time spent on this transfer including resource alignment is 40 minutes. DICTATING PHYSICIAN: JORDANA CAMPBELL NP [id number] PHY#: [id number] ID: [id number] JOB#: [id number] ACCT: [id number] cc:JORDANA CAMPBELL NP > MTDD
[2017-12-20] MEDS: VALPROATE SODIUM SYRUP 250 MG/5 ML UDCUP PO SCH ×5 (00:06→23:19)
[2017-12-20] MEDS: ZIPRASIDONE MESYLATE INJ/PF 20 MG SDV IM PRN (07:40)
[2017-12-20] MEDS: RISPERIDONE 1 MG TABLET PO SCH ×2 (08:43→23:19)
[2017-12-20] MEDS: FERROUS SULFATE 325 MG TABLET PO SCH ×2 (10:01→17:35)
[2017-12-20] MEDS: ASCORBIC ACID 500 MG TABLET PO SCH ×2 (10:01→17:35)
[2017-12-20] MEDS: LORAZEPAM 1 MG TABLET PO SCH ×2 (10:41→23:19)
[2017-12-20] MEDS: THIAMINE HCL 100 MG TABLET PO SCH (10:41)
[2017-12-20] MEDS: GABAPENTIN 300 MG CAPSULE PO SCH ×2 (10:41→23:20)
[2017-12-20] MEDS: FOLIC ACID 1 MG TABLET PO SCH (10:41)
[2017-12-20] MEDS: LEVETIRACETAM ORAL SOLN 500 MG/5 ML UDCUP PO SCH ×2 (12:16→23:19)
--- NOTE | 2017-12-20 17:34 | PROGRESS NOTE E ---
Progress Note NAME: OUMOU PAZ : 1960 AGE: 57Y DATE: 12/20/2017 ROOM: 536 SUBJECTIVE: The patient is looking to be discharged today, however, the facility has decided not to take the patient after all. There has been no change in the patient's clinical status. The patient voices no specific concerns at this time REVIEW OF SYSTEMS: The rest of review of systems negative. MEDICATIONS: Medications have been reviewed. OBJECTIVE: GENERAL: The patient is a 57-year-old -[place] male who is awake, alert. He is oriented to place but not full insight into situation. He does not appear to be distressed. VITAL SIGNS: Temperature is 97.7, pulse 80, respirations 16, blood pressure is 144/71, oxygen saturation is 98% on room air. SKIN: Pale, dry. No rash. He is not diaphoretic. HEENT: Pupils equal, round and reactive to light and accommodation. Conjunctivae are pink. No evidence of JVP. CARDIOVASCULAR: Heart is regular. There is no murmur or rub. CHEST: Clear, symmetrical, unlabored. ABDOMEN: Soft, nontender, nondistended. BACK: No CVA tenderness, sacral edema. EXTREMITIES: No clubbing, cyanosis, edema. PSYCHIATRIC: The patient is pleasant at this time. DIAGNOSTICS: Lab values are as follows - hematology obtained on 12/12/2017; WBC is 8.6, hemoglobin is 10.8, hematocrit is 32.2, platelet count is 339. Chemistry obtained on 12/12/2017; sodium is 142, potassium 4.7, chloride 103, carbon dioxide 28, BUN 13, creatinine is 1.03, glucose 88, calcium is 9.5, magnesium is 1.9. IMPRESSION AND PLAN: 1. ALCOHOL DEMENTIA. The patient has a history of TBI as well. The patient is awaiting placement. 2. IRON DEFICIENCY ANEMIA. Will continue supplement. 3. MALNUTRITION. The patient is eating quite well. 4. SEIZURE DISORDER. Continue Keppra. 5. VOMITING. This appears to episodic. 6. ALCOHOL DEPENDENCY. The patient is post withdrawal. Continue supplement B vitamins. 7. HYPERNATREMIA. This is resolved. 8. HYPOMAGNESEMIA. This resolved with supplementation. CODE STATUS: The patient is a full code. DISPOSITION: Depending on the patient's symptomatology and diagnostic findings will reevaluate in the a.m. TIME SPENT: On this follow up, including assessment and plan, physical examination, patient education, review of records is 10 minutes. DICTATING PHYSICIAN: JORDANA CAMPBELL NP [id number] PHY#: [id number] ID: [id number] JOB#: [id number] ACCT: [id number] cc: >
[2017-12-21] MEDS: VALPROATE SODIUM SYRUP 250 MG/5 ML UDCUP PO SCH ×4 (05:31→23:34)
[2017-12-21] MEDS: FERROUS SULFATE 325 MG TABLET PO SCH ×2 (09:17→19:26)
[2017-12-21] MEDS: ASCORBIC ACID 500 MG TABLET PO SCH ×2 (09:17→19:26)
[2017-12-21] MEDS: THIAMINE HCL 100 MG TABLET PO SCH (09:17)
[2017-12-21] MEDS: RISPERIDONE 1 MG TABLET PO SCH ×2 (09:18→21:56)
[2017-12-21] MEDS: FOLIC ACID 1 MG TABLET PO SCH (09:19)
[2017-12-21] MEDS: GABAPENTIN 300 MG CAPSULE PO SCH ×2 (09:19→21:56)
[2017-12-21] MEDS: LORAZEPAM 1 MG TABLET PO SCH ×2 (09:19→21:56)
[2017-12-21] MEDS: LEVETIRACETAM ORAL SOLN 500 MG/5 ML UDCUP PO SCH ×2 (09:20→21:56)
--- NOTE | 2017-12-21 16:28 | PDOC PROGRESS REPORT ---
Subjective Progress Note for:: 12/21/17 Subjective:: Patient has had a long hospitalization in fact be 61 today. Is basically awaiting [facility] placement. It appears he was supposed to be discharged yesterday but there was some technical issues was rejected at the last minute so at this point he looks upper back to square one Reason For Visit: HYPONATREMIA NAUSEA,VOMITING Physical Exam Vital Signs: Temp Pulse Resp BP Pulse Ox 97.6 F 83 16 142/79 H 98 12/21/17 12:00 12/21/17 12:00 12/21/17 12:00 12/21/17 12:00 12/21/17 12:00 Intake & Output 12/20/17 12/21/17 12/22/17 06:59 06:59 06:59 Intake Total 504 837 Output Total 150 Balance 354 837 Weight 53.4 kg 53.1 kg General appearance: PRESENT: no acute distress, disheveled, thin Mouth exam: PRESENT: dry mucosa Neck exam: ABSENT: carotid bruit, JVD, lymphadenopathy, thyromegaly GI/Abdominal exam: PRESENT: normal bowel sounds, soft. ABSENT: distended, guarding, mass, organolmegaly, rebound, tenderness Rectal exam: PRESENT: deferred Focused psych exam: PRESENT: other - confused Results Laboratory Results: 12/12/17 06:24 12/12/17 06:24 Impressions: KUB X-Ray 11/13/17 00:00 IMPRESSION: NO RADIOGRAPHIC EVIDENCE FOR ACUTE ABDOMINAL DISEASE. Abdomen/Pelvis CT 11/25/17 00:00 IMPRESSION: Stable appearance. Old rib fractures on the left. Colostomy on the left. Slight gastric distention. Chest X-Ray 12/11/17 00:00 IMPRESSION: Nothing acute. Assessment & Plan - Time Time Spent with patient: Less than 15 minutes Medications reviewed and adjusted accordingly: Yes Anticipated discharge: SNF Within: when bed available - Inpatient Certification Based on my medical assessment, after consideration of the patient's comorbidities, presenting symptoms, or acuity I expect that the services needed warrant INPATIENT care.: Yes Medical Necessity: Significant Comorbidiites Make Outpatient Treatment Too Risky - Plan Summary Plan Summary: Alcohol dementia History of traumatic brain injury Protein calorie malnutrition Iron deficiency anemia Seizure disorder Electrolyte abnormalities Colostomy in place
[2017-12-22] MEDS: VALPROATE SODIUM SYRUP 250 MG/5 ML UDCUP PO SCH ×3 (07:27→18:43)
[2017-12-22] MEDS: THIAMINE HCL 100 MG TABLET PO SCH (09:58)
[2017-12-22] MEDS: ASCORBIC ACID 500 MG TABLET PO SCH ×2 (09:58→18:43)
[2017-12-22] MEDS: LORAZEPAM 1 MG TABLET PO SCH ×2 (09:58→23:59)
[2017-12-22] MEDS: GABAPENTIN 300 MG CAPSULE PO SCH ×2 (09:58→21:25)
[2017-12-22] MEDS: FOLIC ACID 1 MG TABLET PO SCH (09:58)
[2017-12-22] MEDS: RISPERIDONE 1 MG TABLET PO SCH ×2 (09:59→21:24)
[2017-12-22] MEDS: FERROUS SULFATE 325 MG TABLET PO SCH ×2 (09:59→18:42)
[2017-12-22] MEDS: LEVETIRACETAM ORAL SOLN 500 MG/5 ML UDCUP PO SCH ×2 (10:00→21:24)
--- NOTE | 2017-12-22 13:29 | PDOC PROGRESS REPORT ---
Subjective Progress Note for:: 12/22/17 Subjective:: Patient has had a long hospitalization in fact be 61 today. Is basically awaiting longterm placement. It appears he was supposed to be discharged 12/20 but there was some technical issues and was rejected at the last minute so at this point he looks like back to square one Reason For Visit: HYPONATREMIA NAUSEA,VOMITING Physical Exam Vital Signs: Temp Pulse Resp BP Pulse Ox 98.5 F 68 12 125/80 98 12/22/17 12:00 12/22/17 12:00 12/22/17 12:00 12/22/17 12:00 12/22/17 12:00 Intake & Output 12/21/17 12/22/17 12/23/17 06:59 06:59 06:59 Intake Total 837 626 Balance 837 626 Weight 53.1 kg 52 kg General appearance: PRESENT: no acute distress, disheveled, thin Head exam: PRESENT: atraumatic Teeth exam: PRESENT: poor dentation Respiratory exam: PRESENT: clear to auscultation tre. ABSENT: rales, rhonchi, wheezes Cardiovascular exam: PRESENT: RRR. ABSENT: diastolic murmur, rubs, systolic murmur GI/Abdominal exam: PRESENT: normal bowel sounds, soft, other - colostomy. ABSENT: distended, guarding, mass, organolmegaly, rebound, tenderness Rectal exam: PRESENT: deferred Extremities exam: PRESENT: calf tenderness Neurological exam: PRESENT: alert, awake, other - confused Results Laboratory Results: 12/12/17 06:24 12/12/17 06:24 Impressions: KUB X-Ray 11/13/17 00:00 IMPRESSION: NO RADIOGRAPHIC EVIDENCE FOR ACUTE ABDOMINAL DISEASE. Abdomen/Pelvis CT 11/25/17 00:00 IMPRESSION: Stable appearance. Old rib fractures on the left. Colostomy on the left. Slight gastric distention. Chest X-Ray 12/11/17 00:00 IMPRESSION: Nothing acute. Assessment & Plan - Time Time Spent with patient: Less than 15 minutes Medications reviewed and adjusted accordingly: Yes Anticipated discharge: SNF Within: when bed available - Inpatient Certification Based on my medical assessment, after consideration of the patient's comorbidities, presenting symptoms, or acuity I expect that the services needed warrant INPATIENT care.: Yes Medical Necessity: Significant Comorbidiites Make Outpatient Treatment Too Risky - Plan Summary Plan Summary: Alcohol dementia History of traumatic brain injury Protein calorie malnutrition Iron deficiency anemia Seizure disorder Electrolyte abnormalities Colostomy in place DC when bed available
[2017-12-23] MEDS: VALPROATE SODIUM SYRUP 250 MG/5 ML UDCUP PO SCH ×4 (00:38→18:37)
[2017-12-23 05:58] LABS: ANION GAP 13 (5-19); BLOOD UREA NITROGEN 16 mg/dL (7-20); CALCIUM 9.9 mg/dL (8.4-10.2); CARBON DIOXIDE 25 mmol/L (22-30); CHLORIDE 108 mmol/L (98-107); GLUCOSE 90 mg/dL (75-110); POTASSIUM 4.3 mmol/L (3.6-5.0); SODIUM 146.4 mmol/L (137-145)
[2017-12-23 07:45] LABS: HEMATOCRIT 37.5 % (37.9-51.0); HEMOGLOBIN 12.3 g/dL (13.5-17.0); MEAN CORPUSCULAR HEMOGLOBIN 30.1 pg (27.0-33.4); MEAN CORPUSCULAR HGB CONC 32.7 g/dL (32.0-36.0); PLATELET COUNT 320 10^3/uL (150-450); RED BLOOD COUNT 4.07 10^6/uL (4.35-5.55); RED CELL DISTRIBUTION WIDTH 24.8 % (11.5-14.0); WHITE BLOOD COUNT 6.9 10^3/uL (4.0-10.5)
[2017-12-23] MEDS: RISPERIDONE 1 MG TABLET PO SCH ×2 (07:46→21:44)
[2017-12-23 08:13] LABS: MEAN CORPUSCULAR VOLUME 92 fl (80-97)
[2017-12-23] MEDS: ASCORBIC ACID 500 MG TABLET PO SCH ×2 (10:53→18:37)
[2017-12-23] MEDS: FERROUS SULFATE 325 MG TABLET PO SCH ×2 (10:53→18:37)
[2017-12-23] MEDS: FOLIC ACID 1 MG TABLET PO SCH (10:53)
[2017-12-23] MEDS: LEVETIRACETAM ORAL SOLN 500 MG/5 ML UDCUP PO SCH ×2 (10:54→21:45)
[2017-12-23] MEDS: THIAMINE HCL 100 MG TABLET PO SCH (10:54)
[2017-12-23] MEDS: GABAPENTIN 300 MG CAPSULE PO SCH ×2 (10:54→21:45)
--- NOTE | 2017-12-23 12:27 | PDOC PROGRESS REPORT ---
Subjective Progress Note for:: 12/23/17 Subjective:: Patient has had a long hospitalization in fact be 61 today. Is basically awaiting [facility] placement. It appears he was supposed to be discharged 12/20 but there was some technical issues and was rejected at the last minute so at this point he looks like back to [facility] No new findings or report Reason For Visit: HYPONATREMIA NAUSEA,VOMITING Physical Exam Vital Signs: Temp Pulse Resp BP Pulse Ox 97.5 F 87 16 142/72 H 98 12/23/17 07:26 12/23/17 07:26 12/23/17 07:26 12/23/17 07:26 12/23/17 07:26 Intake & Output 12/22/17 12/23/17 12/24/17 06:59 06:59 06:59 Intake Total 626 904 Output Total 50 Balance 626 854 Weight 52 kg 52.4 kg General appearance: PRESENT: disheveled - ill looking, thin Head exam: PRESENT: atraumatic Teeth exam: PRESENT: poor dentation Respiratory exam: PRESENT: clear to auscultation tre. ABSENT: rales, rhonchi, wheezes Rectal exam: PRESENT: deferred Neurological exam: PRESENT: other - confused Results Laboratory Results: 12/23/17 06:50 12/23/17 04:23 12/23/17 12/23/17 12/23/17 04:23 04:23 06:50 WBC Cancelled 6.9 RBC Cancelled 4.07 L Hgb Cancelled 12.3 L Hct Cancelled 37.5 L MCV Cancelled 92 D MCH Cancelled 30.1 MCHC Cancelled 32.7 RDW Cancelled 24.8 H Plt Count Cancelled 320 Sodium 146.4 H Potassium 4.3 Chloride 108 H Carbon Dioxide 25 Anion Gap 13 BUN 16 Creatinine 1.14 Est GFR ( Amer) > 60 Est GFR (Non-Af Amer) > 60 Glucose 90 Calcium 9.9 Impressions: KUB X-Ray 11/13/17 00:00 IMPRESSION: NO RADIOGRAPHIC EVIDENCE FOR ACUTE ABDOMINAL DISEASE. Abdomen/Pelvis CT 11/25/17 00:00 IMPRESSION: Stable appearance. Old rib fractures on the left. Colostomy on the left. Slight gastric distention. Chest X-Ray 12/11/17 00:00 IMPRESSION: Nothing acute. Assessment & Plan - Time Time Spent with patient: Less than 15 minutes Medications reviewed and adjusted accordingly: Yes Anticipated discharge: SNF Within: when bed available - Inpatient Certification Based on my medical assessment, after consideration of the patient's comorbidities, presenting symptoms, or acuity I expect that the services needed warrant INPATIENT care.: Yes Medical Necessity: Risk of Complication if Not Cared For in Hospital - Plan Summary Plan Summary: Alcohol dementia History of traumatic brain injury Protein calorie malnutrition Iron deficiency anemia Seizure disorder Electrolyte abnormalities Colostomy in place DC when bed available
[2017-12-24] MEDS: VALPROATE SODIUM SYRUP 250 MG/5 ML UDCUP PO SCH ×4 (01:54→18:26)
[2017-12-24] MEDS: FERROUS SULFATE 325 MG TABLET PO SCH ×2 (09:19→18:26)
[2017-12-24] MEDS: RISPERIDONE 1 MG TABLET PO SCH ×2 (09:19→21:09)
[2017-12-24] MEDS: ASCORBIC ACID 500 MG TABLET PO SCH ×2 (09:19→18:26)
[2017-12-24] MEDS: GABAPENTIN 300 MG CAPSULE PO SCH ×2 (09:19→21:09)
[2017-12-24] MEDS: LEVETIRACETAM ORAL SOLN 500 MG/5 ML UDCUP PO SCH ×2 (09:20→21:09)
--- NOTE | 2017-12-24 14:52 | PDOC PROGRESS REPORT ---
Subjective Progress Note for:: 12/24/17 Subjective:: Patient has had a long hospitalization in fact be 61 today. Is basically awaiting snf placement. It appears he was supposed to be discharged 12/20 but there was some technical issues and was rejected at the last minute so at this point an alternative plan is needed Reason For Visit: HYPONATREMIA NAUSEA,VOMITING Physical Exam Vital Signs: Temp Pulse Resp BP Pulse Ox 98.5 F 64 12 149/77 H 98 12/24/17 12:00 12/24/17 12:00 12/24/17 12:00 12/24/17 12:00 12/24/17 12:00 Intake & Output 12/23/17 12/24/17 12/25/17 06:59 06:59 06:59 Intake Total 904 730 Output Total 50 Balance 854 730 Weight 52.4 kg 52.4 kg General appearance: PRESENT: disheveled, thin Teeth exam: PRESENT: poor dentation Respiratory exam: PRESENT: clear to auscultation tre. ABSENT: rales, rhonchi, wheezes Cardiovascular exam: PRESENT: RRR. ABSENT: diastolic murmur, rubs, systolic murmur GI/Abdominal exam: PRESENT: normal bowel sounds, soft. ABSENT: distended, guarding, mass, organolmegaly, rebound, tenderness Rectal exam: PRESENT: deferred Musculoskeletal exam: PRESENT: other Neurological exam: PRESENT: alert, awake, other - confused. ABSENT: normal gait - unsteady gait Results Laboratory Results: 12/23/17 06:50 12/23/17 04:23 Impressions: KUB X-Ray 11/13/17 00:00 IMPRESSION: NO RADIOGRAPHIC EVIDENCE FOR ACUTE ABDOMINAL DISEASE. Abdomen/Pelvis CT 11/25/17 00:00 IMPRESSION: Stable appearance. Old rib fractures on the left. Colostomy on the left. Slight gastric distention. Chest X-Ray 12/11/17 00:00 IMPRESSION: Nothing acute.
[2017-12-25] MEDS: VALPROATE SODIUM SYRUP 250 MG/5 ML UDCUP PO SCH ×3 (00:34→12:31)
--- NOTE | 2017-12-25 10:26 | PDOC DISCHARGE SUMMARY ---
General - Admit/Disc Date/PCP Admission Date/Primary Care Provider: 10/19/17 20:37 Discharge Date: 12/25/17 - Discharge Diagnosis (1) Hyponatremia Is this a current diagnosis for this admission?: Yes Summary: Resolved. Secondary to heavy alcohol use (2) Alcohol withdrawal Is this a current diagnosis for this admission?: Yes Summary: Resolved (3) Alcohol dependence Is this a current diagnosis for this admission?: Yes (4) Leukocytosis Is this a current diagnosis for this admission?: Yes Summary: Resolved (5) Wernickes encephalopathy Is this a current diagnosis for this admission?: Yes Summary: Stable (6) Alcoholic dementia Is this a current diagnosis for this admission?: Yes Summary: He is at his new cognitive baseline (7) Anemia Is this a current diagnosis for this admission?: Yes Summary: Stable (8) Hypomagnesemia Is this a current diagnosis for this admission?: Yes Summary: Repleted (9) Seizure disorder Is this a current diagnosis for this admission?: Yes Summary: Stable on current regimen (10) Vomiting Is this a current diagnosis for this admission?: Yes Summary: No further episodes. He is tolerating a diet (11) Homicidal ideation Is this a current diagnosis for this admission?: Yes Summary: Ruled out - Additional Information Resuscitation Status: Full Code Discharge Diet: As Tolerated, Regular Discharge Activity: Balance Activity w/Rest, Supervised Activity Home Medications: Acetaminophen [Tylenol 325 mg Tablet] 650 mg PO Q8HP PRN 10/20/17 Levetiracetam [Keppra 500 mg Tablet] 1,000 mg PO Q12 10/20/17 Magnesium Oxide [Mag-Ox 400 mg Tablet] 400 mg PO BID 10/20/17 Multivitamin [Tab-A-Danial (Multiple Vitamin) Tablet] 1 tab PO DAILY@1200 tablet 10/26/17 Ascorbic Acid [Vitamin C 500 mg Tablet] 500 mg PO BIDPCBS #0 tablet 12/19/17 Ferrous Sulfate [Feosol 325 mg Tablet] 325 mg PO BIDPCBS #0 tablet 12/19/17 Folic Acid [Folvite 1 mg Tablet] 1 mg PO DAILY #0 tablet 12/19/17 Gabapentin [Neurontin 300 mg Capsule] 600 mg PO Q12 capsule 12/19/17 Ondansetron [Zofran Odt 4 mg Tablet] 4 mg PO Q6HP PRN tab.rapdis 12/19/17 Risperidone [Risperdal 1 mg Tablet] 1 mg PO QAM tablet 12/19/17 Risperidone [Risperdal 1 mg Tablet] 2 mg PO QHS tablet 12/19/17 Thiamine HCl [Thiamine 100 mg Tablet] 100 mg PO DAILY tablet 12/19/17 Valproate Sodium [Depakene Syrup 250 mg/5 ml Udcup] 500 mg PO Q6 udc 12/19/17 History of Present Illness History of Present Illness: The patient is an unfortunate 57-year-old -[place] male with a past medical history significant for alcohol dependency and seizure disorder. The patient presented to the emergency department with a chief complaint of headache , nausea, vomiting and vomiting. He was found to have a sodium of 117 as well as abdominal pain. The patient admitted to persistent excessive beer consumption and it was felt that he had beer put a leonard associated with this. Also the patient was on hydrochlorothiazide at the time of admission. The patient was referred to the hospitalist for further management. Hospital Course Hospital Course: The patient was admitted to a continuous telemetry unit. He was gently hydrated and the patient's sodium was slowly corrected with this. The patient' s vomiting improved and he was started on [place] vitamins B vitamins. The patient's electrolytes were supplemented and corrected over the course of this hospitalization. The patient's sodium slowly corrected from 117 over a period of 5 days up to 144 where the patient has remained relatively stable since that time. It is felt that the patient the patient did go through alcohol withdrawal which is resolved. It is felt that he has underlying alcoholic dementia and possibly Wernicke's encephalopathy. He is awaiting safe he has been in the hospital awaiting safe disposition. I was notified by our discharge planners today that the patient does have a bed available. I examined the patient on the day of discharge and he is doing well. He will be transferred today in stable condition. Physical Exam Vital Signs: Temp Pulse Resp BP Pulse Ox 98.3 F 73 16 138/68 H 100 12/25/17 08:19 12/25/17 08:19 12/25/17 08:19 12/25/17 08:19 12/25/17 08:19 Intake & Output 12/24/17 12/25/17 12/26/17 06:59 06:59 06:59 Intake Total 730 718 Balance 730 718 Weight 52.4 kg 52.4 kg General appearance: PRESENT: no acute distress, disheveled, thin Head exam: PRESENT: atraumatic, normocephalic Mouth exam: PRESENT: moist, tongue midline Neck exam: ABSENT: carotid bruit, JVD, lymphadenopathy, thyromegaly Respiratory exam: PRESENT: clear to auscultation tre. ABSENT: rales, rhonchi, wheezes Cardiovascular exam: PRESENT: RRR. ABSENT: diastolic murmur, rubs, systolic murmur GI/Abdominal exam: PRESENT: normal bowel sounds, soft, other - He has an ostomy in place. ABSENT: distended, guarding, mass, organolmegaly, rebound, tenderness Rectal exam: PRESENT: deferred Extremities exam: PRESENT: full ROM. ABSENT: calf tenderness, clubbing, pedal edema Musculoskeletal exam: ABSENT: ambulatory Neurological exam: PRESENT: alert, altered, awake, oriented to person. ABSENT: oriented to time, oriented to situation Psychiatric exam: PRESENT: appropriate affect, unusual affect. ABSENT: homicidal ideation, suicidal ideation Skin exam: PRESENT: dry, intact, warm. ABSENT: cyanosis, rash Results Laboratory Results: 12/23/17 06:50 12/23/17 04:23 Impressions: KUB X-Ray 11/13/17 00:00 IMPRESSION: NO RADIOGRAPHIC EVIDENCE FOR ACUTE ABDOMINAL DISEASE. Abdomen/Pelvis CT 11/25/17 00:00 IMPRESSION: Stable appearance. Old rib fractures on the left. Colostomy on the left. Slight gastric distention. Chest X-Ray 12/11/17 00:00 IMPRESSION: Nothing acute. Qualifiers - * PATIENT BEING DISCHARGED WITH ANY OF THE FOLLOWING DIAGNOSIS: No Plan Time Spent: Greater than 30 Minutes
[2017-12-25] MEDS: FERROUS SULFATE 325 MG TABLET PO SCH (12:25)
[2017-12-25] MEDS: GABAPENTIN 300 MG CAPSULE PO SCH (12:25)
[2017-12-25] MEDS: RISPERIDONE 1 MG TABLET PO SCH (12:25)
[2017-12-25] MEDS: LEVETIRACETAM ORAL SOLN 500 MG/5 ML UDCUP PO SCH (12:25)
[2017-12-25] MEDS: ASCORBIC ACID 500 MG TABLET PO SCH (12:25)
[2017-12-25 12:46] VITALS: BP 146/93
== END 2017-12-25 13:45 | DRG 641 ==
LOC: ER 15:25 → EH 20:37 → 3W 10-20 15:25 → 5 10-28 14:33
PROVIDERS: ADMIT Internal Medicine; ATTEND Internal Medicine
PROC: 02HV33Z Insertion of Infusion Device into Superior Vena Cava, Percutaneous Approach (ICD-10-PCS; principal; 2017-10-19)
DX: E87.1 Hypo-osmolality and hyponatremia (principal); F10.27 Alcohol dependence with alcohol-induced persisting dementia; E51.2 Wernicke's encephalopathy; E44.0 Moderate protein-calorie malnutrition; Z68.1 Body mass index [BMI] 19.9 or less, adult; F10.239 Alcohol dependence with withdrawal, unspecified; E83.42 Hypomagnesemia; F12.90 Cannabis use, unspecified, uncomplicated; B19.20 Unspecified viral hepatitis C without hepatic coma; I50.9 Heart failure, unspecified; D50.9 Iron deficiency anemia, unspecified; R10.9 Unspecified abdominal pain; I11.0 Hypertensive heart disease with heart failure; R45.1 Restlessness and agitation; R45.850 Homicidal ideations; G31.2 Degeneration of nervous system due to alcohol; F02.80 Dementia in other diseases classified elsewhere, unspecified severity, without behavioral disturbance, psychotic disturbance, mood disturbance, and anxiety; K21.9 Gastro-esophageal reflux disease without esophagitis; G40.909 Epilepsy, unspecified, not intractable, without status epilepticus; Y90.0 Blood alcohol level of less than 20 mg/100 ml; F17.210 Nicotine dependence, cigarettes, uncomplicated; Z93.3 Colostomy status; Z86.711 Personal history of pulmonary embolism; Z86.718 Personal history of other venous thrombosis and embolism; Z75.1 Person awaiting admission to adequate facility elsewhere; Z87.820 Personal history of traumatic brain injury
CPT/HCPCS: 36415; 71045; 74018; 74176; 80048; 80053; 80069; 80164; 80307; 81001; 82140; 82962; 83540; 83605; 83735; 83930; 83935; 84100; 85025; 85027; 85045; 87040; 87086; 93005; 93010; 94640; 96360; 99285; C1751; J1630; J1642; J1644; J2060; J2405; J3411; J3475; J3480; J3486; J3490; J7030; J7050; J7620; S0119

== ENCOUNTER 2018-09-01 13:35 | Emergency (ER) | payer OTHER ==
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
[2018-09-01] MEDS ORDERED: NORMAL SALINE 1000 ML 1,000 ML IV ONE (15:26)
[2018-09-01 16:03] LABS: ABSOLUTE BASOPHILS # (AUTO) 0.1 10^3/uL (0.0-0.2); ABSOLUTE LYMPHOCYTES (AUTO) 2.1 10^3/uL (0.5-4.7); ABSOLUTE MONOCYTES (AUTO) 0.9 10^3/uL (0.1-1.4); ABSOLUTE NEUT (AUTO) 3.1 10^3/uL (1.7-8.2); BASOPHILS % (AUTO) 1.3 % (0-2); EOSINOPHILS % (AUTO) 0.5 % (0-6); HEMATOCRIT 42.6 % (37.9-51.0); HEMOGLOBIN 14.8 g/dL (13.5-17.0); LYMPHOCYTES % (AUTO) 34.2 % (13-45); MEAN CORPUSCULAR HEMOGLOBIN 33.1 pg (27.0-33.4); MEAN CORPUSCULAR HGB CONC 34.8 g/dL (32.0-36.0); MEAN CORPUSCULAR VOLUME 95 fl (80-97); PLATELET COUNT 289 10^3/uL (150-450); RED BLOOD COUNT 4.47 10^6/uL (4.35-5.55); RED CELL DISTRIBUTION WIDTH 13.5 % (11.5-14.0); TOTAL CELLS COUNTED % (AUTO) 100 %; WHITE BLOOD COUNT 6.3 10^3/uL (4.0-10.5)
[2018-09-01] MEDS ORDERED: ACETAMINOPHEN 325 MG TABLET PO ONE (16:26)
[2018-09-01 17:23] LABS: ALANINE AMINOTRANSFERASE 27 U/L (21-72); ALBUMIN 4.5 g/dL (3.5-5.0); ALKALINE PHOSPHATASE 70 U/L (38-126); ANION GAP 11 (5-19); ASPARTATE AMINO TRANSFERASE 40 U/L (17-59); BILIRUBIN,DIRECT 0.4 mg/dL (0.0-0.4); BILIRUBIN,TOTAL 0.7 mg/dL (0.2-1.3); BLOOD UREA NITROGEN 18 mg/dL (7-20); CALCIUM 9.5 mg/dL (8.4-10.2); CARBON DIOXIDE 25 mmol/L (22-30); CHLORIDE 91 mmol/L (98-107); CREATINE KINASE 112 U/L (55-170); GLUCOSE 102 mg/dL (75-110); POTASSIUM 3.6 mmol/L (3.6-5.0); SODIUM 126.8 mmol/L (137-145); TOTAL PROTEIN 7.3 g/dL (6.3-8.2)
[2018-09-01 17:55] LABS: APPEARANCE,URINE CLEAR; BILIRUBIN,URINE NEGATIVE (NEGATIVE); COLOR,URINE YELLOW; GLUCOSE, URINE NEGATIVE (NEGATIVE); KETONES,URINE NEGATIVE (NEGATIVE); LEUKOCYTE ESTERASE,URINE NEGATIVE (NEGATIVE); NITRITE,URINE NEGATIVE (NEGATIVE); PROTEIN,URINE NEGATIVE (NEGATIVE); UROBILINOGEN,URINE NEGATIVE mg/dL (<2.0)
[2018-09-01 18:05] VITALS: BP 143/74
[2018-09-01] MEDS ORDERED: LEVETIRACETAM 500 MG TABLET PO ONE (18:56)
== END 2018-09-01 19:14 | disposition home or self-care (01) ==
LOC: ER 13:35
DX: E87.1 Hypo-osmolality and hyponatremia (principal); Z91.19 Patient's noncompliance with other medical treatment and regimen; R53.83 Other fatigue; R51 Headache; R53.1 Weakness; Z79.899 Other long term (current) drug therapy; I50.9 Heart failure, unspecified; I11.0 Hypertensive heart disease with heart failure; F17.210 Nicotine dependence, cigarettes, uncomplicated
CPT/HCPCS: 99284; 96360; 36415; 80177; 82550; 83735; 85025; 80053; 81001; J7030

== ENCOUNTER 2018-09-15 10:26 | Emergency (ER) | payer OTHER ==
[2018-09-15] MEDS ORDERED: LEVETIRACETAM 1000 MG/NACL-ISO 1,000 MG/100 ML RTUPB IV ONE (10:39)
[2018-09-15] MEDS ORDERED: NORMAL SALINE 1000 ML 1,000 ML IV ONE (10:39)
[2018-09-15 11:18] LABS: HEMATOCRIT 38.2 % (37.9-51.0); HEMOGLOBIN 13.1 g/dL (13.5-17.0); MEAN CORPUSCULAR HEMOGLOBIN 32.5 pg (27.0-33.4); MEAN CORPUSCULAR HGB CONC 34.3 g/dL (32.0-36.0); MEAN CORPUSCULAR VOLUME 95 fl (80-97); PLATELET COUNT 318 10^3/uL (150-450); RED BLOOD COUNT 4.03 10^6/uL (4.35-5.55); RED CELL DISTRIBUTION WIDTH 13.9 % (11.5-14.0); WHITE BLOOD COUNT 4.7 10^3/uL (4.0-10.5)
[2018-09-15 11:42] LABS: ALANINE AMINOTRANSFERASE 27 U/L (21-72); ALBUMIN 4.4 g/dL (3.5-5.0); ALCOHOL 46 mg/dL (NONE DETECTED); ALKALINE PHOSPHATASE 63 U/L (38-126); ANION GAP 8 (5-19); ASPARTATE AMINO TRANSFERASE 52 U/L (17-59); BILIRUBIN,DIRECT 0.3 mg/dL (0.0-0.4); BILIRUBIN,TOTAL 0.6 mg/dL (0.2-1.3); BLOOD UREA NITROGEN 4 mg/dL (7-20); CALCIUM 9.5 mg/dL (8.4-10.2); CARBON DIOXIDE 27 mmol/L (22-30); CHLORIDE 97 mmol/L (98-107); GLUCOSE 81 mg/dL (75-110); LIPASE 78.2 U/L (23-300); POTASSIUM 4.3 mmol/L (3.6-5.0); SODIUM 131.8 mmol/L (137-145); TOTAL PROTEIN 7.4 g/dL (6.3-8.2)
[2018-09-15 11:54] LABS: ABSOLUTE LYMPHOCYTES# (MANUAL) 2.2 10^3/uL (0.5-4.7); ABSOLUTE MONOCYTES # (MANUAL) 0.8 10^3/uL (0.1-1.4); ABSOLUTE NEUTROPHILS# (MANUAL) 1.6 10^3/uL (1.7-8.2); BASOPHILS % (MANUAL) 0 % (0-2); EOSINOPHILS % (MANUAL) 2 % (0-6); LYMPHOCYTES % (MANUAL) 42 % (13-45); MONOCYTES % (MANUAL) 16 % (3-13); SEGMENTED NEUTROPHILS % (MAN) 35 % (42-78); TOTAL CELLS COUNTED 100
[2018-09-15 11:56] LABS: ACANTHOCYTES 1+; PLATELET COMMENT ADEQUATE; POIKILOCYTOSIS 1+; SCHISTOCYTES 1+; TARGET CELLS 1+
--- NOTE | 2018-09-15 12:02 | RADIOLOGY REPORT (SQ) ---
EXAM DESCRIPTION: CT HEAD WITHOUT COMPLETED DATE/TIME: 09/15/2018 11:48 am REASON FOR STUDY: fall COMPARISON: None. TECHNIQUE: Axial images acquired through the brain without intravenous contrast. Images reviewed wi th bone, brain and subdural windows. Additional sagittal and coronal reconstructions were generated. Images stored on PACS. All CT scanners at this facility use dose modulation, iterative reconstruction, and/or weight based d osing when appropriate to reduce radiation dose to as low as reasonably achievable (ALARA). [facility]: Dose Right [facility]: CareDose [facility]: Dose Right [facility]: Teradose 4D [facility]: Welzoo RADIATION DOSE: CT Rad equipment meets quality standard of care and radiation dose reduction techniq ues were employed. CTDIvol: 53.2 mGy. DLP: 1150 mGy-cm. mGy. LIMITATIONS: None. FINDINGS: VENTRICLES: Normal size and contour. CEREBRUM: No masses. No hemorrhage. No midline shift. No evidence for acute infarction. Normal gra y/white matter differentiation. No areas of low density in the white matter. CEREBELLUM: No masses. No hemorrhage. No alteration of density. No evidence for acute infarction. EXTRAAXIAL SPACES: No fluid collections. No masses. ORBITS AND GLOBE: No intra- or extraconal masses. Normal contour of globe without masses. CALVARIUM: No fracture. PARANASAL SINUSES: No fluid or mucosal thickening. SOFT TISSUES: No mass or hematoma. OTHER: No other significant finding. IMPRESSION: NORMAL BRAIN CT WITHOUT CONTRAST. EVIDENCE OF ACUTE STROKE: NO. COMMENT: Quality ID # [id number]: Final reports with documentation of one or more dose reduction techniques (e.g., Automated exposure control, adjustment of the mA and/or kV according to patient size, use of iterative reconstruction technique) TECHNICAL DOCUMENTATION: JOB ID: [id number] [employer]- All Rights Reserved Reading location - IP/workstation name: [email or web address]
--- NOTE | 2018-09-15 12:09 | RADIOLOGY REPORT (SQ) ---
EXAM DESCRIPTION: SHOULDER RIGHT 2 OR MORE VIEWS COMPLETED DATE/TIME: 09/15/2018 11:59 am REASON FOR STUDY: fall COMPARISON: None. NUMBER OF VIEWS: Three views. TECHNIQUE: Internal rotation, external rotation, and Y view images acquired of the right shoulder. LIMITATIONS: None. FINDINGS: MINERALIZATION: Normal. BONES: No acute fracture or dislocation. No worrisome bone lesions. JOINTS: No dislocation. VISUALIZED LUNGS AND RIBS: No pneumothorax. No rib fracture. SOFT TISSUES: No radiopaque foreign body. OTHER: No other significant finding. IMPRESSION: NEGATIVE STUDY OF THE RIGHT SHOULDER. NO RADIOGRAPHIC EVIDENCE OF ACUTE INJURY. TECHNICAL DOCUMENTATION: JOB ID: [id number] [employer]- All Rights Reserved Reading location - IP/workstation name: [email or web address]
--- NOTE | 2018-09-15 12:10 | RADIOLOGY REPORT (SQ) ---
EXAM DESCRIPTION: HIP RIGHT AP/LATERAL COMPLETED DATE/TIME: 09/15/2018 11:59 am REASON FOR STUDY: fall COMPARISON: None. NUMBER OF VIEWS: Three views. TECHNIQUE: AP pelvis and additional frog-leg view of the right hip. LIMITATIONS: None. FINDINGS: Old proximal right femoral fracture status post candice and interlocking screw fixation. No a cute fracture or dislocation. IMPRESSION: No acute findings. TECHNICAL DOCUMENTATION: JOB ID: [id number] [employer]- All Rights Reserved Reading location - IP/workstation name: [email or web address]
[2018-09-15 12:26] LABS: APPEARANCE,URINE CLEAR; BILIRUBIN,URINE NEGATIVE (NEGATIVE); COLOR,URINE YELLOW; GLUCOSE, URINE NEGATIVE (NEGATIVE); KETONES,URINE NEGATIVE (NEGATIVE); LEUKOCYTE ESTERASE,URINE NEGATIVE (NEGATIVE); NITRITE,URINE NEGATIVE (NEGATIVE); PROTEIN,URINE NEGATIVE (NEGATIVE); URINE SPECIFIC GRAVITY 1.006; UROBILINOGEN,URINE NEGATIVE mg/dL (<2.0)
[2018-09-15 12:42] LABS: URINE AMPHETAMINES SCREEN NEGATIVE; URINE BARBITURATES SCREEN NEGATIVE; URINE BENZODIAZEPINES SCREEN NEGATIVE; URINE COCAINE SCREEN NEGATIVE; URINE MARIJUANA (THC) SCREEN UNCONFIRMED POSITIVE; URINE METHADONE SCREEN NEGATIVE; URINE PHENCYCLIDINE SCREEN NEGATIVE
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
[2018-09-15 14:02] VITALS: BP 135/83
--- NOTE | 2018-09-15 15:27 | EKG REPORT ---
SEVERITY:- ABNORMAL ECG - SINUS RHYTHM CONSIDER LEFT VENTRICULAR HYPERTROPHY : Confirmed by: Ricyk Ruff MD 15-Sep-2018 15:26:41
== END 2018-09-15 14:30 | disposition home or self-care (01) ==
LOC: ER 10:26
DX: G40.909 Epilepsy, unspecified, not intractable, without status epilepticus (principal); F10.99 Alcohol use, unspecified with unspecified alcohol-induced disorder; R55 Syncope and collapse; M25.511 Pain in right shoulder; M25.551 Pain in right hip; W17.89XA Other fall from one level to another, initial encounter; Y92.009 Unspecified place in unspecified non-institutional (private) residence as the place of occurrence of the external cause; I10 Essential (primary) hypertension; Z91.14 Patient's other noncompliance with medication regimen; Z93.2 Ileostomy status; Z88.8 Allergy status to other drugs, medicaments and biological substances; Z88.5 Allergy status to narcotic agent
CPT/HCPCS: 93005; 99285; 96374; 36415; 80307 ×2; 82140; 83690; 83735; 85025; 80053; 81001; 84484; 80164; 73502; 73030; 70450; 93010; J7030; J1953

== ENCOUNTER 2018-10-06 09:46 | Emergency (ER) | payer OTHER ==
[2018-10-06 10:38] LABS: APPEARANCE,URINE CLEAR; BILIRUBIN,URINE NEGATIVE (NEGATIVE); COLOR,URINE YELLOW; GLUCOSE, URINE NEGATIVE (NEGATIVE); KETONES,URINE NEGATIVE (NEGATIVE); LEUKOCYTE ESTERASE,URINE NEGATIVE (NEGATIVE); NITRITE,URINE NEGATIVE (NEGATIVE); PROTEIN,URINE NEGATIVE (NEGATIVE); UROBILINOGEN,URINE NEGATIVE mg/dL (<2.0)
[2018-10-06 10:58] LABS: URINE AMPHETAMINES SCREEN NEGATIVE; URINE BARBITURATES SCREEN NEGATIVE; URINE BENZODIAZEPINES SCREEN NEGATIVE; URINE COCAINE SCREEN NEGATIVE; URINE MARIJUANA (THC) SCREEN UNCONFIRMED POSITIVE; URINE METHADONE SCREEN NEGATIVE; URINE PHENCYCLIDINE SCREEN NEGATIVE
--- NOTE | 2018-10-06 11:01 | EKG REPORT ---
SEVERITY:- ABNORMAL ECG - NSR 71. POOR R WAVE PROGRESSION ANTEROSEPTAL WALL. : Confirmed by: Ricky Ruff MD 06-Oct-2018 11:01:22
[2018-10-06 11:58] LABS: HEMATOCRIT 43.5 % (37.9-51.0); HEMOGLOBIN 15.1 g/dL (13.5-17.0); MEAN CORPUSCULAR HEMOGLOBIN 32.8 pg (27.0-33.4); MEAN CORPUSCULAR HGB CONC 34.8 g/dL (32.0-36.0); MEAN CORPUSCULAR VOLUME 94 fl (80-97); PLATELET COUNT 244 10^3/uL (150-450); RED BLOOD COUNT 4.62 10^6/uL (4.35-5.55); RED CELL DISTRIBUTION WIDTH 14.8 % (11.5-14.0); WHITE BLOOD COUNT 5.1 10^3/uL (4.0-10.5)
[2018-10-06 12:08] LABS: ALANINE AMINOTRANSFERASE 16 U/L (21-72); ALBUMIN 5.1 g/dL (3.5-5.0); ALCOHOL 114 mg/dL (NONE DETECTED); ALKALINE PHOSPHATASE 93 U/L (38-126); ANION GAP 16 (5-19); ASPARTATE AMINO TRANSFERASE 65 U/L (17-59); BILIRUBIN,DIRECT 0.5 mg/dL (0.0-0.4); BILIRUBIN,TOTAL 0.6 mg/dL (0.2-1.3); BLOOD UREA NITROGEN 8 mg/dL (7-20); CALCIUM 9.7 mg/dL (8.4-10.2); CARBON DIOXIDE 23 mmol/L (22-30); CHLORIDE 101 mmol/L (98-107); GLUCOSE 79 mg/dL (75-110); POTASSIUM 4.1 mmol/L (3.6-5.0); SODIUM 139.5 mmol/L (137-145); TOTAL PROTEIN 8.7 g/dL (6.3-8.2)
[2018-10-06 12:11] LABS: ACETAMINOPHEN < 10 ug/mL (10-30); SALICYLATE < 1.0 mg/dL (2.0-20.0)
[2018-10-06 12:31] LABS: ABSOLUTE LYMPHOCYTES# (MANUAL) 2.6 10^3/uL (0.5-4.7); ABSOLUTE MONOCYTES # (MANUAL) 0.4 10^3/uL (0.1-1.4); ABSOLUTE NEUTROPHILS# (MANUAL) 1.8 10^3/uL (1.7-8.2); BASOPHILS % (MANUAL) 1 % (0-2); EOSINOPHILS % (MANUAL) 5 % (0-6); LYMPHOCYTES % (MANUAL) 48 % (13-45); MONOCYTES % (MANUAL) 8 % (3-13); POIKILOCYTOSIS 2+; SEGMENTED NEUTROPHILS % (MAN) 36 % (42-78); TOTAL CELLS COUNTED 100
[2018-10-06 12:33] LABS: BURR CELLS SLIGHT; HYPOCHROMASIA SLIGHT; OVALOCYTES 2+; PLATELET COMMENT ADEQUATE; POLYCHROMASIA 1+; SCHISTOCYTES SLIGHT; TARGET CELLS 2+
[2018-10-06] MEDS ORDERED: LIDOCAINE 1%/EPINEPHRINE INJ 20 ML VIAL INJ ONE ×3 (12:55→20:38)
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
[2018-10-06] MEDS ORDERED: GABAPENTIN 300 MG CAPSULE PO ONE (16:39)
--- NOTE | 2018-10-06 17:03 | EKG REPORT ---
SEVERITY:- OTHERWISE NORMAL ECG - SINUS RHYTHM VENTRICULAR PREMATURE COMPLEX : Confirmed by: Ricky Ruff MD 06-Oct-2018 17:03:32
[2018-10-06] MEDS ORDERED: OXYCODONE-ACETAMINOPHEN 5-325 MG TABLET PO ONE (17:53)
[2018-10-06] MEDS: BUSPIRONE HCL 10 MG TABLET PO SCH (18:03)
[2018-10-06] MEDS: LEVETIRACETAM 500 MG TABLET PO SCH (18:03)
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
[2018-10-06] MEDS: RISPERIDONE 0.25 MG TABLET PO SCH (22:00)
[2018-10-06] MEDS: THIAMINE HCL 100 MG TABLET PO SCH (22:00)
[2018-10-07] MEDS ORDERED: ACETAMINOPHEN 325 MG TABLET PO ONE ×2 (03:51→15:52)
[2018-10-07] MEDS: BUSPIRONE HCL 10 MG TABLET PO SCH ×2 (09:32→17:21)
[2018-10-07] MEDS: LEVETIRACETAM 500 MG TABLET PO SCH ×2 (09:33→17:21)
[2018-10-07] MEDS: THIAMINE HCL 100 MG TABLET PO SCH (09:33)
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
[2018-10-07] MEDS ORDERED: ACETAMINOPHEN 325 MG TABLET ONE (15:49)
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
[2018-10-07] MEDS ORDERED: ZIPRASIDONE MESYLATE INJ/PF 20 MG SDV IM ONE (18:22)
[2018-10-07] MEDS: RISPERIDONE 0.25 MG TABLET PO SCH (23:05)
[2018-10-08] MEDS: LEVETIRACETAM 500 MG TABLET PO SCH ×2 (09:20→17:51)
[2018-10-08] MEDS: THIAMINE HCL 100 MG TABLET PO SCH (09:20)
[2018-10-08] MEDS: BUSPIRONE HCL 10 MG TABLET PO SCH ×2 (09:20→17:51)
--- NOTE | 2018-10-08 10:19 | ER Document Report ---
Doctor's Note Notes: 10/08/18 10:18 Rounds: Chart reviewed and patient interviewed. Patient is still very hostile, confrontational, argumentative, and at times yells very loudly, though not doing it at this moment. He was that way yesterday afternoon he got 20 of Geodon IM and apparently did well through the night. Admission labs had an alcohol of 114, but otherwise normal. Vital signs are all essentially normal. [facility] Patient appears to be medically stable for transfer or discharge. Nathanael Tracey MD
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
[2018-10-08] MEDS ORDERED: CLONIDINE 0.1 MG/24 HR PATCH.TDWK TD ONE (18:20)
[2018-10-08] MEDS ORDERED: FAMOTIDINE 20 MG TABLET PO ONE (22:08)
[2018-10-08] MEDS: RISPERIDONE 0.25 MG TABLET PO SCH (22:27)
[2018-10-08] MEDS ORDERED: ACETAMINOPHEN 325 MG TABLET PO ONE (22:32)
[2018-10-09 08:40] VITALS: BP 150/70
[2018-10-09] MEDS: THIAMINE HCL 100 MG TABLET PO SCH (09:03)
[2018-10-09] MEDS: BUSPIRONE HCL 10 MG TABLET PO SCH (09:03)
[2018-10-09] MEDS: LEVETIRACETAM 500 MG TABLET PO SCH (09:03)
[2018-10-09] MEDS ORDERED: FAMOTIDINE 20 MG TABLET PO ONE (09:38)
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
== END 2018-10-09 09:54 | disposition home or self-care (01) ==
LOC: ER 09:46
DX: S31.113A Laceration without foreign body of abdominal wall, right lower quadrant without penetration into peritoneal cavity, initial encounter (principal); X78.1XXA Intentional self-harm by knife, initial encounter; F32.9 Major depressive disorder, single episode, unspecified; R12 Heartburn; Z79.899 Other long term (current) drug therapy; F10.10 Alcohol abuse, uncomplicated; R45.4 Irritability and anger; M79.604 Pain in right leg; M79.605 Pain in left leg; G89.29 Other chronic pain; I10 Essential (primary) hypertension; Z59.8 Other problems related to housing and economic circumstances; Z93.3 Colostomy status; Z87.820 Personal history of traumatic brain injury; Z88.8 Allergy status to other drugs, medicaments and biological substances; Z88.5 Allergy status to narcotic agent
CPT/HCPCS: 12002; 93005 ×2; 99285; 96372; 36415; 80307 ×4; 85025; 82272; 80053; 81001; 74176; 93010 ×2; J3490 ×3; J3486

== ENCOUNTER 2018-10-24 15:31 | Emergency (ER) | payer OTHER ==
[2018-10-24] MEDS ORDERED: AMMONIA INHALANTS 10 AMPUL/BOX IH ONE (15:52)
[2018-10-24 16:08] VITALS: BP 138/82
[2018-10-24 16:32] LABS: HEMATOCRIT 39.4 % (37.9-51.0); MEAN CORPUSCULAR HEMOGLOBIN 33.3 pg (27.0-33.4); MEAN CORPUSCULAR HGB CONC 35.5 g/dL (32.0-36.0); MEAN CORPUSCULAR VOLUME 94 fl (80-97); PLATELET COUNT 288 10^3/uL (150-450); RED BLOOD COUNT 4.21 10^6/uL (4.35-5.55); RED CELL DISTRIBUTION WIDTH 16.4 % (11.5-14.0); WHITE BLOOD COUNT 6.2 10^3/uL (4.0-10.5)
[2018-10-24 16:51] LABS: ABSOLUTE MONOCYTES # (MANUAL) 0.7 10^3/uL (0.1-1.4); ABSOLUTE NEUTROPHILS# (MANUAL) 2.4 10^3/uL (1.7-8.2); BASOPHILS % (MANUAL) 0 % (0-2); EOSINOPHILS % (MANUAL) 0 % (0-6); LYMPHOCYTES % (MANUAL) 46 % (13-45); MONOCYTES % (MANUAL) 12 % (3-13); SEGMENTED NEUTROPHILS % (MAN) 39 % (42-78); TOTAL CELLS COUNTED 100
[2018-10-24 16:52] LABS: ALANINE AMINOTRANSFERASE 29 U/L (21-72); ALBUMIN 5.2 g/dL (3.5-5.0); ALKALINE PHOSPHATASE 97 U/L (38-126); ANION GAP 18 (5-19); ANISOCYTOSIS 1+; ASPARTATE AMINO TRANSFERASE 97 U/L (17-59); BILIRUBIN,DIRECT 0.4 mg/dL (0.0-0.4); BILIRUBIN,TOTAL 0.6 mg/dL (0.2-1.3); BLOOD UREA NITROGEN 6 mg/dL (7-20); CALCIUM 9.8 mg/dL (8.4-10.2); CARBON DIOXIDE 18 mmol/L (22-30); CHLORIDE 98 mmol/L (98-107); GLUCOSE 90 mg/dL (75-110); LIPASE 286.5 U/L (23-300); POIKILOCYTOSIS SLIGHT; POTASSIUM 3.5 mmol/L (3.6-5.0); SODIUM 134.3 mmol/L (137-145); TOXIC GRANULATION SLIGHT
[2018-10-24 16:53] LABS: PLATELET COMMENT ADEQUATE
--- NOTE | 2018-10-24 17:06 | RADIOLOGY REPORT (SQ) ---
EXAM DESCRIPTION: CT ABD/PELVIS NO ORAL OR IV COMPLETED DATE/TIME: 10/24/2018 4:46 pm REASON FOR STUDY: Hx abdominal trauma with colostomy, pain RLQ COMPARISON: 10/06/2018 and 11/25/2017 TECHNIQUE: CT scan of the abdomen and pelvis performed without intravenous or oral contrast. Images reviewed with lung, soft tissue, and bone windows. Reconstructed coronal and sagittal MPR images revi ewed. All images stored on PACS. All CT scanners at this facility use dose modulation, iterative reconstruction, and/or weight based d osing when appropriate to reduce radiation dose to as low as reasonably achievable (ALARA). [facility]: Dose Right [facility]: CareDose [facility]: Dose Right [facility]: Teradose 4D [facility]: [employer] RADIATION DOSE: CT Rad equipment meets quality standard of care and radiation dose reduction techniq ues were employed. CTDIvol: 4.8 mGy. DLP: 247 mGy-cm.mGy. LIMITATIONS: None. FINDINGS: LOWER CHEST: No significant findings. No nodules or infiltrates. NON-CONTRASTED LIVER, SPLEEN, ADRENALS: Evaluation limited by lack of IV contrast. Small splenules i n the left upper quadrant, similar to the previous exams. No identified significant masses. PANCREAS: No masses. No peripancreatic inflammatory changes. GALLBLADDER: Tiny calcified stones. No inflammatory changes to suggest cholecystitis. RIGHT KIDNEY AND URETER: No cysts identified. No solid masses. No calcified stones. No hydronephrosis or hydroureter. LEFT KIDNEY AND URETER: No cysts identified. No solid masses. No calcified stones. No hydronephrosis or hydroureter. AORTA AND RETROPERITONEUM: No aneurysm. No retroperitoneal masses or adenopathy. BOWEL AND PERITONEAL CAVITY: Lateral wall thickening in the body of the stomach measuring up to 2.1 c m. Left lower quadrant ostomy. No obvious inflammatory changes. No free fluid. APPENDIX: Surgically absent. PELVIS, BLADDER, AND ABDOMINAL WALL:No abnormal masses. No free fluid. Unremarkable bladder. BONES: No acute findings. OTHER: No other significant finding. IMPRESSION: No acute inflammatory changes or free fluid in the abdomen or pelvis. Lateral wall thic kening in the body of the stomach measuring up to 2.1 cm, additional evaluation recommended. TECHNICAL DOCUMENTATION: JOB ID: [id number] [place]-72 Quality ID # [id number]: Final reports with documentation of one or more dose reduction techniques (e.g., Au tomated exposure control, adjustment of the mA and/or kV according to patient size, use of iterative reconstruction technique) 2010 [employer]- All Rights Reserved Reading location - IP/workstation name: [email or web address]
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
== END 2018-10-24 16:50 | disposition left against medical advice (07) ==
LOC: ER 15:31
DX: R45.851 Suicidal ideations (principal); R10.9 Unspecified abdominal pain; Z93.3 Colostomy status; F17.200 Nicotine dependence, unspecified, uncomplicated; I50.9 Heart failure, unspecified; I11.0 Hypertensive heart disease with heart failure
CPT/HCPCS: 36415; 74176; 80053; 82962; 83690; 85025; 99284

== ENCOUNTER 2018-10-29 20:23 | Emergency (ER) | payer OTHER ==
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
[2018-10-30 06:05] VITALS: BP 124/75
== END 2018-10-30 05:30 | disposition home or self-care (01) ==
LOC: ER 20:23
DX: K94.09 Other complications of colostomy (principal); Y83.8 Other surgical procedures as the cause of abnormal reaction of the patient, or of later complication, without mention of misadventure at the time of the procedure; F10.129 Alcohol abuse with intoxication, unspecified; I10 Essential (primary) hypertension; Z88.8 Allergy status to other drugs, medicaments and biological substances; Z88.5 Allergy status to narcotic agent
CPT/HCPCS: 99283

== ENCOUNTER 2018-12-03 19:03 | Emergency (ER) | payer OTHER ==
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
--- NOTE | 2018-12-03 20:01 | RADIOLOGY REPORT (SQ) ---
EXAM DESCRIPTION: HIP RIGHT AP/LATERAL COMPLETED DATE/TIME: 12/03/2018 7:49 pm REASON FOR STUDY: fell backwards on a concrete block COMPARISON: Right hip films 09/15/2018 CT abdomen pelvis 10/24/2018 NUMBER OF VIEWS: Two views. TECHNIQUE: AP pelvis and additional frog-leg view of the right hip. LIMITATIONS: None. FINDINGS: MINERALIZATION: Normal. RIGHT HIP: No fracture or dislocation. No worrisome bone lesions. Right-sided femoral intramedullar y nail with 2 proximal anchoring screws. Old healed proximal femoral diaphysis fracture. LEFT HIP: No fracture or dislocation. No worrisome bone lesions. PUBIS AND ISCHIUM: No fracture. PELVIS: No fracture. SACRUM: No fracture or dislocation. No worrisome bone lesions. LOWER LUMBAR SPINE: No fracture or dislocation. No worrisome bone lesions. No significant disc disea se. SOFT TISSUES: No findings. OTHER: No other significant finding. IMPRESSION: No acute fracture TECHNICAL DOCUMENTATION: JOB ID: [id number] [employer]- All Rights Reserved Reading location - IP/workstation name: [email or web address]
[2018-12-03 20:20] LABS: ABSOLUTE BASOPHILS # (AUTO) 0.1 10^3/uL (0.0-0.2); ABSOLUTE EOSINOPHILS # (AUTO) 0.1 10^3/uL (0.0-0.6); ABSOLUTE LYMPHOCYTES (AUTO) 2.3 10^3/uL (0.5-4.7); ABSOLUTE MONOCYTES (AUTO) 0.7 10^3/uL (0.1-1.4); ABSOLUTE NEUT (AUTO) 2.7 10^3/uL (1.7-8.2); BASOPHILS % (AUTO) 2.5 % (0-2); HEMOGLOBIN 13.6 g/dL (13.5-17.0); INTERNATIONAL RATION (INR) 0.91; LYMPHOCYTES % (AUTO) 39.2 % (13-45); MEAN CORPUSCULAR HEMOGLOBIN 32.9 pg (27.0-33.4); MEAN CORPUSCULAR HGB CONC 34.9 g/dL (32.0-36.0); MEAN CORPUSCULAR VOLUME 94 fl (80-97); MONOCYTES % (AUTO) 12.2 % (3-13); PLATELET COUNT 208 10^3/uL (150-450); PROTHROMBIN TIME 12.7 SEC (11.4-15.4); RED BLOOD COUNT 4.14 10^6/uL (4.35-5.55); RED CELL DISTRIBUTION WIDTH 16.3 % (11.5-14.0); SEGMENTED NEUTROPHILS % (AUTO) 45.1 % (42-78); TOTAL CELLS COUNTED % (AUTO) 100 %
[2018-12-03 20:21] LABS: PARTIAL THROMBOPLASTIN TIME 28.8 SEC (23.5-35.8)
--- NOTE | 2018-12-03 20:22 | RADIOLOGY REPORT (SQ) ---
EXAM DESCRIPTION: CT HEAD WITHOUT IV CONTRAST COMPLETED DATE/TME: 12/03/2018 19:35 CLINICAL HISTORY: 58 years, Male, fell backwards on concrete block, hit head EXAM DESCRIPTION: CLINICAL HISTORY: fell backwards on concrete block, hit head COMPARISON: None Available TECHNIQUE: Contiguous axial CT images of the head were obtained. Coronal and sagittal reconstructions were created from the axial data. This exam was performed according to our departmental dose-optimization program, which includes automated exposure control, adjustment of the mA and/or kV according to patient size and/or use of iterative reconstruction technique. FINDINGS: There is no evidence of acute mass, mass effect, midline shift or hemorrhage. The ventricles and extra-axial CSF spaces are unremarkable. The brain parenchyma appears normal for the patient's age. No acute abnormalities of the bones is seen. IMPRESSION: No acute intracranial abnormality.
[2018-12-03] MEDS ORDERED: ACETAMINOPHEN 325 MG TABLET PO ONE (20:31)
[2018-12-03 20:43] LABS: APPEARANCE,URINE CLEAR; BILIRUBIN,URINE NEGATIVE (NEGATIVE); COLOR,URINE YELLOW; GLUCOSE, URINE NEGATIVE (NEGATIVE); KETONES,URINE NEGATIVE (NEGATIVE); LEUKOCYTE ESTERASE,URINE NEGATIVE (NEGATIVE); NITRITE,URINE NEGATIVE (NEGATIVE); PROTEIN,URINE NEGATIVE (NEGATIVE); URINE SPECIFIC GRAVITY 1.006; UROBILINOGEN,URINE NEGATIVE mg/dL (<2.0)
[2018-12-03 20:59] LABS: URINE AMPHETAMINES SCREEN NEGATIVE; URINE BARBITURATES SCREEN NEGATIVE; URINE BENZODIAZEPINES SCREEN UNCONFIRMED POSITIVE; URINE COCAINE SCREEN NEGATIVE; URINE MARIJUANA (THC) SCREEN UNCONFIRMED POSITIVE; URINE METHADONE SCREEN NEGATIVE; URINE PHENCYCLIDINE SCREEN NEGATIVE
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
[2018-12-04] MEDS ORDERED: ACETAMINOPHEN 325 MG TABLET PO ONE (02:38)
[2018-12-04 03:52] VITALS: BP 126/72
--- NOTE | 2018-12-04 15:32 | EKG REPORT ---
SEVERITY:- NORMAL ECG - SINUS RHYTHM : Confirmed by: Marilyn Kirby MD 04-Dec-2018 15:32:31
== END 2018-12-04 03:52 | disposition home or self-care (01) ==
LOC: ER 19:03
DX: S70.01XA Contusion of right hip, initial encounter (principal); M79.604 Pain in right leg; F12.90 Cannabis use, unspecified, uncomplicated; F10.920 Alcohol use, unspecified with intoxication, uncomplicated; W19.XXXA Unspecified fall, initial encounter; G89.29 Other chronic pain; I50.9 Heart failure, unspecified; I11.0 Hypertensive heart disease with heart failure; Z86.718 Personal history of other venous thrombosis and embolism; Z86.711 Personal history of pulmonary embolism; Z86.19 Personal history of other infectious and parasitic diseases; Z93.3 Colostomy status; Z88.6 Allergy status to analgesic agent
CPT/HCPCS: 36415; 70450; 80307; 81001; 85025; 85610; 85730; 93005; 93010; 99285

== ENCOUNTER 2018-12-05 13:47 | Emergency (ER) | payer OTHER ==
[2018-12-05 14:05] VITALS: BP 141/90
[2018-12-05] MEDS ORDERED: HALOPERIDOL LACTATE INJ 5 MG/1 ML VIAL IM ONE (14:45)
[2018-12-05] MEDS ORDERED: DIPHENHYDRAMINE HCL 50 MG/ML VIAL IM ONE (14:46)
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
== END 2018-12-06 03:07 | disposition home or self-care (01) ==
LOC: ER 13:47
DX: F10.229 Alcohol dependence with intoxication, unspecified (principal); F12.90 Cannabis use, unspecified, uncomplicated; I10 Essential (primary) hypertension; F17.200 Nicotine dependence, unspecified, uncomplicated; Z93.2 Ileostomy status; R45.4 Irritability and anger
CPT/HCPCS: 99283; 96372; J1200; J1630

== ENCOUNTER 2018-12-26 22:11 | Emergency (ER) | payer OTHER ==
[2018-12-26] MEDS ORDERED: ONDANSETRON HCL INJ/PF 4 MG/2 ML SDV ONE (23:30)
[2018-12-26] MEDS ORDERED: ONDANSETRON HCL INJ/PF 4 MG/2 ML SDV IM ONE (23:41)
[2018-12-26 23:57] LABS: ABSOLUTE BASOPHILS # (AUTO) 0.1 10^3/uL (0.0-0.2); ABSOLUTE LYMPHOCYTES (AUTO) 2.1 10^3/uL (0.5-4.7); ABSOLUTE MONOCYTES (AUTO) 0.9 10^3/uL (0.1-1.4); ABSOLUTE NEUT (AUTO) 4.1 10^3/uL (1.7-8.2); BASOPHILS % (AUTO) 1.1 % (0-2); EOSINOPHILS % (AUTO) 0.5 % (0-6); LYMPHOCYTES % (AUTO) 29.5 % (13-45); MEAN CORPUSCULAR HEMOGLOBIN 31.9 pg (27.0-33.4); MEAN CORPUSCULAR HGB CONC 34.2 g/dL (32.0-36.0); MEAN CORPUSCULAR VOLUME 93 fl (80-97); MONOCYTES % (AUTO) 12.3 % (3-13); PLATELET COUNT 570 10^3/uL (150-450); RED BLOOD COUNT 4.07 10^6/uL (4.35-5.55); RED CELL DISTRIBUTION WIDTH 15.2 % (11.5-14.0); SEGMENTED NEUTROPHILS % (AUTO) 56.6 % (42-78); TOTAL CELLS COUNTED % (AUTO) 100 %; WHITE BLOOD COUNT 7.2 10^3/uL (4.0-10.5)
[2018-12-27 00:07] LABS: INTERNATIONAL RATION (INR) 0.91; PROTHROMBIN TIME 12.7 SEC (11.4-15.4)
[2018-12-27 00:14] LABS: ALANINE AMINOTRANSFERASE 48 U/L (21-72); ALBUMIN 4.8 g/dL (3.5-5.0); ALKALINE PHOSPHATASE 106 U/L (38-126); ANION GAP 17 (5-19); ASPARTATE AMINO TRANSFERASE 92 U/L (17-59); BILIRUBIN,DIRECT 0.5 mg/dL (0.0-0.4); BILIRUBIN,TOTAL 0.7 mg/dL (0.2-1.3); BLOOD UREA NITROGEN 17 mg/dL (7-20); CALCIUM 10.1 mg/dL (8.4-10.2); CARBON DIOXIDE 24 mmol/L (22-30); CHLORIDE 88 mmol/L (98-107); GLUCOSE 84 mg/dL (75-110); POTASSIUM 3.6 mmol/L (3.6-5.0); SODIUM 129.4 mmol/L (137-145); TOTAL PROTEIN 8.4 g/dL (6.3-8.2)
--- NOTE | 2018-12-27 01:16 | RADIOLOGY REPORT (SQ) ---
EXAM DESCRIPTION: [facility]: XR ABDOMEN SUPINE AND ERECT WITH CHEST (ABD ACUTE SERIES) Views: 5 CLINICAL HISTORY: 58 years Male, vomiting, abdominal pain, r/o SBO COMPARISON: 12/11/2017 FINDINGS: AP Chest: Lungs are clear without infiltrate, effusion, pneumothorax. Mediastinum is within normal limits for positioning. Multiple old left rib fractures are again noted. Supine and erect AP abdomen: There is scattered bowel gas throughout small bowel and colon, but no distention. No free air-fluid levels. A left lower quadrant ostomy is noted. No pneumatosis. No suspicious calcifications. Intramedullary candice is partially visualized in the right femur. IMPRESSION: 1. Nonspecific bowel gas pattern, with scattered gas but no distention or air-fluid levels. 2. No acute pulmonary findings
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
[2018-12-27] MEDS ORDERED: NORMAL SALINE 1000 ML 1,000 ML IV ONE (05:28)
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
== END 2018-12-27 08:56 | disposition home or self-care (01) ==
LOC: ER 22:11
DX: K94.09 Other complications of colostomy (principal); K63.4 Enteroptosis; E87.1 Hypo-osmolality and hyponatremia; R10.9 Unspecified abdominal pain; Y83.3 Surgical operation with formation of external stoma as the cause of abnormal reaction of the patient, or of later complication, without mention of misadventure at the time of the procedure; I50.9 Heart failure, unspecified; Z86.718 Personal history of other venous thrombosis and embolism; I11.0 Hypertensive heart disease with heart failure; Z86.19 Personal history of other infectious and parasitic diseases
CPT/HCPCS: 99284; 96372; 36415; 83690; 85025; 85610; 85730; 80053; 74022; 74177; J2405

== ENCOUNTER 2018-12-27 23:09 | Emergency (ER) | payer OTHER ==
[2018-12-27 23:28] VITALS: BP 120/72
[2018-12-28 00:13] LABS: ABSOLUTE BASOPHILS # (AUTO) 0.1 10^3/uL (0.0-0.2); ABSOLUTE EOSINOPHILS # (AUTO) 0.1 10^3/uL (0.0-0.6); ABSOLUTE LYMPHOCYTES (AUTO) 1.9 10^3/uL (0.5-4.7); ABSOLUTE MONOCYTES (AUTO) 0.7 10^3/uL (0.1-1.4); ABSOLUTE NEUT (AUTO) 3.7 10^3/uL (1.7-8.2); BASOPHILS % (AUTO) 1.4 % (0-2); EOSINOPHILS % (AUTO) 1.3 % (0-6); HEMOGLOBIN 12.7 g/dL (13.5-17.0); LYMPHOCYTES % (AUTO) 29.9 % (13-45); MEAN CORPUSCULAR HGB CONC 34.5 g/dL (32.0-36.0); MEAN CORPUSCULAR VOLUME 93 fl (80-97); MONOCYTES % (AUTO) 10.6 % (3-13); PLATELET COUNT 469 10^3/uL (150-450); RED BLOOD COUNT 3.99 10^6/uL (4.35-5.55); SEGMENTED NEUTROPHILS % (AUTO) 56.8 % (42-78); TOTAL CELLS COUNTED % (AUTO) 100 %; WHITE BLOOD COUNT 6.4 10^3/uL (4.0-10.5)
[2018-12-28 00:40] LABS: PLATELET LARGE PRESENT; SCHISTOCYTES SLIGHT; TARGET CELLS 1+
[2018-12-28 00:41] LABS: ANISOCYTOSIS SLIGHT; HYPOCHROMASIA SLIGHT
[2018-12-28 00:42] LABS: PLATELET COMMENT INCREASED
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
== END 2018-12-28 01:20 | disposition home or self-care (01) ==
LOC: ER 23:09
DX: F10.20 Alcohol dependence, uncomplicated (principal); K94.19 Other complications of enterostomy; R19.5 Other fecal abnormalities; F17.200 Nicotine dependence, unspecified, uncomplicated; I50.9 Heart failure, unspecified; I11.0 Hypertensive heart disease with heart failure; R10.9 Unspecified abdominal pain
CPT/HCPCS: 36415; 85025; 99284

== ENCOUNTER 2019-08-03 22:45 | Emergency (ER) | payer OTHER ==
[2019-08-03 22:55] VITALS: BP 123/69
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
--- NOTE | 2019-08-04 | RADIOLOGY REPORT (SQ) ---
EXAM DESCRIPTION: [facility]: XR ABDOMEN 1 VIEW (KUB) CLINICAL HISTORY: 59 years Male, abd pain colostomy- intestines coming out COMPARISON: 12/27/2018 FINDINGS: Left lower quadrant ostomy is noted. There is no bowel distention. No pneumatosis. No suspicious calcifications. Internal fixation candice is partially visualized in the proximal right femur. No acute bone findings. IMPRESSION: 1. No acute abdominal findings.
[2019-08-04 00:09] LABS: HEMATOCRIT 35.1 % (37.9-51.0); MEAN CORPUSCULAR HEMOGLOBIN 31.6 pg (27.0-33.4); MEAN CORPUSCULAR HGB CONC 34.1 g/dL (32.0-36.0); MEAN CORPUSCULAR VOLUME 93 fl (80-97); PLATELET COUNT 289 10^3/uL (150-450); RED BLOOD COUNT 3.79 10^6/uL (4.35-5.55); WHITE BLOOD COUNT 4.3 10^3/uL (4.0-10.5)
[2019-08-04 00:41] LABS: ABSOLUTE LYMPHOCYTES# (MANUAL) 2.4 10^3/uL (0.5-4.7); ABSOLUTE MONOCYTES # (MANUAL) 0.4 10^3/uL (0.1-1.4); BASOPHILS % (MANUAL) 2 % (0-2); EOSINOPHILS % (MANUAL) 0 % (0-6); LYMPHOCYTES % (MANUAL) 56 % (13-45); MONOCYTES % (MANUAL) 9 % (3-13); SEGMENTED NEUTROPHILS % (MAN) 33 % (42-78); TOTAL CELLS COUNTED 100
[2019-08-04 00:42] LABS: PLATELET COMMENT ADEQUATE
[2019-08-04 00:44] LABS: ANISOCYTOSIS 1+
[2019-08-04 00:45] LABS: ALBUMIN 4.3 g/dL (3.5-5.0); ALKALINE PHOSPHATASE 93 U/L (38-126); ANION GAP 17 (5-19); ASPARTATE AMINO TRANSFERASE 115 U/L (17-59); BILIRUBIN,DIRECT 0.3 mg/dL (0.0-0.4); BILIRUBIN,TOTAL 0.3 mg/dL (0.2-1.3); BLOOD UREA NITROGEN 9 mg/dL (7-20); CALCIUM 10.1 mg/dL (8.4-10.2); CARBON DIOXIDE 19 mmol/L (22-30); CHLORIDE 101 mmol/L (98-107); GLUCOSE 93 mg/dL (75-110); POTASSIUM 3.5 mmol/L (3.6-5.0); TEAR DROP CELLS 1+; TOTAL PROTEIN 7.7 g/dL (6.3-8.2)
[2019-08-04 00:47] LABS: SCHISTOCYTES SLIGHT
== END 2019-08-04 02:57 | disposition left against medical advice (07) ==
LOC: ER 22:45
DX: G89.18 Other acute postprocedural pain (principal); R63.4 Abnormal weight loss; I10 Essential (primary) hypertension; Z93.3 Colostomy status; Z88.8 Allergy status to other drugs, medicaments and biological substances; Z88.6 Allergy status to analgesic agent; Z53.20 Procedure and treatment not carried out because of patient's decision for unspecified reasons
CPT/HCPCS: 36415; 74018; 80053; 85025; 99281

== ENCOUNTER 2019-11-27 09:00 | Emergency (ER) | payer OTHER ==
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
--- NOTE | 2019-11-27 10:25 | RADIOLOGY REPORT (SQ) ---
EXAM DESCRIPTION: CHEST SINGLE VIEW IMAGES COMPLETED DATE/TIME: 11/27/2019 9:58 am REASON FOR STUDY: shortness of breath COMPARISON: 10/25/2017 EXAM PARAMETERS: NUMBER OF VIEWS: One view. TECHNIQUE: Single frontal radiographic view of the chest acquired. RADIATION DOSE: NA LIMITATIONS: None. FINDINGS: LUNGS AND PLEURA: No opacities, masses or pneumothorax. No pleural effusion. MEDIASTINUM AND HILAR STRUCTURES: No masses. Contour normal. HEART AND VASCULAR STRUCTURES: Heart normal in size. Normal vasculature. BONES: Multiple all left rib fractures. HARDWARE: None in the chest. OTHER: No other significant finding. IMPRESSION: NO ACUTE RADIOGRAPHIC FINDING IN THE CHEST. TECHNICAL DOCUMENTATION: JOB ID: [id number] [employer]- All Rights Reserved Reading location - IP/workstation name: [email or web address]
[2019-11-27 10:54] LABS: HEMATOCRIT 41.5 % (37.9-51.0); HEMOGLOBIN 14.1 g/dL (13.5-17.0); MEAN CORPUSCULAR HEMOGLOBIN 29.5 pg (27.0-33.4); MEAN CORPUSCULAR VOLUME 87 fl (80-97); PLATELET COUNT 172 10^3/uL (150-450); RED BLOOD COUNT 4.78 10^6/uL (4.35-5.55); RED CELL DISTRIBUTION WIDTH 21.2 % (11.5-14.0); WHITE BLOOD COUNT 4.3 10^3/uL (4.0-10.5)
[2019-11-27 11:15] LABS: ABSOLUTE LYMPHOCYTES# (MANUAL) 1.8 10^3/uL (0.5-4.7); ABSOLUTE MONOCYTES # (MANUAL) 0.5 10^3/uL (0.1-1.4); ALBUMIN 5.4 g/dL (3.5-5.0); ALKALINE PHOSPHATASE 122 U/L (38-126); ANION GAP 11 (5-19); ASPARTATE AMINO TRANSFERASE 92 U/L (17-59); BASOPHILS % (MANUAL) 2 % (0-2); BILIRUBIN,DIRECT 0.2 mg/dL (0.0-0.4); BILIRUBIN,TOTAL 0.9 mg/dL (0.2-1.3); BLOOD UREA NITROGEN 11 mg/dL (7-20); CALCIUM 10.8 mg/dL (8.4-10.2); CARBON DIOXIDE 24 mmol/L (22-30); CHLORIDE 101 mmol/L (98-107); EOSINOPHILS % (MANUAL) 0 % (0-6); GLUCOSE 99 mg/dL (75-110); LYMPHOCYTES % (MANUAL) 42 % (13-45); MONOCYTES % (MANUAL) 12 % (3-13); POTASSIUM 4.2 mmol/L (3.6-5.0); SEGMENTED NEUTROPHILS % (MAN) 43 % (42-78); TOTAL CELLS COUNTED 100; TOTAL PROTEIN 9.5 g/dL (6.3-8.2)
[2019-11-27 11:17] LABS: ANISOCYTOSIS 3+; BURR CELLS 1+; HOWELL-JOLLY BODIES PRESENT; POIKILOCYTOSIS 1+; POLYCHROMASIA SLIGHT; SCHISTOCYTES SLIGHT; TARGET CELLS 2+
[2019-11-27 11:18] LABS: PLATELET COMMENT ADEQUATE
[2019-11-27 12:01] VITALS: BP 145/78
[2019-11-27 12:58] LABS: A TYPE INFLUENZA AG NEGATIVE (NEGATIVE); B INFLUENZA AG NEGATIVE (NEGATIVE)
[2019-11-27] MEDS ORDERED: METHYLPREDNISOLONE INJ 125 MG/2 ML SDV IV ONE (13:21)
== END 2019-11-27 13:28 | disposition home or self-care (01) ==
LOC: ER 09:00
DX: Z20.828 Contact with and (suspected) exposure to other viral communicable diseases (principal); J44.1 Chronic obstructive pulmonary disease with (acute) exacerbation; F17.210 Nicotine dependence, cigarettes, uncomplicated; I50.9 Heart failure, unspecified; I11.0 Hypertensive heart disease with heart failure; Z88.6 Allergy status to analgesic agent; Z86.718 Personal history of other venous thrombosis and embolism; Z86.19 Personal history of other infectious and parasitic diseases
CPT/HCPCS: 36415; 71045; 80053; 83880; 85025; 87635; 87804; 99284